=== PATIENT | male | born 1970 | race Caucasian/White ===

== ENCOUNTER 2018-05-03 00:59 | Emergency (ER) | payer BC ==
[2018-05-03 01:09] VITALS: BP 149/80; PULSE 69; RESP 16; TEMP 98.2
[2018-05-03] MEDS ORDERED: DIAZEPAM 5 MG/ML 2 ML INJ IVP STA (01:55)
[2018-05-03] MEDS ORDERED: SODIUM CHLORIDE 0.9% 1,000 ML IV ONE (01:55)
--- NOTE | 2018-05-03 02:27 | ED ---
Lower Extremity Injury HPI - General Chief Complaint: Extremity Injury, Lower Stated Complaint: leg injury Time Seen by Provider: 05/03/18 01:24 Source: patient Mode of arrival: ambulatory Limitations: no limitations - History of Present Illness Initial Comments: Marcia is a previously healthy 47-year-old gentleman with a history of Crohn's disease who presents the emergency department today for evaluation of right lower extremity pain. Patient reports he was in his usual state of health throughout the day today. He spent most of the day working on his snowmobile in his garage. He denies being in a kneeling her awkward position for any extended period of time. Patient reports that this evening he was getting out of his vehicle when else a pop in his right calf and immediate pain throughout the calf. He thought it was initially a muscle spasm but the pain persisted which prompted his significant other to bring him to the ER for evaluation. Patient denies any previous history to this extremity. He denies any history of DVT or PE. He denies any slips or falls or injuries. He did not twist the ankle or the knee. He reports the pain is in the mid calf. - Related Data Home Medications Medication Instructions Recorded Confirmed No Known Home Medications 09/06/13 09/06/13 Allergies Allergy/AdvReac Type Severity Reaction Status Date / Time No Known Allergies Allergy Verified 05/03/18 01:09 Review of Systems ROS Statement: Those systems with pertinent positive or pertinent negative responses have been documented in the HPI. ROS Other: All systems not noted in ROS Statement are negative. Past Medical History Additional Past Medical History / Comment(s): crohns dx History of Any Multi-Drug Resistant Organisms: None Reported Past Surgical History: Cholecystectomy Additional Past Surgical History / Comment(s): resection of colon x2 Past Anesthesia/Blood Transfusion Reactions: No Reported Reaction Past Psychological History: No Psychological Hx Reported Smoking Status: Current every day smoker General Exam - General Exam Comments Initial Comments: GENERAL: Patient is well-developed and well-nourished. Patient is nontoxic and well-hydrated and is in no distress. HENT: Normocephalic, Atraumatic. EYES: The sclera were anicteric and conjunctiva were pink and moist. Extraocular movements were intact and pupils were equal round and reactive to light. Eyelids were unremarkable. PULMONARY: Unlabored respirations. CARDIOVASCULAR: There is a regular rate and rhythm without any murmurs gallops or rubs. strong DP and PT pulses of the right lower extremity no lower extremity edema ABDOMEN: Soft and nontender with normal bowel sounds. SKIN: Skin is clear with no lesions or rashes and otherwise unremarkable. NEUROLOGIC: Patient is alert and oriented x3. MUSCULOSKELETAL: Normal extremities with adequate strength and full range of motion. No lower extremity swelling or edema. No calf tenderness. Negative Chaudhry's test Negative Homans sign LYMPHATICS: No significant lymphadenopathy is noted PSYCHIATRIC: Normal psychiatric evaluation. Limitations: no limitations Limitations: no limitations Course Vital Signs 05/03/18 01:06 Temperature 98.2 F Pulse Rate 69 Respiratory 16 Rate Blood Pressure 149/80 O2 Sat by Pulse 99 Oximetry Medical Decision Making - Medical Decision Making Patient was seen and evaluated history was obtained from the patient and significant other bedside Patient with atraumatic pain that began is a tightness in the right calf, patient believes he may have heard a popping sound when stepping out of his vehicle but is uncertain Patient noted previous injury to this extremity As ago exam is completely unremarkable patient has no swelling no bruising he is neurovascularly intact he has good strength negative Chaudhry test no sign of Achilles tendon injury, no signs of compartment syndrome Patient has tenderness in the belly of the muscles There is some fullness in the popliteal fossa, I do have some concern for possible Owens's cyst Bedside ultrasound reveals normal vasculature with no obvious DVT No obvious Owens's cyst Labs with anemia and high platelets this is consistent with patient's history of Crohn's CPK mildly elevated d-dimer not elevated she was reevaluated he sleeping comfortably. Results were discussed with the patient's significant other at bedside. At this time patient is comfortable with the plan for discharge home. Close return parameters were discussed.all questions pertaining to care were answered to the best my ability patient was discharged home in stable condition. - Lab Data Result diagrams: 05/03/18 02:30 05/03/18 02:30 Lab Results 05/03/18 05/03/18 05/03/18 Range/Units 02:30 02:30 02:30 WBC 7.5 (3.8-10.6) k/uL RBC 4.34 (4.30-5.90) m/uL Hgb 12.4 L (13.0-17.5) gm/dL Hct 38.1 L (39.0-53.0) % MCV 87.7 (80.0-100.0) fL MCH 28.7 (25.0-35.0) pg MCHC 32.7 (31.0-37.0) g/dL RDW 14.2 (11.5-15.5) % Plt Count 489 H (150-450) k/uL Neutrophils % 54 % Lymphocytes % 33 % Monocytes % 6 % Eosinophils % 5 % Basophils % 1 % Neutrophils # 4.0 (1.3-7.7) k/uL Lymphocytes # 2.4 (1.0-4.8) k/uL Monocytes # 0.4 (0-1.0) k/uL Eosinophils # 0.4 (0-0.7) k/uL Basophils # 0.0 (0-0.2) k/uL D-Dimer 0.41 (<0.60) mg/L FEU Sodium 139 (137-145) mmol/L Potassium 3.8 (3.5-5.1) mmol/L Chloride 106 (98-107) mmol/L Carbon Dioxide 26 (22-30) mmol/L Anion Gap 7 mmol/L BUN 18 (9-20) mg/dL Creatinine 0.95 (0.66-1.25) mg/dL Est GFR (CKD-EPI)AfAm >90 (>60 ml/min/1.73 sqM) Est GFR (CKD-EPI)NonAf >90 (>60 ml/min/1.73 sqM) Glucose 112 H (74-99) mg/dL Calcium 9.0 (8.4-10.2) mg/dL Magnesium 2.1 (1.6-2.3) mg/dL Creatine Kinase 465 H (55-170) U/L Disposition Clinical Impression: Muscle spasm of right calf Disposition: HOME SELF-CARE Instructions (If sedation given, give patient instructions): Bakers Cyst (ED), Muscle Spasm (ED) Is patient prescribed a controlled substance at d/c from ED?: No Referrals: Bereket Rothman MD [Primary Care Provider] - 1-2 days Pj Echeverria DO [Doctor of Osteopathic Medicine] - 1-2 days
[2018-05-03 02:48] LABS: Basophils % (A) 1 %; Eosinophils # (A) 0.4 k/uL (0-0.7); Eosinophils % (A) 5 %; HCT 38.1 % (39.0-53.0); HGB 12.4 gm/dL (13.0-17.5); Lymphocytes # (A) 2.4 k/uL (1.0-4.8); Lymphocytes % (A) 33 %; MCH 28.7 pg (25.0-35.0); MCHC 32.7 g/dL (31.0-37.0); MCV 87.7 fL (80.0-100.0); Mean Platelet Volume 5.5; Monocytes # (A) 0.4 k/uL (0-1.0); Monocytes % (A) 6 %; Neutrophils % (A) 54 %; Platelet Count 489 k/uL (150-450); RBC 4.34 m/uL (4.30-5.90); RDW 14.2 % (11.5-15.5); WBC 7.5 k/uL (3.8-10.6)
[2018-05-03 02:57] LABS: Anion Gap 7 mmol/L; Blood Urea Nitrogen 18 mg/dL (9-20); Carbon Dioxide 26 mmol/L (22-30); Chloride 106 mmol/L (98-107); Creatine Kinase 465 U/L (55-170); Glucose 112 mg/dL (74-99); Magnesium 2.1 mg/dL (1.6-2.3); Potassium 3.8 mmol/L (3.5-5.1); Sodium 139 mmol/L (137-145)
== END 2018-05-03 04:19 | disposition home or self-care (01) ==
LOC: EC 00:59
DX: M62.838 Other muscle spasm (principal); R93.89 Abnormal findings on diagnostic imaging of other specified body structures; R74.8 Abnormal levels of other serum enzymes; D64.9 Anemia, unspecified; D47.3 Essential (hemorrhagic) thrombocythemia; F17.200 Nicotine dependence, unspecified, uncomplicated; Z87.828 Personal history of other (healed) physical injury and trauma; X50.9XXA Other and unspecified overexertion or strenuous movements or postures, initial encounter; Y93.89 Activity, other specified
CPT/HCPCS: 36415; 85379; 80048; 82550; 83735; 85025; 99284; 96374; 96361 ×2; J3360

== ENCOUNTER → 2018-05-06 | Outpatient (CLI) | payer BC ==
--- NOTE | 2018-05-06 17:40 | US ---
EXAMINATION TYPE: US venous doppler duplex LE LT DATE OF EXAM: 05/06/2018 5:25 PM COMPARISON: NONE CLINICAL HISTORY: M79.605 Calf Pain. no known injury, calf pain for a few days, heard pop sound in ca lf, no h/o dvt SIDE PERFORMED: left TECHNIQUE: The lower extremity deep venous system is examined utilizing real time linear array sonog percy with graded compression, doppler sonography and color-flow sonography. VESSELS IMAGED: External Iliac Vein (EIV) Common Femoral Vein Deep Femoral Vein Greater Saphenous Vein * Femoral Vein Popliteal Vein Small Saphenous Vein * Proximal Calf Veins (* superficial vessels) Left Leg: Appears negative for DVT *spoke with office @ 5:25 IMPRESSION: No evidence of deep venous thrombosis in the left leg.
== END | disposition home or self-care (01) ==
LOC: RADUSWWP 16:57
PROVIDERS: ATTEND Physician Assistant
DX: M79.605 Pain in left leg (principal)

== ENCOUNTER 2018-09-20 19:37 | Inpatient (IN) | payer BC ==
[2018-09-20] MEDS ORDERED: SODIUM CHLORIDE 0.9% 1,000 ML IV STA (20:14)
[2018-09-20] MEDS ORDERED: ONDANSETRON 4 MG/2 ML VIAL IVP STA (20:14)
[2018-09-20] MEDS: HYDROmorphone 1 MG/ML 1 ML SYRINGE IVP STA ×2 (20:21→22:15)
[2018-09-20 20:41] LABS: ALT 19 U/L (21-72); AST 24 U/L (17-59); African American GFR (CKD) >90 (>60 ml/min/1.73 sqM); Albumin 4.7 g/dL (3.5-5.0); Alkaline Phosphatase 101 U/L (38-126); Amylase 49 U/L (30-110); Anion Gap 14 mmol/L; Blood Urea Nitrogen 20 mg/dL (9-20); Calcium 10.3 mg/dL (8.4-10.2); Carbon Dioxide 22 mmol/L (22-30); Chloride 105 mmol/L (98-107); Glucose 99 mg/dL (74-99); Lipase 41 U/L (23-300); Potassium 4.4 mmol/L (3.5-5.1); Sodium 141 mmol/L (137-145); Total Bilirubin 0.4 mg/dL (0.2-1.3)
[2018-09-20 21:06] LABS: Basophils # (A) 0.1 k/uL (0-0.2); Basophils % (A) 0 %; Eosinophils # (A) 0.2 k/uL (0-0.7); Eosinophils % (A) 1 %; HCT 46.1 % (39.0-53.0); HGB 15.2 gm/dL (13.0-17.5); Lymphocytes # (A) 1.7 k/uL (1.0-4.8); Lymphocytes % (A) 10 %; MCH 28.6 pg (25.0-35.0); MCV 86.8 fL (80.0-100.0); Mean Platelet Volume 7.3; Monocytes # (A) 0.9 k/uL (0-1.0); Monocytes % (A) 5 %; Neutrophils # (A) 14.9 k/uL (1.3-7.7); Neutrophils % (A) 83 %; Platelet Count 595 k/uL (150-450); RBC 5.31 m/uL (4.30-5.90); RDW 15.4 % (11.5-15.5); WBC 18.1 k/uL (3.8-10.6)
--- NOTE | 2018-09-20 21:15 | CT ---
EXAMINATION TYPE: CT abdomen pelvis w con DATE OF EXAM: 09/20/2018 COMPARISON: 02/16/2013 HISTORY: Abdominal pain and vomiting. Hx of Crohns diease CT DLP: 1130.2 mGycm Automated exposure control for dose reduction was used. TECHNIQUE: Helical acquisition of images was performed from the lung bases through the pelvis. CONTRAST: Performed without Oral Contrast and with IV Contrast, patient injected with 100 mL of Isovue 300. FINDINGS: There is some patchy interstitial infiltrate at the right lung base. There is no pleural effusion. Th ere is no pericardial effusion. Heart size is normal. Stomach is large and filled with fluid. Spleen appears normal. There are clips from cholecystectomy. Liver shows no focal defect. There is no evidence of pancreatic mass. There is no adrenal mass. Kidneys show satisfactory contrast opacification. There is no hydronephrosi s. Ureters are not dilated. There is no retroperitoneal adenopathy. Bladder distends smoothly. There are numerous dilated fluid-filled loops of small bowel throughout the abdomen. There is ileocol ic anastomosis in the right mid abdomen. There is mild wall thickening of the terminal ileum. There i s transition point at the terminal ileum. The large bowel is not dilated. There is no inguinal hernia. There is no ascites. There is no free air. Lumbar spine is intact. Bony pelvis is intact. IMPRESSION: MULTIPLE DILATED LOOPS OF FLUID-FILLED SMALL BOWEL DOWN TO THE TERMINAL ILEUM CONSISTENT WITH PARTIAL MECHANICAL SMALL BOWEL OBSTRUCTION THAT IS A CHANGE COMPARED TO OLD EXAM. PREVIOUS SURGERY AT THE DI STAL ILEUM WITH RESECTION OF THE TERMINAL ILEUM AND THE CECUM. THERE IS SOME WALL THICKENING OF THE T ERMINAL ILEUM WITH SUGGESTIVE OF INFLAMMATORY BOWEL DISEASE. INTERSTITIAL INFILTRATES AT THE RIGHT LUNG BASE UNCHANGED AND CONSISTENT WITH FIBROSIS.
--- NOTE | 2018-09-20 22:32 | ED ---
Abdominal Pain HPI - General Source: patient Mode of arrival: ambulatory Limitations: no limitations <Aissatou Canales - Last Filed: 09/20/18 22:32> <Bronwyn Marino - Last Filed: 09/21/18 05:39> - General Chief Complaint: Abdominal Pain Stated Complaint: Crohns Disease Time Seen by Provider: 09/20/18 20:03 - History of Present Illness Initial Comments: 48-year-old male patient presents to the emergency department today for evaluation of generalized abdominal pain and vomiting. Patient states that he has had some discomfort in the abdomen over the last few days but the pain worsened significantly today. Patient states that he started vomiting earlier today and hasn't been able to stop. He is unable to keep down any food or fluids. He denies any fever or chills. Patient does have a history of Crohn's colitis and feels like he may be having a flare. He reports then ribbonlike stools. He denies any hematuria, hematochezia, melena. Denies any difficulty with urination. Patient has had bowel resection in the past. Patient denies any recent rash, shortness breath, chest pain, back pain, numbness, tingling, dizziness, weakness, hematuria, dysuria, urinary urgency, urinary frequency, headache, visual changes, or any other complaints. (Aissatou Canales) - Related Data Home Medications Medication Instructions Recorded Confirmed Dextroamphetamine/Amphetamine 30 mg PO BID 09/20/18 09/20/18 [Adderall Xr] Allergies Allergy/AdvReac Type Severity Reaction Status Date / Time No Known Allergies Allergy Verified 09/20/18 22:46 Review of Systems ROS Other: All systems not noted in ROS Statement are negative. <Aissatou Canales - Last Filed: 09/20/18 22:32> ROS Other: All systems not noted in ROS Statement are negative. <Bronwyn Marino - Last Filed: 09/21/18 05:39> ROS Statement: Those systems with pertinent positive or pertinent negative responses have been documented in the HPI. Past Medical History Additional Past Medical History / Comment(s): crohns dx History of Any Multi-Drug Resistant Organisms: None Reported Past Surgical History: Cholecystectomy Additional Past Surgical History / Comment(s): resection of colon x2 Past Anesthesia/Blood Transfusion Reactions: No Reported Reaction Past Psychological History: No Psychological Hx Reported Smoking Status: Current every day smoker Past Alcohol Use History: None Reported Past Drug Use History: None Reported <AllyYangAissatou Edelmira - Last Filed: 09/20/18 22:32> General Exam Limitations: no limitations General appearance: alert, in distress (Due to pain), other (Physical well- developed, well-nourished adult male patient in no mild distress related to pain. Vital signs upon presentation are temperature 97.4F, pulse 88, respirations 18, blood pressure 121/81, pulse ox 99% on room air.) Eye exam: Present: normal appearance, PERRL, EOMI. Absent: scleral icterus, conjunctival injection, periorbital swelling ENT exam: Present: normal exam, normal oropharynx, mucous membranes moist Respiratory exam: Present: normal lung sounds bilaterally. Absent: respiratory distress, wheezes, rales, rhonchi, stridor Cardiovascular Exam: Present: regular rate, normal rhythm, normal heart sounds. Absent: systolic murmur, diastolic murmur, rubs, gallop, clicks GI/Abdominal exam: Present: soft, tenderness (Generalized), normal bowel sounds. Absent: distended, guarding, rebound, rigid Neurological exam: Present: alert, oriented X3, CN II-XII intact Psychiatric exam: Present: normal affect, normal mood Skin exam: Present: warm, dry, intact, normal color. Absent: rash <AllyAissatou Edelmira - Last Filed: 09/20/18 22:32> Course Vital Signs 09/20/18 09/20/18 09/21/18 19:47 22:35 00:00 Temperature 97.4 F L Pulse Rate 88 80 86 Respiratory 18 16 16 Rate Blood Pressure 121/81 113/74 111/74 O2 Sat by Pulse 99 93 L 94 L Oximetry 09/21/18 09/21/18 09/21/18 01:43 02:42 05:30 Temperature 98 F Pulse Rate 93 94 91 Respiratory 16 18 18 Rate Blood Pressure 114/75 107/76 117/78 O2 Sat by Pulse 93 L 94 L 93 L Oximetry Medical Decision Making - Lab Data Result diagrams: 09/20/18 19:55 09/20/18 19:55 - Radiology Data Radiology results: report reviewed, image reviewed <Aissatou Canales Edelmira - Last Filed: 09/20/18 22:32> - Lab Data Result diagrams: 09/20/18 19:55 09/20/18 19:55 <Bronwyn Marino - Last Filed: 09/21/18 05:39> - Medical Decision Making 48-year-old male patient presents to the emergency department today for evaluation of abdominal pain and vomiting. Physical examination did reveal generalized abdominal tenderness. Labs reviewed and did reveal white blood cell count of 18.1. CT abdomen and pelvis was obtained and showed evidence for partial small bowel obstruction. Did have a fluid distended stomach. We will insert NG tube. IV fluids and pain medication will be provided. He'll be admit priya to the hospital with GI and surgical consult. Patient family are updated regarding results and plan, they are agreeable. (Aissatou Canales) I personally saw and evaluated the patient. Patient with a small bowel, NG tube in place, presently 600 mL of output. Patient with persistent nausea, but feeling better with the NG tube in place. (Bronwyn Marino) - Lab Data Lab Results 09/20/18 09/20/18 09/20/18 Range/Units 19:55 19:55 19:55 WBC 18.1 H (3.8-10.6) k/uL RBC 5.31 (4.30-5.90) m/uL Hgb 15.2 (13.0-17.5) gm/dL Hct 46.1 (39.0-53.0) % MCV 86.8 (80.0-100.0) fL MCH 28.6 (25.0-35.0) pg MCHC 33.0 (31.0-37.0) g/dL RDW 15.4 (11.5-15.5) % Plt Count 595 H (150-450) k/uL Neutrophils % 83 % Lymphocytes % 10 % Monocytes % 5 % Eosinophils % 1 % Basophils % 0 % Neutrophils # 14.9 H (1.3-7.7) k/uL Lymphocytes # 1.7 (1.0-4.8) k/uL Monocytes # 0.9 (0-1.0) k/uL Eosinophils # 0.2 (0-0.7) k/uL Basophils # 0.1 (0-0.2) k/uL Sodium 141 (137-145) mmol/L Potassium 4.4 (3.5-5.1) mmol/L Chloride 105 (98-107) mmol/L Carbon Dioxide 22 (22-30) mmol/L Anion Gap 14 mmol/L BUN 20 (9-20) mg/dL Creatinine 0.90 (0.66-1.25) mg/dL Est GFR (CKD-EPI)AfAm >90 (>60 ml/min/1.73 sqM) Est GFR (CKD-EPI)NonAf >90 (>60 ml/min/1.73 sqM) Glucose 99 (74-99) mg/dL Plasma Lactic Acid Donnell 1.8 (0.7-2.0) mmol/L Calcium 10.3 H (8.4-10.2) mg/dL Total Bilirubin 0.4 (0.2-1.3) mg/dL AST 24 (17-59) U/L ALT 19 L (21-72) U/L Alkaline Phosphatase 101 (38-126) U/L Total Protein 8.0 (6.3-8.2) g/dL Albumin 4.7 (3.5-5.0) g/dL Amylase 49 (30-110) U/L Lipase 41 (23-300) U/L - Radiology Data CT abdomen and pelvis with contrast was obtained. Report was reviewed in its entirety. Impression by Dr. Carty shows multiple dilated loops of fluid- filled small bowel down to the terminal ileum consistent with partial mechanical small bowel obstruction that is a change compared to old exam. Previous surgery of the distal ileum with resection of the terminal ileum in the cecum. There is some wall thickening of the terminal ileum with suggestion of inflammatory bowel disease. Interstitial infiltrates at the right lung base unchanged are consistent with fibrosis. (Aissatou Canales) Disposition Decision to Admit Reason: Admit from EC Decision Date: 09/20/18 Decision Time: 22:37 <Aissatou Canales - Last Filed: 09/20/18 22:32> Is patient prescribed a controlled substance at d/c from ED?: No <Bronwyn Marino - Last Filed: 09/21/18 05:39> Clinical Impression: Partial small bowel obstruction, Abdominal pain Disposition: ADMITTED IP TO THIS HOSP Condition: Serious
[2018-09-20] MEDS ORDERED: NALOXONE 0.4 MG/ML 1 ML VIAL IV PRN (22:37)
[2018-09-20] MEDS: SODIUM CHLORIDE 0.9% 1,000 ML IV SCH (23:01)
[2018-09-21] MEDS: HYDROmorphone 1 MG/ML 1 ML SYRINGE IVP PRN ×6 (02:46→23:34)
[2018-09-21] MEDS: ONDANSETRON 4 MG/2 ML VIAL IVP PRN ×2 (02:56→12:28)
[2018-09-21] MEDS: PROMETHAZINE INJ 25 MG in SODIUM CHLORIDE 0.9% 50 ML IVPB PRN ×4 (08:33→16:21)
[2018-09-21 10:05] LABS: Appearance,Urine Clear (Clear); Bilirubin,Urine 1+ (Negative); Blood,Urine Negative (Negative); Color,Urine Yellow; Glucose,Urine (UA) Negative (Negative); Ketones,Urine Negative (Negative); Leukocyte Esterase,Urine Negative (Negative); Mucus,Urine Occasional /hpf; Nitrite,Urine Negative (Negative); PH, Urine 5.5 (5.0-8.0); Protein,Urine 1+ (Negative); RBC,Urine 8 /hpf (0-5); Urobilinogen,Urine <2.0 mg/dL (<2.0); WBC,Urine 1 /hpf (0-5)
[2018-09-21 10:11] LABS: Specific Gravity,Urine >1.050 (1.001-1.035)
[2018-09-21 10:18] LABS: ALT 22 U/L (21-72); AST 17 U/L (17-59); African American GFR (CKD) >90 (>60 ml/min/1.73 sqM); Albumin 3.3 g/dL (3.5-5.0); Alkaline Phosphatase 74 U/L (38-126); Anion Gap 9 mmol/L; Blood Urea Nitrogen 27 mg/dL (9-20); Calcium 8.3 mg/dL (8.4-10.2); Carbon Dioxide 25 mmol/L (22-30); Chloride 107 mmol/L (98-107); Glucose 98 mg/dL (74-99); Potassium 4.5 mmol/L (3.5-5.1); Sodium 141 mmol/L (137-145); Total Bilirubin 0.5 mg/dL (0.2-1.3); Total Protein 6.1 g/dL (6.3-8.2)
[2018-09-21 10:32] LABS: HCT 41.9 % (39.0-53.0); HGB 13.4 gm/dL (13.0-17.5); MCH 28.9 pg (25.0-35.0); MCV 90.2 fL (80.0-100.0); Mean Platelet Volume 6.2; Platelet Count 454 k/uL (150-450); RBC 4.65 m/uL (4.30-5.90); RDW 14.7 % (11.5-15.5); WBC 7.3 k/uL (3.8-10.6)
[2018-09-21 12:01] LABS: Band Neutrophils % 28 %; Eosinophils # (M) 0.15 k/uL (0-0.7); Metamyelocytes # (M) 0.07 k/uL (0); Metamyelocytes % 1 %; Neutrophils % (M) 48 %; Nucleated Red Blood Cells 0 /100 WBC (0-0); Total Cells Counted 200
[2018-09-21] MEDS: SODIUM CHLORIDE 0.9% 1,000 ML IV SCH (12:23)
[2018-09-21] MEDS: ENOXAPARIN 40 MG/0.4 ML SYRINGE SQ SCH (12:28)
--- NOTE | 2018-09-21 12:29 | P.CONS ---
History of Present Illness - Reason for Consult Consult date: 09/21/18 History of Crohn's small bowel obstruction Requesting physician: Benjamin Long - Chief Complaint Abdominal pain - History of Present Illness 48-year-old male with a history of cholecystectomy, Crohn's ileitis 1995 with previous bowel resection 2 last 04/05/2012 secondary to small bowel abscess admitted with acute abdominal pain nausea vomiting without fever chills or b leeding [address] reported multiple dilated loops of small bowel down to the terminal ileum consistent with partial mechanical small bowel obstruction. Passing ribbonlike bowel movements. NG tube inserted with bilious return. Patient has not required maintenance therapy for his Crohn's since 2012. 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 No recent Crohn's exacerbations. No recent prednisone therapy. Last colonoscopy to his memory was in 1995. White count 18.1. Hemoglobin 15.2. Platelets 595. Sodium 141. Potassium 4.4. BUN 20. Creatinine 0.9. Review of Systems Constitutional: Denies fever, chills, sweats, weight gain, or loss. HEENT: Negative for migraines, blurred vision or loss, earaches, drainage, tinnitus, oral mucosal lesions, dysphagia, or odynophagia. Cardiac: Negative for chest pain, arrhythmias, or palpitation. Respiratory: Negative for shortness of breath, hemoptysis, cough, or sputum production. Gastrointestinal: See HPI for pertinent findings. Genitourinary: Negative for hematuria, urgency, frequency, polyuria, dysuria, or penile discharge. Musculoskeletal: Negative for muscle aches, swelling, arthritis, and arthralgias. Neurologic: Negative for stroke or TIA. Endocrine: Negative for thyroid problems. Skin: Negative for rash or itching. Psychiatric: Negative history for depression and anxiety Past Medical History Additional Past Medical History / Comment(s): crohns dx History of Any Multi-Drug Resistant Organisms: None Reported Past Surgical History: Appendectomy, Cholecystectomy Additional Past Surgical History / Comment(s): resection of colon x2 Past Anesthesia/Blood Transfusion Reactions: No Reported Reaction Past Psychological History: No Psychological Hx Reported Smoking Status: Current every day smoker Past Alcohol Use History: None Reported Past Drug Use History: None Reported - Past Family History Mother Family Medical History: No Reported History Father Family Medical History: No Reported History Medications and Allergies Home Medications Medication Instructions Recorded Confirmed Type Dextroamphetamine/Amphetamine 30 mg PO BID 09/20/18 09/20/18 History [Adderall Xr] Allergies Allergy/AdvReac Type Severity Reaction Status Date / Time No Known Allergies Allergy Verified 09/20/18 22:46 Physical Exam Vitals: Vital Signs Temp Pulse Pulse Resp BP BP Pulse Ox 09/21/18 06:15 99 F 87 20 110/68 94 L 09/21/18 05:30 98 F 91 18 117/78 93 L 09/21/18 02:42 94 18 107/76 94 L 09/21/18 01:43 93 16 114/75 93 L 09/21/18 00:00 86 16 111/74 94 L 09/20/18 22:35 80 16 113/74 93 L 09/20/18 19:47 97.4 F L 88 18 121/81 99 Intake and Output 09/20/18 09/21/18 09/21/18 22:59 06:59 14:59 Output Total 1200 Balance -1200 Output: Gastric Drainage 1200 Other: Voiding Method Urinal # Voids 1 Weight 92.986 kg General appearance: The patient is alert, oriented, in no acute distress. HET: Head is normocephalic and atraumatic. Pupils are equal and reactive. Oropharynx is clear without lesions. NG tube with bilious return. Neck: Supple without lymphadenopathy. Trachea midline. Heart: S1 S2. Regular rate and rhythm. Lungs: No crackles or wheezes are heard. Abdomen: Soft, mild tenderness to the right lower quadrant, nondistended with hypoactive bowel sounds. No peritoneal signs. No palpable organomegaly or masses. Extremities: Normal skin color and turgor. No cyanosis, rash, ulceration, clubbing, or edema. Radial and pedal pulses are 2/4 bilaterally. Neurological: No focal deficits. Strength and sensation are grossly intact. Results CBC & Chem 7: 09/21/18 09:29 09/21/18 09:29 Labs: Abnormal Lab Results - Last 24 Hours (Table) 09/20/18 09/20/18 09/21/18 Range/Units 19:55 19:55 07:00 WBC 18.1 H (3.8-10.6) k/uL Plt Count 595 H (150-450) k/uL Neutrophils # 14.9 H (1.3-7.7) k/uL BUN (9-20) mg/dL Calcium 10.3 H (8.4-10.2) mg/dL ALT 19 L (21-72) U/L Total Protein (6.3-8.2) g/dL Albumin (3.5-5.0) g/dL Ur Specific [place] >1.050 H (1.001-1.035) Urine Protein 1+ H (Negative) Urine Bilirubin 1+ H (Negative) Urine RBC 8 H (0-5) /hpf Urine Mucus Occasional H (None) /hpf 09/21/18 Range/Units 09:29 WBC (3.8-10.6) k/uL Plt Count (150-450) k/uL Neutrophils # (1.3-7.7) k/uL BUN 27 H (9-20) mg/dL Calcium 8.3 L (8.4-10.2) mg/dL ALT (21-72) U/L Total Protein 6.1 L (6.3-8.2) g/dL Albumin 3.3 L (3.5-5.0) g/dL Ur Specific [place] (1.001-1.035) Urine Protein (Negative) Urine Bilirubin (Negative) Urine RBC (0-5) /hpf Urine Mucus (None) /hpf CT scan - abdomen: report reviewed (Dr. Jordan) Assessment and Plan (1) Abdominal pain Narrative/Plan: 48-year-old male with a history of Crohn's ileitis 1995 presently not on maintenance therapy with 2 previous bowel resections last one in 2012 secondary to small bowel abscess presents with acute abdominal pain nausea vomiting CT reported dilated small bowel loops with small bowel thickening consistent with partial mechanical small bowel obstruction underlying exacerbation of small bowel Crohn's disease is suspected. Current Visit: Yes Status: Acute Code(s): R10.9 - UNSPECIFIED ABDOMINAL PAIN SNOMED Code(s): 90910871 (2) Crohn's ileitis Current Visit: Yes Status: Acute Code(s): K50.00 - CROHN'S DISEASE OF SMALL INTESTINE WITHOUT COMPLICATIONS SNOMED Code(s): 13724446 (3) Partial small bowel obstruction Current Visit: Yes Status: Acute Code(s): K56.600 - PARTIAL INTESTINAL OBSTRUCTION, UNSPECIFIED TO CAUSE SNOMED Code(s): 741000235 Plan: 1. Nothing by mouth. IV abx; Zosyn 3.375 grams every 8 hours. IV steroids 20 mg every 8 hours. General surgical consult. NG tube decompression. 2. CRP ESR now and daily. Abdominal x-rays. Thank you for this kind referral and the opportunity to participate in the care of your patient. This consultation was discussed with Dr. Jordan. The impression and plan of care have been directed as dictated.
[2018-09-21] MEDS: LACTATED RINGERS 1,000 ML IV SCH ×2 (12:34→23:37)
[2018-09-21] MEDS: PANTOPRAZOLE 40 MG/10 ML VIAL IVP SCH (12:57)
--- NOTE | 2018-09-21 14:46 | XR ---
EXAMINATION TYPE: XR abdomen complete w decub DATE OF EXAM: 09/21/2018 COMPARISON: 02/15/2013 HISTORY: SBO TECHNIQUE: Supine, upright, and left side down lateral decubitus views of the abdomen are obtained. FINDINGS: Markedly dilated small bowel loops with numerous air-fluid levels in a pattern compatible w ith obstruction. Bowel dilation may be increased from the prior exam. Surgical clips in the abdomen. Hypertrophic and degenerative changes spine. Subsegmental consolidation involving both lung bases. Ar thropathy of the hips. IMPRESSION: Dilated small bowel loops with air-fluid levels in a pattern highly suggestive of obstruction. Degree of bowel dilation appears increased from the prior exam.
--- NOTE | 2018-09-21 15:14 | P.PN ---
Progress Note - Text Progress Note Date: 09/21/18 Received phone call from radiologist Dr. Temple regarding possible free air on abdominal xrays. Incidentally NGT fell out prior to xray. Orders for NGT reinsertion as well as noncontrast CT A/P given to XENA Maddox. YO Lee and Dr. Jordan updated with xray results.
--- NOTE | 2018-09-21 15:23 | P.GSCN ---
<Hayley Owens A - Last Filed: 09/21/18 15:20> History of Present Illness Consult date: 09/21/18 Reason for Consult: SBO Requesting physician: Aissatou Canales History of present illness: CHIEF COMPLAINT: abdominal pain HISTORY OF PRESENT ILLNESS: 48 year old male who presents to the hospital with a chief complaint of abdominal pain. Patient [place] and was eating and drinking of food that he usually doesn't. He began having abdominal pain yesterday that worsened in severity. He reports bowel movement yesterday. Reports nausea and vomiting. Denies fever or chills. Denies hematemesis, hematochezia, or melena. Patient reports history of bowel resection x 2 (1995 and 2012). Patient reports he also had abscess formation and drainage performed in 2012. Patient reports he used to see Dr. Song but has not followed up with GI specialist in a long time (greater than 1 year). PAST MEDICAL HISTORY: See list. PAST SURGICAL HISTORY: See list. MEDICATIONS: See list. ALLERGIES: See list. SOCIAL HISTORY: No illicit drug use. REVIEW OF SYSTEMS: CONSTITUTIONAL: Denies fever or chills. HEENT: Denies blurred vision, vision changes, or eye pain. Denies hemoptysis ENDOCRINE: Denies heat or cold intolerance. CARDIOVASCULAR: Denies chest pain or pressure. RESPIRATORY: No shortness of breath. GASTROINTESTINAL: See HPI for pertinent findings. NEURO: Denies history of seizures. PSYCH: No depression or suicidal ideation HEMATOLOGIC: Denies bleeding disorders. LYMPHATIC: The patient denies any lumps and bumps around the neck. GENITOURINARY: Denies any blood in urine or increased urinary frequency. MUSCULOSKELETAL: Denies myalgias. Denies joint swelling. Denies decreased range of motion beyond patients baseline. SKIN: Denies pruitis. Denies rash. PHYSICAL EXAM: VITAL SIGNS: Reviewed. GENERAL: Well-developed in no acute distress. HEENT: No sclera icterus. Extraocular movements grossly intact. Moist buccal mucosa. Head is atraumatic, normocephalic. Hears conversational speech. No nasal drainage. NECK: Supple without lymphadenopathy. CHEST: Non-labored respirations and equal bilateral excursions. CARDIOVASCULAR: Regular rate with regular rhythm. Palpable 2+ radial pulses. ABDOMEN: Soft. Nondistended. Tenderness to palpation of right lower quadrant and mid lower abdomen. Positive bowel sounds-hypoactive. MUSCULOSKELETAL: No clubbing, cyanosis or edema. NEUROLOGIC: No focal or lateralizing signs. Cranial nerves II through XII grossly intact. PSYCH: Appropriate affect. Alert and oriented to person, place and time. SKIN: Well perfused. Good skin turgor. LABORATORY DATA: laboratory data upon admission reveals white count 18.1. Hemoglobin 15.2. Neutrophils 14.9. sodium 141. Potassium 4.4. BUN 20. Creatinine 0.90. Lactic acid 1.8. Bilirubin 0.4. AST 24. ALT 19. Amylase 49. Lipase 41. IMAGING: CT abdomen and pelvis: multiple dilated loops of fluid-filled small bowel down to the terminal ileum consistent with partial mechanical small bowel traction. Previous surgery of distal ileum with resection of terminal ileum and cecum. There is some wall thickening of the terminal ileum with suggestive of inflammatory bowel disease. ASSESSMENT: 1. Abdominal pain, nausea, vomiting x 1 day 2. Acute exacerbation of Crohn's disease 3. Partial small bowel obstruction 4. History of bowel resection x 2 PLAN: 1. NPO 2. Continue NG tube 3. Continue IV antibiotics 4. GI on consult. Await evaluation 5. No surgical intervention recommended at this time. Further recommendations pending patient clinical course. Nurse practitioner note has been reviewed by physician. Signing provider agrees with the documented findings, assessment, and plan of care. Past Medical History Additional Past Medical History / Comment(s): crohns dx History of Any Multi-Drug Resistant Organisms: None Reported Past Surgical History: Appendectomy, Cholecystectomy Additional Past Surgical History / Comment(s): resection of colon x2 Past Anesthesia/Blood Transfusion Reactions: No Reported Reaction Past Psychological History: No Psychological Hx Reported Smoking Status: Current every day smoker Past Alcohol Use History: None Reported Past Drug Use History: None Reported - Past Family History Mother Family Medical History: No Reported History Father Family Medical History: No Reported History Medications and Allergies Home Medications Medication Instructions Recorded Confirmed Type Dextroamphetamine/Amphetamine 30 mg PO BID 09/20/18 09/20/18 History [Adderall Xr] Allergies Allergy/AdvReac Type Severity Reaction Status Date / Time No Known Allergies Allergy Verified 09/20/18 22:46 Surgical - Exam Vital Signs Temp Pulse Resp BP Pulse Ox 97.4 F L 88 18 121/81 99 09/20/18 19:47 09/20/18 19:47 09/20/18 19:47 09/20/18 19:47 09/20/18 19:47 Results - Labs 09/21/18 09:29 09/21/18 09:29 Abnormal Lab Results - Last 24 Hours (Table) 09/20/18 09/20/18 09/21/18 Range/Units 19:55 19:55 07:00 WBC 18.1 H (3.8-10.6) k/uL Plt Count 595 H (150-450) k/uL Neutrophils # 14.9 H (1.3-7.7) k/uL Lymphocytes # (Manual) (1.0-4.8) k/uL Metamyelocytes # (Man) (0) k/uL BUN (9-20) mg/dL Calcium 10.3 H (8.4-10.2) mg/dL ALT 19 L (21-72) U/L Total Protein (6.3-8.2) g/dL Albumin (3.5-5.0) g/dL Ur Specific [place] >1.050 H (1.001-1.035) Urine Protein 1+ H (Negative) Urine Bilirubin 1+ H (Negative) Urine RBC 8 H (0-5) /hpf Urine Mucus Occasional H (None) /hpf 09/21/18 09/21/18 Range/Units 09:29 09:29 WBC (3.8-10.6) k/uL Plt Count 454 H (150-450) k/uL Neutrophils # (1.3-7.7) k/uL Lymphocytes # (Manual) 0.80 L (1.0-4.8) k/uL Metamyelocytes # (Man) 0.07 H (0) k/uL BUN 27 H (9-20) mg/dL Calcium 8.3 L (8.4-10.2) mg/dL ALT (21-72) U/L Total Protein 6.1 L (6.3-8.2) g/dL Albumin 3.3 L (3.5-5.0) g/dL Ur Specific [place] (1.001-1.035) Urine Protein (Negative) Urine Bilirubin (Negative) Urine RBC (0-5) /hpf Urine Mucus (None) /hpf Diabetes panel 09/20/18 09/21/18 Range/Units 19:55 09:29 Sodium 141 141 (137-145) mmol/L Potassium 4.4 4.5 (3.5-5.1) mmol/L Chloride 105 107 (98-107) mmol/L Carbon Dioxide 22 25 (22-30) mmol/L BUN 20 27 H (9-20) mg/dL Creatinine 0.90 0.91 (0.66-1.25) mg/dL Glucose 99 98 (74-99) mg/dL Calcium 10.3 H 8.3 L (8.4-10.2) mg/dL AST 24 17 (17-59) U/L ALT 19 L 22 (21-72) U/L Alkaline Phosphatase 101 74 (38-126) U/L Total Protein 8.0 6.1 L (6.3-8.2) g/dL Albumin 4.7 3.3 L (3.5-5.0) g/dL Calcium panel 09/20/18 09/21/18 Range/Units 19:55 09:29 Calcium 10.3 H 8.3 L (8.4-10.2) mg/dL Albumin 4.7 3.3 L (3.5-5.0) g/dL Pituitary panel 09/20/18 09/21/18 Range/Units 19:55 09:29 Sodium 141 141 (137-145) mmol/L Potassium 4.4 4.5 (3.5-5.1) mmol/L Chloride 105 107 (98-107) mmol/L Carbon Dioxide 22 25 (22-30) mmol/L BUN 20 27 H (9-20) mg/dL Creatinine 0.90 0.91 (0.66-1.25) mg/dL Glucose 99 98 (74-99) mg/dL Calcium 10.3 H 8.3 L (8.4-10.2) mg/dL Adrenal panel 09/20/18 09/21/18 Range/Units 19:55 09:29 Sodium 141 141 (137-145) mmol/L Potassium 4.4 4.5 (3.5-5.1) mmol/L Chloride 105 107 (98-107) mmol/L Carbon Dioxide 22 25 (22-30) mmol/L BUN 20 27 H (9-20) mg/dL Creatinine 0.90 0.91 (0.66-1.25) mg/dL Glucose 99 98 (74-99) mg/dL Calcium 10.3 H 8.3 L (8.4-10.2) mg/dL Total Bilirubin 0.4 0.5 (0.2-1.3) mg/dL AST 24 17 (17-59) U/L ALT 19 L 22 (21-72) U/L Alkaline Phosphatase 101 74 (38-126) U/L Total Protein 8.0 6.1 L (6.3-8.2) g/dL Albumin 4.7 3.3 L (3.5-5.0) g/dL <Haylie Lee - Last Filed: 09/21/18 21:46> History of Present Illness History of present illness: CT scan personally reviewed with findings of distal small bowel obstruction without free air. He has history of Crohn's disease and recommend conservative management in the interim as he states "I do not want surgery!" Will follow Surgical - Exam Vital Signs Temp Pulse Resp BP Pulse Ox 97.4 F L 88 18 121/81 99 09/20/18 19:47 09/20/18 19:47 09/20/18 19:47 09/20/18 19:47 09/20/18 19:47 Results - Labs 09/21/18 09:29 09/21/18 09:29 Abnormal Lab Results - Last 24 Hours (Table) 09/21/18 09/21/18 09/21/18 Range/Units 07:00 09:29 09:29 Plt Count 454 H (150-450) k/uL Lymphocytes # (Manual) 0.80 L (1.0-4.8) k/uL Metamyelocytes # (Man) 0.07 H (0) k/uL BUN 27 H (9-20) mg/dL Calcium 8.3 L (8.4-10.2) mg/dL C-Reactive Protein (<10.0) mg/L Total Protein 6.1 L (6.3-8.2) g/dL Albumin 3.3 L (3.5-5.0) g/dL Ur Specific [place] >1.050 H (1.001-1.035) Urine Protein 1+ H (Negative) Urine Bilirubin 1+ H (Negative) Urine RBC 8 H (0-5) /hpf Urine Mucus Occasional H (None) /hpf 09/21/18 Range/Units 09:29 Plt Count (150-450) k/uL Lymphocytes # (Manual) (1.0-4.8) k/uL Metamyelocytes # (Man) (0) k/uL BUN (9-20) mg/dL Calcium (8.4-10.2) mg/dL C-Reactive Protein 141.2 H (<10.0) mg/L Total Protein (6.3-8.2) g/dL Albumin (3.5-5.0) g/dL Ur Specific [place] (1.001-1.035) Urine Protein (Negative) Urine Bilirubin (Negative) Urine RBC (0-5) /hpf Urine Mucus (None) /hpf Diabetes panel 09/21/18 Range/Units 09:29 Sodium 141 (137-145) mmol/L Potassium 4.5 (3.5-5.1) mmol/L Chloride 107 (98-107) mmol/L Carbon Dioxide 25 (22-30) mmol/L BUN 27 H (9-20) mg/dL Creatinine 0.91 (0.66-1.25) mg/dL Glucose 98 (74-99) mg/dL Calcium 8.3 L (8.4-10.2) mg/dL AST 17 (17-59) U/L ALT 22 (21-72) U/L Alkaline Phosphatase 74 (38-126) U/L Total Protein 6.1 L (6.3-8.2) g/dL Albumin 3.3 L (3.5-5.0) g/dL Calcium panel 09/21/18 Range/Units 09:29 Calcium 8.3 L (8.4-10.2) mg/dL Albumin 3.3 L (3.5-5.0) g/dL Pituitary panel 09/21/18 Range/Units 09:29 Sodium 141 (137-145) mmol/L Potassium 4.5 (3.5-5.1) mmol/L Chloride 107 (98-107) mmol/L Carbon Dioxide 25 (22-30) mmol/L BUN 27 H (9-20) mg/dL Creatinine 0.91 (0.66-1.25) mg/dL Glucose 98 (74-99) mg/dL Calcium 8.3 L (8.4-10.2) mg/dL Adrenal panel 09/21/18 Range/Units 09:29 Sodium 141 (137-145) mmol/L Potassium 4.5 (3.5-5.1) mmol/L Chloride 107 (98-107) mmol/L Carbon Dioxide 25 (22-30) mmol/L BUN 27 H (9-20) mg/dL Creatinine 0.91 (0.66-1.25) mg/dL Glucose 98 (74-99) mg/dL Calcium 8.3 L (8.4-10.2) mg/dL Total Bilirubin 0.5 (0.2-1.3) mg/dL AST 17 (17-59) U/L ALT 22 (21-72) U/L Alkaline Phosphatase 74 (38-126) U/L Total Protein 6.1 L (6.3-8.2) g/dL Albumin 3.3 L (3.5-5.0) g/dL
--- NOTE | 2018-09-21 16:16 | CT ---
EXAMINATION TYPE: CT abdomen pelvis wo con DATE OF EXAM: 09/21/2018 COMPARISON: 09/20/2018 INDICATION: r/o free air. Hx Crhons. DLP: 786.40 mGycm, Automated exposure control for dose reduction was used. CONTRAST: 0 mL of Isovue 300. Study performed without Oral Contrast TECHNIQUE: Axial images were obtained from above the diaphragm to the pubic rami in the axial plane a t 5 mm thick sections. Reconstructed images are reviewed on the computer in the coronal plane. FINDINGS: Limited CT sections are obtained the lung bases. Multiple linear opacities are in the posterior depe ndent lung bases, likely on the basis of streak atelectasis. No pneumothorax is evident. CT ABDOMEN: No free air is evident. Note is made of a tiny amount subcutaneous air within the anterio r left pelvic subcutaneous tissue. Nasogastric tube enters the stomach from the distal esophagus. Liver: Normal Spleen: Normal Pancreas: Normal Adrenal glands: The adrenal glands are normal. Gallbladder: Surgically absent Kidneys: No masses are evident. No hydronephrosis is present. No cysts are present. No renal stone s are evident. Aorta: Normal Inferior vena cava: Normal. Bowel: Multiple dilated small bowel loops are evident. There is an anastomosis in the right lower lynne drant. Obvious stenosis at this level is not evident. Air and fecal debris is within the distal desce nding colon into the sigmoid colon. Transverse colon contains scattered air-fluid levels. There appear to be some scattered enlarged lymph nodes within the mesentery in the right lower quadra nt. A zone of transition is not identified although the small bowel loop leading to the anastomosis s omewhat smaller in caliber than elsewhere. CT PELVIS: Appendix: Surgically absent Urinary bladder: Herniation into the right inguinal ring is evident within the urinary bladder. Genitourinary structures: Prostate is normal appearance Osseous structures: No suspicious lytic or sclerotic lesions. IMPRESSIONS: 1. Findings suggestive for partial small bowel obstruction. This transition is not identified. 2. No free air evident. 3. Right lower quadrant mesenteric lymphadenopathy. 4. Herniation of the urinary bladder into the right inguinal
[2018-09-21] MEDS: methylPREDNISolone SOD SUCCI 40 MG/ML 1 ML VIAL IV SCH ×2 (16:19→23:37)
[2018-09-21] MEDS: NICOTINE 21MG/24HR PATCH TRANSDERM SCH (16:35)
[2018-09-21] MEDS: PIPERACILLIN-TAZOBACTAM 3.375 GM in SODIUM CHLORIDE 0.9% 100 ML IVPB SCH ×2 (16:36→23:37)
--- NOTE | 2018-09-21 22:00 | HP ---
HISTORY AND PHYSICAL DATE OF ADMISSION: September 20, 2018. DATE OF SERVICE: September 21, 2018. PRESENTING COMPLAINT: Abdominal pain. HISTORY OF PRESENTING COMPLAINT: A very pleasant 48-year-old patient follows with Dr. Rothman. The patient's ornament setter, is Dr. Song from Gastroenterology. The patient has a longstanding history of Crohn disease diagnosed back in 1995. The patient has had 2 large abdominal surgeries and he says about 3-1/2 feet of large bowel was removed and possible terminal part of the small ileum was also removed. The patient has also had abdominal abscess with drainage in the past. The patient and his were returning from [facility] after vacationing and patient started off with having increasing abdominal pain progressively gotten worse, associated nausea, vomiting. No fever or chills. Belly became bloated. At baseline, patient normally has anywhere from 0-10 bowel movements in 24 hours. Last bowel movement was at 3:00 pm yesterday. The patient did have a CT scan that showed small bowel obstruction. Subsequently patient NG tube was placed to which patient is put out quite a bit, but feeling better. Has not had a bowel movement since then. General Surgery was consulted. The patient's at the bedside. REVIEW OF SYSTEMS: CONSTITUTIONAL: Tired. HEENT: NG tube in place. RESPIRATORY none. CARDIOVASCULAR none. GASTROINTESTINAL as above. GENITOURINARY none. MUSCULOSKELETAL none. DERMATOLOGIC, HEMATOLOGIC AND LYMPHATICS: None. PSYCHIATRY none. NEUROLOGICAL: None. PAST MEDICAL HISTORY: Crohn's disease. PAST SURGICAL HISTORY: Large bowel resection about three and one half feet, appendectomy, cholecystectomy. SOCIAL HISTORY: Smokes about a pack a day. Alcohol socially. . The patient is a beer intermodal truck driver. No use of recreational drugs. FAMILY HISTORY: Reviewed. Noncontributory to the presentation. HOME MEDICATIONS: Adderall XR 30 mg b.i.d. ALLERGIES: None. PHYSICAL EXAMINATION: Vital signs on presentation: Temperature 97.4, pulse 88, respiratory 18, blood pressure 121/81, pulse ox 99% on room air. GENERAL APPEARANCE: Average built, lying in bed, a bit tired-appearing. EYES: Pupils equal. Conjunctivae normal. HEENT: External appearance of nose and ears normal. Oral cavity dry. NG tube in place. NECK: JVD unable to assess. Mass not palpable. RESPIRATORY: Effort normal. LUNGS fair entry. CARDIOVASCULAR: First and second sounds normal. No edema. ABDOMEN: Minimal dilatation. Liver and spleen not palpable. Some lower abdominal tenderness. No guarding or rigidity. Bowel sounds are hyperactive. Abdominal scars are present. LYMPHATIC: No lymph nodes palpable in the neck and axilla. PSYCHIATRY: Alert and oriented x3. Mood and affect normal. NEUROLOGICAL: Pupils equal. Cranial nerves grossly intact. Power and sensation grossly intact. INVESTIGATIONS: Abdominal x-ray film personally reviewed by me shows air-fluid levels and dilated loops of bowel. CT scan of the abdomen shows evidence of partial small-bowel obstruction. White count 18.1, repeat 7.3, hemoglobin 15.2. Potassium 4.2. BUN and creatinine 20/0.90. ASSESSMENT: 1. Acute small-bowel obstruction in a patient with prior bowel surgeries. Currently, slow to respond. Has NG tube in place. 2. Chronic Crohn disease, history of prior partial colectomy. 3. Chronic nicotine dependence, patient is a cigarette smoker. 4. Hypoalbuminemia, currently 3.3 as an acute phase reactant. 5. Leukocytosis on admission, reactive, due to acute abdomen. No obvious evidence of infection. 6. Reactive thrombocytosis. Platelets 595 on presentation. PLAN: Patient's IV fluids will be increased. Empirically, patient is put on IV Zosyn. General Surgery and GI was consulted. Care was discussed with the patient and . Questions were answered. Copy to Dr. Rothman. MMSUZANNA / LILIAM: [id number] /
[2018-09-22] MEDS: LACTATED RINGERS 1,000 ML IV SCH ×3 (04:56→20:35)
[2018-09-22] MEDS: ENOXAPARIN 40 MG/0.4 ML SYRINGE SQ SCH (08:44)
[2018-09-22] MEDS: ONDANSETRON 4 MG/2 ML VIAL IVP PRN (08:44)
[2018-09-22] MEDS: PIPERACILLIN-TAZOBACTAM 3.375 GM in SODIUM CHLORIDE 0.9% 100 ML IVPB SCH ×2 (08:44→16:12)
[2018-09-22] MEDS: HYDROmorphone 1 MG/ML 1 ML SYRINGE IVP PRN ×3 (08:44→20:34)
[2018-09-22] MEDS: methylPREDNISolone SOD SUCCI 40 MG/ML 1 ML VIAL IV SCH ×2 (08:45→16:11)
[2018-09-22] MEDS: NICOTINE 21MG/24HR PATCH TRANSDERM SCH (08:45)
[2018-09-22] MEDS: PANTOPRAZOLE 40 MG/10 ML VIAL IVP SCH (08:45)
[2018-09-22 10:33] LABS: Basophils % (A) 0 %; Eosinophils % (A) 0 %; HCT 40.9 % (39.0-53.0); Lymphocytes % (A) 17 %; MCH 28.7 pg (25.0-35.0); MCHC 31.7 g/dL (31.0-37.0); MCV 90.4 fL (80.0-100.0); Mean Platelet Volume 6.1; Monocytes # (A) 0.5 k/uL (0-1.0); Monocytes % (A) 8 %; Neutrophils # (A) 4.3 k/uL (1.3-7.7); Neutrophils % (A) 73 %; Platelet Count 487 k/uL (150-450); RBC 4.52 m/uL (4.30-5.90); RDW 14.5 % (11.5-15.5); WBC 5.9 k/uL (3.8-10.6)
[2018-09-22 10:45] LABS: African American GFR (CKD) >90 (>60 ml/min/1.73 sqM); Anion Gap 7 mmol/L; Blood Urea Nitrogen 22 mg/dL (9-20); Calcium 8.9 mg/dL (8.4-10.2); Carbon Dioxide 30 mmol/L (22-30); Chloride 103 mmol/L (98-107); Glucose 110 mg/dL (74-99); Potassium 4.3 mmol/L (3.5-5.1); Sodium 140 mmol/L (137-145)
[2018-09-22 11:34] LABS: C Reactive Protein 186.6 mg/L (<10.0)
[2018-09-22 13:05] LABS: Erythrocyte Sedimentation Rate 40 mm/hr (0-15)
--- NOTE | 2018-09-22 13:31 | P.PN ---
<Hayley Owens A - Last Filed: 09/22/18 13:16> Subjective Progress Note Date: 09/22/18 CHIEF COMPLAINT: abdominal pain HISTORY OF PRESENT ILLNESS: Patient examined at the bedside. He reports abdominal pain has improved since yesterday but right lower quadrant remains tender. He is passing small amount of flatus. Denies BM. WBC 5.9. Hemoglobin 13.0. ESR 40. CRP increased to 186.[address] repeated yesterday. Negative for free air. Findings suggestive of partial small bowel obstruction. right lower quadrant mesenteric lymphadenopathy. Herniation of urinary bladder into right inguinal ring.Vital signs stable. Afebrile. PHYSICAL EXAM: VITAL SIGNS: Reviewed. GENERAL: Well-developed in no acute distress. HEENT: NG to LIS with dark bilious drainage. No sclera icterus. Extraocular movements grossly intact. Moist buccal mucosa. Head is atraumatic, normocephalic. Hears conversational speech. No nasal drainage. NECK: Supple without lymphadenopathy. CHEST: Non-labored respirations and equal bilateral excursions. CARDIOVASCULAR: Regular rate with regular rhythm. Palpable 2+ radial pulses. ABDOMEN: Soft. Nondistended. Tenderness to palpation of right lower quadrant and mid lower abdomen. Positive bowel sounds-hypoactive. MUSCULOSKELETAL: No clubbing, cyanosis or edema. NEUROLOGIC: No focal or lateralizing signs. Cranial nerves II through XII grossly intact. PSYCH: Appropriate affect. Alert and oriented to person, place and time. SKIN: Well perfused. Good skin turgor. ASSESSMENT: 1. Abdominal pain, nausea, vomiting x 1 day 2. Acute exacerbation of Crohn's disease 3. Partial small bowel obstruction 4. History of bowel resection x 2 PLAN: 1. NPO 2. Continue NG tube 3. Continue IV antibiotics 4. GI on consult. Continue IV steroids per GI. 5. Patient continues to state "I do not want surgery". Continue conservative management at this time. Nurse practitioner note has been reviewed by physician. Signing provider agrees with the documented findings, assessment, and plan of care. Objective - Vital Signs Vital signs: Vital Signs Temp 97.8 F 09/22/18 12:25 Pulse 66 09/22/18 12:25 Resp 20 09/22/18 12:25 BP 117/61 09/22/18 12:25 Pulse Ox 97 09/22/18 12:25 Intake & Output 09/21/18 09/22/18 09/22/18 18:59 06:59 18:59 Intake Total 0 Output Total 2500 1100 Balance -2500 -1100 Intake: Oral 0 Output: Gastric Drainage 2500 1100 Other: Voiding Method Urinal # Voids 1 1 2 - Labs CBC & Chem 7: 09/22/18 10:14 09/22/18 10:14 Labs: Abnormal Lab Results - Last 24 Hours (Table) 09/21/18 09/22/18 09/22/18 Range/Units 09:29 10:14 10:14 Plt Count 487 H (150-450) k/uL ESR 40 H (0-15) mm/hr BUN 22 H (9-20) mg/dL Glucose 110 H (74-99) mg/dL C-Reactive Protein 141.2 H 186.6 H (<10.0) mg/L Assessment and Plan (1) Crohns disease Current Visit: Yes Status: Acute Code(s): K50.90 - CROHN'S DISEASE, U NSPECIFIED, WITHOUT COMPLICATIONS SNOMED Code(s): 69774642 (2) Abdominal pain Current Visit: Yes Status: Acute Code(s): R10.9 - UNSPECIFIED ABDOMINAL PAIN SNOMED Code(s): 44742962 (3) Partial small bowel obstruction Current Visit: Yes Status: Acute Code(s): K56.600 - PARTIAL INTESTINAL OBSTRUCTION, UNSPECIFIED TO CAUSE SNOMED Code(s): 820232813 <Haylie Lee N - Last Filed: 09/22/18 22:12> Subjective Patient seen and evaluated. He reports feeling better and passing flatus. I personally reviewed his repeat CT scan without free air. Right groin hernia identified without strangulation or inflammatory changes. Currently, patient feels better and does not want surgery. Continue with conservative management. WBC improved. GI management of active Crohn's flare up Objective - Vital Signs Vital signs: Vital Signs Temp 97.8 F 09/22/18 12:25 Pulse 66 09/22/18 12:25 Resp 20 09/22/18 12:25 BP 117/61 09/22/18 12:25 Pulse Ox 97 09/22/18 12:25 Intake & Output 09/22/18 09/22/18 09/23/18 06:59 18:59 06:59 Intake Total 0 Output Total 1100 800 Balance -1100 -800 Intake: Oral 0 Output: Gastric Drainage 1100 800 Other: Voiding Method Urinal Urinal # Voids 1 1 - Labs CBC & Chem 7: 09/22/18 10:14 09/22/18 10:14 Labs: Abnormal Lab Results - Last 24 Hours (Table) 09/22/18 09/22/18 Range/Units 10:14 10:14 Plt Count 487 H (150-450) k/uL ESR 40 H (0-15) mm/hr BUN 22 H (9-20) mg/dL Glucose 110 H (74-99) mg/dL C-Reactive Protein 186.6 H (<10.0) mg/L
--- NOTE | 2018-09-22 14:16 | P.PN ---
Subjective Progress Note Date: 09/22/18 Principal diagnosis: Small bowel obstruction Crohn's exacerbation Abdominal pain improved. Afebrile. Reports sore throat from NG tube. Passing small amounts of flatus. No BMs. CT abdomen and pelvis reported no evidence of free air. White count 5.9. Hemoglobin 13. CRP 186. Receiving IV steroids and antibiotics. 13. ESR 40. Objective - Vital Signs Vital signs: Vital Signs Temp 97.8 F 09/22/18 12:25 Pulse 66 09/22/18 12:25 Resp 20 09/22/18 12:25 BP 117/61 09/22/18 12:25 Pulse Ox 97 09/22/18 12:25 Intake & Output 09/21/18 09/22/18 09/22/18 18:59 06:59 18:59 Intake Total 0 Output Total 2500 1100 Balance -2500 -1100 Intake: Oral 0 Output: Gastric Drainage 2500 1100 Other: Voiding Method Urinal # Voids 1 1 2 - Exam General appearance: The patient is alert, oriented, in no acute distress. HET: Head is normocephalic and atraumatic. Pupils are equal and reactive. Oropharynx is clear without lesions. NG tube with green bilious fluid. Neck: Supple without lymphadenopathy. Trachea midline. Heart: S1 S2. Regular rate and rhythm. Lungs: No crackles or wheezes are heard. Abdomen: Soft, tender right lower quadrant mildly bloated hypoactive bowel sounds mild rebound and guarding. No palpable organomegaly or masses. Extremities: Normal skin color and turgor. No cyanosis, rash, ulceration, clubbing, or edema. Radial and pedal pulses are 2/4 bilaterally. Neurological: No focal deficits. Strength and sensation are grossly intact. - Labs CBC & Chem 7: 09/22/18 10:14 09/22/18 10:14 Labs: Abnormal Lab Results - Last 24 Hours (Table) 09/21/18 09/22/18 09/22/18 Range/Units 09:29 10:14 10:14 Plt Count 487 H (150-450) k/uL ESR 40 H (0-15) mm/hr BUN 22 H (9-20) mg/dL Glucose 110 H (74-99) mg/dL C-Reactive Protein 141.2 H 186.6 H (<10.0) mg/L Assessment and Plan (1) Abdominal pain Narrative/Plan: 48-year-old male with a history of Crohn's ileitis 1995 presently not on maintenance therapy with 2 previous bowel resections last one in 2012 secondary to small bowel abscess presents with acute abdominal pain nausea vomiting CT reported dilated small bowel loops with small bowel thickening consistent with partial mechanical small bowel obstruction underlying peritonitis and exacerbation of small bowel Crohn's disease is suspected. Current Visit: Yes Status: Acute Code(s): R10.9 - UNSPECIFIED ABDOMINAL PAIN SNOMED Code(s): 95221536 (2) Crohn's ileitis Current Visit: Yes Status: Acute Code(s): K50.00 - CROHN'S DISEASE OF SMALL INTESTINE WITHOUT COMPLICATIONS SNOMED Code(s): 83046518 (3) Partial small bowel obstruction Current Visit: Yes Status: Acute Code(s): K56.600 - PARTIAL INTESTINAL OBSTRUCTION, UNSPECIFIED TO CAUSE SNOMED Code(s): 652044163 Plan: 1. Nothing by mouth. IV abx; Zosyn 3.375 grams every 8 hours. IV steroids 20 mg every 8 hours. General surgical consult appreciated. NG tube decompression. 2. Repeat CRP ESR 48 hours. Cepacol lozenges for sore throat. We'll continue to follow. GI prophylaxis. Assessment and plan a care discussed with Dr. Jordan
[2018-09-22] MEDS: PROMETHAZINE INJ 25 MG in SODIUM CHLORIDE 0.9% 50 ML IVPB PRN (14:42)
[2018-09-22] MEDS: BENZOCAINE/MENTHOL LOZENG 1 EACH LOZENGE MUCOUS MEM PRN ×2 (14:43→20:38)
--- NOTE | 2018-09-22 22:13 | P.PN ---
Progress Note - Text Progress Note Date: 09/22/18 Patient seen and evaluated. He reports feeling better and passing flatus. I personally reviewed his repeat CT scan without free air. Right groin hernia identified without strangulation or inflammatory changes. Currently, patient feels better and does not want surgery. Continue with conservative management. WBC improved. GI management of active Crohn's flare up
[2018-09-23] MEDS: PIPERACILLIN-TAZOBACTAM 3.375 GM in SODIUM CHLORIDE 0.9% 100 ML IVPB SCH ×4 (00:01→23:11)
--- NOTE | 2018-09-23 01:14 | P.PN ---
Progress Note - Text Progress Note Date: 09/22/18 Presenting complaint: Abdominal pain Interval history: Patient known history of Crohn's disease admitted with acute bowel obstruction. Today-NG tube remains in place. Dark-colored aspirate present. Has positive flatus. No bowel movement. No nausea vomiting. Has been out of bed. Some decrease in abdominal distention. Her nausea vomiting. Review of systems: Was done for constitutional, cardiovascular, GI, pulmonary. relevant finding as above Current medications are reviewed that include: Lactated Ringer's 1 25 mL an hour, IV Zosyn On examination: VITAL SIGNS: 97.8, 66, 20, 117/61, 97% room air GENERAL APPEARANCE: Laying in bed, slightly anxious appearing HEENT: Normal external appearance of nose and ear. Oral cavity dry, with NG tube in place EYES: Pupils equal. Conjunctiva normal. NECK: JVD not raised. Mass not palpable. RESPIRATORY: Respiratory effort normal. Lungs clear to auscultation. CARDIOVASCULAR: First and second sounds normal. No edema. ABDOMEN: Soft. Some distention, hyperactive bowel sounds Liver and spleen not palpable. Mild diffuse tenderness. No mass palpable. PSYCHIATRY: Alert and oriented x3. Mood and affect normal. Investigations: White count 5.9, potassium 4.3, creatinine 0.80 Assessment: -Acute small bowel obstruction in a patient with prior bowel surgeries, slow to respond -Chronic Crohn's disease with history of prior partial colectomy -Chronic nicotine dependence patient cigarette smoker -Hypoalbuminemia has an acute phase reactant -Reactive thrombocytosis Plan: Continue the IV fluids. Continued with NG tube. Did discuss with the patient at the bedside. Patient is slowly responding. No indication for any urgent surgery currently. Follow lites closely. Being followed by GI and surgery.
[2018-09-23] MEDS: BENZOCAINE/MENTHOL LOZENG 1 EACH LOZENGE MUCOUS MEM PRN ×3 (03:18→21:32)
[2018-09-23] MEDS: HYDROmorphone 1 MG/ML 1 ML SYRINGE IVP PRN ×4 (03:18→21:08)
[2018-09-23] MEDS: LACTATED RINGERS 1,000 ML IV SCH ×3 (04:24→20:34)
[2018-09-23] MEDS: NICOTINE 21MG/24HR PATCH TRANSDERM SCH (09:41)
[2018-09-23] MEDS: PANTOPRAZOLE 40 MG/10 ML VIAL IVP SCH (09:50)
[2018-09-23] MEDS: methylPREDNISolone SOD SUCCI 40 MG/ML 1 ML VIAL IV SCH ×4 (09:50→23:11)
[2018-09-23] MEDS: ENOXAPARIN 40 MG/0.4 ML SYRINGE SQ SCH (09:51)
[2018-09-23 10:20] LABS: African American GFR (CKD) >90 (>60 ml/min/1.73 sqM); Anion Gap 6 mmol/L; Blood Urea Nitrogen 20 mg/dL (9-20); Calcium 9.2 mg/dL (8.4-10.2); Carbon Dioxide 30 mmol/L (22-30); Chloride 103 mmol/L (98-107); Glucose 96 mg/dL (74-99); Potassium 4.2 mmol/L (3.5-5.1); Sodium 139 mmol/L (137-145)
[2018-09-23 10:26] LABS: Basophils % (A) 0 %; Eosinophils % (A) 0 %; HCT 39.6 % (39.0-53.0); HGB 12.6 gm/dL (13.0-17.5); Lymphocytes # (A) 1.5 k/uL (1.0-4.8); Lymphocytes % (A) 21 %; MCH 28.5 pg (25.0-35.0); MCHC 31.7 g/dL (31.0-37.0); MCV 89.9 fL (80.0-100.0); Mean Platelet Volume 6.8; Monocytes # (A) 0.6 k/uL (0-1.0); Monocytes % (A) 8 %; Neutrophils # (A) 4.9 k/uL (1.3-7.7); Neutrophils % (A) 69 %; Platelet Count 450 k/uL (150-450); RBC 4.41 m/uL (4.30-5.90); RDW 15.2 % (11.5-15.5); WBC 7.1 k/uL (3.8-10.6)
--- NOTE | 2018-09-23 11:11 | P.PN ---
Subjective Progress Note Date: 09/23/18 Principal diagnosis: Small bowel obstruction Crohn's exacerbation Abdominal pain same as yesterday not worsening but still present. Afebrile. Passing small amounts of flatus. No BMs. White count 7.1. Receiving IV steroids and antibiotics. NG tube output 500 mL 12 hours. Objective - Vital Signs Vital signs: Vital Signs Temp 97.6 F 09/23/18 05:27 Pulse 57 L 09/23/18 05:27 Resp 16 09/23/18 05:27 BP 126/62 09/23/18 05:27 Pulse Ox 94 L 09/23/18 05:27 Intake & Output 09/22/18 09/23/18 09/23/18 18:59 06:59 18:59 Intake Total 0 Output Total 800 1300 Balance -800 -1300 Intake: Oral 0 Output: Gastric Drainage 800 500 Urine 800 Other: Voiding Method Urinal Toilet # Voids 1 0 - Exam General appearance: The patient is alert, oriented, in no acute distress. HET: Head is normocephalic and atraumatic. Pupils are equal and reactive. Oropharynx is clear without lesions. NG tube with green bilious fluid. Neck: Supple without lymphadenopathy. Trachea midline. Heart: S1 S2. Regular rate and rhythm. Lungs: No crackles or wheezes are heard. Abdomen: Soft, tender right lower quadrant mildly bloated hypoactive bowel sounds mild rebound and guarding. No palpable organomegaly or masses. Extremities: Normal skin color and turgor. No cyanosis, rash, ulceration, clubbing, or edema. Radial and pedal pulses are 2/4 bilaterally. Neurological: No focal deficits. Strength and sensation are grossly intact. - Labs CBC & Chem 7: 09/23/18 09:34 09/23/18 09:34 Labs: Abnormal Lab Results - Last 24 Hours (Table) 09/22/18 09/22/18 09/23/18 Range/Units 10:14 10:14 09:34 Hgb 12.6 L (13.0-17.5) gm/dL ESR 40 H (0-15) mm/hr C-Reactive Protein 186.6 H (<10.0) mg/L Assessment and Plan (1) Abdominal pain Narrative/Plan: 48-year-old male with a history of Crohn's ileitis 1995 presently not on maintenance therapy with 2 previous bowel resections last one in 2013 secondary to small bowel abscess presents with acute abdominal pain nausea vomiting CT reported dilated small bowel loops with small bowel thickening consistent with partial mechanical small bowel obstruction underlying peritonitis and exacerbation of small bowel Crohn's disease is suspected. Current Visit: Yes Status: Acute Code(s): R10.9 - UNSPECIFIED ABDOMINAL PAIN SNOMED Code(s): 64830706 (2) Crohn's ileitis Current Visit: Yes Status: Acute Code(s): K50.00 - CROHN'S DISEASE OF SMALL INTESTINE WITHOUT COMPLICATIONS SNOMED Code(s): 13469784 (3) Partial small bowel obstruction Current Visit: Yes Status: Acute Code(s): K56.600 - PARTIAL INTESTINAL OBSTRUCTION, UNSPECIFIED TO CAUSE SNOMED Code(s): 577368926 Plan: 1. Nothing by mouth. IV abx; Zosyn 3.375 grams every 8 hours. IV steroids 20 mg every 8 hours. NG tube decompression. Surgery following. 2. CRP CBC BMP in a.m. Cepacol lozenges for sore throat. We'll continue to follow. GI prophylaxis. Assessment and plan a care discussed with Dr. Jordan
--- NOTE | 2018-09-23 11:21 | P.PN ---
Subjective Progress Note Date: 09/23/18 CHIEF COMPLAINT: abdominal pain HISTORY OF PRESENT ILLNESS: Patient examined at the bedside. Patient reports continued pain to right lower quadrant but states it is significantly improved and currently rating a 3/10. He continues to pass flatus. Denies BM NG to LIS. WBC 7.1. Hemoglobin 12.6. PHYSICAL EXAM: VITAL SIGNS: Reviewed. GENERAL: Well-developed in no acute distress. HEENT: NG to LIS with bilious drainage. No sclera icterus. Extraocular movements grossly intact. Moist buccal mucosa. Head is atraumatic, normocephalic. Hears conversational speech. No nasal drainage. NECK: Supple without lymphadenopathy. CHEST: Non-labored respirations and equal bilateral excursions. CARDIOVASCULAR: Regular rate with regular rhythm. Palpable 2+ radial pulses. ABDOMEN: Soft. Nondistended. Positive bowel sounds. minimal tenderness with palpation to right lower quadrant. MUSCULOSKELETAL: No clubbing, cyanosis or edema. NEUROLOGIC: No focal or lateralizing signs. Cranial nerves II through XII grossly intact. PSYCH: Appropriate affect. Alert and oriented to person, place and time. SKIN: Well perfused. Good skin turgor. ASSESSMENT: 1. Abdominal pain, nausea, vomiting x 1 day 2. Acute exacerbation of Crohn's disease 3. Partial small bowel obstruction 4. History of bowel resection x 2 PLAN: 1. NPO 2. Continue NG tube 3. Continue IV antibiotics 4. GI on consult. Continue IV steroids per GI. 5. Patient clinically improving and continues to state "I do not want surgery". Continue conservative management at this time. Nurse practitioner note has been reviewed by physician. Signing provider agrees with the documented findings, assessment, and plan of care. Objective - Vital Signs Vital signs: Vital Signs Temp 97.6 F 09/23/18 05:27 Pulse 57 L 09/23/18 05:27 Resp 16 09/23/18 05:27 BP 126/62 09/23/18 05:27 Pulse Ox 94 L 09/23/18 05:27 Intake & Output 09/22/18 09/23/18 09/23/18 18:59 06:59 18:59 Intake Total 0 Output Total 800 1300 Balance -800 -1300 Intake: Oral 0 Output: Gastric Drainage 800 500 Urine 800 Other: Voiding Method Urinal Toilet # Voids 1 0 - Labs CBC & Chem 7: 09/23/18 09:34 09/23/18 09:34 Labs: Abnormal Lab Results - Last 24 Hours (Table) 09/22/18 09/22/18 09/23/18 Range/Units 10:14 10:14 09:34 Hgb 12.6 L (13.0-17.5) gm/dL ESR 40 H (0-15) mm/hr C-Reactive Protein 186.6 H (<10.0) mg/L Assessment and Plan (1) Crohns disease Current Visit: Yes Status: Acute Code(s): K50.90 - CROHN'S DISEASE, UNSPECIFIED, WITHOUT COMPLICATIONS SNOMED Code(s): 21595041 (2) Abdominal pain Current Visit: Yes Status: Acute Code(s): R10.9 - UNSPECIFIED ABDOMINAL PAIN SNOMED Code(s): 02397087 (3) Partial small bowel obstruction Current Visit: Yes Status: Acute Code(s): K56.600 - PARTIAL INTESTINAL OBSTRUCTION, UNSPECIFIED TO CAUSE SNOMED Code(s): 992480494
[2018-09-23] MEDS: ONDANSETRON 4 MG/2 ML VIAL IVP PRN (16:25)
--- NOTE | 2018-09-23 19:10 | P.PN ---
Progress Note - Text Progress Note Date: 09/23/18 Patient is ambulating in the hallways with family. He reports passing of flatus for last 2 days. Overall feels much better. Recommend start a clear liquid diet. Alternatively, continue NG tube once tolerating diet and discontinue NG tube tomorrow. Overall clinical course improving.
--- NOTE | 2018-09-23 23:08 | P.PN ---
Progress Note - Text Progress Note Date: 09/23/18 Presenting complaint: Abdominal pain Interval history: Patient known history of Crohn's disease admitted with acute bowel obstruction. Today-NG tube remains in place. Did positive flatus. No bowel movement. Her nausea vomiting. Abdominal pain still present but better. Review of systems: Was done for constitutional, cardiovascular, GI, pulmonary. relevant finding as above Current medications are reviewed that include: Lactated Ringer's 1 25 mL an hour, IV Zosyn On examination: VITAL SIGNS: 97.8, 56, 16, 136/76, 94% room air GENERAL APPEARANCE: Laying in bed, slightly anxious appearing HEENT: Normal external appearance of nose and ear. Oral cavity dry, with NG tube in place EYES: Pupils equal. Conjunctiva normal. NECK: JVD not raised. Mass not palpable. RESPIRATORY: Respiratory effort normal. Lungs clear to auscultation. CARDIOVASCULAR: First and second sounds normal. No edema. ABDOMEN: Soft. Some distention, hyperactive bowel sounds Liver and spleen not palpable. Mild diffuse tenderness. No mass palpable. PSYCHIATRY: Alert and oriented x3. Mood and affect normal. Investigations: White count 7.1 hemoglobin 12.6 potassium 4.2 BUN 20 creatinine 0.86 Assessment: -Acute small bowel obstruction in a patient with prior bowel surgeries, slow to respond -Chronic Crohn's disease with history of prior partial colectomy -Chronic nicotine dependence patient cigarette smoker -Hypoalbuminemia has an acute phase reactant -Reactive thrombocytosis Plan: Continue with NG tube. Continue with IV fluids. Care was discussed with the patient. Repeat abdominal x-ray in the morning.
[2018-09-24] MEDS: LACTATED RINGERS 1,000 ML IV SCH ×3 (05:51→19:49)
--- NOTE | 2018-09-24 07:23 | P.PN ---
Subjective Progress Note Date: 09/24/18 Principal diagnosis: Small bowel obstruction Crohn's exacerbation Reports improvement in abdominal pain. Passing flatus and no stool. Morning x- rays completed results pending. Afebrile. Morning labs pending. Receiving IV steroids and antibiotics. Tolerating clears. Objective - Vital Signs Vital signs: Vital Signs Temp 98.4 F 09/23/18 23:35 Pulse 63 09/23/18 23:35 Resp 18 09/23/18 23:35 BP 102/58 09/23/18 23:35 Pulse Ox 94 L 09/23/18 23:35 Intake & Output 09/23/18 09/24/18 09/24/18 18:59 06:59 18:59 Output Total 300 0 Balance -300 0 Output: Gastric Drainage 300 0 Other: Voiding Method Toilet # Voids 1 2 - Exam General appearance: The patient is alert, oriented, in no acute distress. HET: Head is normocephalic and atraumatic. Pupils are equal and reactive. Oropharynx is clear without lesions. NG tube clamped. Neck: Supple without lymphadenopathy. Trachea midline. Heart: S1 S2. Regular rate and rhythm. Lungs: No crackles or wheezes are heard. Abdomen: Soft, mild tender right lower quadrant mildly bloated bowel sounds present. No palpable organomegaly or masses. Extremities: Normal skin color and turgor. No cyanosis, rash, ulceration, clubbing, or edema. Radial and pedal pulses are 2/4 bilaterally. Neurological: No focal deficits. Strength and sensation are grossly intact. - Labs CBC & Chem 7: 09/23/18 09:34 09/23/18 09:34 Labs: Abnormal Lab Results - Last 24 Hours (Table) 09/23/18 Range/Units 09:34 Hgb 12.6 L (13.0-17.5) gm/dL Assessment and Plan (1) Abdominal pain Narrative/Plan: 48-year-old male with a history of Crohn's ileitis 1996 presently not on maintenance therapy with 2 previous bowel resections last one in 2012 secondary to small bowel abscess presents with acute abdominal pain nausea vomiting CT reported dilated small bowel loops with small bowel thickening consistent with partial mechanical small bowel obstruction underlying peritonitis and exacerbation of small bowel Crohn's disease is suspected. Current Visit: Yes Status: Acute Code(s): R10.9 - UNSPECIFIED ABDOMINAL PAIN SNOMED Code(s): 50370491 (2) Crohn's ileitis Current Visit: Yes Status: Acute Code(s): K50.00 - CROHN'S DISEASE OF SMALL INTESTINE WITHOUT COMPLICATIONS SNOMED Code(s): 52477395 (3) Partial small bowel obstruction Current Visit: Yes Status: Acute Code(s): K56.600 - PARTIAL INTESTINAL OBSTRUCTION, UNSPECIFIED TO CAUSE SNOMED Code(s): 300706494 Plan: 1. Diet per surgery. Overall he is feeling better still passing flatus and BMs. Continue IV abx; Zosyn 3.375 grams every 8 hours. IV steroids 20 mg every 8 hours. NG tube decompression per surgery. Surgery following. 2. CRP CBC BMP pending. We'll continue to follow. GI prophylaxis. Assessment and plan a care discussed with Dr. Jordan
[2018-09-24] MEDS: PANTOPRAZOLE 40 MG/10 ML VIAL IVP SCH (07:46)
[2018-09-24] MEDS: methylPREDNISolone SOD SUCCI 40 MG/ML 1 ML VIAL IV SCH ×2 (07:46→16:35)
[2018-09-24] MEDS: ENOXAPARIN 40 MG/0.4 ML SYRINGE SQ SCH (07:46)
[2018-09-24] MEDS: NICOTINE 21MG/24HR PATCH TRANSDERM SCH (07:46)
[2018-09-24] MEDS: PIPERACILLIN-TAZOBACTAM 3.375 GM in SODIUM CHLORIDE 0.9% 100 ML IVPB SCH ×2 (07:47→16:34)
[2018-09-24 08:33] LABS: Basophils % (A) 0 %; Eosinophils # (A) 0.1 k/uL (0-0.7); Eosinophils % (A) 1 %; HCT 38.1 % (39.0-53.0); HGB 12.2 gm/dL (13.0-17.5); Lymphocytes # (A) 1.3 k/uL (1.0-4.8); Lymphocytes % (A) 15 %; MCV 90.7 fL (80.0-100.0); Mean Platelet Volume 6.2; Monocytes # (A) 0.4 k/uL (0-1.0); Monocytes % (A) 4 %; Neutrophils # (A) 7.3 k/uL (1.3-7.7); Neutrophils % (A) 79 %; Platelet Count 481 k/uL (150-450); RDW 14.4 % (11.5-15.5); WBC 9.2 k/uL (3.8-10.6)
[2018-09-24 08:42] LABS: African American GFR (CKD) >90 (>60 ml/min/1.73 sqM); Anion Gap 6 mmol/L; Blood Urea Nitrogen 22 mg/dL (9-20); Carbon Dioxide 31 mmol/L (22-30); Chloride 102 mmol/L (98-107); Glucose 137 mg/dL (74-99); Potassium 4.3 mmol/L (3.5-5.1); Sodium 139 mmol/L (137-145)
[2018-09-24 09:31] LABS: C Reactive Protein 25.5 mg/L (<10.0)
--- NOTE | 2018-09-24 09:52 | XR ---
EXAMINATION TYPE: XR abdomen 2V DATE OF EXAM: 09/24/2018 COMPARISON: 09/21/2018 HISTORY: SBO TECHNIQUE: One view abdominal series FINDINGS: The osseous structures are intact. The bowel gas pattern is nonspecific. Persistent dilated small lyric wel loops are seen. There is air within the colon. Surgical clips in the right upper quadrant. Hypert rophic and degenerative changes spine. Arthropathy of the left SI joint. Bilateral hip arthropathy co rrelate for femoral acetabular impingement. Subsegmental changes at both lung bases most compatible a telectasis. IMPRESSION: 1. Persistent dilated small bowel loops in a pattern suggestive of partial obstruction.
--- NOTE | 2018-09-24 11:50 | P.PN ---
<Hayley Owens A - Last Filed: 09/24/18 11:43> Subjective Progress Note Date: 09/24/18 CHIEF COMPLAINT: abdominal pain HISTORY OF PRESENT ILLNESS: Patient examined at the bedside. Patient discontinued NG tube this morning because "it was getting caught on everything". He reports passing flatus. No bowel movement. Reports minimal tenderness to right lower quadrant. Currently rating pain 2 out of 10. Tolerating clear liquid diet. Abdominal x-ray this morning reveals persistent dilated small bowel loops.CRP 25.5, down from 186.6. PHYSICAL EXAM: VITAL SIGNS: Reviewed. GENERAL: Well-developed in no acute distress. HEENT: No sclera icterus. Extraocular movements grossly intact. Moist buccal mucosa. Head is atraumatic, normocephalic. Hears conversational speech. No nasal drainage. NECK: Supple without lymphadenopathy. CHEST: Non-labored respirations and equal bilateral excursions. CARDIOVASCULAR: Regular rate with regular rhythm. Palpable 2+ radial pulses. ABDOMEN: Soft. Nondistended. Positive bowel sounds. minimal tenderness with palpation to right lower quadrant. MUSCULOSKELETAL: No clubbing, cyanosis or edema. NEUROLOGIC: No focal or lateralizing signs. Cranial nerves II through XII grossly intact. PSYCH: Appropriate affect. Alert and oriented to person, place and time. SKIN: Well perfused. Good skin turgor. ASSESSMENT: 1. Abdominal pain, nausea, vomiting x 1 day 2. Acute exacerbation of Crohn's disease 3. Partial small bowel obstruction 4. History of bowel resection x 2 PLAN: Advance diet to full liquid. Continue IV antibiotics and steroids per GI service. No surgical intervention recommended at this time. Nurse practitioner note has been reviewed by physician. Signing provider agrees with the documented findings, assessment, and plan of care. Objective - Vital Signs Vital signs: Vital Signs Temp 97.7 F 09/24/18 07:00 Pulse 51 L 09/24/18 07:00 Resp 18 09/24/18 07:00 BP 120/76 09/24/18 07:00 Pulse Ox 98 09/24/18 07:00 Intake & Output 09/23/18 09/24/18 09/24/18 18:59 06:59 18:59 Output Total 300 0 Balance -300 0 Output: Gastric Drainage 300 0 Other: Voiding Method Toilet # Voids 1 2 - Labs CBC & Chem 7: 09/24/18 07:54 09/24/18 07:54 Labs: Abnormal Lab Results - Last 24 Hours (Table) 09/24/18 09/24/18 Range/Units 07:54 07:54 RBC 4.20 L (4.30-5.90) m/uL Hgb 12.2 L (13.0-17.5) gm/dL Hct 38.1 L (39.0-53.0) % Plt Count 481 H (150-450) k/uL Carbon Dioxide 31 H (22-30) mmol/L BUN 22 H (9-20) mg/dL Glucose 137 H (74-99) mg/dL C-Reactive Protein 25.5 H (<10.0) mg/L Assessment and Plan (1) Crohns disease Current Visit: Yes Status: Acute Code(s): K50.90 - CROHN'S DISEASE, UN SPECIFIED, WITHOUT COMPLICATIONS SNOMED Code(s): 34433033 (2) Abdominal pain Current Visit: Yes Status: Acute Code(s): R10.9 - UNSPECIFIED ABDOMINAL PAIN SNOMED Code(s): 85068836 (3) Partial small bowel obstruction Current Visit: Yes Status: Acute Code(s): K56.600 - PARTIAL INTESTINAL OBSTRUCTION, UNSPECIFIED TO CAUSE SNOMED Code(s): 605625610 <Haylie Lee - Last Filed: 09/24/18 15:34> Subjective Patient seen and evaluated this afternoon as well. He has only mild abdominal pain after full liquid diet. He is still passing flatus. "I want to get out of here." Will do trial of regular diet as clinically he is improving. Objective - Vital Signs Vital signs: Vital Signs Temp 97.3 F L 09/24/18 13:52 Pulse 63 09/24/18 13:52 Resp 16 09/24/18 13:52 BP 142/79 09/24/18 13:52 Pulse Ox 95 09/24/18 13:52 Intake & Output 09/23/18 09/24/18 09/24/18 18:59 06:59 18:59 Intake Total 900 Output Total 300 0 Balance -300 0 900 Intake: Intake, IV Titration 900 Amount Lactated Ringers 1,000 ml 800 @ 125 mls/hr IV .Q8H [facility] Rx#:[id number] Piperacillin-Tazobactam 3 100 .375 gm In Sodium Chloride 0.9% 100 ml @ 25 mls/hr IVPB Q8HR [facility] Rx# :[id number] Output: Gastric Drainage 300 0 Other: Voiding Method Toilet # Voids 1 2 - Labs CBC & Chem 7: 09/24/18 07:54 09/24/18 07:54 Labs: Abnormal Lab Results - Last 24 Hours (Table) 09/24/18 09/24/18 Range/Units 07:54 07:54 RBC 4.20 L (4.30-5.90) m/uL Hgb 12.2 L (13.0-17.5) gm/dL Hct 38.1 L (39.0-53.0) % Plt Count 481 H (150-450) k/uL Carbon Dioxide 31 H (22-30) mmol/L BUN 22 H (9-20) mg/dL Glucose 137 H (74-99) mg/dL C-Reactive Protein 25.5 H (<10.0) mg/L
[2018-09-24] MEDS: HYDROmorphone 1 MG/ML 1 ML SYRINGE IVP PRN ×2 (13:17→19:44)
--- NOTE | 2018-09-24 20:38 | P.PN ---
Progress Note - Text Progress Note Date: 09/24/18 Presenting complaint: Abdominal pain Interval history: Patient known history of Crohn's disease admitted with acute bowel obstruction. Today-patient to call his NG tube this morning. Has positive flatus. No bowel movement. Abdominal pain better but present. No nausea no vomiting. Started o n clear liquids by surgery. Has been out of bed. Review of systems: Was done for constitutional, cardiovascular, GI, pulmonary. relevant finding as above Current medications are reviewed that include: Lactated Ringer's 1 25 mL an hour, IV Zosyn On examination: VITAL SIGNS: 97.7, 51, 18, 120/76, 98% GENERAL APPEARANCE: Laying in bed, he is comfortable HEENT: Normal external appearance of nose and ear. Oral cavity dry, no NG tube EYES: Pupils equal. Conjunctiva normal. NECK: JVD not raised. Mass not palpable. RESPIRATORY: Respiratory effort normal. Lungs clear to auscultation. CARDIOVASCULAR: First and second sounds normal. No edema. ABDOMEN: Soft. Some distention, hyperactive bowel sounds Liver and spleen not palpable. Minimal diffuse tenderness. No mass palpable. PSYCHIATRY: Alert and oriented x3. Mood and affect normal. Investigations: White count 9.2 hemoglobin 12.2 potassium 4.3 Abdominal x-ray film personally reviewed by me shows dilated loops of bowel with some air-fluid level Assessment: -Acute small bowel obstruction in a patient with prior bowel surgeries, with the radiological is still persistent bowel obstruction pattern -Chronic Crohn's disease with history of prior partial colectomy -Chronic nicotine dependence patient cigarette smoker -Hypoalbuminemia has an acute phase reactant -Reactive thrombocytosis Plan: Patient diet was advanced per surgery. Patient has not had any bowel movement. Encouraged to be out of bed. See how he fares. Follow with surgery. And GI. Switch to oral prednisone
[2018-09-24] MEDS: predniSONE 20 MG TAB PO SCH (21:12)
[2018-09-25] MEDS: PIPERACILLIN-TAZOBACTAM 3.375 GM in SODIUM CHLORIDE 0.9% 100 ML IVPB SCH (00:25)
[2018-09-25] MEDS: LACTATED RINGERS 1,000 ML IV SCH (05:01)
[2018-09-25 05:56] VITALS: BP 119/70; PULSE 78; RESP 18; TEMP 97.9
[2018-09-25] MEDS: predniSONE 20 MG TAB PO SCH (07:57)
[2018-09-25] MEDS: PANTOPRAZOLE 40 MG/10 ML VIAL IVP SCH (07:57)
[2018-09-25] MEDS: ENOXAPARIN 40 MG/0.4 ML SYRINGE SQ SCH (07:57)
[2018-09-25] MEDS: NICOTINE 21MG/24HR PATCH TRANSDERM SCH (07:58)
[2018-09-25 09:15] VITALS: BMI 27.8
[2018-09-25 10:16] LABS: African American GFR (CKD) >90 (>60 ml/min/1.73 sqM); Anion Gap 9 mmol/L; Blood Urea Nitrogen 20 mg/dL (9-20); Carbon Dioxide 28 mmol/L (22-30); Chloride 102 mmol/L (98-107); Glucose 121 mg/dL (74-99); Potassium 4.2 mmol/L (3.5-5.1); Sodium 139 mmol/L (137-145)
--- NOTE | 2018-09-25 13:31 | P.PN ---
Subjective Progress Note Date: 09/25/18 CHIEF COMPLAINT: abdominal pain HISTORY OF PRESENT ILLNESS: Patient examined at the bedside. patient is tolerating regular diet. passing flatus. Denies abdominal pain. Patient is anxious to be discharged home today. PHYSICAL EXAM: VITAL SIGNS: Reviewed. GENERAL: Well-developed in no acute distress. HEENT: No sclera icterus. Extraocular movements grossly intact. Moist buccal mucosa. Head is atraumatic, normocephalic. Hears conversational speech. No nasal drainage. NECK: Supple without lymphadenopathy. CHEST: Non-labored respirations and equal bilateral excursions. CARDIOVASCULAR: Regular rate with regular rhythm. Palpable 2+ radial pulses. ABDOMEN: Soft. Nondistended. Positive bowel sounds. nontender. MUSCULOSKELETAL: No clubbing, cyanosis or edema. NEUROLOGIC: No focal or lateralizing signs. Cranial nerves II through XII grossly intact. PSYCH: Appropriate affect. Alert and oriented to person, place and time. SKIN: Well perfused. Good skin turgor. ASSESSMENT: 1. Abdominal pain, nausea, vomiting x 1 day 2. Acute exacerbation of Crohn's disease 3. Partial small bowel obstruction 4. History of bowel resection x 2 PLAN: Continue regular diet. Continue IV antibiotic and steroids per GI service. No surgical intervention recommended Patient stable for discharge home today. He may follow up with Dr. Lee as needed Nurse practitioner note has been reviewed by physician. Signing provider agrees with the documented findings, assessment, and plan of care. Objective - Vital Signs Vital signs: Vital Signs Temp 97.9 F 09/25/18 05:55 Pulse 78 09/25/18 05:55 Resp 18 09/25/18 05:55 BP 119/70 09/25/18 05:55 Pulse Ox 96 09/25/18 05:55 Intake & Output 09/24/18 09/25/18 09/25/18 18:59 06:59 18:59 Intake Total 900 240 Balance 900 240 Weight 92.986 kg Intake: Intake, IV Titration 900 Amount Lactated Ringers 1,000 ml 800 @ 125 mls/hr IV .Q8H [facility] Rx#:[id number] Piperacillin-Tazobactam 3 100 .375 gm In Sodium Chloride 0.9% 100 ml @ 25 mls/hr IVPB Q8HR [facility] Rx# :[id number] Oral 240 Other: # Voids 3 1 - Labs CBC & Chem 7: 09/24/18 07:54 09/25/18 09:12 Labs: Abnormal Lab Results - Last 24 Hours (Table) 09/25/18 Range/Units 09:12 Glucose 121 H (74-99) mg/dL Assessment and Plan (1) Crohns disease Status: Acute Code(s): K50.90 - CROHN'S DISEASE, UNSPECIFIED, WITHOUT COMPLICATIONS SNOMED Code(s): 41366643 (2) Abdominal pain Status: Acute Code(s): R10.9 - UNSPECIFIED ABDOMINAL PAIN SNOMED Code(s): 91346697 (3) Partial small bowel obstruction Status: Acute Code(s): K56.600 - PARTIAL INTESTINAL OBSTRUCTION, UNSPECIFIED TO CAUSE SNOMED Code(s): 598327188
--- NOTE | 2018-09-25 15:21 | PN ---
PROGRESS NOTE DATE OF DICTATION: 09/25/2018 The patient is a 48-year-old pleasant white male who was admitted to the hospital with exacerbation of Crohn's disease/small-bowel obstruction. He has been in the hospital for 5 days on IV steroids. NG tube was in place which was removed yesterday morning. He was started on a clear liquid diet yesterday, tolerating well, and this morning on a soft diet, tolerating well. He complains of mild right lower quadrant abdominal pain, but overall he is feeling much better. He had one bowel movement last night. No fever, chills or night sweats. PHYSICAL EXAMINATION: He appears comfortable. No apparent distress. VITAL SIGNS: Stable. Blood pressure is 132/79, pulse rate 63, temperature 97.3. HEENT EXAMINATION: Unremarkable. Conjunctivae pink. Sclerae anicteric. Oral cavity no lesions. NECK: No JVD or lymph node enlargement. CHEST: Clear to auscultation. HEART: Regular rate and rhythm. ABDOMEN: Soft. There was mild tenderness in the right lower quadrant area. Bowel sounds are positive. No organomegaly. EXTREMITIES: No pedal edema. SKIN: No rashes. NEUROLOGIC: Alert and oriented x3. No focal deficits. LABS: Labs from yesterday: WBC 9.2, hemoglobin 12.2, platelets normal, and CRP is down to 25. IMPRESSION: Exacerbation of Crohn's disease with partial small-bowel obstruction which appears to be gradually resolving on IV steroids for 4 days which were changed to oral prednisone 40 mg daily this morning, tolerating diet well. RECOMMENDATIONS: 1. Discharge home today. 2. Continue prednisone 40 mg daily for 2 weeks and after that taper it by 5 mg every week. He will be seen in the office in 2-3 weeks. Thank you for this consultation. MMODL / IJN: [id number] /
--- NOTE | 2018-09-27 00:12 | P.DS ---
Providers Date of admission: 09/20/18 22:50 Expected date of discharge: 09/25/18 Attending physician: Benjamin Long Consults: 09/20/18 22:38 Consult Physician Routine Consulting Provider: Giorgi Song Consult Reason/Comments: Possible Crohn's Flare Do you want consulting provider notified?: Yes 09/20/18 22:39 Consult Physician Routine Consulting Provider: Haylie Lee Consult Reason/Comments: Partial Small Bowel Obstruction Do you want consulting provider notified?: Yes Primary care physician: [facility] Course: Presenting complaint: Abdominal pain Hospital course: Patient known history of Crohn's disease admitted with acute bowel obstruction. Also felt to have an element of Crohn's disease exacerbation. Patient was treated with NG tube. Given IV steroids. Eventually he was doing much better. Had a bowel movement. Starting a diet. Day of discharge up and about Consultations: Dr. Poole from general surgery Dr. Shira Jordan from GI On examination: VITAL SIGNS: 97.9, 78, 18, 1196 and 70, 96% room air GENERAL APPEARANCE: Comfortabl RESPIRATORY: Respiratory effort normal. Lungs clear to auscultation. CARDIOVASCULAR: First and second sounds normal. No edema. ABDOMEN: Soft, nontender, bowel sounds present. PSYCHIATRY: Alert and oriented x3. Mood and affect normal. Investigations: Hemoglobin 12.2 potassium 4.2 creatinine 0.82 Abdominal x-ray film personally reviewed by me shows dilated loops of bowel with some air-fluid level Assessment: -Acute small bowel obstruction in a patient with prior bowel surgeries, -Chronic Crohn's disease with acute exacerbation, with history of prior partial colectomy -Chronic nicotine dependence patient cigarette smoker -Hypoalbuminemia has an acute phase reactant -Reactive thrombocytosis Disposition: Home Patient Condition at Discharge: Stable Plan - Discharge Summary Discharge Rx Participant: No New Discharge Prescriptions: New Nicotine 21Mg/24Hr Patch [Habitrol] 1 patch TRANSDERM DAILY #14 patch predniSONE 20 mg PO DIRECTED #9 tab Continue Dextroamphetamine/Amphetamine [Adderall Xr] 30 mg PO BID Discharge Medication List Dextroamphetamine/Amphetamine [Adderall Xr] 30 mg PO BID 09/20/18 [History] Nicotine 21Mg/24Hr Patch [Habitrol] 1 patch TRANSDERM DAILY #14 patch 09/25/18 [Rx] predniSONE 20 mg PO DIRECTED #9 tab 09/25/18 [Rx] Follow up Appointment(s)/Referral(s): Bereket Rothman MD [Primary Care Provider] - 1-2 days Haylie Lee MD [STAFF PHYSICIAN] - As Needed Yumi Jordan MD [STAFF PHYSICIAN] - 1 Week Discharge/Stand Alone Forms: Work/School Release / Restrict Discharge Disposition: HOME SELF-CARE
== END 2018-09-25 12:53 | disposition home or self-care (01) | DRG 386 ==
LOC: EC 19:37 → 3NMEDONC 22:50 → 4SSUR 09-21 05:14 → 4MS4W 09-21 14:52
PROVIDERS: ADMIT Hospitalist; ATTEND Hospitalist
PROC: 0D9670Z Drainage of Stomach with Drainage Device, Via Natural or Artificial Opening (ICD-10-PCS; principal; 2018-09-20)
DX: K50.012 Crohn's disease of small intestine with intestinal obstruction (principal); K56.690 Other partial intestinal obstruction; E88.09 Other disorders of plasma-protein metabolism, not elsewhere classified; R79.89 Other specified abnormal findings of blood chemistry; F17.210 Nicotine dependence, cigarettes, uncomplicated; Z71.6 Tobacco abuse counseling; Z79.899 Other long term (current) drug therapy; Z90.49 Acquired absence of other specified parts of digestive tract
CPT/HCPCS: 36415; 74019; 74021; 74176; 74177; 80048; 80053; 81001; 82150; 83605; 83690; 85025; 85652; 86140; 96361; 96365; 96375; 96376; 99285

== ENCOUNTER 2019-08-21 11:41 | Inpatient (IN) | payer BC ==
[2019-08-21] MEDS ORDERED: SODIUM CHLORIDE 0.9% 1,000 ML IV STA (11:58)
[2019-08-21] MEDS ORDERED: ONDANSETRON 4 MG/2 ML VIAL IVP STA (11:58)
[2019-08-21] MEDS ORDERED: HYDROmorphone 0.5 MG/0.5 ML SYRINGE IVP STA (11:58)
--- NOTE | 2019-08-21 12:01 | ED ---
General Adult HPI - General Chief complaint: Abdominal Pain Stated complaint: Crohns Flare Up Time Seen by Provider: 08/21/19 11:49 Source: patient, RN notes reviewed Mode of arrival: ambulatory Limitations: no limitations - History of Present Illness Initial comments: 48-year-old male with a past medical history of Crohn's disease, mechanical obstruction presents to the emergency department for a chief complaint of abdominal pain. Patient has had abdominal pain since yesterday. It is getting significantly worse. Patient states that he is nauseous but is not vomiting. He is not passing gas. He feels that this pain is similar to last year when he had a bowel obstruction.Patient has no other complaints at this time including shortness of breath, chest pain,, nausea, headache, or visual changes. - Related Data Home Medications Medication Instructions Recorded Confirmed Dextroamphetamine/Amphetamine 30 mg PO BID 09/20/18 08/21/19 [Adderall Xr] Allergies Allergy/AdvReac Type Severity Reaction Status Date / Time No Known Allergies Allergy Verified 08/21/19 13:14 Review of Systems ROS Statement: Those systems with pertinent positive or pertinent negative responses have been documented in the HPI. ROS Other: All systems not noted in ROS Statement are negative. Past Medical History Additional Past Medical History / Comment(s): crohns dx History of Any Multi-Drug Resistant Organisms: None Reported Past Surgical History: Appendectomy, Bowel Resection, Cholecystectomy Additional Past Surgical History / Comment(s): resection of colon x2 Past Anesthesia/Blood Transfusion Reactions: No Reported Reaction Past Psychological History: No Psychological Hx Reported Smoking Status: Current every day smoker Past Alcohol Use History: None Reported Past Drug Use History: None Reported - Past Family History Mother Family Medical History: No Reported History Father Family Medical History: No Reported History General Exam Limitations: no limitations General appearance: alert, in no apparent distress Head exam: Present: atraumatic, normocephalic, normal inspection Eye exam: Present: normal appearance, PERRL, EOMI. Absent: scleral icterus, conjunctival injection, periorbital swelling ENT exam: Present: normal exam, mucous membranes moist Neck exam: Present: normal inspection, full ROM. Absent: tenderness, meningismus, lymphadenopathy Respiratory exam: Present: normal lung sounds bilaterally. Absent: respiratory distress, wheezes, rales, rhonchi, stridor Cardiovascular Exam: Present: regular rate, normal rhythm, normal heart sounds. Absent: systolic murmur, diastolic murmur, rubs, gallop, clicks GI/Abdominal exam: Present: soft, distended, tenderness (Generalized tenderness of the abdomen), normal bowel sounds. Absent: guarding, rebound, rigid Course Vital Signs 08/21/19 08/21/19 08/21/19 11:43 11:47 12:47 Temperature 97.5 F L Pulse Rate 69 72 Respiratory 18 20 20 Rate Blood Pressure 109/71 105/69 O2 Sat by Pulse 100 96 Oximetry 08/21/19 08/21/19 13:00 14:00 Temperature Pulse Rate 72 71 Respiratory 20 20 Rate Blood Pressure 105/69 114/74 O2 Sat by Pulse 96 96 Oximetry Medical Decision Making - Medical Decision Making Laboratory evaluation does reveal evidence of dehydration with hemoconcentration as well as azotemia. Patient was given fluids. Leukocytosis likely reactive. Urinalysis is unremarkable. A KUB showed a generalized ileus without evidence of obstruction.CT of the abdomen and pelvis shows dilated small bowel consistent with chronic distal mechanical small bowel obstruction at surgical site. Dilation not significant me different than old computed tomography scan. However patient has been asymptomatic since a year ago when he last had obstruction. I feel this is likely a reoccuring obstruction. CT also shows distal ileum wall thickening consistent with Crohn's disease without evidence of a fistula. At this time patient will be admitted for surgical Evaluation. He has not vomiting. He will be given pain medication. Patient kept nothing by mouth. - Lab Data Result diagrams: 08/21/19 11:55 08/21/19 11:55 Lab Results 08/21/19 08/21/19 08/21/19 Range/Units 11:55 11:55 13:07 WBC 14.6 H (3.8-10.6) k/uL RBC 5.89 (4.30-5.90) m/uL Hgb 16.3 (13.0-17.5) gm/dL Hct 51.9 (39.0-53.0) % MCV 88.0 (80.0-100.0) fL MCH 27.6 (25.0-35.0) pg MCHC 31.4 (31.0-37.0) g/dL RDW 14.4 (11.5-15.5) % Plt Count 631 H (150-450) k/uL Neutrophils % 82 % Lymphocytes % 9 % Monocytes % 6 % Eosinophils % 3 % Basophils % 0 % Neutrophils # 11.9 H (1.3-7.7) k/uL Lymphocytes # 1.3 (1.0-4.8) k/uL Monocytes # 0.8 (0-1.0) k/uL Eosinophils # 0.4 (0-0.7) k/uL Basophils # 0.1 (0-0.2) k/uL Sodium 135 L (137-145) mmol/L Potassium 4.5 (3.5-5.1) mmol/L Chloride 98 (98-107) mmol/L Carbon Dioxide 23 (22-30) mmol/L Anion Gap 14 mmol/L BUN 27 H (9-20) mg/dL Creatinine 1.02 (0.66-1.25) mg/dL Est GFR (CKD-EPI)AfAm >90 (>60 ml/min/1.73 sqM) Est GFR (CKD-EPI)NonAf 87 (>60 ml/min/1.73 sqM) Glucose 134 H (74-99) mg/dL Calcium 10.3 H (8.4-10.2) mg/dL Total Bilirubin 1.1 (0.2-1.3) mg/dL AST 35 (17-59) U/L ALT 27 (4-49) U/L Alkaline Phosphatase 128 H (38-126) U/L Total Protein 8.8 H (6.3-8.2) g/dL Albumin 4.9 (3.5-5.0) g/dL Amylase 43 (30-110) U/L Lipase 38 (23-300) U/L Urine Color Yellow Urine Appearance Cloudy (Clear) Urine pH 5.5 (5.0-8.0) Ur Specific [place] 1.042 H (1.001-1.035) Urine Protein 1+ H (Negative) Urine Glucose (UA) Negative (Negative) Urine Ketones Negative (Negative) Urine Blood Negative (Negative) Urine Nitrite Negative (Negative) Urine Bilirubin Negative (Negative) Urine Urobilinogen 2.0 (<2.0) mg/dL Ur Leukocyte Esterase Negative (Negative) Urine WBC 2 (0-5) /hpf Ur Squamous Epith Cells <1 (0-4) /hpf Amorphous Sediment Occasional H (None) /hpf Hyaline Casts 17 H (0-2) /lpf Urine Mucus Many H (None) /hpf Disposition Clinical Impression: Small bowel obstruction, Dehydration Disposition: ADMITTED IP TO THIS HOSP Is patient prescribed a controlled substance at d/c from ED?: No Referrals: Bereket Rothman MD [Primary Care Provider] - 1-2 days Time of Disposition: 14:47
[2019-08-21 12:24] LABS: Basophils # (A) 0.1 k/uL (0-0.2); Basophils % (A) 0 %; Eosinophils # (A) 0.4 k/uL (0-0.7); Eosinophils % (A) 3 %; HCT 51.9 % (39.0-53.0); HGB 16.3 gm/dL (13.0-17.5); Lymphocytes # (A) 1.3 k/uL (1.0-4.8); Lymphocytes % (A) 9 %; MCH 27.6 pg (25.0-35.0); MCHC 31.4 g/dL (31.0-37.0); Mean Platelet Volume 6.7; Monocytes # (A) 0.8 k/uL (0-1.0); Monocytes % (A) 6 %; Neutrophils # (A) 11.9 k/uL (1.3-7.7); Neutrophils % (A) 82 %; Platelet Count 631 k/uL (150-450); RBC 5.89 m/uL (4.30-5.90); RDW 14.4 % (11.5-15.5); WBC 14.6 k/uL (3.8-10.6)
[2019-08-21 12:32] LABS: ALT 27 U/L (4-49); AST 35 U/L (17-59); African American GFR (CKD) >90 (>60 ml/min/1.73 sqM); Albumin 4.9 g/dL (3.5-5.0); Alkaline Phosphatase 128 U/L (38-126); Amylase 43 U/L (30-110); Anion Gap 14 mmol/L; Blood Urea Nitrogen 27 mg/dL (9-20); Calcium 10.3 mg/dL (8.4-10.2); Carbon Dioxide 23 mmol/L (22-30); Chloride 98 mmol/L (98-107); Glucose 134 mg/dL (74-99); Non-African American GFR(CKD) 87 (>60 ml/min/1.73 sqM); Potassium 4.5 mmol/L (3.5-5.1); Sodium 135 mmol/L (137-145); Total Bilirubin 1.1 mg/dL (0.2-1.3); Total Protein 8.8 g/dL (6.3-8.2)
--- NOTE | 2019-08-21 12:51 | XR ---
EXAMINATION TYPE: XR KUB , 2 VIEWS DATE OF EXAM ORDERED: 08/21/2019 HISTORY: abdominal pain. COMPARISON: Previous study dated 02-26. FINDINGS: The lung bases are clear. Within the abdomen, the gallbladder is been removed. There are scattered air-fluid levels throughout the abdomen. There is no evidence of obstruction or free air. No unusual calcifications are seen. The re are degenerative changes within the hips. IMPRESSION: FINDINGS MOST CONSISTENT WITH GENERALIZED ILEUS.
[2019-08-21] MEDS ORDERED: KETOROLAC 30 MG/ML 1 ML VIAL IVP STA (13:35)
[2019-08-21] MEDS ORDERED: SODIUM CHLORIDE 0.9% 500 ML 500 ML IV STA (13:35)
[2019-08-21 13:55] LABS: Amorphous Sediment,Urine Occasional /hpf; Appearance,Urine Cloudy (Clear); Bilirubin,Urine Negative (Negative); Blood,Urine Negative (Negative); Color,Urine Yellow; Glucose,Urine (UA) Negative (Negative); Hyaline Casts,Urine 17 /lpf (0-2); Ketones,Urine Negative (Negative); Leukocyte Esterase,Urine Negative (Negative); Mucus,Urine Many /hpf; Nitrite,Urine Negative (Negative); PH, Urine 5.5 (5.0-8.0); Protein,Urine 1+ (Negative); Specific Gravity,Urine 1.042 (1.001-1.035); Squamous Epithelial Cell,Urine <1 /hpf (0-4); WBC,Urine 2 /hpf (0-5)
--- NOTE | 2019-08-21 14:21 | CT ---
EXAMINATION TYPE: CT abdomen pelvis w con DATE OF EXAM: 08/21/2019 COMPARISON: 09/21/2018 HISTORY: Abdominal pain CT DLP: 1281 mGycm Automated exposure control for dose reduction was used. CONTRAST: Performed with IV Contrast, patient injected with 100 mL of Isovue 300. There is mild subsegmental atelectasis at the lung bases. There is no pleural effusion. Heart size is normal. There is no pericardial effusion. Liver shows no focal defect. There are clips from cholecys tectomy. Spleen appears normal. Stomach is large and mostly filled with fluid. There is no evidence o f pancreatic mass. The bile ducts are not dilated. There is no adrenal mass. Kidneys show satisfactory contrast opacification. There is no hydronephrosi s. The ureters are not dilated. Delayed images appear to show normal renal excretion. The bladder dis tends smoothly. There is no inguinal hernia. There is no free fluid in the pelvis. There are multiple dilated loops of small bowel throughout the abdomen. Small bowel measures up to 4. 4 cm. There are surgical clips at the distal ileum. This appears to be the transition point. There ap pears to be resection of the right hemicolon. There is mild wall thickening of the distal ileum. There is no ascites. There is no free air. There is no mesenteric edema. Lumbar vertebra have normal alignment. Disc spaces are fairly normal. There is no compression fractur e. There is mild spurring of the endplates. Bony pelvis is intact. IMPRESSION: Dilated small bowel consistent with chronic distal mechanical small bowel obstruction at the surgery site. Dilation not significantly different than old CT scan. There is improvement in the atelectasis at the lung bases compared to old exam. Distal ileum wall thickening consistent with Crohn's disease . No evidence of a fistula.
[2019-08-21] MEDS ORDERED: NALOXONE 0.4 MG/ML 1 ML VIAL IV PRN (14:39)
[2019-08-21] MEDS: SODIUM CHLORIDE 0.9% 1,000 ML IV SCH (16:34)
[2019-08-21] MEDS: HYDROmorphone 0.5 MG/0.5 ML SYRINGE IVP PRN ×3 (16:34→21:56)
[2019-08-21] MEDS: ONDANSETRON 4 MG/2 ML VIAL IVP PRN (16:35)
[2019-08-22] MEDS: HYDROmorphone 0.5 MG/0.5 ML SYRINGE IVP PRN ×6 (01:42→22:43)
[2019-08-22] MEDS: ONDANSETRON 4 MG/2 ML VIAL IVP PRN (01:43)
[2019-08-22] MEDS: SODIUM CHLORIDE 0.9% 1,000 ML IV SCH ×4 (01:43→22:43)
--- NOTE | 2019-08-22 11:42 | P.GSHP ---
History of Present Illness H&P Date: 08/22/19 Chief Complaint: Small bowel obstruction 48-year-old female presents to the hospital complaining of abdominal cramps and pain. Pain is mostly right lower quadrant. Patient has had 2 separate bowel resections. First one was by Dr. Kidd back in 1995 at the time of his initial diagnosis of Crohn's disease. Last bowel resection [address] Elliot Jaquez or Dr. Poole. Patient normally having 6-10 Caldwell's per day. No maintenance medications for his Crohn's. Used to see Dr. Hernandez but has not followed up with GI in many years. First admission for his Crohn's in a while. He did have 3 bowel movements since yesterday. Pain is improved. Bloating is less. CAT scan showed evidence of partial small bowel obstruction. He was nauseated but no vomiting. White blood cell count 14.6. - Review of Systems Comment: The patient denies any acute changes in vision or hearing, no dysphagia or odynophagia, no chest pain or shortness of breath, no dysuria or hematuria, no headache, no runny nose, no rectal bleeding or melena, no unexplained weight loss Past Medical History Additional Past Medical History / Comment(s): crohns dx History of Any Multi-Drug Resistant Organisms: None Reported Past Surgical History: Appendectomy, Bowel Resection, Cholecystectomy Additional Past Surgical History / Comment(s): resection of colon x2 Past Anesthesia/Blood Transfusion Reactions: No Reported Reaction Past Psychological History: No Psychological Hx Reported Smoking Status: Current every day smoker Past Alcohol Use History: None Reported Past Drug Use History: None Reported - Past Family History Mother Family Medical History: No Reported History Father Family Medical History: No Reported History Medications and Allergies Home Medications Medication Instructions Recorded Confirmed Type Dextroamphetamine/Amphetamine 30 mg PO BID 09/20/18 08/21/19 History [Adderall Xr] Allergies Allergy/AdvReac Type Severity Reaction Status Date / Time No Known Allergies Allergy Verified 08/21/19 13:14 Surgical - Exam Vital Signs Temp Pulse Resp BP Pulse Ox 97.5 F L 69 18 109/71 100 08/21/19 11:43 08/21/19 11:43 08/21/19 11:43 08/21/19 11:43 08/21/19 11:43 Physical exam: General: Well-developed, well-nourished HEENT: Normocephalic, sclerae nonicteric Abdomen: Mildly distended, diffuse tenderness increased right lower quadrant Extremities: No edema Neuro: Alert and oriented Results - Labs 08/21/19 11:55 08/21/19 11:55 Abnormal Lab Results - Last 24 Hours (Table) 08/21/19 08/21/19 08/21/19 Range/Units 11:55 11:55 13:07 WBC 14.6 H (3.8-10.6) k/uL Plt Count 631 H (150-450) k/uL Neutrophils # 11.9 H (1.3-7.7) k/uL Sodium 135 L (137-145) mmol/L BUN 27 H (9-20) mg/dL Glucose 134 H (74-99) mg/dL Calcium 10.3 H (8.4-10.2) mg/dL Alkaline Phosphatase 128 H (38-126) U/L Total Protein 8.8 H (6.3-8.2) g/dL Ur Specific [place] 1.042 H (1.001-1.035) Urine Protein 1+ H (Negative) Amorphous Sediment Occasional H (None) /hpf Hyaline Casts 17 H (0-2) /lpf Urine Mucus Many H (None) /hpf Diabetes panel 08/21/19 Range/Units 11:55 Sodium 135 L (137-145) mmol/L Potassium 4.5 (3.5-5.1) mmol/L Chloride 98 (98-107) mmol/L Carbon Dioxide 23 (22-30) mmol/L BUN 27 H (9-20) mg/dL Creatinine 1.02 (0.66-1.25) mg/dL Glucose 134 H (74-99) mg/dL Calcium 10.3 H (8.4-10.2) mg/dL AST 35 (17-59) U/L ALT 27 (4-49) U/L Alkaline Phosphatase 128 H (38-126) U/L Total Protein 8.8 H (6.3-8.2) g/dL Albumin 4.9 (3.5-5.0) g/dL Calcium panel 08/21/19 Range/Units 11:55 Calcium 10.3 H (8.4-10.2) mg/dL Albumin 4.9 (3.5-5.0) g/dL Pituitary panel 08/21/19 Range/Units 11:55 Sodium 135 L (137-145) mmol/L Potassium 4.5 (3.5-5.1) mmol/L Chloride 98 (98-107) mmol/L Carbon Dioxide 23 (22-30) mmol/L BUN 27 H (9-20) mg/dL Creatinine 1.02 (0.66-1.25) mg/dL Glucose 134 H (74-99) mg/dL Calcium 10.3 H (8.4-10.2) mg/dL Adrenal panel 08/21/19 Range/Units 11:55 Sodium 135 L (137-145) mmol/L Potassium 4.5 (3.5-5.1) mmol/L Chloride 98 (98-107) mmol/L Carbon Dioxide 23 (22-30) mmol/L BUN 27 H (9-20) mg/dL Creatinine 1.02 (0.66-1.25) mg/dL Glucose 134 H (74-99) mg/dL Calcium 10.3 H (8.4-10.2) mg/dL Total Bilirubin 1.1 (0.2-1.3) mg/dL AST 35 (17-59) U/L ALT 27 (4-49) U/L Alkaline Phosphatase 128 H (38-126) U/L Total Protein 8.8 H (6.3-8.2) g/dL Albumin 4.9 (3.5-5.0) g/dL Assessment and Plan (1) Small bowel obstruction Narrative/Plan: 48-year-old male with Crohn's disease and for small bowel obstruction. Keep nothing by mouth. Repeat x-rays tomorrow. Consult GI for history of Crohn's. Current Visit: Yes Status: Acute Code(s): K56.609 - UNSP INTESTNL OBST, UNSP TO PARTIAL VERSUS COMPLETE OBST SNOMED Code(s): 689993442
[2019-08-22] MEDS: HEPARIN SODIUM,PORCINE 5,000 UNIT/ML 1 ML VIAL SQ SCH ×2 (16:28→23:53)
[2019-08-22] MEDS: FAMOTIDINE 20 MG/2 ML VIAL IV SCH (19:51)
[2019-08-23] MEDS: HYDROmorphone 0.5 MG/0.5 ML SYRINGE IVP PRN ×5 (04:07→19:59)
[2019-08-23 06:38] LABS: Basophils % (A) 1 %; Eosinophils # (A) 0.3 k/uL (0-0.7); Eosinophils % (A) 7 %; HCT 37.3 % (39.0-53.0); Hypochromasia Slight; Lymphocytes # (A) 1.2 k/uL (1.0-4.8); Lymphocytes % (A) 29 %; MCH 29.4 pg (25.0-35.0); MCHC 32.3 g/dL (31.0-37.0); MCV 91.2 fL (80.0-100.0); Mean Platelet Volume 6.6; Monocytes # (A) 0.5 k/uL (0-1.0); Monocytes % (A) 11 %; Neutrophils # (A) 2.1 k/uL (1.3-7.7); Neutrophils % (A) 50 %; Platelet Count 387 k/uL (150-450); RBC 4.09 m/uL (4.30-5.90); RDW 14.2 % (11.5-15.5); WBC 4.3 k/uL (3.8-10.6)
[2019-08-23 06:49] LABS: ALT 82 U/L (4-49); AST 55 U/L (17-59); African American GFR (CKD) >90 (>60 ml/min/1.73 sqM); Albumin 2.7 g/dL (3.5-5.0); Alkaline Phosphatase 119 U/L (38-126); Anion Gap 8 mmol/L; Blood Urea Nitrogen 15 mg/dL (9-20); Calcium 8.1 mg/dL (8.4-10.2); Carbon Dioxide 20 mmol/L (22-30); Chloride 108 mmol/L (98-107); Glucose 53 mg/dL (74-99); Non-African American GFR(CKD) >90 (>60 ml/min/1.73 sqM); Sodium 136 mmol/L (137-145); Total Bilirubin 0.5 mg/dL (0.2-1.3); Total Protein 5.5 g/dL (6.3-8.2)
[2019-08-23 06:55] LABS: HGB 12.1 gm/dL (13.0-17.5)
[2019-08-23] MEDS: FAMOTIDINE 20 MG/2 ML VIAL IV SCH ×2 (08:16→19:59)
[2019-08-23] MEDS: HEPARIN SODIUM,PORCINE 5,000 UNIT/ML 1 ML VIAL SQ SCH ×3 (08:17→23:57)
--- NOTE | 2019-08-23 09:01 | XR ---
EXAMINATION TYPE: XR abdomen 2V DATE OF EXAM: 08/23/2019 COMPARISON: 08/21/2019 HISTORY: Pain TECHNIQUE: One view abdominal series FINDINGS: The osseous structures are intact. The bowel gas pattern is nonspecific. Numerous dilated small zack l loops with air-fluid levels are seen and there is a trickle clips and postsurgical changes noted. H ypertrophic and degenerative change of the spine. Arthropathy of the hips. IMPRESSION: 1. Nonspecific abdomen correlate for bowel obstruction versus severe ileus. Findings are stable from prior exam.
--- NOTE | 2019-08-23 10:07 | P.PN ---
Subjective Progress Note Date: 08/23/19 CHIEF COMPLAINT: Crohn's exacerbation HISTORY OF PRESENT ILLNESS: The patient is a 48 year old male who comes more than 2-3 day history of crampy abdominal pain with presentation of small bowel obstruction. Patient reports long-standing history of Crohn's disease for which she is noncompliant with care. Last hospitalization was September 2018 for small bowel obstruction demonstrated conservative measures. He has had 2 operations by 2 surgeons. Patient does report having exploratory laparotomy with small bowel resection by Dr. Saldana in 1995 followed by laparotomy in [address] Elliot Ford for his Crohn's disease. He has been lost to follow-up with his roof tiler for over 2 years. He was admitted for small bowel obstruction. This morning, he is had at least 3 loose bowel movements with some passage of flatus. Abdominal pain has improved. He is awaiting to see roof tiler for his Crohn's disease. PAST MEDICAL HISTORY: See list. PAST SURGICAL HISTORY: See list. MEDICATIONS: See list. ALLERGIES: See list. Home Medications Medication Instructions Recorded Confirmed Dextroamphetamine/Amphetamine 30 mg PO BID 09/20/18 08/21/19 [Adderall Xr] Allergies Allergy/AdvReac Type Severity Reaction Status Date / Time No Known Allergies Allergy Verified 08/21/19 13:14 SOCIAL HISTORY: See list. FAMILY HISTORY: See list. Past Medical History Additional Past Medical History / Comment(s): crohns dx History of Any Multi-Drug Resistant Organisms: None Reported Past Surgical History: Appendectomy, Bowel Resection, Cholecystectomy Additional Past Surgical History / Comment(s): resection of colon x2 Past Anesthesia/Blood Transfusion Reactions: No Reported Reaction Past Psychological History: No Psychological Hx Reported Smoking Status: Current every day smoker Past Alcohol Use History: None Reported Past Drug Use History: None Reported - Past Family History Mother Family Medical History: No Reported History Father Family Medical History: No Reported History REVIEW OF ORGAN SYSTEMS: CONSTITUTIONAL: No fevers or chills. EYES: Denies any trouble with vision. No glasses. HEENT: No difficulties with hearing. No nosebleeds. No difficulty swallowing. RESPIRATORY: Denies pneumonia. Denies any troubles with breathing or dyspnea on exertion. CARDIOVASCULAR: Denies any chest pain, palpitations, or recent heart attacks. GASTROINTESTINAL: As above. History of small bowel obstruction treated conservatively one year ago September 2018. Patient noncompliant with Crohn's disease care. Also has history of bowel resections. GENITOURINARY: Denies any blood in urine or increased urinary frequency. NEUROLOGICAL: Denies any numbness or tingling along the distal extremities. No seizure disorders or headaches. MUSCULOSKELETAL: Denies any back pain, stiffness or joint arthritis. SKIN: No current skin cancer. No rash. PSYCHIATRIC: Denies current depression or suicidal thoughts. Has ADHD. ENDOCRINE: Denies current thyroid disorders. Denies any blood sugar glucose intolerance. HEME/LYMPHATIC: Denies any lumps and bumps around the neck. No recent deep venous thrombosis. ALLERGY/IMMUNOLOGY: No immunoglobulin therapy. No immune deficiencies. BREAST: Denies current breast lumps, pain or nipple discharge. PHYSICAL EXAM: VITALS: Reviewed CONSTITUTIONAL: Well developed and in no acute distress. EYES: Conjuctivae without sclera icterus. Pupils are equally round and reactive to light. Extraocular movements grossly intact. HEAD, EARS, NOSE, THROAT: Moist buccal mucosa. Head is atraumatic, normocephalic. Hears conversational speech. No nasal drainage. NECK: Supple. No JV distention. No thyroidomegaly. RESPIRATORY: Non-labored respirations and equal bilateral excursions. No gross wheezes. CARDIOVASCULAR: Regular rate and rhythm. Extremities without moderate edema. Palpable 2+ radial pulses. ABDOMEN: Soft. No peritonitis. LYMPH: No neck lymphadenopathy. MUSCULOSKELETAL: Nail and fingers with good capillary refill. SKIN: Warm and well perfused with good skin turgor. NEUROLOGIC: Cranial nerves II through XII grossly intact. No focal or lateraliz ing signs. PSYCH: Appropriate affect. Alert and oriented to person, place and time. Displays appropriate insight. CLINCAL LABS: Reviewed. On admission WBC 14,600 down normal 4300. Hemoglobin down 16.3-12.1. Platelet count improved from 631-387. Creatinine down from 1.07-0.69. AST ALT with mild elevation in 24 hours, 55 and 82, respectively. C-reactive protein elevated at 134. Coronavirus negative IMAGING: Independently reviewed CT of the abdomen and pelvis demonstrating small bowel dilation over 3 cm with edema along the ileum near the anastomosis. Colon is decompressed. This is my personal interpretation. RADIOLOGY: Report reviewed of the CT and abdomen and pelvis demonstrating small bowel dilated 4.4 cm. Question with transition point at surgical site in the anastomosis at ileum. No evidence of small bowel fistula RECORDS: previous old records reviewed with hospitalization 1 year ago with conservative management for bowel obstruction ASSESSMENT: 1. Crohn's disease with small bowel obstruction 2. Noncompliance to medical care for Crohn's disease 3. Tobacco abuse disorder 4. Dehydration, acute PLAN: 1. Recommend GI consultation for management of Crohn's disease. 2. He is improving with conservative management 3. May start clear liquid diet. 4. Continue IV fluid hydration. 5. May benefit from small bowel follow-through for evaluation of chronic small bowel obstruction 6. Start IV steroids defered to gastroenterology team 7. Tobacco abuse education Objective - Vital Signs Vital signs: Vital Signs Temp 98.1 F 08/23/19 05:23 Pulse 71 08/23/19 05:23 Resp 18 08/23/19 05:23 BP 130/56 08/23/19 05:23 Pulse Ox 92 L 08/23/19 05:23 Intake & Output 08/22/19 08/23/19 08/23/19 18:59 06:59 18:59 Intake Total 687 1500 Balance 687 1500 Intake: Intake, IV Titration 687 1500 Amount Sodium Chloride 0.9% 1, 687 1500 000 ml @ 125 mls/hr IV . Q8H [facility] Rx#:[id number] Other: Voiding Method Toilet Toilet # Voids 2 # Bowel Movements 1 1 - Labs CBC & Chem 7: 08/23/19 05:34 08/23/19 05:34 Labs: Abnormal Lab Results - Last 24 Hours (Table) 08/23/19 08/23/19 Range/Units 05:34 05:34 RBC 4.09 L (4.30-5.90) m/uL Hgb 12.1 L D (13.0-17.5) gm/dL Hct 37.3 L (39.0-53.0) % Sodium 136 L (137-145) mmol/L Chloride 108 H (98-107) mmol/L Carbon Dioxide 20 L (22-30) mmol/L Glucose 53 L (74-99) mg/dL Calcium 8.1 L (8.4-10.2) mg/dL ALT 82 H (4-49) U/L Total Protein 5.5 L (6.3-8.2) g/dL Albumin 2.7 L (3.5-5.0) g/dL Assessment and Plan (1) Noncompliance with medication regimen Current Visit: Yes Status: Acute Code(s): Z91.14 - PATIENT'S OTHER NONCOMPLIANCE WITH MEDICATION REGIMEN SNOMED Code(s): 794926838 (2) Dehydration Current Visit: Yes Status: Acute Code(s): E86.0 - DEHYDRATION SNOMED Code(s): 37522061 (3) Small bowel obstruction Current Visit: Yes Status: Acute Code(s): K56.609 - UNSP INTESTNL OBST, UNSP TO PARTIAL VERSUS COMPLETE OBST SNOMED Code(s): 606521170 (4) Abdominal pain Current Visit: No Status: Acute Code(s): R10.9 - UNSPECIFIED ABDOMINAL PAIN SNOMED Code(s): 39690665 (5) Crohns disease Current Visit: No Status: Acute Code(s): K50.90 - CROHN'S DISEASE, UNSPECIFIED, WITHOUT COMPLICATIONS SNOMED Code(s): 45152268 (6) Smoker Current Visit: No Status: Acute Code(s): F17.200 - NICOTINE DEPENDENCE, UNSPECIFIED, UNCOMPLICATED SNOMED Code(s): 99419686
[2019-08-23] MEDS: methylPREDNISolone SOD SUCCI 40 MG/ML 1 ML VIAL IV SCH ×3 (13:22→23:57)
[2019-08-23] MEDS: SODIUM CHLORIDE 0.9% 1,000 ML IV SCH ×3 (13:24→21:17)
--- NOTE | 2019-08-24 01:25 | CONS ---
CONSULTATION DATE OF INDICATION: 08/23/2019. REASON FOR CONSULTATION: Crohn disease, small-bowel obstruction. HISTORY OF PRESENT ILLNESS: The patient is a 48-year-old pleasant white male who was diagnosed with Crohn's ileitis back in 1995 and initially had surgery at the time of diagnosis. Subsequently he had another bowel resection for anastomotic stricture [place] [address] Kim. He was being followed by Dr. Song and according to him he was treated with Remicade infusions for 2 years, but about 3 years ago he stopped taking the medication and has never followed in the office. He has been doing well. He started having abdominal pain that started about 4 days ago. The pain became extremely intense, associated with nausea, but no emesis. Had some abdominal distention. He came to the emergency room, had a CT scan of the abdomen that showed evidence of dilated small bowel loops suggestive of partial small-bowel obstruction. He had 1 or 2 bowel movements every day. Today, he is feeling better. He still has cramping lower abdominal pain. On a clear liquid diet, tolerating well. He was started on IV steroids with Solu-Medrol 20 mg q.8 hours. He reports no fever, chills, night sweats. PAST MEDICAL HISTORY: Significant for Crohn's disease diagnosed in 1995, status post terminal ileal resection in 1995 and second surgery in 2012 for stricturing Crohn disease, maintained on Remicade infusions in the past, but has been on no medications for 3 years. PAST SURGICAL HISTORY: Cholecystectomy and bowel resection. MEDICATIONS AT HOME: Adderall. ALLERGIES: No known drug allergies. SOCIAL HISTORY: Chronic smoker. No alcohol use. FAMILY HISTORY: Unremarkable. REVIEW OF SYSTEMS: CARDIOPULMONARY: No chest pain or shortness of breath. GENITOURINARY: No dysuria or hematuria. MUSCULOSKELETAL: Unremarkable. SKIN: Unremarkable ENDOCRINE: Unremarkable. PSYCHIATRIC: Unremarkable. NEUROLOGY: Unremarkable. ENT/VISION: Unremarkable. CONSTITUTIONAL: No recent weight loss. No fever, chills, night sweats. PHYSICAL EXAMINATION: Blood pressure is 141/73, pulse 57, temperature 98.1. HEENT EXAMINATION: Unremarkable. Conjunctivae pink. Sclerae anicteric. Oral cavity no lesions. NECK: No JVD or lymph node enlargement. CHEST: Clear to auscultation. HEART: Regular rate and rhythm. ABDOMEN: Soft. There was mild tenderness in the left lower quadrant area, right lower quadrant area. No rebound or rigidity. EXTREMITIES: No pedal edema. SKIN: No rashes. NEUROLOGIC: Alert and oriented x3. No focal deficits. LABS: Labs done at the time of admission to the hospital: WBC 14.8, hemoglobin 16.3, platelets are 631. Basic metabolic panel is all within normal limits. BUN was 21, creatinine 1.02. AST and ALT are normal. Alkaline phosphatase in slightly elevated at 128. CRP was 134. IMPRESSION: This is a patient with longstanding history of Crohn's ileitis, status post 2 surgeries in the past, presents to the hospital with acute onset of lower abdominal pain for the last [address] findings of dilated small bowel loop consistent with partial small-bowel obstruction, most likely secondary to exacerbation of Crohn's disease. Clinically, he is doing better. On clear liquids, tolerating well. Noted to have elevated CRP. RECOMMENDATIONS: 1. Start on IV Solu-Medrol 20 mg q.8 hours. 2. Continue with a clear liquid diet. 3. I had an extensive discussion with the patient regarding the need for biologic therapy in the near future, which can be discussed on an outpatient basis. 4. Repeat abdominal x-rays tomorrow. 5. We will follow with you closely. Thank you for this consultation. MMODL / IJN: [id number] /
[2019-08-24 06:42] LABS: Basophils % (A) 0 %; Eosinophils % (A) 0 %; HCT 37.7 % (39.0-53.0); HGB 12.2 gm/dL (13.0-17.5); Lymphocytes # (A) 0.5 k/uL (1.0-4.8); Lymphocytes % (A) 9 %; MCH 28.8 pg (25.0-35.0); MCHC 32.3 g/dL (31.0-37.0); MCV 89.2 fL (80.0-100.0); Mean Platelet Volume 6.4; Monocytes # (A) 0.4 k/uL (0-1.0); Monocytes % (A) 7 %; Neutrophils # (A) 4.8 k/uL (1.3-7.7); Neutrophils % (A) 83 %; Platelet Count 417 k/uL (150-450); RBC 4.22 m/uL (4.30-5.90); RDW 14.1 % (11.5-15.5); WBC 5.8 k/uL (3.8-10.6)
[2019-08-24] MEDS: HEPARIN SODIUM,PORCINE 5,000 UNIT/ML 1 ML VIAL SQ SCH ×2 (07:58→16:57)
[2019-08-24] MEDS: FAMOTIDINE 20 MG/2 ML VIAL IV SCH ×2 (07:59→20:40)
[2019-08-24] MEDS: methylPREDNISolone SOD SUCCI 40 MG/ML 1 ML VIAL IV SCH ×2 (07:59→16:57)
[2019-08-24] MEDS: HYDROmorphone 0.5 MG/0.5 ML SYRINGE IVP PRN ×2 (08:00→20:40)
[2019-08-24 09:24] LABS: Erythrocyte Sedimentation Rate 31 mm/hr (0-15)
--- NOTE | 2019-08-24 11:09 | P.PN ---
<Hayley Owens - Last Filed: 08/24/19 11:02> Subjective Progress Note Date: 08/24/19 CHIEF COMPLAINT: Crohn's exacerbation HISTORY OF PRESENT ILLNESS: Patient examined this morning at the bedside with Dr. Lee. Patient denies abdominal pain. He reports passing flatus and having bowel movements yesterday. Patient is hoping to be discharged home today. PHYSICAL EXAM: VITAL SIGNS: Reviewed GENERAL: Well-developed in no acute distress. HEENT: No sclera icterus. Extraocular movements grossly intact. Moist buccal mucosa. Head is atraumatic, normocephalic. Hears conversational speech. No nasal drainage. NECK: Supple without lymphadenopathy. CHEST: Non-labored respirations and equal bilateral excursions. CARDIOVASCULAR: Regular rate with regular rhythm. Palpable 2+ radial pulses. ABDOMEN: Soft. Nondistended. Nontender. MUSCULOSKELETAL: No clubbing or cyanosis. NEUROLOGIC: No focal or lateralizing signs. Cranial nerves II through XII grossly intact. PSYCH: Appropriate affect. Alert and oriented to person, place and time. SKIN: Well perfused. Good skin turgor. ASSESSMENT: 1. Crohn's disease with small bowel obstruction 2. Noncompliance to medical care for Crohn's disease 3. Tobacco abuse disorder 4. Dehydration, acute PLAN: -Advance diet as tolerated -Steroids per GI service -Possible discharge home this afternoon if cleared by GI service Nurse practitioner note has been reviewed by physician. Signing provider agrees with the documented findings, assessment, and plan of care. Objective - Vital Signs Vital signs: Vital Signs Temp 97.7 F 08/24/19 05:32 Pulse 67 08/24/19 05:32 Resp 18 08/24/19 05:32 BP 122/65 08/24/19 05:32 Pulse Ox 94 L 08/24/19 05:32 Intake & Output 08/23/19 08/24/19 08/24/19 18:59 06:59 18:59 Intake Total 1600 1500 Balance 1600 1500 Intake: Intake, IV Titration 1000 1500 Amount Sodium Chloride 0.9% 1, 1000 1500 000 ml @ 125 mls/hr IV . Q8H [facility] Rx#:[id number] Oral 600 Other: Voiding Method Toilet Toilet Toilet # Voids 2 1 - Labs CBC & Chem 7: 08/24/19 06:11 08/23/19 05:34 Labs: Abnormal Lab Results - Last 24 Hours (Table) 08/23/19 08/24/19 08/24/19 Range/Units 06:45 06:11 06:11 RBC 4.22 L (4.30-5.90) m/uL Hgb 12.2 L (13.0-17.5) gm/dL Hct 37.7 L (39.0-53.0) % Lymphocytes # 0.5 L (1.0-4.8) k/uL ESR 26 H 31 H (0-15) mm/hr C-Reactive Protein 52.4 H (<10.0) mg/L <JesusHaylie N - Last Filed: 08/25/19 20:34> Subjective Patient seen and evaluated with nurse practitioner. Please see additional recommendations below. HISTORY OF PRESENT ILLNESS: The patient is a 48 year old male admitted secondary to exacerbation of Crohn's disease. Reports passing flatus. He also reports improvement of his symptoms. He was seen by GI. He is improving on antibiot ics. No blood in stools. REVIEW OF ORGAN SYSTEMS: No fevers or chills. No chest pain. No productive sputum PHYSICAL EXAM: VITALS: Reviewed CONSTITUTIONAL: Well developed and in no acute distress. EYES: Conjuctivae without sclera icterus. Extraocular movements grossly intact. HEAD, EARS, NOSE, THROAT: Moist buccal mucosa. Head is atraumatic, normocephalic. Hears conversational speech. No nasal drainage. NECK: No JV distention. No thyroidomegaly. RESPIRATORY: Non-labored respirations and equal bilateral excursions. CARDIOVASCULAR: Regular rate and rhythm. ABDOMEN: Soft. No peritonitis. MUSCULOSKELETAL: No clubbing cyanosis or edema. SKIN: Warm and well perfused with good skin turgor. NEUROLOGIC: Cranial nerves II through XII grossly intact. No focal or lateralizing signs. PSYCH: Appropriate affect. Alert and oriented to person, place and time. Displays appropriate insight. CLINCAL LABS: Reviewed. On admission WBC 14,600 down normal 4300. Hemoglobin down 16.3-12.1, now 12.2. Platelet count improved from 631-387, now 417. C- reactive protein elevated at 134, now 52.4 ASSESSMENT: 1. Crohn's disease with small bowel obstruction 2. Noncompliance to medical care for Crohn's disease 3. Tobacco abuse disorder 4. Dehydration, acute PLAN: 1. Agree with discharge once medically stable from a gastroenterology standpoint. 2. May advance diet. 3. Continue steroids for Crohn's exacerbation 4. Overall, patient agrees with nonsurgical management at this time Objective - Vital Signs Vital signs: Vital Signs Temp 97.8 F 08/25/19 05:15 Pulse 55 L 08/25/19 05:15 Resp 12 08/25/19 05:15 BP 128/55 08/25/19 05:15 Pulse Ox 96 08/25/19 05:15 Intake & Output 08/25/19 08/25/19 08/26/19 06:59 18:59 06:59 Intake Total 500 Balance 500 Intake: Intake, IV Titration 500 Amount Sodium Chloride 0.9% 1, 500 000 ml @ 125 mls/hr IV . [facility] Rx#:[id number] Other: Voiding Method Toilet # Voids 3 - Labs CBC & Chem 7: 08/24/19 06:11 08/23/19 05:34 Labs: Abnormal Lab Results - Last 24 Hours (Table) 08/25/19 08/25/19 Range/Units 06:07 06:07 ESR 21 H (0-15) mm/hr C-Reactive Protein 25.6 H (<10.0) mg/L Assessment and Plan (1) Noncompliance with medication regimen Status: Acute Code(s): Z91.14 - PATIENT'S OTHER NONCOMPLIANCE WITH MEDICATION REGIMEN SNOMED Code(s): 551455856 (2) Dehydration Status: Acute Code(s): E86.0 - DEHYDRATION SNOMED Code(s): 77091308 (3) Small bowel obstruction Status: Acute Code(s): K56.609 - UNSP INTESTNL OBST, UNSP TO PARTIAL VERSUS COMPLETE OBST SNOMED Code(s): 159838425 (4) Abdominal pain Status: Acute Code(s): R10.9 - UNSPECIFIED ABDOMINAL PAIN SNOMED Code(s): 03121262 (5) Crohns disease Status: Acute Code(s): K50.90 - CROHN'S DISEASE, UNSPECIFIED, WITHOUT COMPLICATIONS SNOMED Code(s): 39891584 (6) Smoker Status: Acute Code(s): F17.200 - NICOTINE DEPENDENCE, UNSPECIFIED, UNCOMPLICATED SNOMED Code(s): 87946709
[2019-08-24] MEDS: SODIUM CHLORIDE 0.9% 1,000 ML IV SCH ×3 (12:43→20:41)
--- NOTE | 2019-08-24 18:32 | PN ---
PROGRESS NOTE DATE OF DICTATION: 08/24/2019 This patient is a 48-year-old white male with history of Crohn's disease diagnosed in 1995, status post 2 surgeries in the past, admitted to the hospital with severe abdominal pain, nausea, vomiting, and partial small-bowel obstruction. He is doing much better today. Remains on IV steroids Solu-Medrol 20 q.8 hours. Nausea and vomiting resolved. Abdominal pain has completely resolved. He had 2 bowel movements today. Tolerating soft diet well. PHYSICAL EXAMINATION: Appears comfortable. No apparent distress. Vital signs are stable. Blood pressure is 138/82, pulse rate 66 and afebrile. HEENT examination unremarkable. Conjunctivae pink. Sclerae anicteric. Oral cavity no lesions. NECK: No JVD or lymph node enlargement. CHEST: Clear to auscultation. HEART: Regular rate and rhythm. ABDOMEN: Soft. Bowel sounds are positive. No organomegaly. EXTREMITIES: No pedal edema. SKIN: No rashes. NEUROLOGIC: Alert and oriented x3. No focal deficits. LABS: Labs from today show WBC 5.8, hemoglobin 12.2. Platelets are normal. Sedimentation rate is 31. CRP is down from 134 to 52. IMPRESSION: Exacerbation of Crohn's ileitis with partial small bowel obstruction which is gradually improving. Nausea, vomiting and abdominal pain have resolved. Having bowel movements today. Remains on Solu-Medrol 20 mg q.8 hours. RECOMMENDATIONS: 1. Continue IV steroids today. 2. If he remains stable, will change to oral prednisone 40 mg daily and taper it by 5 mg every week. 3. Advance to a low-fiber soft diet. 4. If the patient is doing well tomorrow, he can be discharged home with outpatient followup in 2 weeks for consideration of biologic therapy on an outpatient basis. The plan was discussed with the patient. He is agreeable to it. Thank you for this consultation. MMODL / IJN: [id number] /
[2019-08-24 21:16] VITALS: RESP 12
[2019-08-25] MEDS: methylPREDNISolone SOD SUCCI 40 MG/ML 1 ML VIAL IV SCH (00:11)
[2019-08-25] MEDS: HEPARIN SODIUM,PORCINE 5,000 UNIT/ML 1 ML VIAL SQ SCH ×2 (00:11→08:10)
[2019-08-25] MEDS: SODIUM CHLORIDE 0.9% 1,000 ML IV SCH (04:30)
[2019-08-25 05:29] VITALS: BP 128/55; PULSE 55; TEMP 97.8
[2019-08-25] MEDS: FAMOTIDINE 20 MG/2 ML VIAL IV SCH (08:10)
[2019-08-25] MEDS ORDERED: predniSONE 20 MG TAB PO SCH ×2 (09:00)
--- NOTE | 2019-08-25 10:47 | P.DS ---
<RomanHayley Stephon - Last Filed: 08/25/19 10:37> Providers Expected date of discharge: 08/25/19 Hospital Course: 48-year-old male with history of Crohn's disease who presented to the hospital with a chief complaint of abdominal pain. Patient has a history of 2 bowel resections in the past. CT scan showed evidence of partial small bowel obstruction. Patient was placed on bowel rest. He was also evaluated by GI service. He was placed on IV steroids. Pain has resolved. He is tolerating diet without nausea or vomiting. Passing flatus and having bowel movements. He was deemed stable for discharge home today on oral steroids. He is to follow up outpatient. Please see EMR for further hospital course details. Discharge Diagnosis: 1. Crohn's disease with small bowel obstruction 2. Noncompliance to medical care for Crohn's disease 3. Tobacco abuse disorder 4. Dehydration, acute Nurse practitioner note has been reviewed by physician. Signing provider agrees with the documented findings, assessment, and plan of care. Patient Condition at Discharge: Stable Plan - Discharge Summary New Discharge Prescriptions: New predniSONE 40 mg PO DAILY #126 tab No Action Dextroamphetamine/Amphetamine [Adderall Xr] 30 mg PO BID Discharge Medication List Dextroamphetamine/Amphetamine [Adderall Xr] 30 mg PO BID 09/20/18 [History] predniSONE 40 mg PO DAILY #126 tab 08/25/19 [Rx] Follow up Appointment(s)/Referral(s): Ness Augustine PAC [REFERRING] - 09/08/19 8:45 am Bereket Rothman MD [Primary Care Provider] - 1-2 days (please call office to set up appt. time and date.) Haylie Lee MD [STAFF PHYSICIAN] - 09/14/19 3:40 pm Patient Instructions/Handouts: Bowel Obstruction (DC) Discharge Disposition: HOME SELF-CARE <Haylie Lee - Last Filed: 08/25/19 20:36> Providers Date of admission: 08/21/19 14:51 Attending physician: Haylie Lee Consults: 08/22/19 11:42 Consult Physician Routine Consulting Provider: Yumi Jordan Consult Reason/Comments: Crohn's disease Do you want consulting provider notified?: Yes, Notify in am Primary care physician: Camacho Rothman - Discharge Diagnosis(es) (1) Noncompliance with medication regimen Status: Acute (2) Dehydration Status: Acute (3) Small bowel obstruction Status: Acute (4) Abdominal pain Status: Acute (5) Crohns disease Status: Acute (6) Smoker Status: Acute Hospital Course: As above. Recommendations per GI includes steroid taper over several weeks. Patient to follow-up with GI service as outpatient. No surgical intervention needed. Agreeable for discharge.
== END 2019-08-25 09:17 | disposition home or self-care (01) | DRG 387 ==
LOC: EC 11:41 → 5NMEDONC 14:51
PROVIDERS: ADMIT Surgery Plastic and Reconstructive Surgery; ATTEND Surgery Plastic and Reconstructive Surgery
DX: K50.012 Crohn's disease of small intestine with intestinal obstruction (principal); D72.829 Elevated white blood cell count, unspecified; E86.0 Dehydration; F17.210 Nicotine dependence, cigarettes, uncomplicated; Z90.49 Acquired absence of other specified parts of digestive tract; Z91.14 Patient's other noncompliance with medication regimen; Z91.19 Patient's noncompliance with other medical treatment and regimen; Z11.59 Encounter for screening for other viral diseases
CPT/HCPCS: 36415; 74018; 74019; 74177; 80053; 81001; 82150; 83690; 85025; 85652; 86140; 96361; 96374; 96375; 99285

== ENCOUNTER 2020-11-11 14:03 | Inpatient (IN) | payer BC ==
[2020-11-11] MEDS ORDERED: PANTOPRAZOLE 40 MG/10 ML VIAL IVP STA (14:22)
[2020-11-11] MEDS ORDERED: HYDROmorphone 1 MG/ML 1 ML SYRINGE IVP STA (14:22)
[2020-11-11] MEDS ORDERED: ONDANSETRON 4 MG/2 ML VIAL IVP STA (14:25)
[2020-11-11] MEDS ORDERED: SODIUM CHLORIDE 0.9% 1,000 ML IV STA (14:26)
--- NOTE | 2020-11-11 14:28 | ED ---
General Adult HPI - General Chief complaint: Abdominal Pain Stated complaint: Abd pain, crohns flare up Time Seen by Provider: 11/11/20 14:21 Source: patient, family, RN notes reviewed Mode of arrival: wheelchair Limitations: no limitations - History of Present Illness Initial comments: Patient is a 50-year-old male presenting to the emergency department complaining of abdominal discomfort. Patient does have history of Crohn's and previous bowel obstruction 3-4 times with similar symptoms. Patient did vomit once prior to arrival. Discomfort is severe at this time, more so in the lower abdomen. No significant constipation or diarrhea. No other episodes of vomiting. No fevers. Onset of symptoms was yesterday and has progressed since that time. - Related Data Home Medications Medication Instructions Recorded Confirmed Dextroamphetamine/Amphetamine 30 mg PO BID 09/20/18 08/21/19 [Adderall Xr] Previous Rx's Medication Instructions Recorded predniSONE 40 mg PO DAILY #126 tab 08/25/19 Allergies Allergy/AdvReac Type Severity Reaction Status Date / Time No Known Allergies Allergy Verified 11/11/20 14:17 Review of Systems ROS Statement: Those systems with pertinent positive or pertinent negative responses have been documented in the HPI. ROS Other: All systems not noted in ROS Statement are negative. Constitutional: Denies: fever Eyes: Denies: eye pain ENT: Denies: ear pain Respiratory: Denies: cough Cardiovascular: Denies: chest pain Endocrine: Denies: fatigue Gastrointestinal: Reports: abdominal pain, nausea, vomiting. Denies: diarrhea, constipation Genitourinary: Denies: dysuria Musculoskeletal: Denies: back pain Skin: Denies: rash Neurological: Denies: weakness Past Medical History Additional Past Medical History / Comment(s): crohns dx History of Any Multi-Drug Resistant Organisms: None Reported Past Surgical History: Appendectomy, Bowel Resection, Cholecystectomy Additional Past Surgical History / Comment(s): resection of colon x2 Past Anesthesia/Blood Transfusion Reactions: No Reported Reaction Past Psychological History: No Psychological Hx Reported Smoking Status: Current every day smoker Past Alcohol Use History: None Reported Past Drug Use History: None Reported - Past Family History Mother Family Medical History: No Reported History Father Family Medical History: No Reported History General Exam Limitations: no limitations General appearance: alert, other (Patient appears uncomfortable) Head exam: Present: normocephalic Eye exam: Present: normal appearance Neck exam: Present: normal inspection Respiratory exam: Present: normal lung sounds bilaterally Cardiovascular Exam: Present: regular rate, normal rhythm Expanded Peripheral pulses: 2+: Dorsalis Pedis (R), Dorsalis Pedis (L) GI/Abdominal exam: Present: soft, tenderness (Moderate to severe tenderness of the lower abdomen.). Absent: distended, rebound, rigid Extremities exam: Present: normal inspection. Absent: pedal edema, calf tenderness Neurological exam: Present: alert Psychiatric exam: Present: normal affect, normal mood Skin exam: Present: normal color Course Vital Signs 11/11/20 14:17 Temperature 97.8 F Pulse Rate 88 Respiratory 24 Rate Blood Pressure 89/60 O2 Sat by Pulse 98 Oximetry EKG Findings - EKG Comments: EKG Findings:: Sinus rhythm with a rate of 64. SD 146. QRS 114. QT 424. QTC 437. Incomplete right bundle-branch block. No acute ST change. Medical Decision Making - Medical Decision Making Case was discussed with Dr. Carolina Stanford, covering Dr. Rothman, who will admit. He would like to discuss case with Dr. Cardona. Dr. Carodna was counseled did and agreeable and comfortable with admission. She does recommend steroids and surgical consult. - Lab Data Result diagrams: 11/11/20 14:36 11/11/20 14:36 Lab Results 11/11/20 11/11/20 11/11/20 Range/Units 14:36 14:36 14:36 WBC 17.2 H (3.8-10.6) k/uL RBC 5.39 (4.30-5.90) m/uL Hgb 16.2 (13.0-17.5) gm/dL Hct 49.8 (39.0-53.0) % MCV 92.4 (80.0-100.0) fL MCH 30.0 (25.0-35.0) pg MCHC 32.5 (31.0-37.0) g/dL RDW 15.0 (11.5-15.5) % Plt Count 631 H (150-450) k/uL MPV 7.0 Neutrophils % 80 % Lymphocytes % 13 % Monocytes % 4 % Eosinophils % 2 % Basophils % 0 % Neutrophils # 13.7 H (1.3-7.7) k/uL Lymphocytes # 2.2 (1.0-4.8) k/uL Monocytes # 0.8 (0-1.0) k/uL Eosinophils # 0.3 (0-0.7) k/uL Basophils # 0.1 (0-0.2) k/uL Hypochromasia Slight PT 9.7 (9.0-12.0) sec INR 0.9 (<1.2) APTT 24.0 (22.0-30.0) sec Sodium 137 (137-145) mmol/L Potassium 4.4 (3.5-5.1) mmol/L Chloride 100 (98-107) mmol/L Carbon Dioxide 26 (22-30) mmol/L Anion Gap 11 mmol/L BUN 18 (9-20) mg/dL Creatinine 0.99 (0.66-1.25) mg/dL Est GFR (CKD-EPI)AfAm >90 (>60 ml/min/1.73 sqM) Est GFR (CKD-EPI)NonAf 88 (>60 ml/min/1.73 sqM) Glucose 121 H (74-99) mg/dL Calcium 10.6 H (8.4-10.2) mg/dL Total Bilirubin 0.6 (0.2-1.3) mg/dL AST 46 (17-59) U/L ALT 21 (4-49) U/L Alkaline Phosphatase 117 (38-126) U/L Total Protein 7.6 (6.3-8.2) g/dL Albumin 4.3 (3.5-5.0) g/dL Amylase 43 (30-110) U/L Lipase 47 (23-300) U/L - Radiology Data Radiology results: report reviewed (Evidence of mechanical small bowel obstruction. Long segment of stricture distal ileum with wall thickening consi stent with inflammatory disease.) Disposition Clinical Impression: Small bowel obstruction Disposition: ADMITTED IP TO THIS HOSP Is patient prescribed a controlled substance at d/c from ED?: No Referrals: Bereket Rothman MD [Primary Care Provider] - 1-2 days Decision Time: 16:40
[2020-11-11 14:49] LABS: Basophils # (A) 0.1 k/uL (0-0.2); Basophils % (A) 0 %; Eosinophils # (A) 0.3 k/uL (0-0.7); Eosinophils % (A) 2 %; HCT 49.8 % (39.0-53.0); HGB 16.2 gm/dL (13.0-17.5); Hypochromasia Slight; Lymphocytes # (A) 2.2 k/uL (1.0-4.8); Lymphocytes % (A) 13 %; MCHC 32.5 g/dL (31.0-37.0); MCV 92.4 fL (80.0-100.0); Monocytes # (A) 0.8 k/uL (0-1.0); Monocytes % (A) 4 %; Neutrophils # (A) 13.7 k/uL (1.3-7.7); Neutrophils % (A) 80 %; Platelet Count 631 k/uL (150-450); RBC 5.39 m/uL (4.30-5.90); WBC 17.2 k/uL (3.8-10.6)
[2020-11-11 14:57] LABS: INR 0.9 (<1.2); Prothrombin Time 9.7 sec (9.0-12.0)
[2020-11-11 15:03] LABS: ALT 21 U/L (4-49); AST 46 U/L (17-59); African American GFR (CKD) >90 (>60 ml/min/1.73 sqM); Albumin 4.3 g/dL (3.5-5.0); Alkaline Phosphatase 117 U/L (38-126); Amylase 43 U/L (30-110); Anion Gap 11 mmol/L; Blood Urea Nitrogen 18 mg/dL (9-20); Calcium 10.6 mg/dL (8.4-10.2); Carbon Dioxide 26 mmol/L (22-30); Chloride 100 mmol/L (98-107); Glucose 121 mg/dL (74-99); Lipase 47 U/L (23-300); Non-African American GFR(CKD) 88 (>60 ml/min/1.73 sqM); Potassium 4.4 mmol/L (3.5-5.1); Sodium 137 mmol/L (137-145); Total Bilirubin 0.6 mg/dL (0.2-1.3); Total Protein 7.6 g/dL (6.3-8.2)
--- NOTE | 2020-11-11 15:12 | CT ---
EXAMINATION TYPE: CT abdomen pelvis w con DATE OF EXAM: 11/11/2020 COMPARISON: 08/21/2019 HISTORY: Right lower quadrant pain. History of Crohns. CT DLP: 1415.1 mGycm Automated exposure control for dose reduction was used. CONTRAST: Performed with IV Contrast, patient injected with 100 mL of Isovue 300. Lung bases are clear of consolidation. There is no pleural effusion. Heart size is normal. There is m inimal interstitial density at the lung bases. There is no pericardial effusion. There are clips from cholecystectomy. Liver and spleen are intact. There is no pancreatic mass. Stomach is distended with fluid. There is no adrenal mass. Kidneys show satisfactory contrast opacification. There is no hydronephrosi s. There is no retroperitoneal adenopathy. Delayed images show little renal excretion into the collec ting systems. There is urinary bladder almost empty. There is no inguinal hernia. There is no free fl uid in the pelvis. There are multiple dilated fluid-filled small bowel loops throughout the abdomen. Small bowel dilated up to 4.3 cm. Transition point is the terminal ileum. There is wall thickening of the distal ileum m easuring 6 cm in length. There is narrowing of the lumen. There are surgical clips at the distal ileu m at the anastomosis. There is apparent resection of the cecum. There is no ascites. There is no free air. There is no mesenteric edema. Lumbar vertebra have normal alignment. There is no compression fracture. Bony pelvis is intact. Hip joints are intact. IMPRESSION: There is evidence of mechanical small bowel obstruction. There is long segment of stricture of the di stal ileum with wall thickening and consistent with inflammatory bowel disease. Luminal narrowing jonas ears increased compared to old exam. Small bowel dilation is slightly worse than old exam. Decreased renal excretion on the delayed images could relate to some degree of renal failure. This ap pears new compared to old exam.
[2020-11-11] MEDS ORDERED: methylPREDNISolone SOD SUCCI 125 MG/2 ML VIAL IV STA (16:41)
[2020-11-11] MEDS ORDERED: NALOXONE 0.4 MG/ML 1 ML VIAL IV PRN (16:47)
[2020-11-11] MEDS: SODIUM CHLORIDE 0.9% 1,000 ML IV SCH (16:59)
[2020-11-11] MEDS: ONDANSETRON 4 MG/2 ML VIAL IVP PRN (17:01)
[2020-11-11] MEDS: HYDROmorphone 1 MG/ML 1 ML SYRINGE IVP PRN ×3 (17:03→21:37)
--- NOTE | 2020-11-11 17:55 | P.HPIM ---
History of Present Illness H&P Date: 11/11/20 Chief Complaint: Abdominal pain 50-year-old man with medical history of Crohn's disease, ADD presented with abdominal pain. Patient says his pain started yesterday in the afternoon. Since that time he had increasing amounts of pain in the right lower quadrant, sharp in nature. He has been passing gas and this morning he had a bowel movement. He is also developed some nausea and vomiting. Given the severity of his pain, patient presented to the emergency room for further evaluation. Patient denies fevers, chills, chest pain, palpitations, syncope, presyncope, cough, dyspnea, dysuria, dyschezia, numbness/weakness of extremities. In the emergency room he is afebrile, hemodynamically stable. When blood cell count was elevated at 17.4. Computed tomography scan was noted to have terminal ileitis with evidence of mechanical small bowel traction concerning for s tricture from inflammatory bowel disease. GI was consulted in the ER and this case was discussed with them, they advised admission with IV steroids and that they would see the patient in consultation. Review of Systems All Systems reviewed and pertinent positives and negatives noted in HPI, all other symptoms are negative Past Medical History Additional Past Medical History / Comment(s): crohns dx History of Any Multi-Drug Resistant Organisms: None Reported Past Surgical History: Appendectomy, Bowel Resection, Cholecystectomy Additional Past Surgical History / Comment(s): resection of colon x2 Past Anesthesia/Blood Transfusion Reactions: No Reported Reaction Past Psychological History: No Psychological Hx Reported Smoking Status: Current every day smoker Past Alcohol Use History: None Reported Past Drug Use History: None Reported - Past Family History Mother Family Medical History: No Reported History Father Family Medical History: No Reported History Medications and Allergies Home Medications Medication Instructions Recorded Confirmed Type Dextroamphetamine/Amphetamine 30 mg PO BID 09/20/18 11/11/20 History [Adderall Xr] Allergies Allergy/AdvReac Type Severity Reaction Status Date / Time No Known Allergies Allergy Verified 11/11/20 16:52 Physical Exam Osteopathic Statement: *. No significant issues noted on an osteopathic structural exam other than those noted in the History and Physical/Consult. Vitals: Vital Signs Temp Pulse Pulse Resp BP BP Pulse Ox 11/11/20 17:43 98.7 F 80 14 105/68 99 11/11/20 17:18 68 18 103/65 95 08/28/21 14:17 97.8 F 88 24 89/60 98 Intake and Output 11/11/20 11/11/20 11/11/20 06:59 14:59 22:59 Other: Weight 88.451 kg Gen: awake, alert HEENT: normocephalic, atraumatic, good hearing acuity, moist mucous membranes Resp: good air exchange, breathing comfortably with no accessory muscle use, clear to auscultation bilaterally CVS: good distal perfusion x 4, regular rate and rhythm GI: Exquisite tenderness to palpation of the right lower quadrant with no rebound : no SPT, no CVAT, mccarthy catheter not present MSK: no pitting edema, no clubbing Neuro: non-focal, moving all extremities Psych: cooperative, euthymic mood Results CBC & Chem 7: 11/11/20 14:36 11/11/20 14:36 Labs: Abnormal Lab Results - Last 24 Hours (Table) 11/11/20 11/11/20 Range/Units 14:36 14:36 WBC 17.2 H (3.8-10.6) k/uL Plt Count 631 H (150-450) k/uL Neutrophils # 13.7 H (1.3-7.7) k/uL Glucose 121 H (74-99) mg/dL Calcium 10.6 H (8.4-10.2) mg/dL Assessment and Plan Assessment: Partial small bowel obstruction Crohn's disease flare -Admit to inpatient, telemetry -Steroids -Pain control, nausea control -If no improvement within 24 hours or rapidly worsening clinical symptoms, will place NG tube -GI consult -NPO, IV fluids ADD -Hold home Adderall Patient is full code DVT prophylaxis with heparin 3 times a day
--- NOTE | 2020-11-11 19:12 | P.GSCN ---
History of Present Illness Consult date: 11/11/20 Reason for Consult: Crohns, SBO History of present illness: The patient's a 50-year-old man presented with abdominal pain that started yesterday. He has a history of Crohn's disease and has had several admissions for bowel obstructions that have responded to medical therapy. He was in his usual state of health and on vacation last week. He a different than normally and that he ate some steak. He had some vomiting 1 today. The pain is improved with IV pain medication. He's had some diarrhea which is not different than normal typically he will go 2-3 times a day. He has not followed up with gastroenterology recently. Review of Systems All systems: negative Past Medical History Additional Past Medical History / Comment(s): crohns dx History of Any Multi-Drug Resistant Organisms: None Reported Past Surgical History: Appendectomy, Bowel Resection, Cholecystectomy Additional Past Surgical History / Comment(s): resection of colon x2 Past Anesthesia/Blood Transfusion Reactions: No Reported Reaction Past Psychological History: No Psychological Hx Reported Smoking Status: Current every day smoker Past Alcohol Use History: None Reported Past Drug Use History: None Reported - Past Family History Mother Family Medical History: No Reported History Father Family Medical History: No Reported History Medications and Allergies Home Medications Medication Instructions Recorded Confirmed Type Dextroamphetamine/Amphetamine 30 mg PO BID 09/20/18 11/11/20 History [Adderall Xr] Allergies Allergy/AdvReac Type Severity Reaction Status Date / Time No Known Allergies Allergy Verified 11/11/20 16:52 Surgical - Exam Osteopathic Statement: *. No significant issues noted on an osteopathic structural exam other than those noted in the History and Physical/Consult. Vital Signs Temp Pulse Resp BP Pulse Ox 97.8 F 88 24 89/60 98 11/11/20 14:17 11/11/20 14:17 11/11/20 14:17 11/11/20 14:17 11/11/20 14:17 - General No distress but appears uncomfortable well developed, well nourished - Eyes normal ocular movement - Neck trachea midline - Respiratory normal respiratory effort, clear to auscultation - Cardiovascular Rhythm: regular - Abdomen Abdomen: soft, tender (Right lower quadrant with mild guarding), bowel sounds Results - Labs 11/11/20 14:36 11/11/20 14:36 Abnormal Lab Results - Last 24 Hours (Table) 11/11/20 11/11/20 Range/Units 14:36 14:36 WBC 17.2 H (3.8-10.6) k/uL Plt Count 631 H (150-450) k/uL Neutrophils # 13.7 H (1.3-7.7) k/uL Glucose 121 H (74-99) mg/dL Calcium 10.6 H (8.4-10.2) mg/dL Diabetes panel 11/11/20 Range/Units 14:36 Sodium 137 (137-145) mmol/L Potassium 4.4 (3.5-5.1) mmol/L Chloride 100 (98-107) mmol/L Carbon Dioxide 26 (22-30) mmol/L BUN 18 (9-20) mg/dL Creatinine 0.99 (0.66-1.25) mg/dL Glucose 121 H (74-99) mg/dL Calcium 10.6 H (8.4-10.2) mg/dL AST 46 (17-59) U/L ALT 21 (4-49) U/L Alkaline Phosphatase 117 (38-126) U/L Total Protein 7.6 (6.3-8.2) g/dL Albumin 4.3 (3.5-5.0) g/dL Calcium panel 11/11/20 Range/Units 14:36 Calcium 10.6 H (8.4-10.2) mg/dL Albumin 4.3 (3.5-5.0) g/dL Pituitary panel 11/11/20 Range/Units 14:36 Sodium 137 (137-145) mmol/L Potassium 4.4 (3.5-5.1) mmol/L Chloride 100 (98-107) mmol/L Carbon Dioxide 26 (22-30) mmol/L BUN 18 (9-20) mg/dL Creatinine 0.99 (0.66-1.25) mg/dL Glucose 121 H (74-99) mg/dL Calcium 10.6 H (8.4-10.2) mg/dL Adrenal panel 11/11/20 Range/Units 14:36 Sodium 137 (137-145) mmol/L Potassium 4.4 (3.5-5.1) mmol/L Chloride 100 (98-107) mmol/L Carbon Dioxide 26 (22-30) mmol/L BUN 18 (9-20) mg/dL Creatinine 0.99 (0.66-1.25) mg/dL Glucose 121 H (74-99) mg/dL Calcium 10.6 H (8.4-10.2) mg/dL Total Bilirubin 0.6 (0.2-1.3) mg/dL AST 46 (17-59) U/L ALT 21 (4-49) U/L Alkaline Phosphatase 117 (38-126) U/L Total Protein 7.6 (6.3-8.2) g/dL Albumin 4.3 (3.5-5.0) g/dL - Imaging CT scan - abdomen: report reviewed (Right inguinal hernia is seen on computed tomography scan) Assessment and Plan (1) Small bowel obstruction Current Visit: Yes Status: Acute Code(s): K56.609 - UNSP INTESTNL OBST, UNSP TO PARTIAL VERSUS COMPLETE OBST SNOMED Code(s): 087858595 (2) Abdominal pain Current Visit: No Status: Acute Code(s): R10.9 - UNSPECIFIED ABDOMINAL PAIN SNOMED Code(s): 20321506 (3) Crohns disease Current Visit: No Status: Acute Code(s): K50.90 - CROHN'S DISEASE, UNSPECIFIED, WITHOUT COMPLICATIONS SNOMED Code(s): 87542493 Plan: Patient is currently nonsurgical. He's been started on appropriate medical treatment including IV steroids. Recommend GI consult. Serial exams. Control pain. Hydrate. I'll follow with you
[2020-11-12] MEDS: HYDROmorphone 1 MG/ML 1 ML SYRINGE IVP PRN ×6 (01:00→20:51)
[2020-11-12] MEDS: methylPREDNISolone SOD SUCCI 125 MG/2 ML VIAL IV SCH ×2 (01:01→05:49)
[2020-11-12] MEDS: HEPARIN SODIUM,PORCINE/PF 5,000 UNIT/0.5 ML SYRINGE SQ SCH ×4 (01:01→23:30)
[2020-11-12] MEDS: SODIUM CHLORIDE 0.9% 1,000 ML IV SCH ×4 (01:02→23:30)
[2020-11-12 01:38] LABS: Amorphous Sediment,Urine Rare /hpf; Appearance,Urine Clear (Clear); Bilirubin,Urine 1+ (Negative); Blood,Urine Negative (Negative); Color,Urine Yellow; Glucose,Urine (UA) Negative (Negative); Hyaline Casts,Urine 1 /lpf (0-2); Ketones,Urine Trace (Negative); Leukocyte Esterase,Urine Negative (Negative); Mucus,Urine Few /hpf; Nitrite,Urine Negative (Negative); PH, Urine 5.5 (5.0-8.0); Protein,Urine 1+ (Negative); RBC,Urine 3 /hpf (0-5); Squamous Epithelial Cell,Urine <1 /hpf (0-4); Urobilinogen,Urine <2.0 mg/dL (<2.0); WBC,Urine 6 /hpf (0-5)
[2020-11-12 01:47] LABS: Specific Gravity,Urine >1.050 (1.001-1.035)
[2020-11-12 06:51] LABS: Basophils % (A) 0 %; Eosinophils % (A) 0 %; HCT 40.3 % (39.0-53.0); Hypochromasia Slight; Lymphocytes # (A) 0.7 k/uL (1.0-4.8); Lymphocytes % (A) 4 %; MCH 30.4 pg (25.0-35.0); MCHC 32.4 g/dL (31.0-37.0); Monocytes # (A) 0.2 k/uL (0-1.0); Monocytes % (A) 1 %; Neutrophils # (A) 14.4 k/uL (1.3-7.7); Neutrophils % (A) 94 %; Platelet Count 488 k/uL (150-450); RBC 4.29 m/uL (4.30-5.90); WBC 15.4 k/uL (3.8-10.6)
[2020-11-12 06:59] LABS: HGB 13.1 gm/dL (13.0-17.5)
[2020-11-12] MEDS: PANTOPRAZOLE 40 MG/10 ML VIAL IV SCH (08:51)
[2020-11-12] MEDS: ONDANSETRON 4 MG/2 ML VIAL IVP PRN (08:58)
[2020-11-12 09:34] LABS: African American GFR (CKD) 127.5 (60.0-200.0); Albumin 3.5 g/dL (3.80-4.90); Albumin/Globulin Ratio 1.52 (1.60-3.17); BUN/Creat Ratio 34.29 Ratio (12.00-20.00); Globulin 2.3 g/dL (1.6-3.3); Potassium 4.5 mmol/L (3.5-5.5); Total Bilirubin 0.4 mg/dL (0.2-1.2); Total Protein 5.8 g/dL (6.2-8.2)
[2020-11-12] MEDS: methylPREDNISolone SOD SUCCI 40 MG/ML 1 ML VIAL IV SCH ×3 (12:12→23:30)
--- NOTE | 2020-11-12 12:25 | P.PN ---
Subjective Progress Note Date: 11/12/20 The patient is seen on rounds. Pain is much improved. Denies nausea or vomiting. Objective - Vital Signs Vital signs: Vital Signs Temp 98.1 F 11/12/20 04:27 Pulse 91 11/12/20 04:27 Resp 18 11/12/20 04:27 BP 125/70 11/12/20 04:27 Pulse Ox 90 L 11/12/20 04:27 Intake & Output 11/11/20 11/12/20 11/12/20 18:59 06:59 18:59 Intake Total 130 1560 Balance 130 1560 Weight 88.451 kg Intake: Intake, IV Titration 130 1560 Amount Sodium Chloride 0.9% 1, 130 1560 000 ml @ 130 mls/hr IV . Q7H42M [facility] Rx#:[id number] Other: Voiding Method Toilet Urinal - Constitutional General appearance: Present: cooperative, no acute distress - Gastrointestinal General gastrointestinal: Present: normal bowel sounds, soft, tenderness (Minimal right lower quadrant tenderness without guarding or rebound) - Labs CBC & Chem 7: 11/12/20 06:22 11/12/20 06:22 Labs: Abnormal Lab Results - Last 24 Hours (Table) 11/11/20 11/11/20 11/12/20 Range/Units 14:36 14:36 01:00 WBC 17.2 H (3.8-10.6) k/uL RBC (4.30-5.90) m/uL Plt Count 631 H (150-450) k/uL Neutrophils # 13.7 H (1.3-7.7) k/uL Lymphocytes # (1.0-4.8) k/uL BUN/Creatinine Ratio (12.00-20.00) Ratio Glucose 121 H (74-99) mg/dL Calcium 10.6 H (8.4-10.2) mg/dL Total Protein (6.2-8.2) g/dL Albumin (3.80-4.90) g/dL Albumin/Globulin Ratio (1.60-3.17) g/dL Ur Specific [place] >1.050 H (1.001-1.035) Urine Protein 1+ H (Negative) Urine Ketones Trace H (Negative) Urine Bilirubin 1+ H (Negative) Urine WBC 6 H (0-5) /hpf Amorphous Sediment Rare H (None) /hpf Urine Mucus Few H (None) /hpf 11/12/20 11/12/20 Range/Units 06:22 06:22 WBC 15.4 H (3.8-10.6) k/uL RBC 4.29 L (4.30-5.90) m/uL Plt Count 488 H (150-450) k/uL Neutrophils # 14.4 H (1.3-7.7) k/uL Lymphocytes # 0.7 L (1.0-4.8) k/uL BUN/Creatinine Ratio 34.29 H (12.00-20.00) Ratio Glucose 134 H (74-99) mg/dL Calcium 8.0 L (8.4-10.2) mg/dL Total Protein 5.8 L (6.2-8.2) g/dL Albumin 3.50 L (3.80-4.90) g/dL Albumin/Globulin Ratio 1.52 L (1.60-3.17) g/dL Ur Specific [place] (1.001-1.035) Urine Protein (Negative) Urine Ketones (Negative) Urine Bilirubin (Negative) Urine WBC (0-5) /hpf Amorphous Sediment (None) /hpf Urine Mucus (None) /hpf Assessment and Plan (1) Small bowel obstruction Current Visit: Yes Status: Acute Code(s): K56.609 - UNSP INTESTNL OBST, UNSP TO PARTIAL VERSUS COMPLETE OBST SNOMED Code(s): 350398910 (2) Abdominal pain Current Visit: No Status: Acute Code(s): R10.9 - UNSPECIFIED ABDOMINAL PAIN SNOMED Code(s): 96485355 (3) Crohns disease Current Visit: No Status: Acute Code(s): K50.90 - CROHN'S DISEASE, UNSPECIFIED, WITHOUT COMPLICATIONS SNOMED Code(s): 80311214 Plan: Clinically the patient is improved today. He was started on some clear liquids. Continue steroids. GI consultation. Currently nonsurgical.
--- NOTE | 2020-11-12 12:56 | CONS ---
CONSULTATION DATE OF DICTATION: 11/12/2020 REASON FOR CONSULTATION: Exacerbation of Crohn's disease/small bowel obstruction. HISTORY OF PRESENT ILLNESS: The patient is a 50-year-old pleasant white male who was admitted to the hospital when he presented with severe right lower quadrant abdominal pain associated with nausea and vomiting that started on Friday night. The symptoms continued to progressively get worse. He came to the emergency room yesterday, had a CT of the abdomen and pelvis done that showed small bowel obstruction with thickening of the terminal ileum consistent with Crohn's exacerbation. He was started on IV Solu-Medrol 60 mg q.6 hours in the ER yesterday. He is feeling somewhat better this morning. He still did not have any bowel movements for the last 24 hours. Nausea and vomiting have resolved. The abdominal pain is improving. The patient was diagnosed with Crohn's disease in 1995. He is status post bowel resection x2. He developed recurrent Crohn's disease in 2012 was maintained on Remicade infusions for 2 years. However, since 2014 he has not been on any medications. He has been having intermittent bowel small-bowel obstruction requiring hospitalization. The last one was in [place], [place] in May of this year, and according to the patient he was treated with steroids and was discharged home. His last hospitalization here was in 2018. His last colonoscopy was more than 20 years ago. PAST MEDICAL HISTORY: Significant for Crohn's disease with recurrent small-bowel obstruction. MEDICATIONS: Medication at home: Adderall. ALLERGIES: NONE. SOCIAL HISTORY: Chronic smoker. No alcohol use. PAST SURGICAL HISTORY: Bowel resection, cholecystectomy, appendectomy. FAMILY HISTORY: Mother unremarkable. Father unremarkable. REVIEW OF SYSTEMS: CARDIOPULMONARY: No chest pain or shortness of breath. GENITOURINARY: No dysuria or hematuria. MUSCULOSKELETAL: Unremarkable. SKIN: Unremarkable. ENDOCRINE: Unremarkable. PSYCHIATRY: Unremarkable. NEUROLOGY: Unremarkable. ENT/VISION: Unremarkable. CONSTITUTIONAL: No recent weight loss. No fever, chills, night sweats. PHYSICAL EXAMINATION: He appears comfortable. No apparent distress. VITAL SIGNS: Vital signs are stable. Blood pressure is 112/86, pulse rate 91, temperature 98.1. HEENT EXAMINATION: Unremarkable. Conjunctivae pink. Sclerae anicteric. Oral cavity no lesions. NECK: No JVD. No lymph node enlargement. CHEST: Clear to auscultation. HEART: Regular rate and rhythm. ABDOMEN: Soft. There was tenderness in the right lower quadrant area. It was slightly distended, but bowel sounds were positive. EXTREMITIES: No pedal edema. SKIN: No rashes. NEURO: Alert and oriented x3. No focal deficits. LABS: Labs from yesterday: WBC 17.2, hemoglobin 16, platelets normal. Basic metabolic panel was within normal limits. AST, ALT, T-bilirubin and alkaline phosphatase were normal. Today WBC is 15.4, hemoglobin 13.1. Platelets are 488. IMPRESSION: 1. CT of the abdomen showed acute small-bowel obstruction. There was a long segment of stricture of the distal ileum with wall thickening consistent with Crohn's disease. Surgery has been consulted. The patient was already evaluated by Dr. Callaway. He is currently on Solu-Medrol 60 mg q.6 hours. 2. History of Crohn's disease diagnosed in 1995; was on Remicade infusions from 2012 to 2014 and since then has not been on any maintenance medications. Lately has been having intermittent bouts of small-bowel obstruction requiring hospitalization. The last one was in [place], [place] in May of this year. Last colonoscopy was several years ago. RECOMMENDATIONS: 1. Decrease the Solu-Medrol to 20 mg q.8 hours. 2. Obtain CRP and sedimentation rate. 3. Maintain him on n.p.o. and diet as per surgical team. 4. Repeat abdominal x-rays tomorrow. 5. Once the small-bowel obstruction resolves, the IV steroids can be changed to oral prednisone 40 mg daily and he was advised to taper it by 5 mg every week on an outpatient basis. 6. He was advised to follow up in the office following discharge from the hospital so that we can start him on some maintenance biologic therapy to prevent recurrent small-bowel obstruction. Thank you for this consultation. We will sign off at this time. No GI service available from tomorrow. MMODL / IJN: [id number] /
--- NOTE | 2020-11-12 13:12 | P.PN ---
Subjective Progress Note Date: 11/12/20 Pt reports improvement in pain today. Has no more N/V, has appetite, would like to try food. Objective - Vital Signs Vital signs: Vital Signs Temp 98.5 F 11/12/20 12:26 Pulse 94 11/12/20 12:26 Resp 16 11/12/20 12:26 BP 121/69 11/12/20 12:26 Pulse Ox 93 L 11/12/20 12:26 Intake & Output 11/11/20 11/12/20 11/12/20 18:59 06:59 18:59 Intake Total 130 1560 Balance 130 1560 Weight 88.451 kg Intake: Intake, IV Titration 130 1560 Amount Sodium Chloride 0.9% 1, 130 1560 000 ml @ 130 mls/hr IV . Q7H42M [facility] Rx#:[id number] Other: Voiding Method Toilet Urinal - Exam Gen: awake, alert HEENT: normocephalic, atraumatic, good hearing acuity, moist mucous membranes Resp: good air exchange, breathing comfortably with no accessory muscle use, clear to auscultation bilaterally CVS: good distal perfusion x 4, regular rate and rhythm GI: Exquisite tenderness to palpation of the right lower quadrant with no rebound : no SPT, no CVAT, mccarthy catheter not present MSK: no pitting edema, no clubbing Neuro: non-focal, moving all extremities Psych: cooperative, euthymic mood - Labs CBC & Chem 7: 11/12/20 06:22 11/12/20 06:22 Labs: Abnormal Lab Results - Last 24 Hours (Table) 11/11/20 11/11/20 11/12/20 Range/Units 14:36 14:36 01:00 WBC 17.2 H (3.8-10.6) k/uL RBC (4.30-5.90) m/uL Plt Count 631 H (150-450) k/uL Neutrophils # 13.7 H (1.3-7.7) k/uL Lymphocytes # (1.0-4.8) k/uL BUN/Creatinine Ratio (12.00-20.00) Ratio Glucose 121 H (74-99) mg/dL Calcium 10.6 H (8.4-10.2) mg/dL Total Protein (6.2-8.2) g/dL Albumin (3.80-4.90) g/dL Albumin/Globulin Ratio (1.60-3.17) g/dL Ur Specific [place] >1.050 H (1.001-1.035) Urine Protein 1+ H (Negative) Urine Ketones Trace H (Negative) Urine Bilirubin 1+ H (Negative) Urine WBC 6 H (0-5) /hpf Amorphous Sediment Rare H (None) /hpf Urine Mucus Few H (None) /hpf 11/12/20 11/12/20 Range/Units 06:22 06:22 WBC 15.4 H (3.8-10.6) k/uL RBC 4.29 L (4.30-5.90) m/uL Plt Count 488 H (150-450) k/uL Neutrophils # 14.4 H (1.3-7.7) k/uL Lymphocytes # 0.7 L (1.0-4.8) k/uL BUN/Creatinine Ratio 34.29 H (12.00-20.00) Ratio Glucose 134 H (74-99) mg/dL Calcium 8.0 L (8.4-10.2) mg/dL Total Protein 5.8 L (6.2-8.2) g/dL Albumin 3.50 L (3.80-4.90) g/dL Albumin/Globulin Ratio 1.52 L (1.60-3.17) g/dL Ur Specific [place] (1.001-1.035) Urine Protein (Negative) Urine Ketones (Negative) Urine Bilirubin (Negative) Urine WBC (0-5) /hpf Amorphous Sediment (None) /hpf Urine Mucus (None) /hpf Assessment and Plan Assessment: Partial small bowel obstruction Crohn's disease flare -Admit to inpatient, telemetry -Steroids -Pain control, nausea control -If no improvement within 24 hours or rapidly worsening clinical symptoms, will place NG tube -GI consult -CLD, IV fluids ADD -Hold home Adderall Patient is full code DVT prophylaxis with heparin 3 times a day
[2020-11-13] MEDS: HYDROmorphone 1 MG/ML 1 ML SYRINGE IVP PRN ×2 (00:01→08:10)
[2020-11-13 05:08] VITALS: BP 120/72; PULSE 62; RESP 18; TEMP 97.9
[2020-11-13 05:33] LABS: Basophils % (A) 0 %; Eosinophils % (A) 0 %; HCT 34.6 % (39.0-53.0); HGB 11.1 gm/dL (13.0-17.5); Lymphocytes # (A) 0.7 k/uL (1.0-4.8); Lymphocytes % (A) 7 %; MCH 30.4 pg (25.0-35.0); MCHC 32.2 g/dL (31.0-37.0); MCV 94.3 fL (80.0-100.0); Monocytes # (A) 0.6 k/uL (0-1.0); Monocytes % (A) 6 %; Neutrophils % (A) 85 %; Platelet Count 426 k/uL (150-450); RBC 3.67 m/uL (4.30-5.90); RDW 14.6 % (11.5-15.5); WBC 10.5 k/uL (3.8-10.6)
[2020-11-13] MEDS: HEPARIN SODIUM,PORCINE/PF 5,000 UNIT/0.5 ML SYRINGE SQ SCH (08:08)
[2020-11-13] MEDS: PANTOPRAZOLE 40 MG/10 ML VIAL IV SCH (08:08)
[2020-11-13] MEDS: methylPREDNISolone SOD SUCCI 40 MG/ML 1 ML VIAL IV SCH (08:09)
[2020-11-13] MEDS: SODIUM CHLORIDE 0.9% 1,000 ML IV SCH (08:14)
[2020-11-13 09:37] LABS: Erythrocyte Sedimentation Rate 20 mm/hr (0-15)
--- NOTE | 2020-11-13 12:56 | P.DS ---
Providers Date of admission: 11/11/20 16:47 Expected date of discharge: 11/13/20 Attending physician: Og Rodriguez MD Consults: 11/11/20 16:48 Consult Physician Urgent Consulting Provider: Lucinda Callaway Consult Reason/Comments: sbo Do you want consulting provider notified?: Yes Consult Physician Urgent Consulting Provider: Yumi Jordan Consult Reason/Comments: sbo, chrons Do you want consulting provider notified?: Already Contacted Primary care physician: Camacho Rothman [facility] Course: Partial small bowel obstruction Crohn's disease flare -Admitted to inpatient, telemetry. Started on steroids, pain, nausea control. GI consulted and recommended treating with IV steroids until SBO resolved. Pt passed gas by following day of admission, and tolerated CLD. By day of d/c, patient was passing gas, had good appetite, and had small BMs as well. He was discharged home on prednisone taper, with instructions to f/u with GI for Crohn' s maintenance therapy. ADD -Continued home Adderall Assessment: Gen: awake, alert HEENT: normocephalic, atraumatic, good hearing acuity, moist mucous membranes Resp: good air exchange, breathing comfortably with no accessory muscle use, clear to auscultation bilaterally CVS: good distal perfusion x 4, regular rate and rhythm GI: Exquisite tenderness to palpation of the right lower quadrant with no rebound : no SPT, no CVAT, mccarthy catheter not present MSK: no pitting edema, no clubbing Neuro: non-focal, moving all extremities Psych: cooperative, euthymic mood Patient Condition at Discharge: Good Plan - Discharge Summary Discharge Rx Participant: No New Discharge Prescriptions: New predniSONE See Taper PO DIRECTED #126 tab Continue Dextroamphetamine/Amphetamine [Adderall Xr] 30 mg PO BID Discharge Medication List Dextroamphetamine/Amphetamine [Adderall Xr] 30 mg PO BID 09/20/18 [History] predniSONE See Taper PO DIRECTED #126 tab 11/13/20 [Rx] Follow up Appointment(s)/Referral(s): Bereket Rothman MD [Primary Care Provider] - 1-2 days (Please call for an appointment.) Patient Instructions/Handouts: Bowel Obstruction (ED) Discharge Disposition: HOME SELF-CARE
== END 2020-11-13 13:07 | disposition home or self-care (01) | DRG 387 ==
LOC: EC 14:03 → 5NMEDONC 16:47
PROVIDERS: ADMIT Internal Medicine; ATTEND Internal Medicine
DX: K50.012 Crohn's disease of small intestine with intestinal obstruction (principal); F17.200 Nicotine dependence, unspecified, uncomplicated; Z90.49 Acquired absence of other specified parts of digestive tract
CPT/HCPCS: 36415; 74177; 80053; 81001; 82150; 83690; 85025; 85610; 85652; 85730; 86140; 93005

== ENCOUNTER 2021-08-24 12:09 | Emergency (ER) | payer BC ==
[2021-08-24 12:53] VITALS: RESP 18
[2021-08-24 12:59] LABS: Basophils # (A) 0.1 k/uL (0-0.2); Basophils % (A) 1 %; Eosinophils # (A) 0.3 k/uL (0-0.7); Eosinophils % (A) 2 %; HCT 44.3 % (39.0-53.0); HGB 13.8 gm/dL (13.0-17.5); Lymphocytes # (A) 1.3 k/uL (1.0-4.8); Lymphocytes % (A) 9 %; MCHC 31.3 g/dL (31.0-37.0); MCV 92.9 fL (80.0-100.0); Mean Platelet Volume 6.8; Monocytes # (A) 0.7 k/uL (0-1.0); Monocytes % (A) 5 %; Neutrophils % (A) 83 %; Platelet Count 532 k/uL (150-450); RBC 4.77 m/uL (4.30-5.90); RDW 13.4 % (11.5-15.5); WBC 14.4 k/uL (3.8-10.6)
[2021-08-24] MEDS ORDERED: ONDANSETRON 4 MG/2 ML VIAL IVP STA (13:12)
[2021-08-24] MEDS ORDERED: HYDROmorphone 1 MG/ML 1 ML SYRINGE IVP STA (13:12)
--- NOTE | 2021-08-24 13:13 | ED ---
General Adult HPI - General Chief complaint: Abdominal Pain Stated complaint: Abd.Pain Time Seen by Provider: 08/24/21 12:28 Source: patient Mode of arrival: wheelchair Limitations: no limitations - History of Present Illness Initial comments: Dictation was produced using [employer] dictation software. please excuse any grammatical, word or spelling errors. Chief Complaint: 50-year-old male with extensive history of Crohn's disease pres ents to the emergency department for chief complaint of Crohn's pain History of Present Illness: 50-year-old male who has past medical history of Crohn's disease. He has had bowel resections from competitions of Crohn's. This morning he started having severe crampy suprapubic abdominal pain. He also has had some bouts of nonbilious nonbloody diarrhea. Complains of nausea. States the pain is severe. He does report that he's had more severe pain in the past which is lead to bowel resections. Patient states that his Crohn's has been mostly pretty well controlled. He was last in the hospital late last year for similar issue. Denies any fever. The ROS documented in this emergency department record has been reviewed and confirmed by me. Those systems with pertinent positive or negative responses have been documented in the HPI. All other systems are other negative and/or noncontributory. PHYSICAL EXAM: General Impression: Alert and oriented x3, acute distress secondary to pain. HEENT: Normocephalic atraumatic, extra-ocular movements intact, pupils equal and reactive to light bilaterally, mucous membranes moist. Cardiovascular: Heart regular rate and rhythm Chest: Able to complete full sentences, no retractions, no tachypnea Abdomen: abdomen soft, tenderness with palpation to the suprapubic area, non- distended, no organomegaly Musculoskeletal: Pulses present and equal in all extremities, no peripheral edema Motor: no focal deficits noted Neurological: CN II-XII grossly intact, no focal motor or sensory deficits noted Skin: Intact with no visualized rashes Psych: Normal affect and mood ED course: 50-year-old male with extensive history of Crohn's disease and sec ondary consultations presents to the emergency department for severe suprapubic abdominal pain. Patient's acute distress at the bedside. vital signs upon arrival are within acceptable limits. Laboratory evaluation obtained. Mild leukocytosis of 14.4. Slightly secondary to stress. Coag panel is negative. Metabolic panel is within acceptable limits. Computed tomography scan shows no evidence of obstruction there is evidence of adynamic ileus. Patient given IV analgesics observed in emergency department for approximately 2 hours and 30 minutes. Patient reevaluated at bedside at 2:45 PM. States that he significantly improved. As recommended the patient to be admitted for ileus he refuses and would prefer to be discharged and return to the emergency department if if his symptoms got worse. Patient states that he is familiar with this process and his symptoms feel significantly better and not as severe as some of his previous episodes. Patient given a dose of steroids. He is discharged with strict return precautions. Patient given prescription for by mouth analgesics and by mouth steroids. Advised follow-up with auto damage adjuster. Laboratory evaluation obtained mild leukocytosis of 14.4. Coag panel is negative. Metabolic panel is within acceptable limits. CT abdomen and pelvis shows no evidence of small bowel instruction. There is diffusely dilated air- filled colon consistent with ileus. - Related Data Home Medications Medication Instructions Recorded Confirmed Dextroamphetamine/Amphetamine 30 mg PO AC-BID 09/20/18 08/24/21 [Adderall Xr] Previous Rx's Medication Instructions Recorded HYDROcodone/APAP 5-325MG [[place] 1 tab PO Q6HR PRN 3 Days #12 tab 08/24/21 5-325] predniSONE [Deltasone] 40 mg PO BID 4 Days #16 tab 08/24/21 Allergies Allergy/AdvReac Type Severity Reaction Status Date / Time No Known Allergies Allergy Verified 08/24/21 13:39 Review of Systems ROS Statement: Those systems with pertinent positive or pertinent negative responses have been documented in the HPI. ROS Other: All systems not noted in ROS Statement are negative. Past Medical History Additional Past Medical History / Comment(s): crohns dx History of Any Multi-Drug Resistant Organisms: None Reported Past Surgical History: Appendectomy, Bowel Resection, Cholecystectomy Additional Past Surgical History / Comment(s): resection of colon x2 Past Anesthesia/Blood Transfusion Reactions: No Reported Reaction Past Psychological History: No Psychological Hx Reported Smoking Status: Current every day smoker Past Alcohol Use History: None Reported Past Drug Use History: None Reported - Past Family History Mother Family Medical History: No Reported History Father Family Medical History: No Reported History General Exam Limitations: no limitations Course Vital Signs 06/10/22 06/10/22 12:17 12:44 Temperature 97.4 F L Pulse Rate 77 70 Respiratory 16 18 Rate Blood Pressure 130/80 131/86 O2 Sat by Pulse 98 99 Oximetry Medical Decision Making - Lab Data Result diagrams: 08/24/21 12:42 08/24/21 12:42 Lab Results 08/24/21 08/24/21 08/24/21 Range/Units 12:42 12:42 12:42 WBC 14.4 H (3.8-10.6) k/uL RBC 4.77 (4.30-5.90) m/uL Hgb 13.8 (13.0-17.5) gm/dL Hct 44.3 (39.0-53.0) % MCV 92.9 (80.0-100.0) fL MCH 29.0 (25.0-35.0) pg MCHC 31.3 (31.0-37.0) g/dL RDW 13.4 (11.5-15.5) % Plt Count 532 H (150-450) k/uL MPV 6.8 Neutrophils % 83 % Lymphocytes % 9 % Monocytes % 5 % Eosinophils % 2 % Basophils % 1 % Neutrophils # 12.0 H (1.3-7.7) k/uL Lymphocytes # 1.3 (1.0-4.8) k/uL Monocytes # 0.7 (0-1.0) k/uL Eosinophils # 0.3 (0-0.7) k/uL Basophils # 0.1 (0-0.2) k/uL PT 10.0 (9.0-12.0) sec INR 0.9 (<1.2) APTT 28.3 (22.0-30.0) sec Sodium 136 L (137-145) mmol/L Potassium 3.9 (3.5-5.1) mmol/L Chloride 107 (98-107) mmol/L Carbon Dioxide 21 L (22-30) mmol/L Anion Gap 8 mmol/L BUN 21 H (9-20) mg/dL Creatinine 0.96 (0.66-1.25) mg/dL Est GFR (CKD-EPI)AfAm >90 (>60 ml/min/1.73 sqM) Est GFR (CKD-EPI)NonAf >90 (>60 ml/min/1.73 sqM) Glucose 111 H (74-99) mg/dL Plasma Lactic Acid Donnell (0.7-2.0) mmol/L Calcium 9.2 (8.4-10.2) mg/dL Total Bilirubin 0.4 (0.2-1.3) mg/dL AST 29 (17-59) U/L ALT 21 (4-49) U/L Alkaline Phosphatase 94 (38-126) U/L Total Protein 7.5 (6.3-8.2) g/dL Albumin 4.2 (3.5-5.0) g/dL Lipase 49 (23-300) U/L 08/24/21 Range/Units 12:42 WBC (3.8-10.6) k/uL RBC (4.30-5.90) m/uL Hgb (13.0-17.5) gm/dL Hct (39.0-53.0) % MCV (80.0-100.0) fL MCH (25.0-35.0) pg MCHC (31.0-37.0) g/dL RDW (11.5-15.5) % Plt Count (150-450) k/uL MPV Neutrophils % % Lymphocytes % % Monocytes % % Eosinophils % % Basophils % % Neutrophils # (1.3-7.7) k/uL Lymphocytes # (1.0-4.8) k/uL Monocytes # (0-1.0) k/uL Eosinophils # (0-0.7) k/uL Basophils # (0-0.2) k/uL PT (9.0-12.0) sec INR (<1.2) APTT (22.0-30.0) sec Sodium (137-145) mmol/L Potassium (3.5-5.1) mmol/L Chloride (98-107) mmol/L Carbon Dioxide (22-30) mmol/L Anion Gap mmol/L BUN (9-20) mg/dL Creatinine (0.66-1.25) mg/dL Est GFR (CKD-EPI)AfAm (>60 ml/min/1.73 sqM) Est GFR (CKD-EPI)NonAf (>60 ml/min/1.73 sqM) Glucose (74-99) mg/dL Plasma Lactic Acid Donnell 1.4 (0.7-2.0) mmol/L Calcium (8.4-10.2) mg/dL Total Bilirubin (0.2-1.3) mg/dL AST (17-59) U/L ALT (4-49) U/L Alkaline Phosphatase (38-126) U/L Total Protein (6.3-8.2) g/dL Albumin (3.5-5.0) g/dL Lipase (23-300) U/L Disposition Clinical Impression: Ileus, Crohn's colitis Disposition: HOME SELF-CARE Condition: Fair Instructions (If sedation given, give patient instructions): Ileus (ED) Prescriptions: predniSONE [Deltasone] 40 mg PO BID 4 Days #16 tab HYDROcodone/APAP 5-325MG [[place] 5-325] 1 tab PO Q6HR PRN 3 Days #12 tab PRN Reason: Severe Pain Is patient prescribed a controlled substance at d/c from ED?: Yes If prescribed controlled substance>3 days was MAPS reviewed?: Prescribed <3 Days Referrals: Bereket Rothman MD [Primary Care Provider] - 1-2 days Time of Disposition: 14:47
[2021-08-24 13:27] LABS: ALT 21 U/L (4-49); AST 29 U/L (17-59); African American GFR (CKD) >90 (>60 ml/min/1.73 sqM); Albumin 4.2 g/dL (3.5-5.0); Alkaline Phosphatase 94 U/L (38-126); Anion Gap 8 mmol/L; Blood Urea Nitrogen 21 mg/dL (9-20); Calcium 9.2 mg/dL (8.4-10.2); Carbon Dioxide 21 mmol/L (22-30); Chloride 107 mmol/L (98-107); Glucose 111 mg/dL (74-99); Lipase 49 U/L (23-300); Non-African American GFR(CKD) >90 (>60 ml/min/1.73 sqM); Potassium 3.9 mmol/L (3.5-5.1); Sodium 136 mmol/L (137-145); Total Bilirubin 0.4 mg/dL (0.2-1.3); Total Protein 7.5 g/dL (6.3-8.2)
[2021-08-24 14:07] LABS: INR 0.9 (<1.2)
[2021-08-24 14:08] LABS: Partial Thromboplastin Time 28.3 sec (22.0-30.0)
--- NOTE | 2021-08-24 14:28 | CT ---
EXAMINATION TYPE: CT abdomen pelvis w con DATE OF EXAM: 08/24/2021 COMPARISON: 11/03/2020 HISTORY: Severe crohns pain CT DLP: 1356.8 mGycm Automated exposure control for dose reduction was used. TECHNIQUE: Helical acquisition of images was performed from the lung bases through the pelvis. CONTRAST: Performed without Oral Contrast and with IV Contrast, patient injected with 100 mL of Isovue 300. FINDINGS: The lung bases are clear. There are postsurgical changes involving the distal ileum and proximal large bowel. There is a segmen t of distal ileum with a markedly thickened wall and a narrowed but patent lumen. The small bowel pro ximal is not dilated as was seen on the prior study from 11/03/2020. The colon is moderately to markedly distended with air consistent with a adynamic ileus. There is no free intraperitoneal air or fluid. There is no intra-abdominal abscess. There are surgical absence of the gallbladder. There is no focal mass involving the liver, pancreas, spleen or adrenal glands. The kidneys excrete contrast promptly and symmetrically is no solid renal mass or hydronephrosis. The caliber of the abdominal aorta is normal and there is no retroperitoneal adenopathy or hemorrhage. There is no pelvic mass, abscess or adenopathy. The osseous structures are intact. IMPRESSION: 1. Postsurgical changes involving the terminal ileum and proximal large bowel. 2. Distal segment of the ileum just proximal to large bowel demonstrates a thickened wall but a paten t narrowed lumen and no inflammation in the surrounding fat. No small bowel obstruction. 3. Diffusely dilated air-filled colon consistent with an adynamic ileus. 4. No free intraperitoneal air or fluid and no intra-abdominal abscess.
[2021-08-24] MEDS ORDERED: DEXAMETHASONE SOD PHOSPHATE 10 MG/ML 1 ML VIAL IV STA (14:44)
[2021-08-24 15:01] VITALS: BP 153/97; PULSE 79; TEMP 97.8
== END 2021-08-24 15:01 | disposition home or self-care (01) ==
LOC: EC 12:09
DX: K50.10 Crohn's disease of large intestine without complications (principal); K56.7 Ileus, unspecified; F17.200 Nicotine dependence, unspecified, uncomplicated
CPT/HCPCS: 99284; 96374; 96375 ×2; 36415; 80053; 83605; 83690; 85025; 85610; 85730; 74177; J1100; J2405; J1170; Q9967

== ENCOUNTER 2021-09-18 10:05 | Inpatient (IN) | payer BC ==
--- NOTE | 2021-09-18 10:17 | ED ---
Abdominal Pain HPI - General Chief Complaint: Abdominal Pain Stated Complaint: Abd pain Source: patient, RN notes reviewed Mode of arrival: EMS Limitations: no limitations - History of Present Illness Initial Comments: Patient is a 51-year-old male presents the emergency room with complaints of severe right lower quadrant abdominal pain with nausea and vomiting. He has a past medical history significant for Crohn's disease. He follows with Dr. Jordan outpatient. He has previously had a bowel obstruction requiring surgical intervention; he has also had a cholecystectomy and appendectomy previously. He reports having a bowel movement 2 days ago without any blood or mucus in his stool. He denies any fevers or chills. He was given pain medication along with Zofran by EMS with some improvement in his symptoms. He has not had any episodes since coming into the emergency room. He is not on any medications on a regular basis outpatient for his Crohn's disease. His is at the bedside. He and his deny any other complaints or concerns. - Related Data Home Medications Medication Instructions Recorded Confirmed Dextroamphetamine/Amphetamine 30 mg PO AC-BID 09/20/18 08/24/21 [Adderall Xr] Previous Rx's Medication Instructions Recorded HYDROcodone/APAP 5-325MG [[place] 1 tab PO Q6HR PRN 3 Days #12 tab 08/24/21 5-325] predniSONE [Deltasone] 40 mg PO BID 4 Days #16 tab 08/24/21 Allergies Allergy/AdvReac Type Severity Reaction Status Date / Time No Known Allergies Allergy Verified 08/24/21 13:39 Review of Systems ROS Statement: Those systems with pertinent positive or pertinent negative responses have been documented in the HPI. ROS Other: All systems not noted in ROS Statement are negative. Past Medical History Additional Past Medical History / Comment(s): crohns dx, bowel obstruction History of Any Multi-Drug Resistant Organisms: None Reported Past Surgical History: Appendectomy, Bowel Resection, Cholecystectomy Additional Past Surgical History / Comment(s): resection of colon x2 Past Anesthesia/Blood Transfusion Reactions: No Reported Reaction Past Psychological History: No Psychological Hx Reported Smoking Status: Current every day smoker Past Alcohol Use History: None Reported Past Drug Use History: None Reported - Past Family History Mother Family Medical History: No Reported History Father Family Medical History: No Reported History General Exam Limitations: no limitations General appearance: alert, in no apparent distress Head exam: Present: atraumatic, normocephalic, normal inspection Eye exam: Present: normal appearance, PERRL, EOMI. Absent: scleral icterus, conjunctival injection, periorbital swelling ENT exam: Present: normal exam, mucous membranes moist Respiratory exam: Present: normal lung sounds bilaterally. Absent: respiratory distress, wheezes, rales, rhonchi, stridor Cardiovascular Exam: Present: regular rate, normal rhythm, normal heart sounds. Absent: systolic murmur, diastolic murmur, rubs, gallop, clicks GI/Abdominal exam: Present: soft, distended (Mildly RLQ), tenderness (RLQ) Rectal exam: Present: deferred Extremities exam: Absent: pedal edema, joint swelling Neurological exam: Present: alert, oriented X3, CN II-XII intact Psychiatric exam: Present: normal affect, normal mood Skin exam: Present: warm, dry, intact, normal color. Absent: rash Course Vital Signs 09/18/21 10:07 Temperature 97.6 F Pulse Rate 64 Respiratory 18 Rate Blood Pressure 132/81 O2 Sat by Pulse 95 Oximetry Medical Decision Making - Medical Decision Making In setting of Crohn's disease history will check CT of the abdomen to rule out obstruction. Will check CBC, CMP amylase lipase and lactic acid. Discussed with patient and spouse no GI availability consequently if admission is needed for obstruction or further GI intervention he will need to be transferred to another facility. Pain and nausea currently stable from medications given by EMS. Will monitor for further medication intervention needs. Nausea with vomiting and pain uncontrolled with morphine. Will give Dilaudid and Zofran. CT of the abdomen shows probable small bowel obstruction. Will have NG tube inserted; leukocytosis noted will start on Zosyn after blood cultures are drawn. Treatment options discussed with patient in the setting of no GI availability here at the facility. Case discussed with Dr. Ramírez; Dr. Ramírez accepting surgeon; to follow patient here with medicine admission. Dr. Noriega notified regarding medical admission with general surgery consult. Case discussed with Dr. Mendez - Lab Data Result diagrams: 09/18/21 10:28 09/18/21 10:28 Lab Results 09/18/21 09/18/21 09/18/21 Range/Units 10:28 10:28 10:45 WBC 17.8 H (3.8-10.6) k/uL RBC 5.00 (4.30-5.90) m/uL Hgb 15.0 (13.0-17.5) gm/dL Hct 46.2 (39.0-53.0) % MCV 92.5 (80.0-100.0) fL MCH 30.0 (25.0-35.0) pg MCHC 32.4 (31.0-37.0) g/dL RDW 14.1 (11.5-15.5) % Plt Count 476 H (150-450) k/uL MPV 7.6 Neutrophils % 87 % Lymphocytes % 6 % Monocytes % 5 % Eosinophils % 2 % Basophils % 0 % Neutrophils # 15.4 H (1.3-7.7) k/uL Lymphocytes # 1.1 (1.0-4.8) k/uL Monocytes # 0.9 (0-1.0) k/uL Eosinophils # 0.3 (0-0.7) k/uL Basophils # 0.1 (0-0.2) k/uL Sodium 140 (137-145) mmol/L Potassium 3.9 (3.5-5.1) mmol/L Chloride 105 (98-107) mmol/L Carbon Dioxide 25 (22-30) mmol/L Anion Gap 10 mmol/L BUN 16 (9-20) mg/dL Creatinine 0.89 (0.66-1.25) mg/dL Est GFR (CKD-EPI)AfAm >90 (>60 ml/min/1.73 sqM) Est GFR (CKD-EPI)NonAf >90 (>60 ml/min/1.73 sqM) Glucose 114 H (74-99) mg/dL Plasma Lactic Acid Donnell 2.0 (0.7-2.0) mmol/L Calcium 9.5 (8.4-10.2) mg/dL Total Bilirubin 0.4 (0.2-1.3) mg/dL AST 24 (17-59) U/L ALT 20 (4-49) U/L Alkaline Phosphatase 98 (38-126) U/L Total Protein 7.6 (6.3-8.2) g/dL Albumin 4.2 (3.5-5.0) g/dL Amylase 39 (30-110) U/L Lipase 54 (23-300) U/L - Radiology Data Radiology results: report reviewed, image reviewed CT abdomen and pelvis shows suspected distal small bowel obstruction as there is dilated small bowel thickening of the distal small bowel is noted large bowel is normal caliber. Disposition Clinical Impression: Small bowel obstruction Disposition: ADMITTED IP TO THIS HOSP Condition: Stable Is patient prescribed a controlled substance at d/c from ED?: No Referrals: Bereket Rothman MD [Primary Care Provider] - 1-2 days Time of Disposition: 12:51
[2021-09-18 10:47] LABS: ALT 20 U/L (4-49); AST 24 U/L (17-59); African American GFR (CKD) >90 (>60 ml/min/1.73 sqM); Albumin 4.2 g/dL (3.5-5.0); Alkaline Phosphatase 98 U/L (38-126); Amylase 39 U/L (30-110); Anion Gap 10 mmol/L; Blood Urea Nitrogen 16 mg/dL (9-20); Calcium 9.5 mg/dL (8.4-10.2); Carbon Dioxide 25 mmol/L (22-30); Chloride 105 mmol/L (98-107); Glucose 114 mg/dL (74-99); Lipase 54 U/L (23-300); Non-African American GFR(CKD) >90 (>60 ml/min/1.73 sqM); Potassium 3.9 mmol/L (3.5-5.1); Sodium 140 mmol/L (137-145); Total Bilirubin 0.4 mg/dL (0.2-1.3); Total Protein 7.6 g/dL (6.3-8.2)
[2021-09-18] MEDS ORDERED: MORPHINE SULFATE 4 MG/ML SYRINGE IVP PRN (11:00)
[2021-09-18 11:09] LABS: Basophils # (A) 0.1 k/uL (0-0.2); Basophils % (A) 0 %; Eosinophils # (A) 0.3 k/uL (0-0.7); Eosinophils % (A) 2 %; HCT 46.2 % (39.0-53.0); Lymphocytes # (A) 1.1 k/uL (1.0-4.8); Lymphocytes % (A) 6 %; MCHC 32.4 g/dL (31.0-37.0); MCV 92.5 fL (80.0-100.0); Mean Platelet Volume 7.6; Monocytes # (A) 0.9 k/uL (0-1.0); Monocytes % (A) 5 %; Neutrophils # (A) 15.4 k/uL (1.3-7.7); Neutrophils % (A) 87 %; Platelet Count 476 k/uL (150-450); RDW 14.1 % (11.5-15.5); WBC 17.8 k/uL (3.8-10.6)
[2021-09-18] MEDS ORDERED: ONDANSETRON 4 MG/2 ML VIAL IVP STA (11:43)
[2021-09-18] MEDS: HYDROmorphone 1 MG/ML 1 ML SYRINGE IVP PRN ×4 (12:00→22:17)
--- NOTE | 2021-09-18 12:00 | CT ---
EXAMINATION TYPE: CT abdomen pelvis wo con DATE OF EXAM: 09/18/2021 COMPARISON: 08/24/2021 HISTORY: h/o chrons disease CT DLP: 899.4 mGycm Examination of the solid and hollow viscera is limited given the lack of contrast. FINDINGS: LUNG BASES: No evidence for nodule. No evidence for infiltrate. LIVER/GB: The gallbladder is surgically absent. No space-occupying hepatic lesion. PANCREAS: No pancreatic mass identified. No inflammatory process seen. SPLEEN: No evidence for splenomegaly. No intrasplenic lesions seen. ADRENALS: No adrenal nodules identified. No evidence for thickening. KIDNEYS: No evidence for renal mass. No nephrolithiasis. No hydronephrosis. BOWEL: Dilated small bowel measuring up to 5 cm in greatest dimension. No definite transition zone. P ostoperative changes proximal large bowel. Dilatation extends to the anastomosis. There is thickening of the distal small bowel. No evidence for perforation or abscess. Lymph nodes: No evidence for adenopathy greater than 1 cm. Abdominal aorta: Atheromatous changes seen. No evidence for aneurysm. Genital organs: No significant abnormality. Other: No significant abnormality. IMPRESSION: 1. Suspect distal small bowel obstruction as there is dilated small bowel. Thickening of the distal s mall bowel noted. Large bowel is of normal caliber.
[2021-09-18] MEDS ORDERED: PIPERACILLIN-TAZOBACTAM 3.375 GM in SODIUM CHLORIDE 0.9% 100 ML IVPB STA (12:19)
[2021-09-18] MEDS ORDERED: DEXTROSE 5%-0.45% NACL 1,000 ML IV ONE (12:22)
[2021-09-18] MEDS ORDERED: ONDANSETRON 4 MG/2 ML VIAL IVP PRN ×2 (12:55→13:46)
[2021-09-18] MEDS ORDERED: NALOXONE 0.4 MG/ML 1 ML VIAL IV PRN (12:55)
--- NOTE | 2021-09-18 13:32 | XR ---
KUB HISTORY: NG tube placement Frontal KUB and 2 images correlated prior KUB 08/21/2019 This been interval placement of an NG tube, side-port of the NG tube is proximal to the level of the gastroesophageal junction, distal tip of the tube is within the stomach. Surgical clips are present r ight upper quadrant. Lung bases show some minimal atelectatic change, there is spinal spondylosis. Pr ominent loops of small bowel are again seen, postop changes again noted. Overlying artifacts suspecte d the pelvis. IMPRESSION: NG tube as described.
--- NOTE | 2021-09-18 13:47 | P.HPIM ---
History of Present Illness H&P Date: 09/18/21 Chief Complaint: Abdominal pain, nausea, vomiting 51-year-old man with medical history of Crohn's disease, recurrent small bowel obstruction presented for abdominal pain, nausea, vomiting. Patient says that for the last 2-3 days she's had recurrent watery diarrhea which has been up to 3+ times a day. This morning, he noted that he had a severe bout of sharp abdominal pain in his right lower quadrant followed by nausea, vomiting. He has not passed any gas or stool since that time. He's had episodes of this nature before and has always been treated with prednisone or Solu-Medrol, last episode was one and a half months ago. He is not presently on maintenance therapy for Crohn's disease due to being in between Remicade versus stelara. When patient was admitted in October 2020 for the same issue, he had one day of IV steroids which subsequently resolved his partial small bowel obstruction and was discharged home with GI follow-up. Today, he denies fevers, chills, chest pain, palpitations, syncope, present B, cough, dyspnea, numbness/weakness of extremities. He also denies having eaten any undercooked meat or new cuisines. Denies recent travel. In the emergency room, patient is afebrile, 100/52, heart rate 76, 96% on room air. CBC shows a white blood cell count 17.8, platelet count of 476, neutrophil elevation to 15.4. Chemistries are unremarkable. Liver function tests are unremarkable. CRP is elevated at 2.4. Lactose was 2.0. Amylase/lipase are 39/54. Covid was negative. CT of the abdomen/pelvis demonstrates a distal small bowel obstruction as well as thickening of the distal small bowel. KUB x- ray demonstrates an NG tube in good position after was placed by emergency room provider. Patient also received Dilaudid for pain control, and was started on Zosyn, IV fluids. All Systems reviewed and pertinent positives and negatives noted in HPI, all other symptoms are negative Gen: in no apparent distress, resting comfortably in bed Eyes: PERRL, no scleral injection or icterus HENT: normocephalic, atraumatic, good hearing acuity, moist mucous membranes Neck: no tracheal deviation, full range of motion Resp: good air exchange, breathing comfortably with no accessory muscle use, no tactile fremitus, clear to auscultation bilaterally CVS: good distal perfusion x 4, no pitting edema, regular rate and rhythm GI: soft, exquisite tenderness to palpation in the right lower quadrant, ND, no hepatosplenomegaly : no suprapubic tenderness, no CVAT, mccarthy catheter not present MSK: no clubbing, no cyanosis, no noted contractures of extremities Skin: no noted rashes, petechiae; temperature of skin is appropriate Neuro: moving all extremities without signs of weakness, CN II-XII intact Psych: cooperative, euthymic mood, insight and judgment intact Labs and imaging as above Assessment/plan: Small bowel obstruction Crohn's disease flare -Admit to inpatient, telemetry -Gen. surgery consult -Solu-Medrol 60 mg IV every 6 hours -Follow up stool culture, blood culture, ESR -Hold off on further antibiotics at this time -IV fluids -Nausea control, pain control Patient is full code DVT prophylaxis with heparin 3 times a day is the next of kin Past Medical History Additional Past Medical History / Comment(s): crohns dx, bowel obstruction History of Any Multi-Drug Resistant Organisms: None Reported Past Surgical History: Appendectomy, Bowel Resection, Cholecystectomy Additional Past Surgical History / Comment(s): resection of colon x2 Past Anesthesia/Blood Transfusion Reactions: No Reported Reaction Past Psychological History: No Psychological Hx Reported Smoking Status: Current every day smoker Past Alcohol Use History: None Reported Past Drug Use History: None Reported - Past Family History Mother Family Medical History: No Reported History Father Family Medical History: No Reported History Medications and Allergies Home Medications Medication Instructions Recorded Confirmed Type Dextroamphetamine/Amphetamine 30 mg PO AC-BID 09/20/18 08/24/21 History [Adderall Xr] HYDROcodone/APAP 5-325MG [[place] 1 tab PO Q6HR PRN 3 Days #12 tab 08/24/21 Rx 5-325] predniSONE [Deltasone] 40 mg PO BID 4 Days #16 tab 08/24/21 Rx Allergies Allergy/AdvReac Type Severity Reaction Status Date / Time No Known Allergies Allergy Verified 09/18/21 13:37 Physical Exam Osteopathic Statement: *. No significant issues noted on an osteopathic structural exam other than those noted in the History and Physical/Consult. Vitals: Vital Signs Temp Pulse Resp BP Pulse Ox 09/18/21 13:00 76 16 100/62 96 09/18/21 12:30 72 16 100/58 98 09/18/21 11:30 85 20 115/88 92 L 09/18/21 10:07 97.6 F 64 18 132/81 95 Intake and Output 09/17/21 09/18/21 09/18/21 22:59 06:59 14:59 Other: Voiding Method Toilet Weight 88.451 kg Results CBC & Chem 7: 09/18/21 10:28 09/18/21 10:28 Labs: Abnormal Lab Results - Last 24 Hours (Table) 09/18/21 09/18/21 09/18/21 Range/Units 10:28 10:28 10:28 WBC 17.8 H (3.8-10.6) k/uL Plt Count 476 H (150-450) k/uL Neutrophils # 15.4 H (1.3-7.7) k/uL Glucose 114 H (74-99) mg/dL C-Reactive Protein 2.4 H (<1.0) mg/dL
[2021-09-18] MEDS: HEPARIN SODIUM,PORCINE/PF 5,000 UNIT/0.5 ML SYRINGE SQ SCH ×2 (17:01→23:57)
[2021-09-18] MEDS: methylPREDNISolone SOD SUCCI 125 MG/2 ML VIAL IV SCH ×2 (17:35→23:56)
[2021-09-18 21:01] LABS: Appearance,Urine Cloudy (Clear); Bacteria,Urine Occasional /hpf; Bilirubin,Urine 1+ (Negative); Blood,Urine Negative (Negative); Calcium Oxalate Crystals,Urine Few /hpf; Cellular Casts,Urine 1 /lpf (0); Color,Urine Yellow; Glucose,Urine (UA) Negative (Negative); Granular Casts,Urine 3 /lpf (0); Hyaline Casts,Urine 26 /lpf (0-2); Ketones,Urine Trace (Negative); Leukocyte Esterase,Urine Negative (Negative); Mucus,Urine Rare /hpf; Nitrite,Urine Negative (Negative); PH, Urine 5.5 (5.0-8.0); Protein,Urine 1+ (Negative); RBC,Urine 58 /hpf (0-5); Specific Gravity,Urine 1.039 (1.001-1.035); Squamous Epithelial Cell,Urine <1 /hpf (0-4); WBC,Urine 10 /hpf (0-5)
[2021-09-19] MEDS: DEXTROSE 5%-0.45% NACL 1,000 ML IV SCH ×3 (02:57→23:44)
[2021-09-19] MEDS: HYDROmorphone 1 MG/ML 1 ML SYRINGE IVP PRN ×6 (02:58→23:43)
[2021-09-19] MEDS: methylPREDNISolone SOD SUCCI 125 MG/2 ML VIAL IV SCH ×4 (05:35→23:42)
[2021-09-19] MEDS: HEPARIN SODIUM,PORCINE/PF 5,000 UNIT/0.5 ML SYRINGE SQ SCH ×3 (07:23→23:46)
[2021-09-19 10:28] LABS: Basophils # (A) 0.01 X 10*3/uL (0.00-0.10); Basophils % (A) 0.1 %; Eosinophils # (A) 0 X 10*3/uL (0.04-0.35); Eosinophils % (A) 0 %; HCT 41.3 % (39.6-50.0); HGB 12.6 g/dL (13.0-17.0); Immature Grans, Automated 0.2 %; Lymphocytes # (A) 0.65 X 10*3/uL (0.90-5.00); Lymphocytes % (A) 6.4 %; MCH 28.3 pg (27.0-32.0); MCHC 30.5 g/dL (32.0-37.0); MCV 92.8 fL (80.0-97.0); Mean Platelet Volume 9.4 fL (9.5-12.2); Monocytes # (A) 0.14 X 10*3/uL (0.20-1.00); Monocytes % (A) 1.4 %; NRBC Per 100 WBC 0 /100 WBCS (0.0-0.0); Neutrophils # (A) 9.28 X 10*3/uL (1.80-7.70); Neutrophils % (A) 91.9 %; Platelet Count 483 X 10*3/uL (140-440); RBC 4.45 X 10*6/uL (4.40-5.60); RDW 14.3 % (11.5-14.5)
[2021-09-19 10:50] LABS: African American GFR (CKD) 113.3 (60.0-200.0); Anion Gap 10.5 mmol/L (10.00-18.00); BUN/Creat Ratio 18.98 Ratio (12.00-20.00); Blood Urea Nitrogen 17.2 mg/dL (9.0-27.0); Calcium 8.4 mg/dL (8.7-10.3); Carbon Dioxide 24.5 mmol/L (20.0-27.5); Non-African American GFR(CKD) 97.8 (60.0-200.0); Potassium 4.5 mmol/L (3.5-5.5)
[2021-09-19 10:51] LABS: Magnesium 1.9 mg/dL (1.5-2.4)
--- NOTE | 2021-09-19 13:14 | P.PN ---
Subjective Progress Note Date: 09/19/21 Principal diagnosis: abdominal pain He continues to have RLQ pain at this time. Not passing gas, did not have any bowel movement. Still with NG. Objective - Vital Signs Vital signs: Vital Signs Temp 98.7 F 09/19/21 11:24 Pulse 94 09/19/21 11:24 Resp 16 09/19/21 11:24 BP 139/80 09/19/21 11:24 Pulse Ox 92 L 09/19/21 11:24 FiO2 Intake & Output 09/18/21 09/19/21 09/19/21 18:59 06:59 18:59 Intake Total 1200 Output Total 500 Balance 700 Weight 88.451 kg Intake: Intake, IV Titration 1200 Amount Dextrose 5%-0.45% NaCl 1, 1200 000 ml @ 100 mls/hr IV . Q10H DEISY Rx#:[id number] Output: Gastric Drainage 500 Other: Voiding Method Toilet Toilet Toilet # Voids 0 0 - Exam Constitutional: No acute distress, conversant, pleasant Eyes:Anicteric sclerae, moist conjunctiva, no lid-lag, PERRLA, ENMT: Oropharynx clear, no erythema, exudates Neck: Supple, FROM, no masses, or JVD, No carotid bruits, No thyromegaly Lungs: Clear to auscultation, Clear to percussion, Normal respiratory effort, no accessory muscle use Cardiovascular: Heart regular in rate and rhythm, No murmurs, gallops, or rubs, No peripheral edema Abdominal: Soft, right lower quadrant tender, no guarding, rebound or rigidity, Normoactive bowel sounds, No hepatomegaly, No splenomegaly, No palpable mass Skin: Normal temperature, tone, texture, turgor, no induration, No subcutaneous nodules, No rash, lesions, No ulcers Extremities: No digital cyanosis, No clubbing, Pedal pulses intact and symme trical, Radial pulses intact and symmetrical, No calf tenderness Psychiatric: Alert and oriented to person, place and time, appropriate affect, intact judgement Neuro: Muscles Strength 5/5 in all 4 extremities, Sensation to light touch grossly present throughout, Cranial nerves II-XII grossly intact, no focal sensory deficits - Labs CBC & Chem 7: 09/19/21 04:49 09/19/21 04:49 Labs: Abnormal Lab Results - Last 24 Hours (Table) 09/18/21 09/18/21 09/18/21 Range/Units 10:22 10:28 14:17 WBC (4.50-10.00) X 10*3/uL Hgb (13.0-17.0) g/dL MCHC (32.0-37.0) g/dL Plt Count (140-440) X 10*3/uL MPV (9.5-12.2) fL Neutrophils # (1.80-7.70) X 10*3/uL Lymphocytes # (0.90-5.00) X 10*3/uL Monocytes # (0.20-1.00) X 10*3/uL Eosinophils # (0.04-0.35) X 10*3/uL ESR 21 H (0-15) mm/hr Glucose (70-110) mg/dL Calcium (8.7-10.3) mg/dL C-Reactive Protein 2.4 H (<1.0) mg/dL Ur Specific [place] 1.039 H (1.001-1.035) Urine Protein 1+ H (Negative) Urine Ketones Trace H (Negative) Urine Bilirubin 1+ H (Negative) Urine RBC 58 H (0-5) /hpf Urine WBC 10 H (0-5) /hpf Calcium Oxalate Crystal Few H (None) /hpf Urine Bacteria Occasional H (None) /hpf Hyaline Casts 26 H (0-2) /lpf Urine Mucus Rare H (None) /hpf 09/19/21 09/19/21 Range/Units 04:49 04:49 WBC 10.10 H (4.50-10.00) X 10*3/uL Hgb 12.6 L (13.0-17.0) g/dL MCHC 30.5 L (32.0-37.0) g/dL Plt Count 483 H (140-440) X 10*3/uL MPV 9.4 L (9.5-12.2) fL Neutrophils # 9.28 H (1.80-7.70) X 10*3/uL Lymphocytes # 0.65 L (0.90-5.00) X 10*3/uL Monocytes # 0.14 L (0.20-1.00) X 10*3/uL Eosinophils # 0 L (0.04-0.35) X 10*3/uL ESR (0-15) mm/hr Glucose 147 H (70-110) mg/dL Calcium 8.4 L (8.7-10.3) mg/dL C-Reactive Protein (<1.0) mg/dL Ur Specific [place] (1.001-1.035) Urine Protein (Negative) Urine Ketones (Negative) Urine Bilirubin (Negative) Urine RBC (0-5) /hpf Urine WBC (0-5) /hpf Calcium Oxalate Crystal (None) /hpf Urine Bacteria (None) /hpf Hyaline Casts (0-2) /lpf Urine Mucus (None) /hpf Assessment and Plan Plan: Small bowel obstruction Crohn's disease flare -Gen. surgery consult -Solu-Medrol 60 mg IV every 6 hours -Follow up stool culture, blood culture, ESR -Hold off on further antibiotics at this time -IV fluids -Nausea control, pain control Patient is full code DVT prophylaxis with heparin 3 times a day is the next of kin
--- NOTE | 2021-09-19 13:26 | P.GSCN ---
History of Present Illness Consult date: 09/19/21 History of present illness: CHIEF COMPLAINT: Abdominal pain HISTORY OF PRESENT ILLNESS: This is a 51-year-old male who presents to hospital with complaints of abdominal pain that started yesterday morning. He was having nausea and vomiting. He reports that his last bowel movement was 3 days ago. He is no longer having any flatus. Patient does have a prior history of Crohn's disease causing bowel obstruction. He is required to bowel resections in the past. His last bowel resection was in 2012. Other surgical history includes cholecystectomy and appendectomy. Patient reports that he has been off of Crohn's medications for about 2 years. And over the last year he has noted Crohn's flareups. Computed tomography scan abdomen and pelvis report suspected distal small bowel obstruction as there is dilated small bowel that extends to the anastomosis.. Thickening of the distal small bowel noted. Large bowel is of normal caliber. Patient denies any fever chills or sweats. Medicine service has started patient on IV steroids for Crohn's exacerbation. Patient has NG tube in place with the 300 mL output this morning. Patient reports improvement abdominal pain since the placement of the NG tube. Patient seen and examined with Dr. hansen PAST MEDICAL HISTORY: See list. PAST SURGICAL HISTORY: See list. MEDICATIONS: See list. ALLERGIES: See list. SOCIAL HISTORY: No illicit drug use. REVIEW OF SYSTEMS: CONSTITUTIONAL: Denies fever or chills. HEENT: Denies blurred vision, vision changes, or eye pain. Denies hemoptysis CARDIOVASCULAR: Denies chest pain or pressure. RESPIRATORY: No shortness of breath. GASTROINTESTINAL: See HPI for pertinent findings HEMATOLOGIC: Denies bleeding disorders. GENITOURINARY: Denies any blood in urine or increased urinary frequency. SKIN: Denies pruitis. Denies rash. PHYSICAL EXAM: VITAL SIGNS: Reviewed GENERAL: Well-developed in no acute distress. HEENT: No sclera icterus. Extraocular movements grossly intact. Moist buccal mucosa. Head is atraumatic, normocephalic. No nasal drainage. ABDOMEN: Soft. Nondistended. Tenderness with palpation of the right lower abdomen. Old midline scar and scar from open cholecystectomy in the right upper quadrant NEUROLOGIC: Alert and oriented. Cranial nerves II through XII grossly intact. LABORATORY DATA: WBC is 17.8 down to 10.10 Hgb 12.6 platelets 483 Sodium 138 potassium 4.5 creatinine 0.9 magnesium 1.9 lactate 2.0 COVID-19 not detected IMAGING: Computed tomography scan as stated above ASSESSMENT: 1. Small bowel obstruction possibly mechanical and at the anastomosis site versus due to Crohn's exacerbation 2. Prior history of small bowel obstruction requiring bowel resection 2 3. History of Crohn's PLAN: -Continue NG tube for decompression -Keep patient nothing by mouth -Continue IV fluids -Continue antiemetics -Continue pain medication as needed Thank you for this consultation Physician [employer] Specialist note has been reviewed by physician. Signing provider agrees with the documented findings, assessment, and plan of care. Past Medical History Additional Past Medical History / Comment(s): crohns dx with bowel obstructions History of Any Multi-Drug Resistant Organisms: None Reported Past Surgical History: Appendectomy, Bowel Resection, Cholecystectomy Additional Past Surgical History / Comment(s): resection of colon x2, colonoscopy Past Anesthesia/Blood Transfusion Reactions: No Reported Reaction Smoking Status: Current every day smoker - Past Family History Mother Family Medical History: No Reported History Father Family Medical History: No Reported History Medications and Allergies Home Medications Medication Instructions Recorded Confirmed Type Dextroamphetamine/Amphetamine 30 mg PO BID@0900,1400 09/20/18 09/18/21 History [Adderall Xr] Allergies Allergy/AdvReac Type Severity Reaction Status Date / Time No Known Allergies Allergy Verified 09/18/21 13:37 Surgical - Exam Vital Signs Temp Pulse Resp BP Pulse Ox 97.6 F 64 18 132/81 95 09/18/21 10:07 09/18/21 10:07 09/18/21 10:07 09/18/21 10:07 09/18/21 10:07 Results - Labs 09/19/21 04:49 09/19/21 04:49 Abnormal Lab Results - Last 24 Hours (Table) 09/18/21 09/18/21 09/18/21 Range/Units 10:22 10:28 10:28 WBC 17.8 H (3.8-10.6) k/uL Hgb (13.0-17.0) g/dL MCHC (32.0-37.0) g/dL Plt Count 476 H (150-450) k/uL MPV (9.5-12.2) fL Neutrophils # 15.4 H (1.3-7.7) k/uL Lymphocytes # (0.90-5.00) X 10*3/uL Monocytes # (0.20-1.00) X 10*3/uL Eosinophils # (0.04-0.35) X 10*3/uL ESR (0-15) mm/hr Glucose (70-110) mg/dL Calcium (8.7-10.3) mg/dL C-Reactive Protein 2.4 H (<1.0) mg/dL Ur Specific [place] 1.039 H (1.001-1.035) Urine Protein 1+ H (Negative) Urine Ketones Trace H (Negative) Urine Bilirubin 1+ H (Negative) Urine RBC 58 H (0-5) /hpf Urine WBC 10 H (0-5) /hpf Calcium Oxalate Crystal Few H (None) /hpf Urine Bacteria Occasional H (None) /hpf Hyaline Casts 26 H (0-2) /lpf Urine Mucus Rare H (None) /hpf 09/18/21 09/19/21 09/19/21 Range/Units 14:17 04:49 04:49 WBC 10.10 H (3.8-10.6) k/uL Hgb 12.6 L (13.0-17.0) g/dL MCHC 30.5 L (32.0-37.0) g/dL Plt Count 483 H (150-450) k/uL MPV 9.4 L (9.5-12.2) fL Neutrophils # 9.28 H (1.3-7.7) k/uL Lymphocytes # 0.65 L (0.90-5.00) X 10*3/uL Monocytes # 0.14 L (0.20-1.00) X 10*3/uL Eosinophils # 0 L (0.04-0.35) X 10*3/uL ESR 21 H (0-15) mm/hr Glucose 147 H (70-110) mg/dL Calcium 8.4 L (8.7-10.3) mg/dL C-Reactive Protein (<1.0) mg/dL Ur Specific [place] (1.001-1.035) Urine Protein (Negative) Urine Ketones (Negative) Urine Bilirubin (Negative) Urine RBC (0-5) /hpf Urine WBC (0-5) /hpf Calcium Oxalate Crystal (None) /hpf Urine Bacteria (None) /hpf Hyaline Casts (0-2) /lpf Urine Mucus (None) /hpf Diabetes panel 09/19/21 Range/Units 04:49 Sodium 138 (135-145) mmol/L Potassium 4.5 (3.5-5.5) mmol/L Chloride 103 (96-109) mmol/L Carbon Dioxide 24.5 (20.0-27.5) mmol/L BUN 17.2 (9.0-27.0) mg/dL Creatinine 0.9 (0.6-1.5) mg/dL Glucose 147 H (70-110) mg/dL Calcium 8.4 L (8.7-10.3) mg/dL Calcium panel 09/19/21 Range/Units 04:49 Calcium 8.4 L (8.7-10.3) mg/dL Pituitary panel 09/19/21 Range/Units 04:49 Sodium 138 (135-145) mmol/L Potassium 4.5 (3.5-5.5) mmol/L Chloride 103 (96-109) mmol/L Carbon Dioxide 24.5 (20.0-27.5) mmol/L BUN 17.2 (9.0-27.0) mg/dL Creatinine 0.9 (0.6-1.5) mg/dL Glucose 147 H (70-110) mg/dL Calcium 8.4 L (8.7-10.3) mg/dL Adrenal panel 09/19/21 Range/Units 04:49 Sodium 138 (135-145) mmol/L Potassium 4.5 (3.5-5.5) mmol/L Chloride 103 (96-109) mmol/L Carbon Dioxide 24.5 (20.0-27.5) mmol/L BUN 17.2 (9.0-27.0) mg/dL Creatinine 0.9 (0.6-1.5) mg/dL Glucose 147 H (70-110) mg/dL Calcium 8.4 L (8.7-10.3) mg/dL
[2021-09-20] MEDS: methylPREDNISolone SOD SUCCI 125 MG/2 ML VIAL IV SCH ×2 (05:02→12:00)
[2021-09-20] MEDS: HYDROmorphone 1 MG/ML 1 ML SYRINGE IVP PRN ×2 (05:03→09:20)
[2021-09-20] MEDS: DEXTROSE 5%-0.45% NACL 1,000 ML IV SCH (08:15)
[2021-09-20] MEDS: HEPARIN SODIUM,PORCINE/PF 5,000 UNIT/0.5 ML SYRINGE SQ SCH (08:26)
[2021-09-20 09:47] LABS: Basophils % (A) 0 %; Eosinophils % (A) 0 %; HCT 38.1 % (39.0-53.0); HGB 12.4 gm/dL (13.0-17.5); Lymphocytes # (A) 0.7 k/uL (1.0-4.8); Lymphocytes % (A) 6 %; MCH 30.2 pg (25.0-35.0); MCHC 32.5 g/dL (31.0-37.0); MCV 92.8 fL (80.0-100.0); Mean Platelet Volume 6.8; Monocytes # (A) 0.2 k/uL (0-1.0); Monocytes % (A) 2 %; Neutrophils # (A) 10.1 k/uL (1.3-7.7); Neutrophils % (A) 92 %; Platelet Count 468 k/uL (150-450); RBC 4.11 m/uL (4.30-5.90); RDW 13.8 % (11.5-15.5); WBC 11.1 k/uL (3.8-10.6)
--- NOTE | 2021-09-20 13:26 | P.PN ---
Subjective Progress Note Date: 09/20/21 CHIEF COMPLAINT: Small bowel structure HISTORY OF PRESENT ILLNESS: Patient reports improvement in abdominal pain. He is having flatus. Denies any nausea. No output through NG tube through the night. NG tube was discontinued this morning. Patient was started on full liquids. He tolerated full liquids. Afebrile. WBC is 11.1 Hgb 12.4 platelets 468. Patient is on IV steroids for his Crohn's exacerbation. IV steroids may be contributing to patient's elevated white count. Patient seen and examined with Dr. hansen PHYSICAL EXAM: VITAL SIGNS: Reviewed. GENERAL: Well-developed in no acute distress. HEENT: No sclera icterus. Extraocular movements grossly intact. Moist buccal mucosa. Head is atraumatic, normocephalic. ABDOMEN: Soft. Nondistended. Mild tenderness right lower quadrant but decreased from yesterday NEUROLOGIC: Alert and oriented. Cranial nerves II through XII grossly intact. ASSESSMENT: 1. Small bowel obstruction possibly mechanical and at the anastomosis site jen tracey due to Crohn's exacerbation. Improved with conservative management PLAN: -Patient can be discharged from surgical standpoint when medically cleared -Recommend that patient states on full liquid diet after discharge for a few more days and then advance as tolerated Physician Butter Wrapper note has been reviewed by physician. Signing provider agrees with the documented findings, assessment, and plan of care. Objective - Vital Signs Vital signs: Vital Signs Temp 97.9 F 09/20/21 06:57 Pulse 62 09/20/21 06:57 Resp 18 09/20/21 06:57 BP 126/78 09/20/21 06:57 Pulse Ox 95 09/20/21 05:00 FiO2 Intake & Output 09/19/21 09/20/21 09/20/21 18:59 06:59 18:59 Intake Total 1200 0 Output Total 900 500 Balance 300 -500 Intake: Intake, IV Titration 1200 Amount Dextrose 5%-0.45% NaCl 1, 1200 000 ml @ 100 mls/hr IV . Q10H DEISY Rx#:[id number] Oral 0 Output: Gastric Drainage 900 500 Other: Voiding Method Toilet Toilet # Voids 3 2 - Labs CBC & Chem 7: 09/20/21 09:02 09/19/21 04:49 Labs: Abnormal Lab Results - Last 24 Hours (Table) 09/20/21 Range/Units 09:02 WBC 11.1 H (3.8-10.6) k/uL RBC 4.11 L (4.30-5.90) m/uL Hgb 12.4 L (13.0-17.5) gm/dL Hct 38.1 L (39.0-53.0) % Plt Count 468 H (150-450) k/uL Neutrophils # 10.1 H (1.3-7.7) k/uL Lymphocytes # 0.7 L (1.0-4.8) k/uL Microbiology - Last 24 Hours (Table) 09/18/21 13:00 Blood Culture - Preliminary Blood No Growth after 24 hours 09/18/21 13:15 Blood Culture - Preliminary Blood No Growth after 24 hours
[2021-09-20 13:54] VITALS: BP 155/70; PULSE 82; RESP 17; TEMP 98.2
--- NOTE | 2021-09-20 14:51 | P.DS ---
Providers Date of admission: 09/18/21 13:20 Expected date of discharge: 09/20/21 Attending physician: Lois Lockwood DO Consults: 09/19/21 04:56 Consult Physician Urgent Consulting Provider: Bebo Ramírez Consult Reason/Comments: SBO Do you want consulting provider notified?: Yes Primary care physician: [facility] Course: 51-year-old man with medical history of Crohn's disease, recurrent small bowel obstruction presented for abdominal pain, nausea, vomiting. Patient says that for the last 2-3 days had recurrent watery diarrhea as well as abdominal pain in his right lower quadrant followed by nausea, vomiting. He has not passed any gas or stool since that time. He's had episodes of this nature before and has always been treated with prednisone or Solu-Medrol, last episode was one and a half months ago. He is not presently on maintenance therapy for Crohn's disease. When patient was admitted in October 2020 for the same issue, he had one day of IV steroids which subsequently resolved his partial small bowel obstruction and was discharged home with GI follow-up. No fevers, chills, chest pain, palpitations, syncope, cough, dyspnea, numbness/weakness of extremities. He also denies having eaten any undercooked meat or new cuisines. Denies recent travel. In the emergency room, patient is afebrile, 100/52, heart rate 76, 96% on room air. CBC shows a white blood cell count 17.8, platelet count of 476, neutrophil elevation to 15.4. Chemistries are unremarkable. Liver function tests are unremarkable. CRP is elevated at 2.4. Lactose was 2.0. Amylase/lipase are 39/54. Covid was negative. CT of the abdomen/pelvis showed a distal small bowel obstruction as well as thickening of the distal small bowel. KUB x-ray demonstrates an NG tube in good position after was placed by emergency room provider. Patient also received Dilaudid for pain control, and was started on Zosyn, IV fluids. He was admitted, was seen by general surgery. He was kept on IV fluids and IV steroids. He improved clinically with less abdominal pain. Today NG was pulled out, has been passing gas. He was started on full liquids by surgery, tolerated that well. He was cleared by surgery for discharge today, will be sent home in a stable condition. Time for discharge 36 min Patient Condition at Discharge: Stable Plan - Discharge Summary Discharge Rx Participant: No New Discharge Prescriptions: New methylPREDNISolone Dose Pack [Medrol Dose Pack] 4 mg PO DIRECTED #1 packet Continue Dextroamphetamine/Amphetamine [Adderall Xr] 30 mg PO BID@0900,1400 Discharge Medication List Dextroamphetamine/Amphetamine [Adderall Xr] 30 mg PO BID@0900,1400 09/20/18 [History] methylPREDNISolone Dose Pack [Medrol Dose Pack] 4 mg PO DIRECTED #1 packet 09/20/21 [Rx] Follow up Appointment(s)/Referral(s): Bereket Rothman MD [Primary Care Provider] - 1-2 days
== END 2021-09-20 16:17 | disposition home or self-care (01) | DRG 387 ==
LOC: EC 10:05 → 5NMEDONC 13:20
PROVIDERS: ADMIT Internal Medicine; ATTEND Internal Medicine
PROC: 0D9670Z Drainage of Stomach with Drainage Device, Via Natural or Artificial Opening (ICD-10-PCS; principal; 2021-09-18)
DX: K50.012 Crohn's disease of small intestine with intestinal obstruction (principal); D72.829 Elevated white blood cell count, unspecified; F17.210 Nicotine dependence, cigarettes, uncomplicated; Z20.822 Contact with and (suspected) exposure to COVID-19; R79.82 Elevated C-reactive protein (CRP); K63.89 Other specified diseases of intestine; Z28.310 Unvaccinated for COVID-19; Z90.49 Acquired absence of other specified parts of digestive tract; Z79.891 Long term (current) use of opiate analgesic; Z79.52 Long term (current) use of systemic steroids
CPT/HCPCS: 36415; 74018; 74176; 80048; 80053; 81001; 82150; 83605; 83690; 83735; 85025; 85652; 86140; 87040; 87635; 96361; 96365; 96374; 96375; 99285

== ENCOUNTER 2022-10-25 23:49 | Emergency (ER) | payer BC ==
--- NOTE | 2022-10-26 01:07 | ED ---
Dizziness HPI - General Chief Complaint: Dizziness Stated Complaint: Vomitting Time Seen by Provider: 10/26/22 00:48 Source: patient Mode of arrival: ambulatory Limitations: no limitations - History of Present Illness Initial Comments: This patient is a 52-year-old man who presents to have evaluation for what he is describing as dizziness associated with nausea and vomiting. The patient states this has been coming in episodes going back for a number of weeks. The patient relates that it has been more noticeable since he had surgery for his left ro tator cuff month ago. Patient states that he had fallen out of the back of a truck landing on his shoulder and may also have hit his head. At that time there was no loss of consciousness. His rotator cuff was injured and he had surgery. Since that time he has had episodes of severe vertigo. He notes that today he had bent over to pick something up and then when he straightened up he was feeling awful. There was severe "dizziness" or vertigo as well as nausea. Patient notes that when these episodes come on he has had his blood pressure checked and it is very high. Patient has not noted relieving factors but states that sometimes moving rapidly will bring the symptoms on. MD Complaint: dizziness -: days(s) Timing: sudden onset, intermittent Description: difficulty walking, nausea History of Same: No History of Trauma: Yes Improves With: remaining still Worsens With: movement - Related Data Home Medications Medication Instructions Recorded Confirmed Dextroamphetamine/Amphetamine 30 mg PO BID@0900,1400 09/20/18 09/18/21 [Adderall Xr] Previous Rx's Medication Instructions Recorded methylPREDNISolone Dose Pack 4 mg PO DIRECTED #1 packet 09/20/21 [Medrol Dose Pack] Allergies Allergy/AdvReac Type Severity Reaction Status Date / Time No Known Allergies Allergy Verified 10/26/22 00:01 Review of Systems ROS Statement: Those systems with pertinent positive or pertinent negative responses have been documented in the HPI. ROS Other: All systems not noted in ROS Statement are negative. Constitutional: Denies: fever, chills, weakness Eyes: Denies: vision change Respiratory: Denies: cough, dyspnea Cardiovascular: Denies: chest pain, palpitations, syncope Gastrointestinal: Reports: as per HPI, nausea, vomiting. Denies: abdominal pain, hematemesis, melena, hematochezia Genitourinary: Denies: dysuria, hematuria Musculoskeletal: Denies: back pain Skin: Denies: rash Neurological: Denies: headache, weakness, numbness Past Medical History Additional Past Medical History / Comment(s): crohns dx with bowel obstructions History of Any Multi-Drug Resistant Organisms: None Reported Past Surgical History: Appendectomy, Bowel Resection, Cholecystectomy Additional Past Surgical History / Comment(s): resection of colon x2, colonoscopy Past Anesthesia/Blood Transfusion Reactions: No Reported Reaction Past Psychological History: ADD/ADHD Smoking Status: Current every day smoker Past Alcohol Use History: None Reported Past Drug Use History: None Reported - Past Family History Mother Family Medical History: No Reported History Father Family Medical History: No Reported History General Exam Limitations: no limitations General appearance: alert, in no apparent distress Head exam: Present: atraumatic, normocephalic Eye exam: Present: normal appearance, PERRL, EOMI. Absent: scleral icterus, conjunctival injection, nystagmus ENT exam: Present: normal oropharynx Neck exam: Present: normal inspection, full ROM Respiratory exam: Present: normal lung sounds bilaterally. Absent: respiratory distress, wheezes, rales, rhonchi, stridor Cardiovascular Exam: Present: regular rate, normal rhythm, normal heart sounds. Absent: systolic murmur, diastolic murmur, rubs, gallop GI/Abdominal exam: Present: soft. Absent: distended, tenderness, guarding, rebound, rigid, mass Extremities exam: Present: normal inspection, normal capillary refill. Absent: pedal edema, calf tenderness Back exam: Present: normal inspection. Absent: CVA tenderness (R), CVA te nderness (L) Neurological exam: Present: alert, oriented X3, CN II-XII intact. Absent: motor sensory deficit Skin exam: Present: warm, dry, intact, normal color. Absent: rash Course Vital Signs 10/25/22 10/26/22 10/26/22 23:55 00:54 01:49 Temperature 98.0 F 97.8 F Pulse Rate 85 82 90 Respiratory 20 18 20 Rate Blood Pressure 126/93 136/91 196/119 O2 Sat by Pulse 100 93 L 99 Oximetry 10/26/22 10/26/22 10/26/22 02:05 02:20 02:35 Temperature 97.6 F 97.8 F 97.8 F Pulse Rate 51 L 73 82 Respiratory 20 18 18 Rate Blood Pressure 191/103 164/90 163/99 O2 Sat by Pulse 94 L 96 97 Oximetry 10/26/22 10/26/22 10/26/22 02:50 03:05 03:20 Temperature 97.8 F 97.8 F 97.8 F Pulse Rate 67 68 68 Respiratory 18 20 18 Rate Blood Pressure 157/96 142/89 153/91 O2 Sat by Pulse 98 95 96 Oximetry 10/26/22 10/26/22 10/26/22 03:35 03:46 03:52 Temperature 97.8 F 97.6 F 97.8 F Pulse Rate 70 75 72 Respiratory 18 18 20 Rate Blood Pressure 172/104 168/99 168/99 O2 Sat by Pulse 96 94 L 95 Oximetry - Reevaluation(s) Reevaluation #1: 10/26/22 01:59 I was called to the bedside as the patient had acute change in status. The patient complains of occipital headache. On the reevaluation, he is diaphoretic and does have some right leg weakness. Additional orders entered EKG Findings - EKG Results: EKG: interpreted by ERMD, sinus rhythm (With PACs, rate 80 bpm), normal QRS, normal ST/T - Blocks, [place], Hypertrophy, ST Abn: QRS axis and voltage: left axis deviation (-30 to -90) Medical Decision Making - Medical Decision Making Patient is 52-year-old man presenting with intermittent episodes of severe vertigo going back a number weeks. As noted in the course, I was called to the bedside as the patient had another of the episodes come on. When I examined him he is diaphoretic and he is having difficulty with raising his right leg. Also mild difficulty with speech. Given the acute change, code alteplase activated. There were discussions with the patient and family and after slightly prolonged discussion in which another family member was consulted about which facility to use, patient does agree to go to [facility] for further neurological care. Note that it was felt that the lesion is too small for clot retrieval and therefore TPA administered. The patient had chest x-ray which I interpreted as negative for acute infiltrate, pneumothorax, congestive heart failure The patient had CT of the brain which I interpreted as negative for acute bony injury or intracranial hemorrhage. CT angiogram of the neck and brain interpreted by radiology Was pt. sent in by a medical professional or institution (LEONEL Yuen, [employer], urgent care, hospital, or long term...) When possible be specific @ -[No] Did you speak to anyone other than the patient for history (EMS, parent, family, police, friend...)? What history was obtained from this source @ -[Patient's did contribute history Did you review nursing and triage notes (agree or disagree)? Why? @ -[I reviewed and agree with nursing and triage notes] Were old charts reviewed (outside hosp., previous admission, EMS record, old EKG, old radiological studies, urgent care reports/EKG's, long term records)? Report findings @ -[No old charts were reviewed] Differential Diagnosis (chest pain, altered mental status, abdominal pain women, abdominal pain men, vaginal bleeding, weakness, fever, dyspnea, syncope, headache, dizziness, GI bleed, back pain, seizure, CVA, palpatations, mental health, musculoskeletal)? @ -[Differential CVA Ischemic stroke, hemorrhagic stroke, brain tumor, atypical migraine, Wernicke's encephalopathy, seizure, multiple sclerosis, meningitis, encephalitis, hypoglycemia, Guillain-Granado, electrolytes disturbance, myasthenia gravis.... This is not meant to be an all-inclusive list EKG interpreted by me (3pts min.). @ -[As above] X-rays interpreted by me (1pt min.). @ -[As above CT interpreted by me (1pt min.). @ -[As above U/S interpreted by me (1pt. min.). @ -[None done] What testing was considered but not performed or refused? (CT, X-rays, U/S, labs)? Why? @ -[None] What meds were considered but not given or refused? Why? @ -[None] Did you discuss the management of the patient with other professionals (professionals i.e. LEONEL Yuen, [employer], lab, RT, psych nurse, mental health social worker, consultant internship, teacher, customer service security officer, nurse outreach case manager)? Give summary @ -[I did discuss the case with the radiologist who interpreted the CT angiogram, as well as with the interventional stroke team Was smoking cessation discussed for >3mins.? @ -[No] Was critical care preformed (if so, how long)? @ -[Yes 40 minutes Were there social determinants of health that impacted care today? How? (Homelessness, low income, unemployed, alcoholism, drug addiction, transportation, low edu. Level, literacy, decrease access to med. care, residential, rehab)? @ -[No] Was there de-escalation of care discussed even if they declined (Discuss DNR or withdrawal of care, Hospice)? DNR status @ -[No] What co-morbidities impacted this encounter? (DM, HTN, Smoking, COPD, CAD, Cancer, CVA, ARF, Chemo, Hep., AIDS, mental health diagnosis, sleep apnea, morbid obesity)? @ -[None] Was patient admitted / discharged? Hospital course, mention meds given and route, prescriptions, significant lab abnormalities, going to OR and other pertinent info. @ -[The patient will be transferred to have further care by the interventional stroke team, see above Undiagnosed new problem with uncertain prognosis? @ -[No] Drug Therapy requiring intensive monitoring for toxicity (Heparin, Nitro, Insulin, Cardizem)? @ -[No] Were any procedures done? @ -[No] Diagnosis/symptom? @ -[Acute ischemic stroke Acute, or Chronic, or Acute on Chronic? @ -[default] Uncomplicated (without systemic symptoms) or Complicated (systemic symptoms)? @ -[Uncomplicated Side effects of treatment? @ -[No] Exacerbation, Progression, or Severe Exacerbation? @ -[No] Poses a threat to life or bodily function? How? (Chest pain, [place], [place], pneumonia, PE, COPD, DKA, ARF, appy, cholecystitis, CVA, Diverticulitis, Homicidal, Suicidal, threat to staff... and all critical care pts) @ -[Yes untreated stroke may lead to worsening morbidity and mortality - Lab Data Result diagrams: 10/26/22 01:11 10/26/22 01:11 Lab Results 10/26/22 10/26/22 10/26/22 Range/Units 01:11 01:11 01:11 WBC 15.0 H (3.8-10.6) k/uL RBC 5.11 (4.30-5.90) m/uL Hgb 16.1 (13.0-17.5) gm/dL Hct 48.0 (39.0-53.0) % MCV 93.9 (80.0-100.0) fL MCH 31.4 (25.0-35.0) pg MCHC 33.5 (31.0-37.0) g/dL RDW 14.0 (11.5-15.5) % Plt Count 515 H (150-450) k/uL MPV 7.0 Neutrophils % 79 % Lymphocytes % 13 % Monocytes % 5 % Eosinophils % 2 % Basophils % 0 % Neutrophils # 11.8 H (1.3-7.7) k/uL Lymphocytes # 2.0 (1.0-4.8) k/uL Monocytes # 0.7 (0-1.0) k/uL Eosinophils # 0.2 (0-0.7) k/uL Basophils # 0.1 (0-0.2) k/uL Sodium 139 (137-145) mmol/L Potassium 5.4 H (3.5-5.1) mmol/L Chloride 103 (98-107) mmol/L Carbon Dioxide 23 (22-30) mmol/L Anion Gap 13 mmol/L BUN 26 H (9-20) mg/dL Creatinine 1.24 (0.66-1.25) mg/dL Est GFR (CKD-EPI)AfAm 77 (>60 ml/min/1.73 sqM) Est GFR (CKD-EPI)NonAf 67 (>60 ml/min/1.73 sqM) Glucose 94 (74-99) mg/dL POC Glucose (mg/dL) (70-110) mg/dL POC Glu Metal [employer] Ere[employer] ID Lactic Ac Sepsis Rflx Plasma Lactic Acid Donnell 2.2 H* (0.7-2.0) mmol/L Calcium 9.7 (8.4-10.2) mg/dL Total Bilirubin 0.8 (0.2-1.3) mg/dL AST 29 (17-59) U/L ALT 18 (4-49) U/L Alkaline Phosphatase 78 (38-126) U/L Troponin I (0.000-0.034) ng/mL Total Protein 8.7 H (6.3-8.2) g/dL Albumin 4.8 (3.5-5.0) g/dL 10/26/22 10/26/22 10/26/22 Range/Units 01:11 02:01 03:32 WBC (3.8-10.6) k/uL RBC (4.30-5.90) m/uL Hgb (13.0-17.5) gm/dL Hct (39.0-53.0) % MCV (80.0-100.0) fL MCH (25.0-35.0) pg MCHC (31.0-37.0) g/dL RDW (11.5-15.5) % Plt Count (150-450) k/uL MPV Neutrophils % % Lymphocytes % % Monocytes % % Eosinophils % % Basophils % % Neutrophils # (1.3-7.7) k/uL Lymphocytes # (1.0-4.8) k/uL Monocytes # (0-1.0) k/uL Eosinophils # (0-0.7) k/uL Basophils # (0-0.2) k/uL Sodium (137-145) mmol/L Potassium (3.5-5.1) mmol/L Chloride (98-107) mmol/L Carbon Dioxide (22-30) mmol/L Anion Gap mmol/L BUN (9-20) mg/dL Creatinine (0.66-1.25) mg/dL Est GFR (CKD-EPI)AfAm (>60 ml/min/1.73 sqM) Est GFR (CKD-EPI)NonAf (>60 ml/min/1.73 sqM) Glucose (74-99) mg/dL POC Glucose (mg/dL) 116 H (70-110) mg/dL POC Glu Metal Tank Erector ID Angel Luis Mcdonough Lactic Ac Sepsis Rflx Y Plasma Lactic Acid Donnell (0.7-2.0) mmol/L Calcium (8.4-10.2) mg/dL Total Bilirubin (0.2-1.3) mg/dL AST (17-59) U/L ALT (4-49) U/L Alkaline Phosphatase (38-126) U/L Troponin I <0.012 (0.000-0.034) ng/mL Total Protein (6.3-8.2) g/dL Albumin (3.5-5.0) g/dL Critical Care Time Critical Care Time: Yes (40 minutes) Disposition Clinical Impression: Acute ischemic stroke, 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 Specs Out of Hospital Transfer - Requested Specifics: Other Emergency Center
[2022-10-26 01:38] LABS: Basophils # (A) 0.1 k/uL (0-0.2); Basophils % (A) 0 %; Eosinophils # (A) 0.2 k/uL (0-0.7); Eosinophils % (A) 2 %; HGB 16.1 gm/dL (13.0-17.5); Lymphocytes % (A) 13 %; MCH 31.4 pg (25.0-35.0); MCHC 33.5 g/dL (31.0-37.0); MCV 93.9 fL (80.0-100.0); Monocytes # (A) 0.7 k/uL (0-1.0); Monocytes % (A) 5 %; Neutrophils # (A) 11.8 k/uL (1.3-7.7); Neutrophils % (A) 79 %; Platelet Count 515 k/uL (150-450); RBC 5.11 m/uL (4.30-5.90)
--- NOTE | 2022-10-26 02:05 | ED ---
Medical Decision Making - Lab Data Result diagrams: 10/26/22 01:11 10/26/22 01:11 Lab Results 10/26/22 Range/Units 01:11 WBC 15.0 H (3.8-10.6) k/uL RBC 5.11 (4.30-5.90) m/uL Hgb 16.1 (13.0-17.5) gm/dL Hct 48.0 (39.0-53.0) % MCV 93.9 (80.0-100.0) fL MCH 31.4 (25.0-35.0) pg MCHC 33.5 (31.0-37.0) g/dL RDW 14.0 (11.5-15.5) % Plt Count 515 H (150-450) k/uL MPV 7.0 Neutrophils % 79 % Lymphocytes % 13 % Monocytes % 5 % Eosinophils % 2 % Basophils % 0 % Neutrophils # 11.8 H (1.3-7.7) k/uL Lymphocytes # 2.0 (1.0-4.8) k/uL Monocytes # 0.7 (0-1.0) k/uL Eosinophils # 0.2 (0-0.7) k/uL Basophils # 0.1 (0-0.2) k/uL Disposition Clinical Impression: Acute ischemic stroke, 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 Specs Out of Hospital Transfer - Requested Specifics: Other Emergency Center
[2022-10-26 02:06] LABS: Glucose,Whole Blood 116 mg/dL (70-110)
[2022-10-26] MEDS ORDERED: ONDANSETRON 4 MG/2 ML VIAL IVP STA ×2 (02:37→03:57)
[2022-10-26] MEDS ORDERED: SODIUM CHLORIDE 0.9% 1,000 ML IV ONE (02:37)
--- NOTE | 2022-10-26 02:37 | CT ---
EXAM: CT Angiography Head With Intravenous Contrast CLINICAL HISTORY: ITS.REASON CT Reason: Neuro deficit, acute, stroke suspected TECHNIQUE: Axial computed tomographic angiography images of the head with intravenous contrast. CTDI is 25 mGy and DLP is 636 mGy-cm. This CT exam was performed using one or more of the following dose reduction techniques: automated exposure control, adjustment of the mA and/or kV according to patient size, and/or use of iterative reconstruction technique. MIP reconstructed images were created and reviewed. 65 ML Isovue given. COMPARISON: None. FINDINGS: Right internal carotid artery: Patent. Right anterior cerebral artery: Patent. Right middle cerebral artery: Patent. Right posterior cerebral artery: Patent. Right vertebral artery: Patent. Left internal carotid artery: Patent. Left anterior cerebral artery: Patent. Left middle cerebral artery: Patent. Left posterior cerebral artery: Patent. Left vertebral artery: Occluded, appears acute, with long segment clot in the V4 segment. Basilar artery: Patent. Other: IMPRESSION: 1. Occluded left vertebral artery intracranially. No aneurysm or other large vessel occlusion. EXAM: CT Angiography Neck With Intravenous Contrast CLINICAL HISTORY: ITS.REASON CT Reason: Neuro deficit, acute, stroke suspected TECHNIQUE: Routine carotid CT angiography protocol was performed with intravenous contrast. NASCET criteria using the distal ICAs for comparison were used for evaluation of stenoses. CTDI is 25 mGy and DLP is 636 mGy-cm. This CT exam was performed using one or more of the following dose reduction techniques: automated exposure control, adjustment of the mA and/or kV according to patient size, and/or use of iterative reconstruction technique. MIP reconstructed images were created and reviewed. COMPARISON: None. FINDINGS: Right common carotid artery: Patent. Right internal carotid artery: Patent. Right vertebral artery: Patent. Left common carotid artery: Patent. Left internal carotid artery: Patent. Left vertebral artery: Patent. Other: IMPRESSION: 1. No dissection, occlusion, or significant stenosis. CAROTID STENOSIS REFERENCE USING NASCET CRITERIA: % ICA stenosis = (1 - narrowest ICA diameter/diameter of distal cervical ICA) x 100. Mild - <50% stenosis. Moderate - 50-69% stenosis. Severe - 70-94% stenosis. Near occlusion - 95-99% stenosis. Occluded - 100% stenosis.
--- NOTE | 2022-10-26 02:38 | CT ---
ADDENDUM - Added by Triny Qiu M.D. on 10/26/2022 2:42 AM (-07:00) d/w : severe vertigo episodes, acute occipital headache, rt leg weakness. EXAM: CT Head Without Intravenous Contrast CLINICAL HISTORY: ITS. REASON CT Reason: Neuro deficit, acute, stroke suspected TECHNIQUE: Axial computed tomography images of the head/brain without intravenous contrast. CTDI is 25 mGy and DLP is 636.4 mGy-cm. This CT exam was performed using one or more of the following dose reduction techniques: automated exposure control, adjustment of the mA and/or kV according to patient size, and/or use of iterative reconstruction technique. COMPARISON: None. FINDINGS: Brain: No mass effect or acute infarct. No acute hemorrhage. No abnormal density in the brain parenchyma. Hyperdense left vertebral artery. Ventricles: No hydrocephalus or midline shift. Bones/joints: No skull fracture. Soft tissues: No scalp hematoma. Sinuses: Clear. Mastoid air cells: No mastoid effusion. IMPRESSION: 1. Hyperdense left V4 vertebral artery. 2. No acute infarct, bleed, or other acute finding. <MYCVCSECTION> Communications: 10/26/22 02:40 Call Doctor Regarding Above results, called Dr. Orellana on 10/26 02:40 (-04:00)
[2022-10-26 02:43] LABS: ALT 18 U/L (4-49); AST 29 U/L (17-59); African American GFR (CKD) 77 (>60 ml/min/1.73 sqM); Albumin 4.8 g/dL (3.5-5.0); Alkaline Phosphatase 78 U/L (38-126); Anion Gap 13 mmol/L; Blood Urea Nitrogen 26 mg/dL (9-20); Calcium 9.7 mg/dL (8.4-10.2); Carbon Dioxide 23 mmol/L (22-30); Chloride 103 mmol/L (98-107); Glucose 94 mg/dL (74-99); Non-African American GFR(CKD) 67 (>60 ml/min/1.73 sqM); Sodium 139 mmol/L (137-145); Total Bilirubin 0.8 mg/dL (0.2-1.3); Total Protein 8.7 g/dL (6.3-8.2)
[2022-10-26] MEDS ORDERED: ALTEPLASE BOLUS FOR STROKE 9 MG in EMPTY SYRINGE 1 SYR IV STA (02:57)
[2022-10-26] MEDS ORDERED: ALTEPLASE 77 MG in EMPTY BAG 1 BAG IV STA (02:57)
[2022-10-26] MEDS ORDERED: Alteplase PER PHARMACY Stroke 1 EACH MISC MISCELLANE PRN (02:59)
[2022-10-26 03:09] LABS: Potassium 5.4 mmol/L (3.5-5.1)
[2022-10-26] MEDS ORDERED: SODIUM CHLORIDE 0.9% 50 ML MINI-BAG IV ONE (03:57)
--- NOTE | 2022-10-26 04:42 | XR ---
EXAM: XR Chest, 1 View CLINICAL HISTORY: ITS.REASON XR Reason: vertigo TECHNIQUE: Frontal view of the chest. COMPARISON: None. FINDINGS: Lungs: Clear. No consolidation. Pleural space: No pneumothorax. Heart: No cardiomegaly. Mediastinum: Unremarkable. Bones/Soft Tissues: No acute abnormality. IMPRESSION: 1. No acute process in the chest. Lungs are clear.
[2022-10-26 04:46] VITALS: BP 168/99
[2022-10-26 04:49] VITALS: PULSE 72; RESP 20; TEMP 97.8
== END 2022-10-26 03:55 | disposition other institution (70) ==
LOC: EC 23:49
DX: I63.019 Cerebral infarction due to thrombosis of unspecified vertebral artery (principal); F17.200 Nicotine dependence, unspecified, uncomplicated; F90.9 Attention-deficit hyperactivity disorder, unspecified type; Z79.899 Other long term (current) drug therapy; Z90.49 Acquired absence of other specified parts of digestive tract
CPT/HCPCS: 99291; 37195; 96374; 96376; 96361; 36415; 93005; 80053; 83605; 84484; 85025; 71045; 70496; 70450; 70498; J2997; J2405; Q9967

== ENCOUNTER → 2022-12-20 | Day surgery (SDC) | payer BC ==
[2022-12-17 08:40] VITALS: BMI 31.1
[~2022-12-20] MED LIST: BENZOCAINE SPRAY 1 CAN TOPICAL ONE; MIDAZOLAM 2 MG/2 ML VIAL IVP ONE; SODIUM CHLORIDE 0.9% 1,000 ML IV ONE; fentaNYL (PF) 50 MCG/1 ML VIAL IVP ONE; fentaNYL (PF) 50 MCG/ML 2 ML AMP ONE
[2022-12-20 11:11] VITALS: RESP 18; TEMP 97.6
[2022-12-20 14:06] VITALS: BP 129/72; PULSE 72
--- NOTE | 2022-12-20 22:25 | P.TEE ---
Description of Procedure(s): Procedure performed: Transesophageal Echocardiogram with color flow doppler, pulsed wave doppler and continuous wave doppler, moderate conscious sedation Moderate conscious sedation: Moderate conscious sedation was supplied with direct supervision of myself using Versed and Fentanyl. Complications: none Indications: Cryptogenic stroke PROCEDURE: After the risks, benefits and alternatives of the above mentioned procedure was explained in detail with the patient, informed consent was obtained. Patient was brought to the lab in a fasting state. Patient was given IV Versed and Fentanyl for sedation. The throat was sprayed with Hurricane to anesthetize the throat. A lubricated Omni probe was then introduced into the es ophagus and stomach and multiple views were obtained. 2D echo with color flow doppler, pulsed wave doppler and continuous wave doppler was utilized. Agitated saline bubbles were injected to assess for any intra-atrial shunt. The probe was then removed. Patient tolerated the procedure well. Patient was transferred to the post procedure area in stable and satisfactory condition. FINDINGS: 1. The aortic valve is tricuspid with normal function with trace aortic insufficiency. 2. The mitral valve is normal with trace mitral regurgitation 3. Tricuspid valve appears to be normal with no tricuspid regurgitation 4. There is a PFO with + bubble crossing 5. Left atrial appendage is free of clot. 6. Left ventricular ejection fraction 60% without wall motion abnormalities
== END ==
LOC: CATHCVL 10:38
PROVIDERS: ATTEND Internal Medicine
DX: I34.0 Nonrheumatic mitral (valve) insufficiency (principal); Q21.12 Patent foramen ovale; I10 Essential (primary) hypertension; F90.9 Attention-deficit hyperactivity disorder, unspecified type; K50.90 Crohn's disease, unspecified, without complications; E78.5 Hyperlipidemia, unspecified; Z86.73 Personal history of transient ischemic attack (TIA), and cerebral infarction without residual deficits; Z87.891 Personal history of nicotine dependence; Z88.5 Allergy status to narcotic agent; Z79.82 Long term (current) use of aspirin; Z79.899 Other long term (current) drug therapy
CPT/HCPCS: 93312; 93320; 93325; J2250; J3010

== ENCOUNTER 2022-12-24 22:02 | Observation (INO) | payer BC ==
[2022-12-24 22:26] LABS: Glucose,Whole Blood 108 mg/dL (70-110)
[2022-12-24] MEDS ORDERED: SODIUM CHLORIDE 0.9% 1,000 ML IV STA (22:36)
--- NOTE | 2022-12-24 22:36 | ED ---
Neuro HPI - General Chief Complaint: Neuro Symptoms/Deficit Stated Complaint: Right sided heaviness Time Seen by Provider: 12/24/22 22:35 Source: patient, family, RN notes reviewed, old records reviewed Mode of arrival: ambulatory Limitations: no limitations - History of Present Illness Is the patient presenting with stroke symptoms?: Yes Last Known Well Date: 12/24/22 Last Known Well Time: 20:00 -: hour(s) (2) Initial Comments: This is a 60-year-old male DF for evaluation. Patient hasn't long history of outstanding: Disease coming in with recent neurological issues. Patient does have recent diagnosis of CVA with significant arterial cerebral blockage given TPA as well as embolectomy. At the time patient symptoms are mainly dizziness. Patient today does have right upper extremity heaviness and concern for recurrent CVA. Patient also found of a pad in for mental male which he does have upcoming surgery for, not currently on blood thinners Location: right arm History of same: No Place: home Severity: mild, moderate Quality: weak, numb, tingling Improves With: none Worsens With: none Context: gradual onset Associated Symptoms: denies other symptoms Treatments Prior to Arrival: none - Related Data Home Medications: Home Medications Medication Instructions Recorded Confirmed ALPRAZolam [Xanax] 0.25 mg PO HS 12/17/22 12/24/22 Cyanocobalamin [Vitamin B-12 1,000 mcg SQ SA 12/17/22 12/24/22 Injection] Folic Acid 1 mg PO DAILY 12/17/22 12/24/22 Nf-Healthy Colon 1 tab PO DAILY 12/17/22 12/24/22 Tamsulosin [Flomax] 0.4 mg PO DAILY 12/17/22 12/24/22 Temazepam 7.5 mg PO HS 12/17/22 12/24/22 Turmeric Root Extract [Turmeric] 500 mg PO DAILY 12/17/22 12/24/22 hydrOXYzine HCL 25 mg PO HS 12/17/22 12/24/22 Aspirin 81 mg PO DAILY 12/24/22 12/24/22 Healthy Colon(Unknown) 1 cap PO DAILY 12/24/22 12/24/22 Ustekinumab [Stelara] 90 mg SQ Q56D 12/25/22 12/25/22 Previous Rx's Medication Instructions Recorded Atorvastatin [Lipitor] 40 mg PO DAILY #0 12/27/22 Clopidogrel [Plavix] 75 mg PO DAILY 30 Days #30 tab 12/27/22 Gabapentin [Neurontin] 100 mg PO TID 30 Days #90 cap 12/27/22 Allergies/Adverse Reactions: Allergies Allergy/AdvReac Type Severity Reaction Status Date / Time morphine AdvReac Nausea & Verified 12/24/22 23:07 Vomiting Review of Systems ROS Statement: Those systems with pertinent positive or pertinent negative responses have been documented in the HPI. ROS Other: All systems not noted in ROS Statement are negative. General Exam - General Exam Comments Initial Comments: NIH of 1, right upper extremity heaviness Limitations: no limitations General appearance: alert, in no apparent distress Head exam: Present: atraumatic, normocephalic, normal inspection Eye exam: Present: normal appearance, PERRL, EOMI. Absent: scleral icterus, conjunctival injection, periorbital swelling ENT exam: Present: normal exam, mucous membranes moist Neck exam: Present: normal inspection. Absent: tenderness, meningismus, lymphadenopathy Respiratory exam: Present: normal lung sounds bilaterally. Absent: respiratory distress, wheezes, rales, rhonchi, stridor Cardiovascular Exam: Present: regular rate, normal rhythm, normal heart sounds. Absent: systolic murmur, diastolic murmur, rubs, gallop, clicks GI/Abdominal exam: Present: soft, normal bowel sounds. Absent: distended, tenderness, guarding, rebound, rigid Extremities exam: Present: normal inspection, full ROM, normal capillary refill. Absent: tenderness, pedal edema, joint swelling, calf tenderness Back exam: Present: normal inspection Neurological exam: Present: alert, oriented X3, CN II-XII intact Psychiatric exam: Present: normal affect, normal mood Skin exam: Present: warm, dry, intact, normal color. Absent: rash Stroke MDM - Lab Data Result diagrams: 12/26/22 08:17 12/26/22 08:17 Lab Results 12/24/22 12/24/22 12/24/22 Range/Units 22:24 22:36 22:36 WBC 7.9 (3.8-10.6) k/uL RBC 4.13 L (4.30-5.90) m/uL Hgb 13.2 (13.0-17.5) gm/dL Hct 38.7 L (39.0-53.0) % MCV 93.8 (80.0-100.0) fL MCH 31.9 (25.0-35.0) pg MCHC 34.1 (31.0-37.0) g/dL RDW 13.7 (11.5-15.5) % Plt Count 426 (150-450) k/uL MPV 7.6 Neutrophils % 49 % Lymphocytes % 35 % Monocytes % 8 % Eosinophils % 6 % Basophils % 1 % Neutrophils # 3.9 (1.3-7.7) k/uL Lymphocytes # 2.7 (1.0-4.8) k/uL Monocytes # 0.6 (0-1.0) k/uL Eosinophils # 0.5 (0-0.7) k/uL Basophils # 0.0 (0-0.2) k/uL PT 9.8 (9.0-12.0) sec INR 0.9 (<1.2) APTT 25.4 (22.0-30.0) sec Sodium (137-145) mmol/L Potassium (3.5-5.1) mmol/L Chloride (98-107) mmol/L Carbon Dioxide (22-30) mmol/L Anion Gap mmol/L BUN (9-20) mg/dL Creatinine (0.66-1.25) mg/dL Est GFR (CKD-EPI)AfAm (>60 ml/min/1.73 sqM) Est GFR (CKD-EPI)NonAf (>60 ml/min/1.73 sqM) Glucose (74-99) mg/dL POC Glucose (mg/dL) 108 (70-110) mg/dL POC Glu Erp Specialist ID Edward Chaudhry Calcium (8.4-10.2) mg/dL Total Bilirubin (0.2-1.3) mg/dL AST (17-59) U/L ALT (4-49) U/L Alkaline Phosphatase (38-126) U/L Creatine Kinase (55-170) U/L Troponin I (0.000-0.034) ng/mL Total Protein (6.3-8.2) g/dL Albumin (3.5-5.0) g/dL 12/24/22 12/24/22 Range/Units 22:36 22:36 WBC (3.8-10.6) k/uL RBC (4.30-5.90) m/uL Hgb (13.0-17.5) gm/dL Hct (39.0-53.0) % MCV (80.0-100.0) fL MCH (25.0-35.0) pg MCHC (31.0-37.0) g/dL RDW (11.5-15.5) % Plt Count (150-450) k/uL MPV Neutrophils % % Lymphocytes % % Monocytes % % Eosinophils % % Basophils % % Neutrophils # (1.3-7.7) k/uL Lymphocytes # (1.0-4.8) k/uL Monocytes # (0-1.0) k/uL Eosinophils # (0-0.7) k/uL Basophils # (0-0.2) k/uL PT (9.0-12.0) sec INR (<1.2) APTT (22.0-30.0) sec Sodium 140 (137-145) mmol/L Potassium 4.1 (3.5-5.1) mmol/L Chloride 109 H (98-107) mmol/L Carbon Dioxide 22 (22-30) mmol/L Anion Gap 9 mmol/L BUN 20 (9-20) mg/dL Creatinine 0.93 (0.66-1.25) mg/dL Est GFR (CKD-EPI)AfAm >90 (>60 ml/min/1.73 sqM) Est GFR (CKD-EPI)NonAf >90 (>60 ml/min/1.73 sqM) Glucose 105 H (74-99) mg/dL POC Glucose (mg/dL) (70-110) mg/dL POC Glu Erp Specialist ID Calcium 9.5 (8.4-10.2) mg/dL Total Bilirubin 0.4 (0.2-1.3) mg/dL AST 20 (17-59) U/L ALT 23 (4-49) U/L Alkaline Phosphatase 67 (38-126) U/L Creatine Kinase 118 (55-170) U/L Troponin I <0.012 (0.000-0.034) ng/mL Total Protein 6.9 (6.3-8.2) g/dL Albumin 4.0 (3.5-5.0) g/dL - NIH Stroke Scale 1a. Level of Consciousness: (0) alert 1b. LOC Questions: (0) answers correctly 1c. LOC Commands: (0) performs tasks correctly 2. Best Gaze: (0) normal 3. Visual: (0) no visual loss 4. Facial Palsy: (0) normal symmetrical movement 5a. Motor Arm Left: (0) no drift 5b. Motor Arm Right: (1) drift 6a. Motor Leg Left: (0) no drift 6b. Motor Leg Right: (0) no drift 7. Limb Ataxia: (0) absent 8. Sensory: (0) normal 9. Best Language: (0) no aphasia 10. Dysarthria: (0) normal 11. Extinction/Inattention: (0) no abnormality - Thrombolytic Inclusion/Exclusion Thrombolytic Inclusion Criteria: Symptom Onset < 4.5 h - Core Measures Measure Exclusions: contraindicated (Low NIH scale and improving symptoms no TPA) - Medical Decision Making 52 male to the emergency department today with history of recent CVA and embolectomy coming in for evaluation of right upper extremity heaviness and numbness, weakness. Patient symptoms are persistent here in the emergency department a presents today for evaluation. Patient has no real change in symptoms here in the ER [place] for neuro monitoring, can serve patient does need to be on some sort of blood thinners he does have a PFO which cardiology is aware of - EKG Data -: EKG Interpreted by Me (EKG is sinus 70 MA 170 QRS 158 QTc 460) Past Medical History Past Medical History: CVA/TIA, Hyperlipidemia Additional Past Medical History / Comment(s): Crohns disease with bowel obstructions. stroke with right sided weakness History of Any Multi-Drug Resistant Organisms: None Reported Past Surgical History: Appendectomy, Bowel Resection, Cholecystectomy Additional Past Surgical History / Comment(s): resection of colon x2, c olonoscopy, shoulder surgery, thrombectomy/TPA Past Anesthesia/Blood Transfusion Reactions: No Reported Reaction Past Psychological History: ADD/ADHD Smoking Status: Former smoker Past Alcohol Use History: None Reported Past Drug Use History: None Reported - Past Family History Mother Family Medical History: No Reported History Father Family Medical History: No Reported History Course Vital Signs 12/24/22 12/24/22 12/24/22 22:06 22:15 22:36 Temperature 97.6 F 98.9 F 98.3 F Pulse Rate 76 76 67 Respiratory 20 18 18 Rate Blood Pressure 143/79 151/90 147/85 O2 Sat by Pulse 96 98 95 Oximetry 12/24/22 12/24/22 12/24/22 22:51 23:06 23:21 Temperature 98.4 F 98.2 F 98.4 F Pulse Rate 71 75 71 Respiratory 20 18 16 Rate Blood Pressure 125/83 132/84 123/84 O2 Sat by Pulse 96 96 95 Oximetry 12/24/22 12/24/22 12/25/22 23:36 23:51 00:06 Temperature 98.2 F 98.4 F 98.6 F Pulse Rate 75 70 71 Respiratory 16 16 16 Rate Blood Pressure 130/79 122/74 130/78 O2 Sat by Pulse 96 97 96 Oximetry 12/25/22 12/25/22 12/25/22 00:21 01:21 04:00 Temperature 98.1 F 98.1 F Pulse Rate 70 72 64 Respiratory 16 16 16 Rate Blood Pressure 121/77 107/77 119/76 O2 Sat by Pulse 96 97 97 Oximetry 12/25/22 12/25/22 12/25/22 04:30 07:00 08:15 Temperature 98.3 F Pulse Rate 60 78 Respiratory 16 16 Rate Blood Pressure 115/69 118/85 O2 Sat by Pulse 93 L 96 96 Oximetry 12/25/22 12/25/22 12/25/22 11:35 13:02 14:33 Temperature 97.9 F 98.1 F 97.9 F Pulse Rate 66 84 76 Respiratory 16 18 17 Rate Blood Pressure 117/71 121/70 125/75 O2 Sat by Pulse 96 95 97 Oximetry 12/25/22 12/25/22 12/25/22 15:55 18:14 19:21 Temperature 97.8 F Pulse Rate 84 85 80 Respiratory 19 17 18 Rate Blood Pressure 130/79 124/75 130/75 O2 Sat by Pulse 97 97 97 Oximetry - Reevaluation(s) Reevaluation #1: 12/25/22 01:24 Record is reviewed Code stroke is paged on patient arrival Reevaluation #2: 12/25/22 01:25 Patient has no real significant change in symptoms Reevaluation #3: 12/25/22 01:25 Patient informed results and questions are answered Reevaluation #4: 12/25/22 01:25 Was pt. sent in by a medical professional or institution ([facility], [facility], urgent care, hospital, or alf...) When possible be specific @ -no Did you speak to anyone other than the patient for history (EMS, parent, family, police, friend...)? What history was obtained from this source @ -no Did you review nursing and triage notes (agree or disagree)? Why? @ -agree Are old charts reviewed (outside hosp., previous admission, EMS record, old EKG, old radiological studies, urgent care reports/EKG's, alf records)? Report findings @ -yes Differential Diagnosis (chest pain, altered mental status, abdominal pain women, abdominal pain men, vaginal bleeding, weakness, fever, dyspnea, syncope, headache, dizziness, GI bleed, back pain, seizure, CVA, palpatations, mental health, musculoskeletal)? @ -prior EKG interpreted by me (3pts min.). @ -yes X-rays interpreted by me (1pt min.). @ -no CT interpreted by me (1pt min.). @ -yes U/S interpreted by me (1pt. min.). @ -no What testing was considered but not performed or refused? (CT, X-rays, U/S, labs)? Why? @ -none What meds were considered but not given or refused? Why? @ -none Did you discuss the management of the patient with other professionals (professionals i.e. [facility], [facility], lab, RT, psych nurse, elementary school social worker, wheat inspector, teacher, navigation officer, residential case manager)? Give summary @ -no Was smoking cessation discussed for >3mins.? @ -no Was critical care preformed (if so, how long)? @ -yes31 Were there social determinants of health that impacted care today? How? (Homelessness, low income, unemployed, alcoholism, drug addiction, transportation, low edu. Level, literacy, decrease access to med. care, long-term, rehab)? @ -none Was there de-escalation of care discussed even if they declined (Discuss DNR or withdrawal of care, Hospice)? DNR status @ -no What co-morbidities impacted this encounter? (DM, HTN, Smoking, COPD, CAD, Cancer, CVA, ARF, Chemo, Hep., AIDS, mental health diagnosis, sleep apnea, morbid obesity)? @ -none Was patient admitted / discharged? Hospital course, mention meds given and route, prescriptions, significant lab abnormalities, going to OR and other pertinent info. @ - 52 male to the emergency department today with history of recent CVA and embolectomy coming in for evaluation of right upper extremity heaviness and numbness, weakness. Patient symptoms are persistent here in the emergency department a presents today for evaluation. Patient has no real change in symptoms here in the ER [place] for neuro monitoring, can serve patient does need to be on some sort of blood thinners he does have a PFO which cardiology is aware of Admitted Undiagnosed new problem with uncertain prognosis? @ -no Drug Therapy requiring intensive monitoring for toxicity (Heparin, Nitro, Insulin, Cardizem)? @ -no Were any procedures done? @ -no Diagnosis/symptom? @ -CVA history of PFO Acute, or Chronic, or Acute on Chronic? @ -Acute Uncomplicated (without systemic symptoms) or Complicated (systemic symptoms)? @ -Complicated Side effects of treatment? @ -no Exacerbation, Progression, or Severe Exacerbation? @ -exacerbation Poses a threat to life or bodily function? How? (Chest pain, USA, ME, pneumonia, PE, COPD, DKA, ARF, appy, cholecystitis, CVA, Diverticulitis, Homicidal, Suicidal, threat to staff... and all critical care pts) @ -yes significant CVA Reevaluation #5: 12/25/22 01:25 Differential CVA Ischemic stroke, hemorrhagic stroke, brain tumor, atypical migraine, Wernicke's encephalopathy, seizure, multiple sclerosis, meningitis, encephalitis, hypoglycemia, Guillain-Granado, electrolytes disturbance, myasthenia gravis.... This is not meant to be an all-inclusive list - Consultations Consultation #1: Spoke with sound who agrees to admit this patient Critical Care Time Critical Care Time: Yes Total Critical Care Time: 31 Disposition Clinical Impression: Cerebrovascular accident (CVA), Transient cerebral ischemia, PFO (patent foramen ovale) Disposition: ADMITTED IP TO THIS HOSP Condition: Stable Is patient prescribed a controlled substance at d/c from ED?: No
[2022-12-24 22:52] LABS: Basophils % (A) 1 %; Eosinophils # (A) 0.5 k/uL (0-0.7); Eosinophils % (A) 6 %; HCT 38.7 % (39.0-53.0); HGB 13.2 gm/dL (13.0-17.5); Lymphocytes # (A) 2.7 k/uL (1.0-4.8); Lymphocytes % (A) 35 %; MCH 31.9 pg (25.0-35.0); MCHC 34.1 g/dL (31.0-37.0); MCV 93.8 fL (80.0-100.0); Mean Platelet Volume 7.6; Monocytes # (A) 0.6 k/uL (0-1.0); Monocytes % (A) 8 %; Neutrophils # (A) 3.9 k/uL (1.3-7.7); Neutrophils % (A) 49 %; Platelet Count 426 k/uL (150-450); RBC 4.13 m/uL (4.30-5.90); RDW 13.7 % (11.5-15.5); WBC 7.9 k/uL (3.8-10.6)
[2022-12-24 23:02] LABS: ALT 23 U/L (4-49); AST 20 U/L (17-59); African American GFR (CKD) >90 (>60 ml/min/1.73 sqM); Alkaline Phosphatase 67 U/L (38-126); Anion Gap 9 mmol/L; Blood Urea Nitrogen 20 mg/dL (9-20); Calcium 9.5 mg/dL (8.4-10.2); Carbon Dioxide 22 mmol/L (22-30); Chloride 109 mmol/L (98-107); Creatine Kinase 118 U/L (55-170); Glucose 105 mg/dL (74-99); Non-African American GFR(CKD) >90 (>60 ml/min/1.73 sqM); Potassium 4.1 mmol/L (3.5-5.1); Sodium 140 mmol/L (137-145); Total Bilirubin 0.4 mg/dL (0.2-1.3); Total Protein 6.9 g/dL (6.3-8.2)
--- NOTE | 2022-12-24 23:05 | CT ---
EXAMINATION TYPE: CT brain wo con for TPA DATE OF EXAM: 12/24/2022 HISTORY: SLURRED SPEECH, RT SIDE FACIAL DROOP, LAST KNOWN WELL 1999. H/O 2 PREVIOUS STROKES. Acute on set neuro deficit CT DLP: 1279 mGycm. Automated Exposure Control for Dose Reduction was Utilized. TECHNIQUE: CT scan of the head is performed without contrast. COMPARISON: Prior CT October 26, 2022. FINDINGS: There is no acute intracranial hemorrhage or midline shift identified. Ventricles and sul ci within normal limits in size for patient's age. Asymmetry to the ventricles redemonstrated. Mcdonald-w lisa matter differentiation fairly well-maintained for patient's age. The calvarium is intact. The g lobes are intact and the visualized sinuses are clear. Nasal septum remains deviated to right of mi dline. IMPRESSION: No acute intracranial hemorrhage or midline shift. No significant change from prior CT.
[2022-12-24 23:06] LABS: INR 0.9 (<1.2); Partial Thromboplastin Time 25.4 sec (22.0-30.0); Prothrombin Time 9.8 sec (9.0-12.0)
--- NOTE | 2022-12-24 23:35 | CT ---
EXAMINATION TYPE: CT angio head neck DATE OF EXAM: 12/24/2022 HISTORY: SLURRED SPEECH, RT SIDE FACIAL DROOP, LAST KNOWN WELL 1999. H/O 2 PREVIOUS STROKES COMPARISON: Prior CTA Head Neck October 26, 2022 CT DLP: 476.2 mGycm. Automated Exposure Control for Dose Reduction was Utilized. TECHNIQUE: CTA scan of the head and neck is performed with IV Contrast, patient injected with 65 mL of Isovue 370, axial images are obtained, coronal and sagittal reformatted images are reviewed. 3D re constructed images are created on an independent workstation and reviewed. FINDINGS: Carotid/Vascular Structures: Aortic arch and origin of the great vessels not included on current stud y. Normal origin right common carotid artery from the right brachiocephalic artery is noted. No signi ficant plaque or stenosis in the common or internal carotid arteries focusing on level of the carotid bulbs bilaterally. Patent external carotid arteries bilaterally without significant stenosis. Mild c alcified plaque of the distal internal carotid arteries is incidentally noted. Patent anterior commun icating artery is seen. No large vessel occlusion or aneurysm in the anterior circulation. Vertebral arteries are patent to the basilar junction with slightly larger caliber dominant distal left vertebr al artery. There are hypoplastic bilateral posterior making arteries. There is no large vessel occlus ion or aneurysm in the posterior circulation. Other: Mild emphysematous change and visualized upper lungs. Mild spurring and disc space narrowing i n the lower cervical spine. IMPRESSION: Suboptimal study. 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 No new signific ant focal stenosis in the common or internal carotid arteries bilaterally. No large vessel occlusion or aneurysm at the level of gray[place] of [place]. NASCET criteria was used in interpretation of this exam?
[2022-12-25] MEDS ORDERED: ONDANSETRON 4 MG/2 ML VIAL IVP PRN (01:22)
[2022-12-25] MEDS ORDERED: NALOXONE 0.4 MG/ML 1 ML VIAL IV PRN (01:22)
[2022-12-25] MEDS: SODIUM CHLORIDE 0.9% 1,000 ML IV SCH ×2 (01:25→14:31)
--- NOTE | 2022-12-25 08:23 | P.HPIM ---
History of Present Illness H&P Date: 12/25/22 History of Presenting Illness: Patient is a very pleasant 52-year-old male with a past medical history of previous CVA with right-sided deficits. Patient reports recent CVA on 10/26/22 in which she was found to have a totally occluded left cerebral artery and received TPA and later transferred to [facility] and underwent an embolectomy. Patient states since this event he has had persistent numbness and tingling to the right side of his face, right upper extremity, and right lower extremity. Patient denies having any weakness or decreased range of motion from this event. Patient states he remains on a daily aspirin and atorvastatin for treatment and recently underwent a CORTNEY on 12/20/22 in which he was diagnosed with a PFO and currently scheduled to undergo PFO repair an outpatient basis. Patient reports he discussed with his conceptor in detail and at that time they decided against anticoagulants as patient needs to remain free from anticoagulants for 12 weeks for testing of lupus. Patient reports up until yesterday evening feeling baseline normal with no other complaints. He reports he has been working with physical therapy and has even been improving and also able to push his lawnmower and cut his own grass. Patient states yesterday evening while sitting on the couch he suddenly felt a new onset heaviness go down his entire right side. Patient reports the right side of his face, right upper extremity, and right leg simply just feel extremely heavy and weighed down (he states he did have some numbness and tingling previously but never a he aviness or weakness). Patient reports in addition to this, the right side of his face also feels more numb than his normal. He denies having any other deficits including changes in or difficulties with his speech, changes in balance, dizziness/lightheadedness, headache, changes in vision or hearing, dysphagia, chest pain, palpitations, shortness of breath, nausea, or vomiting. Patient reports he immediately notified his that something was wrong and was brought straight to the hospital. Upon arrival to the hospital patient underwent full evaluation. Vital signs completed showing blood pressure 143/79, heart rate 76, respiratory rate 20, temp 97.6 Fahrenheit, SpO2 96% on room air. CT head completed negative for acute intercranial process with reports of no significant changes from prior CT completed 10/26/22. CTA head then completed reporting prior occluded left vertebral artery now shows patency with no new significant focal stenosis in the common or internal carotid arteries, no large vessel occlusion, or aneurysm at the level of [place]. Labs were completed and reviewed. CBC, coags, and CMP were unremarkable. Troponin negative at less than 0.012. Patient was admitted under our services with consultation to neurology. Review of systems: Pertinent positives and negatives as discussed in HPI, a complete review of systems was performed and all other systems are negative. Physical exam: Vital signs reviewed and stable. General: Nontoxic, no distress and appears stated age. Derm: Skin warm and dry, normal coloration for ethnicity. Head: Atraumatic, normocephalic and symmetric. Eyes: EOMs intact, no lid lag, and anicteric sclera Mouth: no lip lesions, mucus membranes moist Cardiovascular: regular rate and rhythm with normal S1S2, no murmur, positive posterior tibial pulses bilaterally, and cap refill < 2 seconds. Lungs: Respirations even, regular, and unlabored on room air. Lungs CTA bilaterally, no rhonchi, no rales, no wheezing, and no accessory muscle usage. Abdominal: soft, nontender to palpation, no guarding, no appreciable organ omegaly Ext No gross muscle atrophy, no edema, no contractures. Movement and sensation intact. Patient does have decreased sensation in right upper and lower extremities as well as right side of face. Patient with moderate right upper extremity and right lower extremity weakness upon comparison. Neuro: Speech clear, face symmetrical and CN II-XII Psych: Alert and oriented to person, place, time, and situation. Appropriate and pleasant affect. Assessment and Plan of Care: Right sided neural deficits, possibly from evolving symptoms from recent stroke versus new stroke History of recent CVA with administration of TPA followed by embolectomy -Reviewed CT and CTA. Reviewed previous CORTNEY completed 12/20/22 showing patient with a PFO. -Discussed case in detail with conceptor and neurologist. -Order placed for urgent MRI brain without contrast. -Based upon MRI findings is findings indicate another acute stroke patient will need to be started on anticoagulation once cleared by neurology. -Continue neuro checks with NIH stroke scale -Telemetry monitoring -Patient to continue with aspirin 81 mg daily and atorvastatin 80 mg daily, if MRI is indicated of new CVA, patient will require anticoagulation. -Consult to PT/[facility] physicians were not notified of patient's admission until 8 AM. Patient then immediately evaluated. Called and spoke with patient's conceptor, Dr. Wolfe and discussed recent diagnosis of PFO with previous stroke and new presenting symptoms. Patient would like to remain off of anticoagulants however with new reported symptoms it was discussed with Dr. Wolfe if patient symptoms are indeed determined to be another cerebrovascular attack, patient will need to be started on anticoagulants at that time in addition to daily aspirin. Called and discussed this as well with neurologist, Dr. Tovar and he recommended obtaining an urgent MRI brain without contrast. Orders placed for MRI at this time. Data and imaging reviewed: -Vital signs completed showing blood pressure 143/79, heart rate 76, respiratory rate 20, temp 97.6 Fahrenheit, SpO2 96% on room air. -CT head completed negative for acute intercranial process with reports of no significant changes from prior CT completed 10/26/22. -CTA head then completed reporting prior occluded left vertebral artery now shows patency with no new significant focal stenosis in the common or internal carotid arteries, no large vessel occlusion, or aneurysm at the level of [place]. -Labs were completed and reviewed. CBC, coags, and CMP were unremarkable. Troponin trended all negative at less than 0.0123 draws. Lipid profile unremarkable. The patient is admitted with an anticipated greater than 2 midnight stay for evaluation of worsening right sided neuro deficits CODE STATUS: Full code Discussed with: Patient, RN, neurologist, and conceptor Anticipated discharge date: Clinical course to determine Anticipated discharge place: Home Patient was seen independently by Nurse Practitioner. This document was prepared using [employer] dictation software. Please allow for errors in animation director while rare they do occur. Alex Alves NP rendered care for this patient independently, reviewed the findings and plan as documented in the note above. I did not physically speak with or examine the patient on this date. Past Medical History Past Medical History: CVA/TIA, Hyperlipidemia Additional Past Medical History / Comment(s): Crohns disease with bowel obstructions. stroke with right sided weakness History of Any Multi-Drug Resistant Organisms: None Reported Past Surgical History: Appendectomy, Bowel Resection, Cholecystectomy Additional Past Surgical History / Comment(s): resection of colon x2, colonoscopy, shoulder surgery, thrombectomy/TPA Past Anesthesia/Blood Transfusion Reactions: No Reported Reaction Past Psychological History: ADD/ADHD Smoking Status: Former smoker Past Alcohol Use History: None Reported Past Drug Use History: None Reported - Past Family History Mother Family Medical History: No Reported History Father Family Medical History: No Reported History Medications and Allergies Home Medications Medication Instructions Recorded Confirmed Type ALPRAZolam [Xanax] 0.25 mg PO HS 12/17/22 12/24/22 History Atorvastatin [Lipitor] 80 mg PO DAILY 12/17/22 12/24/22 History Cyanocobalamin [Vitamin B-12 1,000 mcg SQ SA 12/17/22 12/24/22 History Injection] Folic Acid 1 mg PO DAILY 12/17/22 12/24/22 History Nf-Healthy Colon 1 tab PO DAILY 12/17/22 12/24/22 History Tamsulosin [Flomax] 0.4 mg PO DAILY 12/17/22 12/24/22 History Temazepam 7.5 mg PO HS 12/17/22 12/24/22 History Turmeric Root Extract [Turmeric] 500 mg PO DAILY 12/17/22 12/24/22 History hydrOXYzine HCL [Hydroxyzine HCl] 25 mg PO HS 12/17/22 12/24/22 History Aspirin 81 mg PO DAILY 12/24/22 12/24/22 History Healthy Colon(Unknown) 1 cap PO DAILY 12/24/22 12/24/22 History Ustekinumab [Stelara] 90 mg SQ Q56D 12/25/22 12/25/22 History Allergies Allergy/AdvReac Type Severity Reaction Status Date / Time morphine AdvReac Nausea & Verified 12/24/22 23:07 Vomiting Physical Exam Vitals: Vital Signs Temp Pulse Resp BP Pulse Ox 12/25/22 07:00 97.8 F 75 16 118/85 12/25/22 04:30 60 16 115/69 93 L 12/25/22 04:00 64 16 119/76 97 12/25/22 01:21 98.1 F 72 16 107/77 97 12/25/22 00:21 98.1 F 70 16 121/77 96 12/25/22 00:06 98.6 F 71 16 130/78 96 12/24/22 23:51 98.4 F 70 16 122/74 97 12/24/22 23:36 98.2 F 75 16 130/79 96 12/24/22 23:21 98.4 F 71 16 123/84 95 12/24/22 23:06 98.2 F 75 18 132/84 96 12/24/22 22:51 98.4 F 71 20 125/83 96 12/24/22 22:36 98.3 F 67 18 147/85 95 12/24/22 22:15 98.9 F 76 18 151/90 98 12/24/22 22:06 97.6 F 76 20 143/79 96 Intake and Output 12/24/22 12/25/22 12/25/22 22:59 06:59 14:59 Other: Weight 104.326 kg Results CBC & Chem 7: 12/24/22 22:36 12/24/22 22:36 Labs: Abnormal Lab Results - Last 24 Hours (Table) 12/24/22 12/24/22 Range/Units 22:36 22:36 RBC 4.13 L (4.30-5.90) m/uL Hct 38.7 L (39.0-53.0) % Chloride 109 H (98-107) mmol/L Glucose 105 H (74-99) mg/dL
[2022-12-25] MEDS: TAMSULOSIN 0.4 MG CAP.ER.24H PO SCH (08:29)
[2022-12-25] MEDS: FOLIC ACID 1 MG TAB PO SCH (08:29)
[2022-12-25] MEDS: ASPIRIN 81 MG PO SCH (08:29)
[2022-12-25] MEDS: ATORVASTATIN 80 MG TAB PO SCH (08:29)
[2022-12-25] MEDS ORDERED: NON FORMULARY DRUG (Turmeric Root Extract [Turmeric] 500 MG Tablet) PO SCH (09:00)
[2022-12-25] MEDS: APIXABAN 5 MG TAB PO SCH ×2 (10:02→12:58)
[2022-12-25 11:20] LABS: Chol/HDL Ratio 2.25 Ratio; LDL Cholesterol,Calculated 39.2 mg/dL (0.0-131.0)
[2022-12-25] MEDS ORDERED: LORazepam 2 MG/ML INJ IV STA (12:41)
--- NOTE | 2022-12-25 15:09 | P.CRDCN ---
History of Present Illness Consult date: 12/25/22 Reason for Consult (text): TIA/CVA History of present illness: History of present illness: This is a 52 year old male patient of Dr. Wolfe with past medical history of hypertension, tobacco use, Crohn's disease, ADHD, recent stroke. Patient initially presented to [facility] was given TPA and transferred to [facility]. During his transfer symptoms worsened and he had a complete right-sided hemiparesis and eventually underwent thrombectomy at [facility]. CT and MRI showed multifocal areas throughout the left cerebellum as well as right cerebellum and acute/subacute infarcts as well as area of right parietal r egion likely acute subacute lacunar infarct. He had some residual weakness. He is stop smoking. He was then discharged back to [facility] for inpatient rehab and subsequently discharged home. He presented yesterday with concern for heaviness and the right extremities. Since a stroke he has had some right-sided numbness but last night about 8 PM it became very heavy feeling symp toms were worsening. He also states he has some anxiety. Patient was evaluated in the emergency center. Patient is seen today in the emergency center. When asked to evaluate for TIA/CVA. Patient has been on aspirin and atorvastatin. He has had outpatient CORTNEY results below which found a PFO. Patient also states he is followed with a vp production [facility] in [place] was told that his blood is more sticky. Patient denies any alcohol use, no marijuana use, no coffee or caffeine intake. EKG sinus rhythm CTA head and neck. Suboptimal study. 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 No new significant focal stenosis in the common or internal carotid arteries bilaterally. No large vessel occlusion or aneurysm at the level [place]. CT of the brain no acute intracranial hemorrhage Triglycerides 98, cholesterol 106, LDL 39, HDL 47. Liver function tests are normal. Home cardiac medications: Aspirin 81 mg daily, atorvastatin 80 mg daily CORTNEY on 12/20 revealed tricuspid aortic valve normal function with trace aortic insufficiency. Mitral valve normal with trace mitral regurgitation. Tricuspid valve appears normal with no regurgitation. PFO with positive bubble Crossing. Left atrial appendage is free of clot. Left ventricular EF 60%. Review Of Systems: At the time of my evaluation: Constitutional: No fever, no chills. No weakness, fatigue or lethargy. EENT: No headache. No dizziness. Lungs: No shortness of breath, cough, no sputum production. No wheezing. Cardiovascular: No chest pain, no lower extremity edema. No palpitations. No paroxysmal nocturnal dyspnea. No orthopnea. No lightheadedness or dizziness. No syncopal episodes. Abdominal: No abdominal pain. No nausea, vomiting. No diarrhea. No constipation. No bloody or tarry stools. Musculoskeletal: No myalgias. No muscle weakness, no frequent falls. Reports heaviness of the right extremities. Integumentary: No wounds. No rash. No unusual bruising. Neurologic: No aphasia. No facial droop. No change in mentation. Physical examination: Gen: This is a 52-year-old male resting on ER stretcher. He appears thin no acute distress positive anxiety. VS: reviewed HEENT: Head is atraumatic, normocephalic. Pupils equal, round. Sclerae is anicteric. NECK: Supple. No JVD. . LUNGS: Clear to auscultation. No wheezes or rhonchi. No intercostal retra ctions. HEART: Regular rate and rhythm. No murmur. ABDOMEN: Soft No tenderness. EXTREMITIES: No pedal edema. No calf tenderness. NEUROLOGICAL: Patient is awake, alert and oriented x3. Assessment: Possible recurrent stroke, neuro workup in process Recent stroke concerning for possible thromboembolic etiology with bilateral cerebellar infarcts as well as older infarct PFO Lupus anticoagulant positivity Hypertension Hyperlipidemia Crohn's disease ADHD Tobacco use and dependence, recently quit Plan: We'll hold on eliquis until MRI of the brain is completed Obtained records from hematology, Dr. Shaw, lupus anticoagulant positivity. Patient is waiting for repeat lupus anticoagulant testing while off antiplatelet/O before meals. Obtain 2-D echocardiogram and Doppler study to assess cardiac structure and function Further recommendations to follow based upon clinical course Thank you kindly for this consultation. Nurse practitioner note has been reviewed, I agree with documented findings and plan of care. Patient was seen and examined. Past Medical History Past Medical History: CVA/TIA, Hyperlipidemia Additional Past Medical History / Comment(s): Crohns disease with bowel obstructions. stroke with right sided weakness History of Any Multi-Drug Resistant Organisms: None Reported Past Surgical History: Appendectomy, Bowel Resection, Cholecystectomy Additional Past Surgical History / Comment(s): resection of colon x2, colonoscopy, shoulder surgery, thrombectomy/TPA Past Anesthesia/Blood Transfusion Reactions: No Reported Reaction Past Psychological History: ADD/ADHD Smoking Status: Former smoker Past Alcohol Use History: None Reported Past Drug Use History: None Reported - Past Family History Mother Family Medical History: No Reported History Father Family Medical History: No Reported History Medications and Allergies Home Medications Medication Instructions Recorded Confirmed Type ALPRAZolam [Xanax] 0.25 mg PO HS 12/17/22 12/24/22 History Atorvastatin [Lipitor] 80 mg PO DAILY 12/17/22 12/24/22 History Cyanocobalamin [Vitamin B-12 1,000 mcg SQ SA 12/17/22 12/24/22 History Injection] Folic Acid 1 mg PO DAILY 12/17/22 12/24/22 History Nf-Healthy Colon 1 tab PO DAILY 12/17/22 12/24/22 History Tamsulosin [Flomax] 0.4 mg PO DAILY 12/17/22 12/24/22 History Temazepam 7.5 mg PO HS 12/17/22 12/24/22 History Turmeric Root Extract [Turmeric] 500 mg PO DAILY 12/17/22 12/24/22 History hydrOXYzine HCL [Hydroxyzine HCl] 25 mg PO HS 12/17/22 12/24/22 History Aspirin 81 mg PO DAILY 12/24/22 12/24/22 History Healthy Colon(Unknown) 1 cap PO DAILY 12/24/22 12/24/22 History Ustekinumab [Stelara] 90 mg SQ Q56D 12/25/22 12/25/22 History Allergies Allergy/AdvReac Type Severity Reaction Status Date / Time morphine AdvReac Nausea & Verified 12/24/22 23:07 Vomiting Physical Exam Vitals: Vital Signs Temp Pulse Resp BP Pulse Ox 12/25/22 08:15 96 12/25/22 07:00 98.3 F 78 16 118/85 96 12/25/22 04:30 60 16 115/69 93 L 12/25/22 04:00 64 16 119/76 97 12/25/22 01:21 98.1 F 72 16 107/77 97 12/25/22 00:21 98.1 F 70 16 121/77 96 12/25/22 00:06 98.6 F 71 16 130/78 96 12/24/22 23:51 98.4 F 70 16 122/74 97 12/24/22 23:36 98.2 F 75 16 130/79 96 12/24/22 23:21 98.4 F 71 16 123/84 95 12/24/22 23:06 98.2 F 75 18 132/84 96 12/24/22 22:51 98.4 F 71 20 125/83 96 12/24/22 22:36 98.3 F 67 18 147/85 95 12/24/22 22:15 98.9 F 76 18 151/90 98 12/24/22 22:06 97.6 F 76 20 143/79 96 Intake and Output 12/24/22 12/25/22 12/25/22 22:59 06:59 14:59 Other: Weight 104.326 kg Results 12/24/22 22:36 12/24/22 22:36 Cardiac Enzymes 12/24/22 12/24/22 12/25/22 Range/Units 22:36 22:36 03:38 AST 20 (17-59) U/L Troponin I <0.012 <0.012 (0.000-0.034) ng/mL 12/25/22 Range/Units 06:20 AST (17-59) U/L Troponin I <0.012 (0.000-0.034) ng/mL Coagulation 12/24/22 Range/Units 22:36 PT 9.8 (9.0-12.0) sec APTT 25.4 (22.0-30.0) sec CBC 12/24/22 Range/Units 22:36 WBC 7.9 (3.8-10.6) k/uL RBC 4.13 L (4.30-5.90) m/uL Hgb 13.2 (13.0-17.5) gm/dL Hct 38.7 L (39.0-53.0) % Plt Count 426 (150-450) k/uL Comprehensive Metabolic Panel 12/24/22 Range/Units 22:36 Sodium 140 (137-145) mmol/L Potassium 4.1 (3.5-5.1) mmol/L Chloride 109 H (98-107) mmol/L Carbon Dioxide 22 (22-30) mmol/L BUN 20 (9-20) mg/dL Creatinine 0.93 (0.66-1.25) mg/dL Glucose 105 H (74-99) mg/dL Calcium 9.5 (8.4-10.2) mg/dL AST 20 (17-59) U/L ALT 23 (4-49) U/L Alkaline Phosphatase 67 (38-126) U/L Total Protein 6.9 (6.3-8.2) g/dL Albumin 4.0 (3.5-5.0) g/dL Current Medications Generic Name Dose Route Start Last Admin Trade Name Freq PRN Reason Stop Dose Admin Alprazolam 0.25 mg 12/25/22 21:00 Alprazolam 0.25 Mg Tab PO HS DEISY Aspirin 81 mg 12/25/22 09:00 12/25/22 08:29 Aspirin 81 Mg PO 81 mg DAILY DEISY Administration Atorvastatin Calcium 80 mg 12/25/22 09:00 12/25/22 08:29 Atorvastatin 80 Mg Tab PO 80 mg DAILY DEISY Administration Cyanocobalamin 1,000 mcg 12/28/22 09:00 Cyanocobalamin 1,000 Mcg/Ml 1 Ml Vial SQ SA DEISY Folic Acid 1 mg 12/25/22 09:00 12/25/22 08:29 Folic Acid 1 Mg Tab PO 1 mg DAILY DEISY Administration Hydroxyzine HCl 25 mg 12/25/22 21:00 Hydroxyzine Hcl 25 Mg Tab PO HS DEISY Sodium Chloride 1,000 mls @ 75 mls/hr 12/25/22 01:30 12/25/22 01:25 Saline 0.9% IV 75 mls/hr .[id number] DEISY Administration Naloxone HCl 0.2 mg 12/25/22 01:22 Naloxone 0.4 Mg/Ml 1 Ml Vial IV Q2M PRN Opioid Reversal Ondansetron HCl 4 mg 12/25/22 01:22 Ondansetron 4 Mg/2 Ml Vial IVP Q8HR PRN Nausea And Vomiting Tamsulosin HCl 0.4 mg 12/25/22 09:00 12/25/22 08:29 Tamsulosin 0.4 Mg Cap.Er.24h PO 0.4 mg DAILY DEISY Administration Temazepam 7.5 mg 12/25/22 21:00 Temazepam 7.5 Mg Cap PO HS DEISY Intake and Output 12/24/22 12/25/22 12/25/22 22:59 06:59 14:59 Other: Weight 104.326 kg 12/24/22 22:36 12/24/22 22:36
--- NOTE | 2022-12-25 16:21 | P.CNNES ---
History of Present Illness Consult date: 12/25/22 Requesting physician: Bereket Gallardo Reason for Consult: tia/cva History of Present Illness: This is a 52-year-old gentleman with history of stroke w/p thrombectomy in 10/2022 with residual right-sided weakness, numbness and dysarthria, PFO who presented to the emergency department because of worsening right-sided the weakness as well as numbness. Patient is accompanied with his mother was at bedside. According to the patient yesterday and 8 PM he noticed that his right entire side was weak and he feels its numb including the face. He states he is on aspirin 81 mg daily. He denies any visual disturbance, worsening of the speech, any swallowing difficulty. He stated and 10/26/2022 he presented to our facility with right-sided weakness, numbness, dysarthria and the was found to have a thrombus in which he was transferred to [facility] for thrombectomy which he did and felt there is improvement of dysarthria but continues to have the right-sided the hemiparesis with dysarthria and numbness since the stroke. He had extensive workup. He was discharged on aspirin 81 mg daily. He did he followed up with a neurologist over near [facility] as well as followed up with android ui developer. It seems that the android ui developer according to the patient wanted to do further blood workup and was notified to avoid any other antiplatelet except aspirin. Patient stated that he was discharged from [facility] with only aspirin and no other antiplatelet according to him. He recently had a transesophageal echocardiogram which showed a PFO. He follows up with a Dr. Wolfe over Cardiology team. He stated that he was supposed to have a come on about appointment this Friday with Dr. Hernandez is to perform the thrombectomy in October 2022. It seems that the patient had residual weakness over right upper extremity and numbness the patient stated the entire but per the mother he is walking without any assistance and not dragging his feet. No family history of young stroke. It seems that his grandparents had strokes in the their 7 years old. Patient denies any history of atrial fibrillation. Denies any diabetes. Denies tobacco use or illicit drug use. Per the ED team had NIH stroke scale was a 0. I assume no IV TPA since the patient NIH stroke scale was a 0. Some other workup during this hospital visit consisted of: Initial POC glucose is 108, the sodium, ACL 3, calcium level within normal limits Lipid panel is triglycerides 98, cholesterol is 106, LDL is 39 and HDL is 47. CT of the head is reported as no acute intracranial hemorrhage or midline shift. No significant change from prior CT. Per Asimner review the CT of the head and I agree there is no acute subacute ischemia. The patient has a lacunar stroke over the left thalamus and does not appear acute. It appears the patient has encephalomalacia over bilateral cerebellar. CT angiography of the head and neck was reported as suboptimal study. 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 No new significant focal stenosis in the common or internal carotid artery bilaterally. No large vessel occlusion or aneurysm at the level of the [place]. Review of Systems The positive and negative as per HPI. Past Medical History Past Medical History: CVA/TIA, Hyperlipidemia Additional Past Medical History / Comment(s): Crohns disease with bowel obstructions. stroke with right sided weakness History of Any Multi-Drug Resistant Organisms: None Reported Past Surgical History: Appendectomy, Bowel Resection, Cholecystectomy Additional Past Surgical History / Comment(s): resection of colon x2, colonoscopy, shoulder surgery, thrombectomy/TPA Past Anesthesia/Blood Transfusion Reactions: No Reported Reaction Past Psychological History: ADD/ADHD Smoking Status: Former smoker Past Alcohol Use History: None Reported Past Drug Use History: None Reported - Past Family History Mother Family Medical History: No Reported History Father Family Medical History: No Reported History Medications and Allergies Home Medications Medication Instructions Recorded Confirmed Type ALPRAZolam [Xanax] 0.25 mg PO HS 12/17/22 12/24/22 History Atorvastatin [Lipitor] 80 mg PO DAILY 12/17/22 12/24/22 History Cyanocobalamin [Vitamin B-12 1,000 mcg SQ SA 12/17/22 12/24/22 History Injection] Folic Acid 1 mg PO DAILY 12/17/22 12/24/22 History Nf-Healthy Colon 1 tab PO DAILY 12/17/22 12/24/22 History Tamsulosin [Flomax] 0.4 mg PO DAILY 12/17/22 12/24/22 History Temazepam 7.5 mg PO HS 12/17/22 12/24/22 History Turmeric Root Extract [Turmeric] 500 mg PO DAILY 12/17/22 12/24/22 History hydrOXYzine HCL [Hydroxyzine HCl] 25 mg PO HS 12/17/22 12/24/22 History Aspirin 81 mg PO DAILY 12/24/22 12/24/22 History Healthy Colon(Unknown) 1 cap PO DAILY 12/24/22 12/24/22 History Ustekinumab [Stelara] 90 mg SQ Q56D 12/25/22 12/25/22 History Allergies Allergy/AdvReac Type Severity Reaction Status Date / Time morphine AdvReac Nausea & Verified 12/24/22 23:07 Vomiting Physical Examination - Vital Signs Vital Signs: Vital Signs Temp Pulse Resp BP Pulse Ox 12/25/22 11:35 97.9 F 66 16 117/71 96 12/25/22 08:15 96 12/25/22 07:00 98.3 F 78 16 118/85 96 12/25/22 04:30 60 16 115/69 93 L 12/25/22 04:00 64 16 119/76 97 12/25/22 01:21 98.1 F 72 16 107/77 97 12/25/22 00:21 98.1 F 70 16 121/77 96 12/25/22 00:06 98.6 F 71 16 130/78 96 12/24/22 23:51 98.4 F 70 16 122/74 97 12/24/22 23:36 98.2 F 75 16 130/79 96 12/24/22 23:21 98.4 F 71 16 123/84 95 12/24/22 23:06 98.2 F 75 18 132/84 96 12/24/22 22:51 98.4 F 71 20 125/83 96 12/24/22 22:36 98.3 F 67 18 147/85 95 12/24/22 22:15 98.9 F 76 18 151/90 98 12/24/22 22:06 97.6 F 76 20 143/79 96 Intake and Output 12/24/22 12/25/22 12/25/22 22:59 06:59 14:59 Other: Weight 104.326 kg GENERAL: The patient is sitting in chair and is not in acute distress. NEUROLOGICAL: Higher mental function: The patient is awake, alert, oriented to self, place and time. Patient is following commands. No aphasia and no neglect. Cranial nerves: The pupils are round, equal and reactive to light and accommodation. Visual rosario are full to confrontation throughout. Extraocular movement is intact no nystagmus is noted. Decrease facial sensation to touch over the right face (stated worse this time compared to prior to his recent stroke). The facial strength is normal throughout. Hearing is normal bilaterally to hand rub. Tongue is midline and moved [id number] without any difficulty. No dysarthria is noted. Motor: The strength is right upper proximal extremity is 5 and foearm is 5- while hand is 4+ and has difficulty with dextrexity. Left upper extremity is 4- 4+. Right hip flexion is 4+ to 5-. Otherwise 5/5. 5 over 5 throughout. Normal tone and bulk. Cerebellum: Normal finger to nose bilaterally. Sensation: Sensation is normal to touch throughout. Reflexes (right/left): 2+ throughout Plantars are mute bilaterally. Results - Laboratory Findings CBC and BMP: 12/24/22 22:36 12/24/22 22:36 Abnormal Lab Findings: Abnormal Labs 12/24/22 12/24/22 22:36 22:36 RBC 4.13 L Hct 38.7 L Chloride 109 H Glucose 105 H Assessment and Plan Assessment: This is a 52-year-old gentleman with history of stroke in 10/2022 s/p thrombectomy and [facility] with residual right upper extremity weakness numbness including the face he has residual numbness as well as dysarthria recent PFO seen on CORTNEY who presented emergency department because of worsening weakness numbness on the right. His NIH stroke scale per the ED team was a 0. Acute right upper extremity weakness and numbness seems due to underlying stroke (on examination he felt he had worsening numbness and weakness compared to prior to presentation). History of stroke in 10/2022 s/p thrombectomy over at [facility] with residual dysarthria and right upper extremity weakness, numbness including face. Known history of PFO with bubble crossing seen on CORTNEY 12/20/22 History of Crohn disease Plan: MRI the brain is ordered is pending He had a transesophageal echocardiogram on 12/20/2022 and it's reported as normal. Patient has a PFO with bubble crossing. Left atrial appendage is free of clot. Ejection fraction of 60%. He is continued on his home dose of ASA 81mg daily. Cardiology team started the patient on Eliquis 5 mg twice a day but agree with primary of holding medication until we obtain MRI to assess size of stroke to avoid hemorrhagic conversion. He was started on Lipitor 80 mg daily by the primary team We'll try to obtain records from the [facility] of the workup he had. It seems that he was following up with a neurologist and the hematology as an outpatient and he was supposed to have further blood workup as an outpatient. Continue neuro checks Cardiac monitoring PT OT and HOG STOMACH PREPARER are consulted Cardiology team is on consulted. She was found to have a PFO he certainly on the CORTNEY. Recommend closing the PFO since the patient is having recurrent strokes. I ordered venous duplex of the upper and lower extremities. We'll defer the rest of medical management to primary team For DVT prophylaxis: I started him on subq heparin 5000U every 12 hours. The plan was discussed with the patient is mother was at bedside and primary team. Thank you for the consultation Time with Patient: Greater than 30
--- NOTE | 2022-12-25 16:35 | MR ---
EXAMINATION TYPE: MR brain wo con DATE OF EXAM: 12/25/2022 3:43 PM CLINICAL INDICATION:Male, 52 years old with history of CVA; COMPARISON: 12/24/2022. TECHNIQUE: Multi planar, multi sequence imaging was performed through the brain including: T1, T2, In version recovery, Diffusion weighted imaging, and gradient echo imaging. No gadolinium was given. FINDINGS: A T2/FLAIR signal seen within the bilateral cerebral hemispheres with T2 shine through on diffusion w eighted imaging. No restricted diffusion within the cerebellum. There is hemosiderin deposition demon strated by blooming artifact within the left cerebellar injury. Findings likely represent remote inju wilberto. Additionally there is high FLAIR signal and T2 center within the left thalamus. The jennings-white junctions, ventricular system, and cisterns appear unremarkable. Scattered foci of high T2 signal in tensity are seen within the periventricular white matter. Midline structures show no abnormality. Dif fusion-weighted imaging shows no evidence of restricted diffusion. The susceptibility weighted images demonstrate microhemorrhage within the cerebellum bilaterally and demonstrated by punctate foci of b looming artifact. The bone marrow signal is within normal limits. Paranasal sinuses and mastoid air cells: No significant paranasal sinus disease. Visualized orbits: Orbital contents are intact. IMPRESSION: 1. Left thalamus and bilateral cerebellar hemispheres. No evidence for acute/subacute CVA. 2. Nonspecific white matter changes, likely secondary to small vessel ischemic disease.
--- NOTE | 2022-12-25 17:09 | US ---
EXAMINATION TYPE: US venous doppler duplex LE DATE OF EXAM: 12/25/2022 4:50 PM COMPARISON: US 2018 CLINICAL INDICATION: Male, 52 years old with history of stroke with PFO; SIDE PERFORMED: Bilateral TECHNIQUE: The lower extremity deep venous system is examined utilizing real time linear array sonog percy with graded compression, doppler sonography and color-flow sonography. VESSELS IMAGED: Common Femoral Vein Deep Femoral Vein Greater Saphenous Vein * Femoral Vein Popliteal Vein Small Saphenous Vein * Proximal Calf Veins (* superficial vessels) Right Leg: Appears negative for DVT Left Leg: Appears negative for DVT IMPRESSION: Grayscale, color doppler, spectral doppler imaging performed of the deep veins of the lo wer extremities. There is normal flow, compressibility, vascular waveforms.
--- NOTE | 2022-12-25 19:13 | US ---
EXAMINATION TYPE: US venous doppler duplex UE DATE OF EXAM: 12/25/2022 COMPARISON: NONE CLINICAL INDICATION: Male, 52 years old with history of stroke with PFO; stroke. On aspirin SIDE PERFORMED: Bilateral Right Arm: No evidence for DVT in vessels seen. Cephalic not visualized Left Arm: No evidence for DVT in vessels seen. Subclavian limited due to heart monitor lead. IMPRESSION: Grayscale, color doppler, spectral doppler imaging performed of the deep veins of the upper extremiti es. There is normal flow, compressibility and vascular waveforms.
[2022-12-25 21:13] VITALS: RESP 16
[2022-12-25] MEDS: TEMAZEPAM 7.5 MG CAP PO SCH (21:16)
[2022-12-25] MEDS: HEPARIN SODIUM,PORCINE 5,000 UNIT/ML 1 ML VIAL SQ SCH (21:16)
[2022-12-25] MEDS: hydrOXYzine HCL 25 MG TAB PO SCH (21:16)
[2022-12-25] MEDS: ALPRAZolam 0.25 MG TAB PO SCH (21:16)
[2022-12-26] MEDS: SODIUM CHLORIDE 0.9% 1,000 ML IV SCH (06:35)
[2022-12-26] MEDS: ASPIRIN 81 MG PO SCH (07:59)
[2022-12-26] MEDS: TAMSULOSIN 0.4 MG CAP.ER.24H PO SCH (07:59)
[2022-12-26] MEDS: HEPARIN SODIUM,PORCINE 5,000 UNIT/ML 1 ML VIAL SQ SCH ×2 (07:59→21:12)
[2022-12-26] MEDS: ATORVASTATIN 80 MG TAB PO SCH (07:59)
[2022-12-26] MEDS: FOLIC ACID 1 MG TAB PO SCH (07:59)
[2022-12-26 08:39] LABS: Basophils % (A) 0 %; Eosinophils # (A) 0.3 k/uL (0-0.7); Eosinophils % (A) 5 %; HCT 37.8 % (39.0-53.0); HGB 12.4 gm/dL (13.0-17.5); Lymphocytes # (A) 1.4 k/uL (1.0-4.8); Lymphocytes % (A) 23 %; MCHC 32.9 g/dL (31.0-37.0); MCV 94.4 fL (80.0-100.0); Mean Platelet Volume 7.1; Monocytes # (A) 0.4 k/uL (0-1.0); Monocytes % (A) 6 %; Neutrophils # (A) 3.9 k/uL (1.3-7.7); Neutrophils % (A) 64 %; Platelet Count 379 k/uL (150-450); RBC 4.01 m/uL (4.30-5.90); RDW 14.1 % (11.5-15.5); WBC 6.2 k/uL (3.8-10.6)
[2022-12-26 09:06] LABS: ALT 22 U/L (4-49); AST 21 U/L (17-59); African American GFR (CKD) >90 (>60 ml/min/1.73 sqM); Albumin 3.4 g/dL (3.5-5.0); Alkaline Phosphatase 65 U/L (38-126); Anion Gap 9 mmol/L; Blood Urea Nitrogen 15 mg/dL (9-20); Calcium 9.2 mg/dL (8.4-10.2); Carbon Dioxide 24 mmol/L (22-30); Chloride 106 mmol/L (98-107); Glucose 130 mg/dL (74-99); Lipase 81 U/L (23-300); Magnesium 1.6 mg/dL (1.6-2.3); Non-African American GFR(CKD) >90 (>60 ml/min/1.73 sqM); Phosphorus 4.2 mg/dL (2.5-4.5); Potassium 3.8 mmol/L (3.5-5.1); Sodium 139 mmol/L (137-145); Total Bilirubin 0.5 mg/dL (0.2-1.3); Total Protein 6.1 g/dL (6.3-8.2)
[2022-12-26] MEDS: CLOPIDOGREL 75 MG TAB PO SCH (13:36)
--- NOTE | 2022-12-26 16:32 | P.PN ---
Subjective Progress Note Date: 12/26/22 I am following-up and he feels his symptoms has resolved. Denies of any new neurological issues. Objective - Vital Signs Vital signs: Vital Signs Temp 97.9 F 12/26/22 04:35 Pulse 73 12/26/22 11:59 Resp 16 12/26/22 11:59 BP 118/78 12/26/22 11:59 Pulse Ox 96 12/26/22 11:59 FiO2 Intake & Output 12/25/22 12/26/22 12/26/22 18:59 06:59 18:59 Intake Total 885 Balance 885 Weight 104.326 kg Intake: Intake, IV Titration 525 Amount Sodium Chloride 0.9% 1, 525 000 ml @ 75 mls/hr IV . [id number] Rx#:[id number] Oral 360 Other: Voiding Method Toilet # Voids 1 - Exam GENERAL: The patient is sitting in chair and is not in acute distress. NEUROLOGICAL: Higher mental function: The patient is awake, alert, oriented to self, place and time. Patient is following commands. No aphasia and no neglect. Cranial nerves: The pupils are round, equal and reactive to light and accommodation. Visual rosario are full to confrontation throughout. Extraocular movement is intact no nystagmus is noted. Decrease facial sensation to touch over the right face (stated worse this time compared to prior to his recent stroke). The facial strength is normal throughout. Hearing is normal bilaterally to hand rub. Tongue is midline and moved [id number] without any difficulty. No dysarthria is noted. Motor: The strength is right upper proximal extremity is 5 and foearm is 5- while hand is 4+ and has difficulty with dextrexity. Left upper extremity is 4- 4+. Right hip flexion is 4+ to 5-. Otherwise 5/5. 5 over 5 throughout. Normal tone and bulk. Cerebellum: Normal finger to nose bilaterally. Sensation: Sensation is normal to touch throughout. Reflexes (right/left): 2+ throughout Plantars are mute bilaterally. Some other workup during this hospital visit consisted of: Initial POC glucose is 108, the sodium, ACL 3, calcium level within normal limits Lipid panel is triglycerides 98, cholesterol is 106, LDL is 39 and HDL is 47. CT of the head is reported as no acute intracranial hemorrhage or midline shift. No significant change from prior CT. Per Cerner review the CT of the head and I agree there is no acute subacute ischemia. The patient has a lacunar stroke over the left thalamus and does not appear acute. It appears the patient has encephalomalacia over bilateral cerebellar. CT angiography of the head and neck was reported as suboptimal study. 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 No new significant focal stenosis in the common or internal carotid artery bilaterally. No large vessel occlusion or aneurysm at the level of the [place] of [place]. MRI Brain: Left thalamus and bilateral cerebellar hemisphere. No evidence for acute/subacute CVA. Nonspecific white matter changes, likely secondary to small vessel ischemic disease. I personally reviewed MRI and felt the left thalamus and bilateral cerebellar are T2 shine through and no evidence of acute or subacute ischemia. Venous duplex of uppers and lowers are negative. - Labs CBC & Chem 7: 12/26/22 08:17 12/26/22 08:17 Labs: Abnormal Lab Results - Last 24 Hours (Table) 12/26/22 12/26/22 Range/Units 08:17 08:17 RBC 4.01 L (4.30-5.90) m/uL Hgb 12.4 L (13.0-17.5) gm/dL Hct 37.8 L (39.0-53.0) % Glucose 130 H (74-99) mg/dL Total Protein 6.1 L (6.3-8.2) g/dL Albumin 3.4 L (3.5-5.0) g/dL Assessment and Plan Assessment: This is a 52-year-old gentleman with history of stroke in 10/2022 s/p thrombectomy and [facility] with residual right upper extremity weakness numbness including the face he has residual numbness as well as dysarthria recent PFO seen on CORTNEY who presented emergency department because of worsening weakness numbness on the right. His NIH stroke scale per the ED team was a 0. Acute transient worsening right upper extremity weakness and numbness: Likely TIA. MRI is negative for acute or subacute ischemic stroke. History of stroke in 10/26/2022 post IV tpa s/p thrombectomy over at [facility] with residual dysarthria and right upper extremity weakness, numbness including face. Per Dr. Valdez (Neuro-interventionalist) he had left LINING STAMPER thrombectomy PFO with bubble crossing seen on CORTNEY 12/20/22 History of Crohn disease Plan: MRI Brain: Left thalamus and bilateral cerebellar hemisphere. No evidence for acute/subacute CVA. Nonspecific white matter changes, likely secondary to small vessel ischemic disease. I personally reviewed MRI and felt the left thalamus and bilateral cerebellar are T2 shine through and no evidence of acute or subacute ischemia. He had a transesophageal echocardiogram on 12/20/2022 and it's reported as normal. Patient has a PFO with bubble crossing. Left atrial appendage is free of clot. Ejection fraction of 60%. I spoke with Dr. Wolfe (contract designer) who performed CORTNEY on 12/20/2022 and does not recall size of PFO but does not think it was large and does not feel there was aneurysmal seen on CORTNEY. He stated he is planning of closing PFO down the line. He is continued on his home dose of ASA 81mg daily and in addition started him on Plavix 75mg daily. No need for anticoagulation at this time and Dr. Valdez was in agreement. If patient does have a-fib/flutter or is positive for hypercoagulable then to proceed with anticoagulation. Went down on lipitor from 80 to 40mg qhs since LDL 39 and no significant stenosis or plaque. Per Dr. Valdez he had extensive young [id number] at [facility] and his l upus anticoagulant was low and needed to be repeated. Recommended lupus panel to be repeated. Continue neuro checks Cardiac monitoring PT OT and WOOD PILER are consulted I placed him on Gabapentin 100mg 1 tab tid because of his paresthesia on right and if continues to have symptoms go up to 300mg tid. Cardiology team is on board. Recommend an event monitor for 30 days and if negative consider loop recorder. Patient has an appointment with Dr. Valdez (Interventional Neurologist) tomorrow. Also following-up with neurologist as outpatient (around [place]) and following-up with [facility] as outpatient. We'll defer the rest of medical management to primary team For DVT prophylaxis: On subq heparin 5000U every 12 hours. The plan was discussed with the patient and his over the phone. There is no further neurological work-up. Time with Patient: Less than 30
[2022-12-26 16:46] LABS: C Reactive Protein 0.7 mg/dL (<1.0)
--- NOTE | 2022-12-26 17:03 | P.PN ---
Subjective Progress Note Date: 12/26/22 History of Presenting Illness: Patient is a very pleasant 52-year-old male with a past medical history of previous CVA with right-sided deficits. Patient reports recent CVA on 10/26/22 in which she was found to have a totally occluded left cerebral artery and received TPA and later transferred to [facility] and underwent an embolectomy. Patient states since this event he has had persistent numbness and tingling to the right side of his face, right upper extremity, and right lower extremity. Patient denies having any weakness or decreased range of motion from this event. Patient states he remains on a daily aspirin and atorvastatin for treatment and recently underwent a CORTNEY on 12/20/22 in which he was diagnosed with a PFO and currently scheduled to undergo PFO repair an outpatient basis. Patient reports he discussed with his straightening machine feeder in detail and at that time th marielos decided against anticoagulants as patient needs to remain free from anticoagulants for 12 weeks for testing of lupus. Patient reports up until yesterday evening feeling baseline normal with no other complaints. He reports he has been working with physical therapy and has even been improving and also able to push his lawnmower and cut his own grass. Patient states yesterday evening while sitting on the couch he suddenly felt a new onset heaviness go down his entire right side. Patient reports the right side of his face, right upper extremity, and right leg simply just feel extremely heavy and weighed down (he states he did have some numbness and tingling previously but never a heaviness or weakness). Patient reports in addition to this, the right side of his face also feels more numb than his normal. He denies having any other deficits including changes in or difficulties with his speech, changes in balance, dizziness/lightheadedness, headache, changes in vision or hearing, dys phagia, chest pain, palpitations, shortness of breath, nausea, or vomiting. Patient reports he immediately notified his that something was wrong and was brought straight to the hospital. Upon arrival to the hospital patient underwent full evaluation. Vital signs completed showing blood pressure 143/79, heart rate 76, respiratory rate 20, temp 97.6 Fahrenheit, SpO2 96% on room air. CT head completed negative for acute intercranial process with reports of no significant changes from prior CT completed 10/26/22. CTA head then completed reporting prior occluded left vertebral artery now shows patency with no new significant focal stenosis in the common or internal carotid arteries, no large vessel occlusion, or aneurysm at the level of [place]. Labs were completed and reviewed. CBC, coags, and CMP were unremarkable. Troponin negative at less than 0.012. Patient was admitted under our services with consultation to neurology and cardiology. MRI was completed and radiology report reviewed reporting the susceptibility weighted images demonstrate microhemorrhage within the cerebellum bilaterally and demonstrated by punctate foci of blooming artifact, left thalamus and bilateral cerebellar hemispheres, showing no evidence for acute/subacute CVA, and nonspecific white matter changes likely secondary to small vessel ischemic disease. Venous Dopplers completed of bilateral upper and lower extremities all negative for DVT. Review of systems: Pertinent positives and negatives as discussed in HPI, a complete review of systems was performed and all other systems are negative. Physical exam: Vital signs reviewed and stable. General: Nontoxic, no distress and appears stated age. Derm: Skin warm and dry, normal coloration for ethnicity. Head: Atraumatic, normocephalic and symmetric. Eyes: EOMs intact, no lid lag, and anicteric sclera Mouth: no lip lesions, mucus membranes moist Cardiovascular: regular rate and rhythm with normal S1S2, no murmur, positive posterior tibial pulses bilaterally, and cap refill < 2 seconds. Lungs: Respirations even, regular, and unlabored on room air. Lungs CTA bilaterally, no rhonchi, no rales, no wheezing, and no accessory muscle usage. Abdominal: soft, nontender to palpation, no guarding, no appreciable organomega ly Ext No gross muscle atrophy, no edema, no contractures. Movement and sensation intact. Patient does have decreased sensation in right upper and lower extremities as well as right side of face. Patient with moderate right upper extremity and right lower extremity weakness upon comparison. Neuro: Speech clear, face symmetrical and CN II-XII Psych: Alert and oriented to person, place, time, and situation. Appropriate and pleasant affect. Assessment and Plan of Care: Right sided neural deficits, possibly from evolving symptoms from recent stroke versus new stroke History of recent CVA with administration of TPA followed by embolectomy -Reviewed CT and CTA. Reviewed previous CORTNEY completed 12/20/22 showing patient with a PFO.. -MRI was completed and radiology report reviewed reporting the susceptibility weighted images demonstrate microhemorrhage within the cerebellum bilaterally and demonstrated by punctate foci of blooming artifact, left thalamus and bilateral cerebellar hemispheres, showing no evidence for acute/subacute CVA, and nonspecific white matter changes likely secondary to small vessel ischemic disease. -Venous Dopplers completed of bilateral upper and lower extremities all negative for DVT. -Discussed case in detail with neurologist, recommended starting patient on dual antiplatelet therapy with aspirin and Plavix and holding off on anticoagulation at this time as he is recommending closure of PFO.. -Continue neuro checks every 4 hours -Continue Telemetry monitoring -Patient to continue with aspirin 81 mg daily and atorvastatin 80 mg daily, and now being placed on Plavix 75 mg daily -PT/OT to evaluate and appreciate recommendations Data and imaging reviewed: -MRI was completed and radiology report reviewed reporting the susceptibility weighted images demonstrate microhemorrhage within the cerebellum bilaterally and demonstrated by punctate foci of blooming artifact, left thalamus and bilateral cerebellar hemispheres, showing no evidence for acute/subacute CVA, and nonspecific white matter changes likely secondary to small vessel ischemic disease. -Venous Dopplers completed of bilateral upper and lower extremities all negative for DVT. -Vital signs reviewed. Blood pressure 138/78, heart rate 87, respiratory rate 16, and SpO2 of 96% on room air. CODE STATUS: Full code Discussed with: Patient, RN, and neurologist Anticipated discharge date: Clinical course to determine Anticipated discharge place: Home Patient was seen independently by Nurse Practitioner. This document was prepared using Tru[employer] dictation software. Please allow for errors in children's librarian while rare they do occur. Objective - Vital Signs Vital signs: Vital Signs Temp 97.9 F 12/26/22 04:35 Pulse 87 12/26/22 07:54 Resp 16 12/26/22 07:54 BP 138/78 12/26/22 07:54 Pulse Ox 96 12/26/22 07:54 FiO2 Intake & Output 12/25/22 12/26/22 12/26/22 18:59 06:59 18:59 Weight 104.326 kg Other: Voiding Method Toilet # Voids 1 - Labs CBC & Chem 7: 12/26/22 08:17 12/26/22 08:17 Labs: Abnormal Lab Results - Last 24 Hours (Table) 12/26/22 12/26/22 Range/Units 08:17 08:17 RBC 4.01 L (4.30-5.90) m/uL Hgb 12.4 L (13.0-17.5) gm/dL Hct 37.8 L (39.0-53.0) % Glucose 130 H (74-99) mg/dL Total Protein 6.1 L (6.3-8.2) g/dL Albumin 3.4 L (3.5-5.0) g/dL
[2022-12-26] MEDS: GABAPENTIN 100 MG CAP PO SCH ×2 (17:43→21:14)
--- NOTE | 2022-12-26 18:02 | P.PN ---
Subjective Progress Note Date: 12/26/22 History of present illness: This is a 52 year old male patient of Dr. Wolfe with past medical history of hypertension, tobacco use, Crohn's disease, ADHD, recent stroke. Patient initially presented to [facility] was given TPA and transferred to [facility]. During his transfer symptoms worsened and he had a complete right-sided hemiparesis and eventually underwent thrombectomy at [facility]. CT and MRI showed multifocal areas throughout the left cerebellum as well as right cerebellum and acute/subacute infarcts as well as area of right parietal region likely acute subacute lacunar infarct. He had some residual weakness. He is stop smoking. He was then discharged back to [facility] for inpatient rehab and subsequently discharged home. He presented yesterday with concern for heaviness and the right extremities. Since a stroke he has had some right-sided numbness but last night about 8 PM it became very heavy feeling symptoms were worsening. He also states he has some anxiety. Patient was evaluated in the emergency center. Patient is seen today in the emergency center. When asked to evaluate for TIA/CVA. Patient has been on aspirin and a torvastatin. He has had outpatient CORTNEY results below which found a PFO. Patient also states he is followed with a retail selling floor leader [facility] in [place] was told that his blood is more sticky. Patient denies any alcohol use, no marijuana use, no coffee or caffeine intake. EKG sinus rhythm CTA head and neck. Suboptimal study. 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 No new significant focal stenosis in the common or internal carotid arteries bilaterally. No large vessel occlusion or aneurysm at the level [place]. CT of the brain no acute intracranial hemorrhage Triglycerides 98, cholesterol 106, LDL 39, HDL 47. Liver function tests are normal. Home cardiac medications: Aspirin 81 mg daily, atorvastatin 80 mg daily CORTNEY on 12/20 revealed tricuspid aortic valve normal function with trace aortic insufficiency. Mitral valve normal with trace mitral regurgitation. Tricuspid valve appears normal with no regurgitation. PFO with positive bubble Crossing. Left atrial appendage is free of clot. Left ventricular EF 60%. Review Of Systems: At the time of my evaluation: Constitutional: No fever, no chills. No weakness, fatigue or lethargy. EENT: No headache. No dizziness. Lungs: No shortness of breath, cough, no sputum production. No wheezing. Cardiovascular: No chest pain, no lower extremity edema. No palpitations. No paroxysmal nocturnal dyspnea. No orthopnea. No lightheadedness or dizziness. No syncopal episodes. Abdominal: No abdominal pain. No nausea, vomiting. No diarrhea. No constipation. No bloody or tarry stools. Musculoskeletal: No myalgias. No muscle weakness, no frequent falls. Reports heaviness of the right extremities. Integumentary: No wounds. No rash. No unusual bruising. Neurologic: No aphasia. No facial droop. No change in mentation. Physical examination: Gen: This is a 52-year-old male resting on ER stretcher. He appears thin no acute distress positive anxiety. VS: reviewed HEENT: Head is atraumatic, normocephalic. Pupils equal, round. Sclerae is anicteric. NECK: Supple. No JVD. . LUNGS: Clear to auscultation. No wheezes or rhonchi. No intercostal retractions. HEART: Regular rate and rhythm. No murmur. ABDOMEN: Soft No tenderness. EXTREMITIES: No pedal edema. No calf tenderness. NEUROLOGICAL: Patient is awake, alert and oriented x3. Assessment: Possible recurrent stroke, neuro workup in process Recent stroke concerning for possible thromboembolic etiology with bilateral cerebellar infarcts as well as older infarct PFO Lupus anticoagulant positivity Hypertension Hyperlipidemia Crohn's disease ADHD Tobacco use and dependence, recently quit Plan: MRI did not show any evidence of new strokes or new embolic phenomena. As per neurology, he's been started on aspirin and Plavix. No recommendations for systemic and correlation as per neurology. Patient is okay to be discharged from cardiac standpoint No evidence of atrial fibrillation telemetry monitoring Should follow-up with his retail selling floor leader and neurologist outpatient Objective - Vital Signs Vital signs: Vital Signs Temp 97.9 F 12/26/22 04:35 Pulse 69 12/26/22 16:20 Resp 16 12/26/22 16:20 BP 155/83 12/26/22 16:20 Pulse Ox 95 12/26/22 16:20 FiO2 Intake & Output 12/25/22 12/26/22 12/26/22 18:59 06:59 18:59 Intake Total 885 Balance 885 Weight 104.326 kg Intake: Intake, IV Titration 525 Amount Sodium Chloride 0.9% 1, 525 000 ml @ 75 mls/hr IV . [id number] [facility] Rx#:[id number] Oral 360 Other: Voiding Method Toilet # Voids 1 - Labs CBC & Chem 7: 12/26/22 08:17 12/26/22 08:17 Labs: Abnormal Lab Results - Last 24 Hours (Table) 12/26/22 12/26/22 Range/Units 08:17 08:17 RBC 4.01 L (4.30-5.90) m/uL Hgb 12.4 L (13.0-17.5) gm/dL Hct 37.8 L (39.0-53.0) % Glucose 130 H (74-99) mg/dL Total Protein 6.1 L (6.3-8.2) g/dL Albumin 3.4 L (3.5-5.0) g/dL
[2022-12-26 19:56] LABS: Anti-DNA, DS unit <1.0 IU/mL; DNA Double-Stranded Negative (Negative)
[2022-12-26] MEDS: hydrOXYzine HCL 25 MG TAB PO SCH (21:12)
[2022-12-26] MEDS: ALPRAZolam 0.25 MG TAB PO SCH (21:12)
[2022-12-26] MEDS: TEMAZEPAM 7.5 MG CAP PO SCH (21:12)
[2022-12-27 04:40] VITALS: BP 129/79; PULSE 66; TEMP 97.8
[2022-12-27 05:19] LABS: Cardiolipin Ab IgG Interp Negative (Negative); Cardiolipin Ab IgM Interp Negative (Negative); Cardiolipin IgM Antibody <1.5 U/mL
[2022-12-27] MEDS: CLOPIDOGREL 75 MG TAB PO SCH (08:19)
[2022-12-27] MEDS: GABAPENTIN 100 MG CAP PO SCH ×2 (08:19→09:02)
[2022-12-27] MEDS: FOLIC ACID 1 MG TAB PO SCH (08:19)
[2022-12-27] MEDS: ASPIRIN 81 MG PO SCH (08:19)
[2022-12-27] MEDS: TAMSULOSIN 0.4 MG CAP.ER.24H PO SCH (08:19)
[2022-12-27] MEDS: HEPARIN SODIUM,PORCINE 5,000 UNIT/ML 1 ML VIAL SQ SCH (08:20)
[2022-12-27] MEDS ORDERED: ATORVASTATIN 40 MG TAB PO SCH (09:00)
[2022-12-27 14:20] LABS: APTT 42 Sec(s) (<43); Dilute Russell Viper Venom 39 Sec(s) (<44)
--- NOTE | 2022-12-27 15:03 | P.DS ---
Providers Date of admission: 12/25/22 01:23 Expected date of discharge: 12/27/22 Attending physician: Tata Vallejo MD Consults: 12/25/22 01:22 Consult Physician Routine Consulting Provider: Manolo Tovar Consult Reason/Comments: tia,cva Do you want consulting provider notified?: Yes 12/25/22 06:25 Consult Physician Routine Consulting Provider: Antonio Wolfe Consult Reason/Comments: tia,cva Do you want consulting provider notified?: Yes Primary care physician: [facility] Course: Discharge Diagnosis: Right sided neuro deficits, believed to be results of evolving symptoms from recent stroke versus TIA, MRI ruled out new stroke. Patient was started on Plavix 75 mg daily and addition to daily aspirin 81 mg. Patient's neuro interventionalist was contacted by neurologist and patient to follow-up outpatient in his office later today. Patient had a 30 day event monitor placed prior to discharge, results to be sent to Dr. Wolfe for follow-up and management. History of recent CVA with administration of TPA followed by embolectomy Hospital Course: Patient is a very pleasant 52-year-old male with a past medical history of previous CVA with right-sided deficits. Patient reports recent CVA on 10/26/22 in which she was found to have a totally occluded left cerebral artery and received TPA and later transferred to [facility] and underwent an embolectomy. Patient states since this event he has had persistent numbness and tingling to the right side of his face, right upper extremity, and right lower extremity. Patient denies having any weakness or decreased range of motion from this event. Patient states he remains on a daily aspirin and atorvastatin for treatment and recently underwent a CORTNEY on 12/20/22 in which he was diagnosed with a PFO and currently scheduled to undergo PFO repair an outpatient basis. Patient reports he discussed with his diplomatic interpreter in detail and at that time they decided against anticoagulants as patient needs to remain free from anticoagulants for 12 weeks for testing of lupus. Patient reports up until ye ster evening feeling baseline normal with no other complaints. He reports he has been working with physical therapy and has even been improving and also able to push his lawnmower and cut his own grass. Patient states yesterday evening while sitting on the couch he suddenly felt a new onset heaviness go down his entire right side. Patient reports the right side of his face, right upper extremity, and right leg simply just feel extremely heavy and weighed down (he states he did have some numbness and tingling previously but never a heaviness or weakness). Patient reports in addition to this, the right side of his face also feels more numb than his normal. He denies having any other deficits including changes in or difficulties with his speech, changes in balance, dizziness/lightheadedness, headache, changes in vision or hearing, dysphagia, chest pain, palpitations, shortness of breath, nausea, or vomiting. Patient reports he immediately notified his that something was wrong and was brought straight to the hospital. Upon arrival to the hospital patient underwent full evaluation. Vital signs completed showing blood pressure 143/79, heart rate 76, respiratory rate 20, temp 97.6 Fahrenheit, SpO2 96% on room air. CT head completed negative for acute intercranial process with reports of no significant changes from prior CT completed 10/26/22. CTA head then completed r eporting prior occluded left vertebral artery now shows patency with no new significant focal stenosis in the common or internal carotid arteries, no large vessel occlusion, or aneurysm at the level of [place]. Labs were completed and reviewed. CBC, coags, and CMP were unremarkable. Troponin negative at less than 0.012. Patient was admitted under our services with consultation to neurology and cardiology. MRI was completed and radiology report reviewed reporting the susceptibility weighted images demonstrate microhemorrhage within the cerebellum bilaterally and demonstrated by punctate foci of blooming artifact, left thalamus and bilateral cerebellar hemispheres, showing no evidence for acute/subacute CVA, and nonspecific white matter changes likely secondary to small vessel ischemic disease. Venous Dopplers completed of bilateral upper and lower extremities all negative for DVT. Physical exam: Vital signs reviewed and stable. General: Nontoxic, no distress and appears stated age. Derm: Skin warm and dry, normal coloration for ethnicity. Head: Atraumatic, normocephalic and symmetric. Eyes: EOMs intact, no lid lag, and anicteric sclera Mouth: no lip lesions, mucus membranes moist Cardiovascular: regular rate and rhythm with normal S1S2, no murmur, positive posterior tibial pulses bilaterally, and cap refill < 2 seconds. Lungs: Respirations even, regular, and unlabored on room air. Lungs CTA bilaterally, no rhonchi, no rales, no wheezing, and no accessory muscle usage. Abdominal: soft, nontender to palpation, no guarding, no appreciable organomegaly Ext No gross muscle atrophy, no edema, no contractures. Movement and sensation intact. Patient does have decreased sensation in right upper and lower extremities as well as right side of face. Patient with moderate right upper extremity and right lower extremity weakness upon comparison. Neuro: Speech clear, face symmetrical and CN II-XII Psych: Alert and oriented to person, place, time, and situation. Appropriate and pleasant affect. A total of 33 minutes of time were spent preparing this complex discharge summary. Pt was discharged on 12/27/22 at 9:26 AM. Patient was seen independently by Nurse Practitioner. This document was prepared using [employer] dictation software. Please allow for errors in news copy editor while rare they do occur. Patient Condition at Discharge: Stable Plan - Discharge Summary Discharge Rx Participant: No New Discharge Prescriptions: New Gabapentin [Neurontin] 100 mg PO TID 30 Days #90 cap Clopidogrel [Plavix] 75 mg PO DAILY 30 Days #30 tab Continue Nf-Healthy Colon 1 tab PO DAILY Folic Acid 1 mg PO DAILY ALPRAZolam [Xanax] 0.25 mg PO HS Healthy Colon(Unknown) 1 cap PO DAILY Ustekinumab [Stelara] 90 mg SQ Q56D Cyanocobalamin [Vitamin B-12 Injection] 1,000 mcg SQ SA Turmeric Root Extract [Turmeric] 500 mg PO DAILY Tamsulosin [Flomax] 0.4 mg PO DAILY hydrOXYzine HCL 25 mg PO HS Temazepam 7.5 mg PO HS Aspirin 81 mg PO DAILY Changed Atorvastatin [Lipitor] 40 mg PO DAILY #0 Discharge Medication List ALPRAZolam [Xanax] 0.25 mg PO HS 12/17/22 [History] Cyanocobalamin [Vitamin B-12 Injection] 1,000 mcg SQ SA 12/17/22 [History] Folic Acid 1 mg PO DAILY 12/17/22 [History] Nf-Healthy Colon 1 tab PO DAILY 12/17/22 [History] Tamsulosin [Flomax] 0.4 mg PO DAILY 12/17/22 [History] Temazepam 7.5 mg PO HS 12/17/22 [History] Turmeric Root Extract [Turmeric] 500 mg PO DAILY 12/17/22 [History] hydrOXYzine HCL 25 mg PO HS 12/17/22 [History] Aspirin 81 mg PO DAILY 12/24/22 [History] Healthy Colon(Unknown) 1 cap PO DAILY 12/24/22 [History] Ustekinumab [Stelara] 90 mg SQ Q56D 12/25/22 [History] Atorvastatin [Lipitor] 40 mg PO DAILY #0 12/27/22 [Rx] Clopidogrel [Plavix] 75 mg PO DAILY 30 Days #30 tab 12/27/22 [Rx] Gabapentin [Neurontin] 100 mg PO TID 30 Days #90 cap 12/27/22 [Rx] Follow up Appointment(s)/Referral(s): Bereket Rothman MD [Primary Care Provider] - 1-2 days (Offices will call with an appointment date and time.) Antonio Wolfe DO [STAFF PHYSICIAN] - 01/01/23 (Please keep scheduled appointment) Patient Instructions/Handouts: Transient Ischemic Attack (DC), Paresthesia (GEN), Patent [place] (GEN) Activity/Diet/Wound Care/Special Instructions: Activity: As tolerated. Take breaks as needed. Continue working with your physical therapist for ongoing PT/OT. Diet: Heart healthy and carb consistent diet. Avoid salts, or foods with hidden salts such as canned or boxed foods and frozen dinners. Extra salt makes your heart work harder and traps the fluid in your body for longer. Special Instructions: Take all of your medications as directed and remember to keep all of your doctor's appointments and follow-up as needed. Upon discharge, he will need to go across the street to [facility] office. Dr. Wolfe has arranged for event monitor to be placed today prior to your appointment with your neurointerventionalist, Dr. Valdez. . Thank you for allowing us to participate in your care, it was truly a pleasure having you for our patient!!! Discharge Disposition: HOME SELF-CARE
[2022-12-28] MEDS ORDERED: CYANOCOBALAMIN 1,000 MCG/ML 1 ML VIAL SQ SCH (09:00)
== END 2022-12-27 09:56 | disposition home or self-care (01) ==
LOC: EC 22:02 → 3SCARD 12-25 01:23
PROVIDERS: ADMIT Internal Medicine; ATTEND Internal Medicine
DX: R42 Dizziness and giddiness (principal); R53.1 Weakness; R20.0 Anesthesia of skin; R20.2 Paresthesia of skin; Q21.12 Patent foramen ovale; K50.90 Crohn's disease, unspecified, without complications; E78.5 Hyperlipidemia, unspecified; I10 Essential (primary) hypertension; F90.9 Attention-deficit hyperactivity disorder, unspecified type; D68.62 Lupus anticoagulant syndrome; I69.351 Hemiplegia and hemiparesis following cerebral infarction affecting right dominant side; Z87.891 Personal history of nicotine dependence; Z79.899 Other long term (current) drug therapy; Z79.82 Long term (current) use of aspirin; Z79.02 Long term (current) use of antithrombotics/antiplatelets; Z88.5 Allergy status to narcotic agent
CPT/HCPCS: 96372 ×3; 96361 ×2; 96374; 99291; 36415; 94760; 93005; 93270; 97162; 92523; 86160 ×2; 86162; 80061; 80053 ×2; 85652; 82550; 83690; 83735; 84100; 84484 ×2; 85025 ×2; 85610; 85730 ×2; 86140; 85613; 82232; 86038; 86225; 86147; 93970 ×2; 70496; 70450; 70498; 70551; G0378 ×3; J2060; J1644 ×3; Q9967

== ENCOUNTER 2023-04-04 21:18 | Inpatient (IN) | payer BC ==
--- NOTE | 2023-04-04 21:49 | ED ---
Abdominal Pain HPI - General Chief Complaint: Abdominal Pain Stated Complaint: Abd pain Time Seen by Provider: 04/04/23 21:48 Source: patient Mode of arrival: ambulatory Limitations: no limitations - History of Present Illness Initial Comments: 52-year-old male with history of Crohn's disease presenting with chief complaint of abdominal pain. Patient states that the pain started around noon today and is a diffuse pain across the abdomen, but there is some concentration to the right side. He admits to nausea with no vomiting. Patient is having diarrhea but states that this does not seem to be increased from his regular bowel habits. He currently follows with Dr. Cardona and is on maintenance therapy of Stelara. No fever, chills, chest pain, difficulty breathing, urinary symptoms, hematochezia, melena. - Related Data Home Medications Medication Instructions Recorded Confirmed ALPRAZolam [Xanax] 0.25 mg PO HS 12/17/22 12/24/22 Cyanocobalamin [Vitamin B-12 1,000 mcg SQ SA 12/17/22 12/24/22 Injection] Folic Acid 1 mg PO DAILY 12/17/22 12/24/22 Nf-Healthy Colon 1 tab PO DAILY 12/17/22 12/24/22 Tamsulosin [Flomax] 0.4 mg PO DAILY 12/17/22 12/24/22 Temazepam 7.5 mg PO HS 12/17/22 12/24/22 Turmeric Root Extract [Turmeric] 500 mg PO DAILY 12/17/22 12/24/22 hydrOXYzine HCL 25 mg PO HS 12/17/22 12/24/22 Aspirin 81 mg PO DAILY 12/24/22 12/24/22 Healthy Colon(Unknown) 1 cap PO DAILY 12/24/22 12/24/22 Ustekinumab [Stelara] 90 mg SQ Q56D 12/25/22 12/25/22 Previous Rx's Medication Instructions Recorded Atorvastatin [Lipitor] 40 mg PO DAILY #0 12/27/22 Clopidogrel [Plavix] 75 mg PO DAILY 30 Days #30 tab 12/27/22 Gabapentin [Neurontin] 100 mg PO TID 30 Days #90 cap 12/27/22 Allergies Allergy/AdvReac Type Severity Reaction Status Date / Time morphine AdvReac Nausea & Verified 12/24/22 23:07 Vomiting Review of Systems ROS Statement: Those systems with pertinent positive or pertinent negative responses have been documented in the HPI. ROS Other: All systems not noted in ROS Statement are negative. Past Medical History Past Medical History: CVA/TIA, Hyperlipidemia Additional Past Medical History / Comment(s): Crohns disease with bowel obstruc tions. stroke with right sided weakness History of Any Multi-Drug Resistant Organisms: None Reported Past Surgical History: Appendectomy, Bowel Resection, Cholecystectomy Additional Past Surgical History / Comment(s): resection of colon x2, colonoscopy, shoulder surgery, thrombectomy/TPA Past Anesthesia/Blood Transfusion Reactions: No Reported Reaction Past Psychological History: ADD/ADHD Smoking Status: Former smoker Past Alcohol Use History: None Reported Past Drug Use History: None Reported - Past Family History Mother Family Medical History: No Reported History Father Family Medical History: No Reported History General Exam - General Exam Comments Initial Comments: Visual Physical Exam Vital signs reviewed General: Well-appearing, nontoxic, no acute distress. Head: Normocephalic, atraumatic Eyes: PERRLA, EOMI ENT: Airway patent Chest: Nonlabored breathing Skin: No visual rash, normal skin tone Neuro: Alert and oriented 3 Musculoskeletal: No gross abnormalities Limitations: no limitations General appearance: alert, in no apparent distress Head exam: Present: atraumatic, normocephalic Eye exam: Present: normal appearance, EOMI Neck exam: Present: normal inspection Respiratory exam: Present: normal lung sounds bilaterally. Absent: respiratory distress, wheezes, rales, rhonchi, stridor Cardiovascular Exam: Present: regular rate, normal rhythm, normal heart sounds. Absent: systolic murmur, diastolic murmur, rubs, gallop, clicks GI/Abdominal exam: Present: soft, tenderness. Absent: distended, guarding, rebound, rigid Neurological exam: Present: alert, oriented X3 Psychiatric exam: Present: normal affect, normal mood Skin exam: Present: warm, dry Course Vital Signs 04/04/23 04/04/23 04/04/23 21:46 23:08 23:54 Temperature 97.9 F 98.1 F Pulse Rate 89 94 85 Respiratory 18 20 16 Rate Blood Pressure 155/80 148/94 149/99 O2 Sat by Pulse 93 L 97 94 L Oximetry Medical Decision Making - Medical Decision Making Was pt. sent in by a medical professional or institution (, PA, KINDERGARTEN ASSISTANT, urgent care, hospital, or [facility]...) When possible be specific @ -No Did you speak to anyone other than the patient for history (EMS, parent, family, police, friend...)? What history was obtained from this source @ -No Did you review nursing and triage notes (agree or disagree)? Why? @ -I reviewed and agree with nursing and triage notes Were old charts reviewed (outside hosp., previous admission, EMS record, old EKG, old radiological studies, urgent care reports/EKG's, [facility] records)? Report findings @ -Reviewed previous admissions Differential Diagnosis (chest pain, altered mental status, abdominal pain women, abdominal pain men, vaginal bleeding, weakness, fever, dyspnea, syncope, headache, dizziness, GI bleed, back pain, seizure, CVA, palpatations, mental health, musculoskeletal)? @ -MDM Differential Abdominal Pain Men: Appendicitis, cholecystitis, diverticulosis, ischemic bowel, pancreatitis, hepatitis, UTI, gastroenteritis, AAA, incarcerated hernia, bowel obstruction, constipation, inflammatory bowel, hepatitis, peptic ulcer disease, splenic infarction, perforated viscus, testicular torsion... This is not meant to be an all-inclusive list EKG interpreted by me (3pts min.). @ -As above X-rays interpreted by me (1pt min.). @ -None done CT interpreted by me (1pt min.). @ -CT shows active inflammatory change at the gregg-terminal ileum causing an uncomplicated mild partial distal small bowel obstruction U/S interpreted by me (1pt. min.). @ -None done What testing was considered but not performed or refused? (CT, X-rays, U/S, la bs)? Why? @ -None What meds were considered but not given or refused? Why? @ -None Did you discuss the management of the patient with other professionals (professionals i.e. , LEONEL, KINDERGARTEN ASSISTANT, lab, RT, psych nurse, director social, fraud analyst, teacher, property officer, family caseworker)? Give summary @ -Spoke with Dr. Miller who accepted admission Was smoking cessation discussed for >3mins.? @ -No Was critical care preformed (if so, how long)? @ -No Were there social determinants of health that impacted care today? How? (Ho melessness, low income, unemployed, alcoholism, drug addiction, transportation, low edu. Level, literacy, decrease access to med. care, [facility], rehab)? @ -No Was there de-escalation of care discussed even if they declined (Discuss DNR or withdrawal of care, Hospice)? DNR status @ -No What co-morbidities impacted this encounter? (DM, HTN, Smoking, COPD, CAD, Cancer, CVA, ARF, Chemo, Hep., AIDS, mental health diagnosis, sleep apnea, morbid obesity)? @ -Crohn's disease Was patient admitted / discharged? Hospital course, mention meds given and route, prescriptions, significant lab abnormalities, going to OR and other pertinent info. @ -52-year-old male with history of Crohn's disease presenting with chief complaint of abdominal pain. Nausea with no vomiting. States that this feels like a Crohn's flareup and bowel obstruction which he has had in the past. Hi story physical examination are conducted. WBC 13.1. Lactic acid 2.3. CT shows inflammatory changes around the neoterminal ileum causing an uncomplicated mild partial distal small bowel obstruction. Patient is given Solu-Medrol 60 mg. He is placed nothing by mouth and provided with analgesia, antiemetics, and IV fluids. Patient is admitted, patient is agreeable with this plan. I discussed this case with my attending Dr. Nelson Undiagnosed new problem with uncertain prognosis? @ -No Drug Therapy requiring intensive monitoring for toxicity (Heparin, Nitro, Insulin, Cardizem)? @ -No Were any procedures done? @ -No Diagnosis/symptom? @ -Crohn's flare with partial small bowel obstruction Acute, or Chronic, or Acute on Chronic? @ -Acute Uncomplicated (without systemic symptoms) or Complicated (systemic symptoms)? @ -Complicated Side effects of treatment? @ -No Exacerbation, Progression, or Severe Exacerbation? @ -Exacerbation Poses a threat to life or bodily function? How? (Chest pain, [place], [place], pneumonia, PE, COPD, DKA, ARF, appy, cholecystitis, CVA, Diverticulitis, Homicidal, Suicidal, threat to staff... and all critical care pts) @ -yes - Lab Data Result diagrams: 04/04/23 21:49 04/04/23 21:49 Lab Results 04/04/23 04/04/23 04/04/23 Range/Units 21:49 21:49 21:49 WBC 13.1 H (3.8-10.6) k/uL RBC 5.27 (4.30-5.90) m/uL Hgb 15.7 (13.0-17.5) gm/dL Hct 47.3 (39.0-53.0) % MCV 89.7 (80.0-100.0) fL MCH 29.9 (25.0-35.0) pg MCHC 33.3 (31.0-37.0) g/dL RDW 12.9 (11.5-15.5) % Plt Count 452 H (150-450) k/uL MPV 6.5 Neutrophils % 76 % Lymphocytes % 14 % Monocytes % 6 % Eosinophils % 2 % Basophils % 0 % Neutrophils # 10.0 H (1.3-7.7) k/uL Lymphocytes # 1.9 (1.0-4.8) k/uL Monocytes # 0.8 (0-1.0) k/uL Eosinophils # 0.3 (0-0.7) k/uL Basophils # 0.1 (0-0.2) k/uL Sodium 141 (137-145) mmol/L Potassium 4.2 (3.5-5.1) mmol/L Chloride 104 (98-107) mmol/L Carbon Dioxide 27 (22-30) mmol/L Anion Gap 10 mmol/L BUN 20 (9-20) mg/dL Creatinine 0.95 (0.66-1.25) mg/dL Est GFR (CKD-EPI)AfAm >90 (>60 ml/min/1.73 sqM) Est GFR (CKD-EPI)NonAf >90 (>60 ml/min/1.73 sqM) Glucose 94 (74-99) mg/dL Lactic Ac Sepsis Rflx Plasma Lactic Acid Donnell 2.3 H* (0.7-2.0) mmol/L Calcium 9.6 (8.4-10.2) mg/dL Total Bilirubin 0.8 (0.2-1.3) mg/dL AST 39 (17-59) U/L ALT 51 H (4-49) U/L Alkaline Phosphatase 108 (38-126) U/L Total Protein 8.0 (6.3-8.2) g/dL Albumin 4.6 (3.5-5.0) g/dL Amylase 53 (30-110) U/L Lipase 50 (23-300) U/L 04/04/23 Range/Units 22:21 WBC (3.8-10.6) k/uL RBC (4.30-5.90) m/uL Hgb (13.0-17.5) gm/dL Hct (39.0-53.0) % MCV (80.0-100.0) fL MCH (25.0-35.0) pg MCHC (31.0-37.0) g/dL RDW (11.5-15.5) % Plt Count (150-450) k/uL MPV Neutrophils % % Lymphocytes % % Monocytes % % Eosinophils % % Basophils % % Neutrophils # (1.3-7.7) k/uL Lymphocytes # (1.0-4.8) k/uL Monocytes # (0-1.0) k/uL Eosinophils # (0-0.7) k/uL Basophils # (0-0.2) k/uL Sodium (137-145) mmol/L Potassium (3.5-5.1) mmol/L Chloride (98-107) mmol/L Carbon Dioxide (22-30) mmol/L Anion Gap mmol/L BUN (9-20) mg/dL Creatinine (0.66-1.25) mg/dL Est GFR (CKD-EPI)AfAm (>60 ml/min/1.73 sqM) Est GFR (CKD-EPI)NonAf (>60 ml/min/1.73 sqM) Glucose (74-99) mg/dL Lactic Ac Sepsis Rflx Y Plasma Lactic Acid Donnell (0.7-2.0) mmol/L Calcium (8.4-10.2) mg/dL Total Bilirubin (0.2-1.3) mg/dL AST (17-59) U/L ALT (4-49) U/L Alkaline Phosphatase (38-126) U/L Total Protein (6.3-8.2) g/dL Albumin (3.5-5.0) g/dL Amylase (30-110) U/L Lipase (23-300) U/L Disposition Clinical Impression: Crohns disease, Partial small bowel obstruction Disposition: ADMITTED IP TO THIS [facility] Condition: Stable Time of Disposition: 00:04
[2023-04-04 22:06] LABS: Basophils # (A) 0.1 k/uL (0-0.2); Basophils % (A) 0 %; Eosinophils # (A) 0.3 k/uL (0-0.7); Eosinophils % (A) 2 %; HCT 47.3 % (39.0-53.0); HGB 15.7 gm/dL (13.0-17.5); Lymphocytes # (A) 1.9 k/uL (1.0-4.8); Lymphocytes % (A) 14 %; MCH 29.9 pg (25.0-35.0); MCHC 33.3 g/dL (31.0-37.0); MCV 89.7 fL (80.0-100.0); Mean Platelet Volume 6.5; Monocytes # (A) 0.8 k/uL (0-1.0); Monocytes % (A) 6 %; Neutrophils % (A) 76 %; Platelet Count 452 k/uL (150-450); RBC 5.27 m/uL (4.30-5.90); RDW 12.9 % (11.5-15.5); WBC 13.1 k/uL (3.8-10.6)
[2023-04-04 22:17] LABS: ALT 51 U/L (4-49); AST 39 U/L (17-59); African American GFR (CKD) >90 (>60 ml/min/1.73 sqM); Albumin 4.6 g/dL (3.5-5.0); Alkaline Phosphatase 108 U/L (38-126); Amylase 53 U/L (30-110); Anion Gap 10 mmol/L; Blood Urea Nitrogen 20 mg/dL (9-20); Calcium 9.6 mg/dL (8.4-10.2); Carbon Dioxide 27 mmol/L (22-30); Chloride 104 mmol/L (98-107); Glucose 94 mg/dL (74-99); Lipase 50 U/L (23-300); Non-African American GFR(CKD) >90 (>60 ml/min/1.73 sqM); Potassium 4.2 mmol/L (3.5-5.1); Sodium 141 mmol/L (137-145); Total Bilirubin 0.8 mg/dL (0.2-1.3)
--- NOTE | 2023-04-04 23:00 | CT ---
EXAMINATION TYPE: CT abdomen pelvis w con DATE OF EXAM: 04/04/2023 COMPARISON: Most recent prior CT September 18, 2021 HISTORY: Abdominal pain. History of Crohn's disease. CT DLP: 2300 mGycm, Automated Exposure Control for Dose Reduction was Utilized. CONTRAST: CT scan of the abdomen and pelvis is performed without oral and with IV Contrast, patient injected wi th 100 mL of Isovue 300. FINDINGS: LUNG BASES: No significant abnormality is appreciated. LIVER/GB: Cholecystectomy clips are redemonstrated. Liver remains diffusely low dense consistent with fatty infiltrative hepatocellular disease. PANCREAS: No significant abnormality is seen. SPLEEN: No significant abnormality is seen. ADRENALS: No significant abnormality is seen. KIDNEYS: No significant abnormality is seen. BOWEL: Surgical changes in the right side of the bowel is redemonstrated. There is some fluid seen th roughout the colon. Redundant sigmoid colon is present. Slightly prominent fluid and fecal filled dis [place] small bowel loops in the right lower quadrant measuring up to 3.5 cm in diameter. Transition poin t is the neoterminal ileum which has mild to moderate wall thickening over a short to medium length m easuring near 14 cm just before the surgical sutures between the fecal mildly dilated distal small lyric wel loops. No free or mesenteric air. PROSTATE/SEMINAL VESICLES: No gross abnormality seen. LYMPH NODES: No greater than 1cm abdominal or pelvic lymph nodes are appreciated. OSSEOUS STRUCTURES: No significant abnormality is seen. OTHER: No significant additional abnormality is seen. IMPRESSION: There is felt active inflammatory change at the neoterminal ileum causing a uncomplicated mild partial distal small bowel obstruction.
[2023-04-04] MEDS ORDERED: ONDANSETRON 4 MG/2 ML VIAL IVP STA (23:10)
[2023-04-04] MEDS ORDERED: SODIUM CHLORIDE 0.9% 1,000 ML IV ONE (23:10)
[2023-04-04] MEDS ORDERED: HYDROmorphone 1 MG/ML 1 ML SYRINGE IVP STA (23:10)
[2023-04-04] MEDS ORDERED: methylPREDNISolone SOD SUCCI 125 MG/2 ML VIAL IV STA (23:44)
[2023-04-05] MEDS ORDERED: ONDANSETRON 4 MG/2 ML VIAL IVP PRN
[2023-04-05] MEDS ORDERED: NALOXONE 0.4 MG/ML 1 ML VIAL IV PRN
--- NOTE | 2023-04-05 01:27 | P.HPIM ---
History of Present Illness H&P Date: 04/05/23 Patient is a 52-year-old male with a PMH of Crohn's disease status post multiple resections and recurrent SBO's who presents to the emergency room with complaints of abdominal pain. Patient notes pain started earlier today around noon, 8 out of 10 in maximal intensity, aching in nature, waxing and waning, throughout the abdomen, , now improved to 4 out of 10. He reports that symptoms are very similar to his prior Crohn's flares. Denies experiencing vomiting and no change in chronic diarrhea. Denies fever, chest pain, shortness of breath. Reports a long-standing history of multiple Crohn's flares requiring hospitalization. CT abdomen and pelvis with contrast in the emergency room revealed active inflammatory change at the terminal ileum causing a mild partial SBO. Laboratory evaluation was remarkable for leukocytosis of 13.1, lactic acid 2.3, AST 51, and ALT 108. ED documentation reviewed and case discussed with ED provider. Review of systems: Pertinent positives and negatives as discussed in HPI, a complete review of systems was performed and all other systems are negative. Physical examination: Vital signs reviewed General: non toxic, no distress, appears at stated age, normal weight Derm: no unusual rashes/lesions, warm Head: atraumatic, normocephalic, symmetric Eyes: EOMI, no lid lag, anicteric sclera, pupils equal round reactive to light ENT: Nose and ears atraumatic Neck: No cervical lymphadenopathy, trachea midline, supple Mouth: no lip lesion, mucus membranes moist Cardiovascular: S1S2 reg, no murmur, positive dorsalis pedis pulse bilateral, no edema Lungs: CTA bilateral, no rhonchi, no rales, no accessory muscle use Abdominal: soft, nontender to palpation, no guarding Ext: muscle strength 5 out of 5 in all 4 extremities grossly, no gross muscle atrophy, no contractures, Neuro: CN II-XI grossly intact, no gross focal neuro deficits Psych: Alert, oriented, appropriate affect Assessment: Crohn's disease flare with partial SBO Imaging: CT abdomen and pelvis with contrast in the emergency room revealed active inflammatory change at the terminal ileum causing a mild partial SBO. Data Review: Laboratory evaluation was remarkable for leukocytosis of 13.1, lactic acid 2.3, AST 51, and ALT 108. Plan: Continue Solu-Medrol 60 mg every 6 hours Continue IV fluids normal saline 75 mL/h Nothing by mouth for now Antiemetics Pain control C/w home meds once reconciled Consult general surgery Monitor lactic acid for resolution DVT prophylaxis: Lovenox Subq The patient is admitted with an anticipated greater than 2 midnight stay for evaluation of crohn's flare CODE STATUS: Full Code Discussed with: Patient Anticipated discharge place: Home Past Medical History Past Medical History: CVA/TIA, Hyperlipidemia Additional Past Medical History / Comment(s): Crohns disease with bowel obstructions. stroke with right sided weakness History of Any Multi-Drug Resistant Organisms: None Reported Past Surgical History: Appendectomy, Bowel Resection, Cholecystectomy Additional Past Surgical History / Comment(s): resection of colon x2, colonoscopy, shoulder surgery, thrombectomy/TPA Past Anesthesia/Blood Transfusion Reactions: No Reported Reaction Past Psychological History: ADD/ADHD Smoking Status: Former smoker Past Alcohol Use History: None Reported Past Drug Use History: None Reported - Past Family History Mother Family Medical History: No Reported History Father Family Medical History: No Reported History Medications and Allergies Home Medications Medication Instructions Recorded Confirmed Type ALPRAZolam [Xanax] 0.25 mg PO HS 12/17/22 12/24/22 History Cyanocobalamin [Vitamin B-12 1,000 mcg SQ SA 12/17/22 12/24/22 History Injection] Folic Acid 1 mg PO DAILY 12/17/22 12/24/22 History Nf-Healthy Colon 1 tab PO DAILY 12/17/22 12/24/22 History Tamsulosin [Flomax] 0.4 mg PO DAILY 12/17/22 12/24/22 History Temazepam 7.5 mg PO HS 12/17/22 12/24/22 History Turmeric Root Extract [Turmeric] 500 mg PO DAILY 12/17/22 12/24/22 History hydrOXYzine HCL 25 mg PO HS 12/17/22 12/24/22 History Aspirin 81 mg PO DAILY 12/24/22 12/24/22 History Healthy Colon(Unknown) 1 cap PO DAILY 12/24/22 12/24/22 History Ustekinumab [Stelara] 90 mg SQ Q56D 12/25/22 12/25/22 History Atorvastatin [Lipitor] 40 mg PO DAILY #0 12/27/22 12/24/22 Rx Clopidogrel [Plavix] 75 mg PO DAILY 30 Days #30 tab 12/27/22 Rx Gabapentin [Neurontin] 100 mg PO TID 30 Days #90 cap 12/27/22 Rx Allergies Allergy/AdvReac Type Severity Reaction Status Date / Time morphine AdvReac Nausea & Verified 12/24/22 23:07 Vomiting Physical Exam Vitals: Vital Signs Temp Pulse Resp BP Pulse Ox 04/04/23 23:54 85 16 149/99 94 L 04/04/23 23:08 98.1 F 94 20 148/94 97 04/04/23 21:46 97.9 F 89 18 155/80 93 L Intake and Output 04/04/23 04/04/23 04/05/23 14:59 22:59 06:59 Other: Weight 117.934 kg Results CBC & Chem 7: 04/04/23 21:49 04/04/23 21:49 Labs: Abnormal Lab Results - Last 24 Hours (Table) 04/04/23 04/04/23 04/04/23 Range/Units 21:49 21:49 21:49 WBC 13.1 H (3.8-10.6) k/uL Plt Count 452 H (150-450) k/uL Neutrophils # 10.0 H (1.3-7.7) k/uL Plasma Lactic Acid Donnell 2.3 H* (0.7-2.0) mmol/L ALT 51 H (4-49) U/L
[2023-04-05 02:03] LABS: Appearance,Urine Clear (Clear); Bilirubin,Urine Negative (Negative); Blood,Urine Negative (Negative); Color,Urine Light Yellow; Glucose,Urine (UA) Negative (Negative); Ketones,Urine Negative (Negative); Leukocyte Esterase,Urine Negative (Negative); Nitrite,Urine Negative (Negative); PH, Urine 5.5 (5.0-8.0); Protein,Urine Negative (Negative); Urobilinogen,Urine <2.0 mg/dL (<2.0)
[2023-04-05 02:14] LABS: Specific Gravity,Urine >1.050 (1.001-1.035)
[2023-04-05] MEDS: HYDROmorphone 1 MG/ML 1 ML SYRINGE IVP PRN ×7 (02:59→23:27)
[2023-04-05] MEDS: SODIUM CHLORIDE 0.9% 1,000 ML IV SCH ×2 (03:40→16:56)
[2023-04-05] MEDS: methylPREDNISolone SOD SUCCI 125 MG/2 ML VIAL IV SCH ×4 (06:38→23:26)
[2023-04-05] MEDS: KETOROLAC 15 MG/ML 1 ML VIAL IVP PRN ×2 (08:46→18:46)
[2023-04-05] MEDS: ENOXAPARIN 40 MG/0.4 ML SYRINGE SQ SCH (10:01)
[2023-04-05] MEDS: ONDANSETRON 4 MG/2 ML VIAL IVP PRN ×2 (13:36→18:15)
--- NOTE | 2023-04-05 16:01 | P.CON ---
Consult Note - . Consult date: 04/05/23 Assessment/Plan:: - History of Present Illness Initial Comments: 52-year-old male with history of Crohn's disease presenting with chief complaint of abdominal pain. Patient states that the pain started around noon today and is a diffuse pain across the abdomen, but there is some concentration to the right side. He admits to nausea with no vomiting. Patient is having diarrhea but states that this does not seem to be increased from his regular bowel habits. He currently follows with Dr. Cardona and is on maintenance therapy of Stelara. No fever, chills, chest pain, difficulty breathing, urinary symptoms, hematochezia, melena. - Related Data Home Medications Medication Instructions Recorded Confirmed ALPRAZolam [Xanax] 0.25 mg PO HS 12/17/22 12/24/22 Cyanocobalamin [Vitamin B-12 1,000 mcg SQ SA 12/17/22 12/24/22 Injection] Folic Acid 1 mg PO DAILY 12/17/22 12/24/22 Nf-Healthy Colon 1 tab PO DAILY 12/17/22 12/24/22 Tamsulosin [Flomax] 0.4 mg PO DAILY 12/17/22 12/24/22 Temazepam 7.5 mg PO HS 12/17/22 12/24/22 Turmeric Root Extract [Turmeric] 500 mg PO DAILY 12/17/22 12/24/22 hydrOXYzine HCL 25 mg PO HS 12/17/22 12/24/22 Aspirin 81 mg PO DAILY 12/24/22 12/24/22 Healthy Colon(Unknown) 1 cap PO DAILY 12/24/22 12/24/22 Ustekinumab [Stelara] 90 mg SQ Q56D 12/25/22 12/25/22 Previous Rx's Medication Instructions Recorded Atorvastatin [Lipitor] 40 mg PO DAILY #0 12/27/22 Clopidogrel [Plavix] 75 mg PO DAILY 30 Days #30 tab 12/27/22 Gabapentin [Neurontin] 100 mg PO TID 30 Days #90 cap 12/27/22 Allergies Allergy/AdvReac Type Severity Reaction Status Date / Time morphine AdvReac Nausea & Verified 12/24/22 23:07 Vomiting Review of Systems ROS Statement: Those systems with pertinent positive or pertinent negative responses have been documented in the HPI. ROS Other: All systems not noted in ROS Statement are negative. Past Medical History Past Medical History: CVA/TIA, Hyperlipidemia Additional Past Medical History / Comment(s): Crohns disease with bowel obstructions. stroke with right sided weakness History of Any Multi-Drug Resistant Organisms: None Reported Past Surgical History: Appendectomy, Bowel Resection, Cholecystectomy Additional Past Surgical History / Comment(s): resection of colon x2, colonoscopy, shoulder surgery, thrombectomy/TPA Past Anesthesia/Blood Transfusion Reactions: No Reported Reaction Past Psychological History: ADD/ADHD Smoking Status: Former smoker Past Alcohol Use History: None Reported Past Drug Use History: None Reported - Past Family History Mother Family Medical History: No Reported History Father Family Medical History: No Reported History General Exam - General Exam Comments Initial Comments: Visual Physical Exam Vital signs reviewed General: Well-appearing, nontoxic, no acute distress. Head: Normocephalic, atraumatic Eyes: PERRLA, EOMI ENT: Airway patent Chest: Nonlabored breathing Skin: No visual rash, normal skin tone Neuro: Alert and oriented 3 Musculoskeletal: No gross abnormalities Limitations: no limitations General appearance: alert, in no apparent distress Head exam: Present: atraumatic, normocephalic Eye exam: Present: normal appearance, EOMI Neck exam: Present: normal inspection Respiratory exam: Present: normal lung sounds bilaterally. Absent: respiratory distress, wheezes, rales, rhonchi, stridor Cardiovascular Exam: Present: regular rate, normal rhythm, normal heart sounds. Absent: systolic murmur, diastolic murmur, rubs, gallop, clicks GI/Abdominal exam: Present: soft, tenderness. Absent: distended, guarding, rebound, rigid Neurological exam: Present: alert, oriented X3 Psychiatric exam: Present: normal affect, normal mood Skin exam: Present: warm, dry Course Vital Signs 04/04/23 04/04/23 04/04/23 21:46 23:08 23:54 Temperature 97.9 F 98.1 F Pulse Rate 89 94 85 Respiratory 18 20 16 Rate Blood Pressure 155/80 148/94 149/99 O2 Sat by Pulse 93 L 97 94 L Oximetry A/P 52-year-old male with history of Crohn's disease presenting with chief complaint of abdominal pain. Nausea with no vomiting. States that this feels like a Crohn's flareup and bowel obstruction which he has had in the past. History physical examination are conducted. WBC 13.1. Lactic acid 2.3. CT shows inflammatory changes around the neoterminal ileum causing an uncomplicated mild partial distal small bowel obstruction. Patient is given Solu-Medrol 60 mg. He is placed nothing by mouth and provided with analgesia, antiemetics, and IV fluids. Patient is pain free anfd had 2 bowel movements. keep NPO IV fluids coninue steroids, serial exxam, GI consult No immediate surgical intervention needed - Lab Data Result diagrams: 04/04/23 21:49 04/04/23 21:49 Lab Results 04/04/23 04/04/23 04/04/23 Range/Units 21:49 21:49 21:49 WBC 13.1 H (3.8-10.6) k/uL RBC 5.27 (4.30-5.90) m/uL Hgb 15.7 (13.0-17.5) gm/dL Hct 47.3 (39.0-53.0) % MCV 89.7 (80.0-100.0) fL MCH 29.9 (25.0-35.0) pg MCHC 33.3 (31.0-37.0) g/dL RDW 12.9 (11.5-15.5) % Plt Count 452 H (150-450) k/uL MPV 6.5 Neutrophils % 76 % Lymphocytes % 14 % Monocytes % 6 % Eosinophils % 2 % Basophils % 0 % Neutrophils # 10.0 H (1.3-7.7) k/uL Lymphocytes # 1.9 (1.0-4.8) k/uL Monocytes # 0.8 (0-1.0) k/uL Eosinophils # 0.3 (0-0.7) k/uL Basophils # 0.1 (0-0.2) k/uL Sodium 141 (137-145) mmol/L Potassium 4.2 (3.5-5.1) mmol/L Chloride 104 (98-107) mmol/L Carbon Dioxide 27 (22-30) mmol/L Anion Gap 10 mmol/L BUN 20 (9-20) mg/dL Creatinine 0.95 (0.66-1.25) mg/dL Est GFR (CKD-EPI)AfAm >90 (>60 ml/min/1.73 sqM) Est GFR (CKD-EPI)NonAf >90 (>60 ml/min/1.73 sqM) Glucose 94 (74-99) mg/dL Lactic Ac Sepsis Rflx Plasma Lactic Acid Donnell 2.3 H* (0.7-2.0) mmol/L Calcium 9.6 (8.4-10.2) mg/dL Total Bilirubin 0.8 (0.2-1.3) mg/dL AST 39 (17-59) U/L ALT 51 H (4-49) U/L Alkaline Phosphatase 108 (38-126) U/L Total Protein 8.0 (6.3-8.2) g/dL Albumin 4.6 (3.5-5.0) g/dL Amylase 53 (30-110) U/L Lipase 50 (23-300) U/L 04/04/23 Range/Units 22:21 WBC (3.8-10.6) k/uL RBC (4.30-5.90) m/uL Hgb (13.0-17.5) gm/dL Hct (39.0-53.0) % MCV (80.0-100.0) fL MCH (25.0-35.0) pg MCHC (31.0-37.0) g/dL RDW (11.5-15.5) % Plt Count (150-450) k/uL MPV Neutrophils % % Lymphocytes % % Monocytes % % Eosinophils % % Basophils % % Neutrophils # (1.3-7.7) k/uL Lymphocytes # (1.0-4.8) k/uL Monocytes # (0-1.0) k/uL Eosinophils # (0-0.7) k/uL Basophils # (0-0.2) k/uL Sodium (137-145) mmol/L Potassium (3.5-5.1) mmol/L Chloride (98-107) mmol/L Carbon Dioxide (22-30) mmol/L Anion Gap mmol/L BUN (9-20) mg/dL Creatinine (0.66-1.25) mg/dL Est GFR (CKD-EPI)AfAm (>60 ml/min/1.73 sqM) Est GFR (CKD-EPI)NonAf (>60 ml/min/1.73 sqM) Glucose (74-99) mg/dL Lactic Ac Sepsis Rflx Y Plasma Lactic Acid Donnell (0.7-2.0) mmol/L Calcium (8.4-10.2) mg/dL Total Bilirubin (0.2-1.3) mg/dL AST (17-59) U/L ALT (4-49) U/L Alkaline Phosphatase (38-126) U/L Total Protein (6.3-8.2) g/dL Albumin (3.5-5.0) g/dL Amylase (30-110) U/L Lipase (23-300) U/L
[2023-04-06] MEDS: HYDROmorphone 1 MG/ML 1 ML SYRINGE IVP PRN ×4 (02:31→16:57)
[2023-04-06] MEDS: SODIUM CHLORIDE 0.9% 1,000 ML IV SCH ×2 (02:32→16:59)
[2023-04-06] MEDS: methylPREDNISolone SOD SUCCI 125 MG/2 ML VIAL IV SCH ×4 (05:13→23:43)
[2023-04-06] MEDS: ENOXAPARIN 40 MG/0.4 ML SYRINGE SQ SCH (08:09)
[2023-04-06] MEDS: ONDANSETRON 4 MG/2 ML VIAL IVP PRN ×2 (09:04→15:52)
--- NOTE | 2023-04-06 09:45 | P.PN ---
Subjective Progress Note Date: 04/06/23 Pt c/o some abd pain today, not as bad as admission, but slightly worse than yesterday. Gen: In NAD, non-toxic HEENT: normocephalic, atraumatic, hearing acuity is intant, mucous membranes moist CVS: perfusing all extremities well, no pitting edema, Respiratory: symmetric chest expansion, no accessory muscle use, GI: soft, NTTP, ND, : no suprapubic tenderness, no CVA tenderness MSK/Derm: no rashes, cyanosis Neuro: CN II-XII intact, no motor weakness, Psych: cooperative, euthymic mood, judgment and insight is intact Hospital course: Patient is a 52-year-old male with a PMH of Crohn's disease status post multiple resections and recurrent SBO's who presented to the emergency room with complai nts of abdominal pain. CT abdomen and pelvis with contrast in the emergency room revealed active inflammatory change at the terminal ileum causing a mild partial SBO. Laboratory evaluation was remarkable for leukocytosis of 13.1, lactic acid 2.3, AST 51, and ALT 108. Assessment/plan: Crohn's disease flare with partial SBO Continue Solu-Medrol 60 mg every 6 hours Continue IV fluids normal saline 75 mL/h Clear liquid diet Antiemetics Pain control C/w home meds once reconciled Consult general surgery DVT prophylaxis: Lovenox Subq The patient is admitted with an anticipated greater than 2 midnight stay for evaluation of crohn's flare CODE STATUS: Full Code Discussed with: Patient Anticipated discharge place: Home Objective - Vital Signs Vital signs: Vital Signs Temp 97.6 F 04/06/23 07:29 Pulse 73 04/06/23 07:29 Resp 16 04/06/23 07:29 BP 173/81 04/06/23 07:29 Pulse Ox 93 L 04/06/23 07:29 FiO2 Intake & Output 04/05/23 04/06/23 04/06/23 18:59 06:59 18:59 Intake Total 160 Balance 160 Intake: Oral 160 Other: Voiding Method Toilet Toilet # Voids 1 2 # Bowel Movements 1 - Labs CBC & Chem 7: 04/04/23 21:49 04/04/23 21:49
--- NOTE | 2023-04-06 11:03 | P.PN ---
Subjective Progress Note Date: 04/06/23 The patient states he feels better today. He states his abdominal pain is improved. He's had some bowel function. On exam vital signs are stable. Abdomen soft. History of Crohn's disease with bowel previous bowel resection. Patient will K receive supportive care. Hopefully he'll be discharged next 24-48 hours. Objective - Vital Signs Vital signs: Vital Signs Temp 97.6 F 04/06/23 07:29 Pulse 73 04/06/23 07:29 Resp 16 04/06/23 07:29 BP 173/81 04/06/23 07:29 Pulse Ox 93 L 04/06/23 07:29 FiO2 Intake & Output 04/05/23 04/06/23 04/06/23 18:59 06:59 18:59 Intake Total 160 Balance 160 Intake: Oral 160 Other: Voiding Method Toilet Toilet # Voids 1 2 # Bowel Movements 1 - Labs CBC & Chem 7: 04/04/23 21:49 04/04/23 21:49
[2023-04-07] MEDS: SODIUM CHLORIDE 0.9% 1,000 ML IV SCH (06:04)
[2023-04-07] MEDS: methylPREDNISolone SOD SUCCI 125 MG/2 ML VIAL IV SCH (06:05)
[2023-04-07] MEDS: ENOXAPARIN 40 MG/0.4 ML SYRINGE SQ SCH (08:26)
[2023-04-07 08:55] VITALS: BP 136/80; PULSE 73; RESP 17; TEMP 97.7
[2023-04-07 09:06] LABS: Basophils # (A) 0.01 X 10*3/uL (0.00-0.10); Basophils % (A) 0.2 %; Eosinophils # (A) 0 X 10*3/uL (0.04-0.35); Eosinophils % (A) 0 %; HCT 36.4 % (39.6-50.0); Lymphocytes # (A) 0.83 X 10*3/uL (0.90-5.00); Lymphocytes % (A) 18.7 %; MCH 30.1 pg (27.0-32.0); MCV 91.2 FL (80.0-97.0); Mean Platelet Volume 9.1 FL (9.5-12.2); Monocytes # (A) 1.22 X 10*3/uL (0.20-1.00); Monocytes % (A) 27.5 %; NRBC Per 100 WBC 0 X 10*3/uL (0.00-0.01); Neutrophils # (A) 2.33 X 10*3/uL (1.80-7.70); Neutrophils % (A) 52.7 %; Platelet Count 343 X 10*3/uL (140-440); RBC 3.99 X 10*6/uL (4.40-5.60); RDW 13.1 % (11.5-14.5); WBC 4.43 X 10*3/uL (4.50-10.00)
[2023-04-07 09:10] LABS: BUN/Creat Ratio 24.56 Ratio (12.00-20.00); Blood Urea Nitrogen 22.1 mg/dL (9.0-27.0); Calcium 9.1 mg/dL (8.7-10.3); Carbon Dioxide 27.4 mmol/L (21.6-31.8); Chloride 105 mmol/L (96-109); Glucose 127 mg/dL (70-110); Magnesium 2.2 mg/dL (1.5-2.4); Potassium 4.4 mmol/L (3.5-5.5); Sodium 141 mmol/L (135-145)
--- NOTE | 2023-04-07 12:10 | P.DS ---
Providers Date of admission: 04/04/23 23:20 Expected date of discharge: 04/07/23 Attending physician: Shabnam Miller MD Consults: 04/05/23 01:28 Consult Physician Urgent Consulting Provider: Aman Matos Reason/Comments: Partial SBO Do you want consulting provider notified?: Yes Primary care physician: [facility] Course: Crohn's disease flare with partial SBO Gen: In NAD, non-toxic HEENT: normocephalic, atraumatic, hearing acuity is intant, mucous membranes moist CVS: perfusing all extremities well, no pitting edema, Respiratory: symmetric chest expansion, no accessory muscle use, GI: soft, NTTP, ND, : no suprapubic tenderness, no CVA tenderness MSK/Derm: no rashes, cyanosis Neuro: CN II-XII intact, no motor weakness, Psych: cooperative, euthymic mood, judgment and insight is intact Hospital course: Patient is a 52-year-old male with a PMH of Crohn's disease status post multiple resections and recurrent SBO's who presented to the emergency room with complaints of abdominal pain. CT abdomen and pelvis with contrast in the emergency room revealed active inflammatory change at the terminal ileum causing a mild partial SBO. Laboratory evaluation was remarkable for leukocytosis of 13.1, lactic acid 2.3, AST 51, and ALT 108. Pt was admitted and started on IV steroids. General surgery was consulted for evluation and recommended non- surgical management. Pts abd pain improved and he was tolerating diet and having regular BMs on day of discharge. He was presribed prednisone taper on discharge and instructions to f/u with PCP and GI. I spent 32 minutes coordinating this discharge on 04/07 Patient Condition at Discharge: Good Plan - Discharge Summary Discharge Rx Participant: No New Discharge Prescriptions: New predniSONE [Deltasone] See Rx Instructions .ROUTE .COMPLEX #34 tab Continue Folic Acid 1 mg PO DAILY ALPRAZolam [Xanax] 0.25 mg PO HS Healthy Colon(Unknown) 1 cap PO DAILY Ustekinumab [Stelara] 90 mg SQ Q56D Atorvastatin [Lipitor] 80 mg PO DAILY Cyanocobalamin [Vitamin B-12 Injection] 1,000 mcg SQ QMONTHLY Turmeric Root Extract [Turmeric] 500 mg PO DAILY hydrOXYzine HCL 25 mg PO HS Temazepam 7.5 mg PO HS Aspirin 81 mg PO DAILY Gabapentin [Neurontin] 100 mg PO TID 30 Days #90 cap Clopidogrel [Plavix] 75 mg PO DAILY 30 Days #30 tab Discharge Medication List ALPRAZolam [Xanax] 0.25 mg PO HS 12/17/22 [History] Cyanocobalamin [Vitamin B-12 Injection] 1,000 mcg SQ QMONTHLY 12/17/22 [History] Folic Acid 1 mg PO DAILY 12/17/22 [History] Temazepam 7.5 mg PO HS 12/17/22 [History] Turmeric Root Extract [Turmeric] 500 mg PO DAILY 12/17/22 [History] hydrOXYzine HCL 25 mg PO HS 12/17/22 [History] Aspirin 81 mg PO DAILY 12/24/22 [History] Healthy Colon(Unknown) 1 cap PO DAILY 12/24/22 [History] Ustekinumab [Stelara] 90 mg SQ Q56D 12/25/22 [History] Clopidogrel [Plavix] 75 mg PO DAILY 30 Days #30 tab 12/27/22 [Rx] Gabapentin [Neurontin] 100 mg PO TID 30 Days #90 cap 12/27/22 [Rx] Atorvastatin [Lipitor] 80 mg PO DAILY 04/05/23 [History] predniSONE [Deltasone] See Rx Instructions .ROUTE .COMPLEX #34 tab 04/07/23 [Rx] Follow up Appointment(s)/Referral(s): Bereket Rothman MD [Primary Care Provider] - 1-2 days Yumi Jordan MD [STAFF PHYSICIAN] - 1 Week Patient Instructions/Handouts: Crohn Disease (DC) Discharge Disposition: HOME SELF-CARE
== END 2023-04-07 10:21 | disposition home or self-care (01) | DRG 386 ==
LOC: EC 21:18 → 5NMEDONC 23:20 → 6NMEDSUR 04-05 04:25
PROVIDERS: ADMIT Internal Medicine; ATTEND Internal Medicine
DX: K50.912 Crohn's disease, unspecified, with intestinal obstruction (principal); I69.351 Hemiplegia and hemiparesis following cerebral infarction affecting right dominant side; E78.5 Hyperlipidemia, unspecified; F90.9 Attention-deficit hyperactivity disorder, unspecified type; Z90.49 Acquired absence of other specified parts of digestive tract; Z79.02 Long term (current) use of antithrombotics/antiplatelets; Z79.82 Long term (current) use of aspirin; Z79.899 Other long term (current) drug therapy; Z88.5 Allergy status to narcotic agent; Z87.891 Personal history of nicotine dependence
CPT/HCPCS: 36415; 74177; 80048; 80053; 81003; 82150; 83605; 83690; 83735; 85025; 96361; 96374; 96375; 96376; 99285

== ENCOUNTER → 2023-11-08 | Outpatient (CLI) | payer OTHER ==
--- NOTE | 2023-11-26 09:01 | MR ---
Patient: Vik Carmona M Ordering Physician: Unknown, Unknown ID: [id number] Phone, Pager: Phone: N/A Pager: N/A : 1970 Age/Gender: 53Y, M Primary Location: N/A Procedure: MR prostate wo/w con S lynn Date: 11/08/2023 7:39:54 AM EXAMINATION TYPE: MR Prostate wo/w con DATE OF EXAM: 11/09/2023 8:30 AM COMPARISON: None. CLINICAL INDICATION: Elevated PSA TECHNIQUE: Multi-planar, multi-sequence imaging of the pelvis is performed prior to and following the uncomplicated administration of bolus intravenous gadolinium. CONTRAST: 11 cc Gadavist. Interpretive Criteria: PI-RADS v2.1 SERUM PSA: 5.050 04-30-23, 6.0 05-22-23 SURGICAL PATHOLOGY: No data available. FINDINGS: Prostatic dimensions: 5.4 x 5.0 x 3.6 cm. Ellipsoid Volume:50.89 (PSA density=0.12 ng/mL/mL) CENTRAL GLAND (Central and Transition Zones/CZ+TZ): Multiple bilateral, heterogenous appearing hypertrophic stromal nodules, without suspicious lesion. ( PI-RADS 2) PERIPHERAL ZONE (PZ): Bilateral linear, indistinct wedgelike areas of low ADC, and low T2 signal, No evidence of masslike a bnormality, or localized perfusional hypervascularity, to further suggest a focus of clinically signi ficant prostate cancer. (PI-RADS 2) SEMINAL VESICLES (SV): Symmetric and unremarkable. PERIPROSTATIC TISSUES: Unremarkable. LYMPH NODES: No enlarged pelvic lymph node. REMAINING PELVIS: Bladder wall is within normal limits given distention. No abnormal free or organized intrapelvic fluid collection. No pathologic bowel dilation or mural thickening. No hernia visualized OSSEOUS STRUCTURES: No suspicious osseous abnormality. IMPRESSION: 1. No specific features for high-risk prostate cancer. Maximum PI-RADS score: 2. 2. Moderate BPH, estimated gland volume 50.89 mL. 3. No suspicious osseous lesion. No lymphadenopathy. No evidence of prostate adenocarcinoma involving the periprostatic tissues.
== END | disposition home or self-care (01) ==
LOC: RADMRIMAIN 08:25
PROVIDERS: ATTEND Urology
DX: N40.0 Benign prostatic hyperplasia without lower urinary tract symptoms (principal)
CPT/HCPCS: 72197; A9585

== ENCOUNTER 2023-12-26 12:10 | Day surgery (SDC) | payer OTHER ==
[2023-12-26] MEDS ORDERED: LACTATED RINGERS 1,000 ML IV SCH (12:48)
[2023-12-26] MEDS: IV FLUID CONTINUATION 1,000 ML IV ONE (12:50)
[2023-12-26 13:22] LABS: Glucose,Whole Blood 91 mg/dL (70-110)
[2023-12-26] MEDS ORDERED: PROPOFOL 10 MG/ML 20 ML VIAL IV ONE (13:45)
[2023-12-26 13:50] VITALS: TEMP 97.8
--- NOTE | 2023-12-26 14:15 | P.PCN ---
Date of Procedure: 12/26/23 Procedure(s) Performed: BRIEF HISTORY: Patient is a 53-year-old pleasant white male scheduled for an elective colonoscopy as a part of evaluation of Crohn's disease. He was diagnosed with Crohn's ileitis approximately 30 years ago. Patient had a terminal ileal resection approximately 20 years ago and another small bowel surgery in 2012. He has been maintained on Stelara injections every 8 weeks. Has intermittent abdominal pain and diarrhea. PROCEDURE PERFORMED: Colonoscopy with biopsy. PREOPERATIVE DIAGNOSIS: History of Crohn's ileitis. IV sedation per Anesthesia. PROCEDURE: After informed consent was obtained, the patient, was brought into the endoscopy unit. IV sedation was administered by Anesthesia under continuous monitoring. Digital rectal examination was normal. Initially the Olympus CF-160 flexible video colonoscope was then inserted in the rectum, gradually advanced into the right colon the ileocolic anastomosis was visualized and appeared strictured. I was not able to advance the scope through the stricture into the distal ileum. There were erosions or ulcerations noted at the ileocolic anastomosis and biopsies were done from this area. Mucosa of the transverse colon, descending colon, sigmoid colon, and rectum appeared normal. Retroflexion was performed in the rectum and no lesions were seen. The patient tolerated the procedure well. 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 He was advised to continue with Stelara injections every 8 weeks. Follow-up with the biopsy results. Follow-up in the office in 2 to 3 weeks. Based on his symptoms we will consider increasing the Stelara to every 4 weeks..
[2023-12-26 14:48] VITALS: BP 117/77; PULSE 62; RESP 18
== END 2023-12-26 15:15 | disposition home or self-care (01) ==
LOC: ORWHC2ENDO 12:10
PROVIDERS: ATTEND Internal Medicine Gastroenterology
CPT/HCPCS: 45380; 88305

== ENCOUNTER → 2024-01-26 | Outpatient (CLI) | payer OTHER ==
[2024-01-27 02:59] LABS: Basophils # (A) 0.05 X 10*3/uL (0.00-0.10); Basophils % (A) 0.7 %; Eosinophils % (A) 4.2 %; HCT 46.1 % (39.6-50.0); HGB 15.1 g/dL (13.0-17.0); Lymphocytes # (A) 2.11 X 10*3/uL (0.90-5.00); Lymphocytes % (A) 29.2 %; MCH 29.3 pg (27.0-32.0); MCHC 32.8 g/dL (32.0-37.0); MCV 89.5 FL (80.0-97.0); Mean Platelet Volume 9.4 FL (9.5-12.2); Monocytes # (A) 0.56 X 10*3/uL (0.20-1.00); Monocytes % (A) 7.8 %; NRBC Per 100 WBC 0 X 10*3/uL (0.00-0.01); Neutrophils # (A) 4.18 X 10*3/uL (1.80-7.70); Neutrophils % (A) 57.8 %; Platelet Count 458 X 10*3/uL (140-440); RBC 5.15 X 10*6/uL (4.40-5.60); RDW 13.6 % (11.5-14.5); WBC 7.22 X 10*3/uL (4.50-10.00)
[2024-01-27 03:20] LABS: Blood Urea Nitrogen 15.3 mg/dL (9.0-27.0); Carbon Dioxide 24.1 mmol/L (21.6-31.8); Chloride 103 mmol/L (96-109); Glucose 92 mg/dL (70-110); Potassium 4.3 mmol/L (3.5-5.5); Sodium 140 mmol/L (135-145)
[2024-01-27 03:21] LABS: ALT 48 U/L (10-49); AST 39 U/L (14-35); Albumin 4.6 g/dL (3.8-4.9); Albumin/Globulin Ratio 1.48 Ratio (1.60-3.17); Alkaline Phosphatase 104 U/L (41-126); Calcium 9.8 mg/dL (8.7-10.3); Globulin 3.1 g/dL (1.6-3.3); Total Bilirubin 0.8 mg/dL (0.3-1.2); Total Protein 7.7 g/dL (6.2-8.2)
== END | disposition home or self-care (01) ==
LOC: LABWHC1 16:11
PROVIDERS: ATTEND Internal Medicine Gastroenterology
DX: K50.90 Crohn's disease, unspecified, without complications (principal)
CPT/HCPCS: 36415; 80053; 85025

== ENCOUNTER 2024-02-26 07:35 | Inpatient (IN) | payer OTHER ==
--- NOTE | 2024-02-26 08:07 | ED ---
Abdominal Pain HPI - General Chief Complaint: Abdominal Pain Stated Complaint: bowel obstruction Time Seen by Provider: 02/26/24 07:39 Source: patient, RN notes reviewed Mode of arrival: ambulatory Limitations: no limitations - History of Present Illness Initial Comments: 53-year-old male presents emerged part complaint abdominal pain. Patient has a history of Crohn's, bowel obstruction in the past. Patient states she has had 2 prior surgeries patient states that pain started last night increased bloating distention, nausea. Patient denies any chest pain or shortness of breath no fevers or chills no other complaints. - Related Data Home Medications Medication Instructions Recorded Confirmed Aspirin 81 mg PO DAILY 12/24/22 02/26/24 Ustekinumab [Stelara] 90 mg SQ Q56D 12/25/22 02/26/24 Atorvastatin [Lipitor] 40 mg PO DAILY 02/26/24 02/26/24 Clopidogrel [Plavix] 75 mg PO DAILY 02/26/24 02/26/24 DULoxetine HCL [Cymbalta] 30 mg PO DAILY 02/26/24 02/26/24 Gabapentin [Neurontin] 300 mg PO TID 02/26/24 02/26/24 Tirzepatide [Zepbound] 5 mg SQ TH 02/26/24 02/26/24 Allergies Allergy/AdvReac Type Severity Reaction Status Date / Time morphine AdvReac Nausea & Verified 02/26/24 11:21 Vomiting Review of Systems ROS Statement: Those systems with pertinent positive or pertinent negative responses have been documented in the HPI. ROS Other: All systems not noted in ROS Statement are negative. Past Medical History Past Medical History: CVA/TIA Additional Past Medical History / Comment(s): Crohns disease with bowel obstruc tions. stroke with right sided weakness. 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 History of Any Multi-Drug Resistant Organisms: None Reported Past Surgical History: Appendectomy, Bowel Resection, Cholecystectomy Additional Past Surgical History / Comment(s): resection of colon x2, colonoscopy, shoulder surgery, thrombectomy/TPA Past Anesthesia/Blood Transfusion Reactions: No Reported Reaction Past Psychological History: ADD/ADHD Smoking Status: Former smoker Past Alcohol Use History: None Reported Past Drug Use History: None Reported - Past Family History Mother Family Medical History: No Reported History Father Family Medical History: No Reported History General Exam Limitations: no limitations General appearance: alert, in no apparent distress Head exam: Present: atraumatic, normocephalic, normal inspection Eye exam: Present: normal appearance, PERRL, EOMI. Absent: scleral icterus, conjunctival injection, periorbital swelling ENT exam: Present: normal exam, normal oropharynx, mucous membranes moist Neck exam: Present: normal inspection, full ROM. Absent: tenderness, meningismus, lymphadenopathy Respiratory exam: Present: normal lung sounds bilaterally. Absent: respiratory distress, wheezes, rales, rhonchi, stridor Cardiovascular Exam: Present: regular rate, normal rhythm, normal heart sounds. Absent: systolic murmur, diastolic murmur, rubs, gallop, clicks GI/Abdominal exam: Present: soft, distended, tenderness, normal bowel sounds. Absent: guarding, rebound, rigid Course Vital Signs 02/26/24 02/26/24 07:40 10:25 Temperature 97.7 F 97.8 F Pulse Rate 97 82 Respiratory 18 16 Rate Blood Pressure 147/97 116/86 O2 Sat by Pulse 95 97 Oximetry Medical Decision Making - Medical Decision Making Was pt. sent in by a medical professional or institution (, PA, ABRASIVE GRADER, urgent care, hospital, or usp...) When possible be specific @ -No Did you speak to anyone other than the patient for history (EMS, parent, family, police, friend...)? What history was obtained from this source @ -No Did you review nursing and triage notes (agree or disagree)? Why? @ -I reviewed and agree with nursing and triage notes Were old charts reviewed (outside hosp., previous admission, EMS record, old EKG, old radiological studies, urgent care reports/EKG's, usp records)? Report findings @ -No old charts were reviewed Differential Diagnosis (chest pain, altered mental status, abdominal pain women, abdominal pain men, vaginal bleeding, weakness, fever, dyspnea, syncope, headache, dizziness, GI bleed, back pain, seizure, CVA, palpatations, mental health, musculoskeletal)? @ -Differential Abdominal Pain Men: Appendicitis, cholecystitis, diverticulosis, ischemic bowel, pancreatitis, hepatitis, UTI, gastroenteritis, AAA, incarcerated hernia, bowel obstruction, constipation, inflammatory bowel, hepatitis, peptic ulcer disease, splenic infarction, perforated viscus, testicular torsion, this is not meant to be an all-inclusive list EKG interpreted by me (3pts min.). @ -None X-rays interpreted by me (1pt min.). @ -None done CT interpreted by me (1pt min.). @ -CT abdomen pelvis showing evidence of active Crohn's, ileitis U/S interpreted by me (1pt. min.). @ -None done What testing was considered but not performed or refused? (CT, X-rays, U/S, labs)? Why? @ -None What meds were considered but not given or refused? Why? @ -None Did you discuss the management of the patient with other professionals (professionals i.e. DrElizabeth, PA, ABRASIVE GRADER, lab, RT, psych nurse, public health social worker, shop steward, teacher, infantry weapons officer, machine adjuster leader case trim)? Give summary @ -sound physician for admission Was smoking cessation discussed for >3mins.? @ -No Was critical care preformed (if so, how long)? @ -No Were there social determinants of health that impacted care today? How? (Homelessness, low income, unemployed, alcoholism, drug addiction, transportation, low edu. Level, literacy, decrease access to med. care, half-way, rehab)? @ -No Was there de-escalation of care discussed even if they declined (Discuss DNR or withdrawal of care, Hospice)? DNR status @ -No What co-morbidities impacted this encounter? (DM, HTN, Smoking, COPD, CAD, Cancer, CVA, ARF, Chemo, Hep., AIDS, mental health diagnosis, sleep apnea, morbid obesity)? @ -None Was patient admitted / discharged? Hospital course, mention meds given and route, prescriptions, significant lab abnormalities, going to OR and other pertinent info. @ -Admitted patient has active Crohn's exacerbation. Patient was started on IV steroids, fluids analgesics antiemetics. Patient will be admitted to medicine with consult to GI Undiagnosed new problem with uncertain prognosis? @ -No Drug Therapy requiring intensive monitoring for toxicity (Heparin, Nitro, Insulin, Cardizem)? @ -No Were any procedures done? @ -No Diagnosis/symptom? @ -Crohn's exacerbation, ileitis Acute, or Chronic, or Acute on Chronic? @ -Acute Uncomplicated (without systemic symptoms) or Complicated (systemic symptoms)? @ -Complicated Side effects of treatment? @ -No Exacerbation, Progression, or Severe Exacerbation? @ -No Poses a threat to life or bodily function? How? (Chest pain, [place], [place], pneumonia, PE, COPD, DKA, ARF, appy, cholecystitis, CVA, Diverticulitis, Homicidal, Suicidal, threat to staff... and all critical care pts) @ -No - Lab Data Result diagrams: 02/26/24 08:15 02/26/24 08:15 Lab Results 02/26/24 02/26/24 02/26/24 Range/Units 08:15 08:15 08:15 WBC 10.3 (3.8-10.6) k/uL RBC 5.34 (4.30-5.90) m/uL Hgb 16.4 (13.0-17.5) gm/dL Hct 47.9 (39.0-53.0) % MCV 89.6 (80.0-100.0) fL MCH 30.7 (25.0-35.0) pg MCHC 34.3 (31.0-37.0) g/dL RDW 13.4 (11.5-15.5) % Plt Count 407 (150-450) k/uL MPV 6.6 Neutrophils % 67 % Lymphocytes % 20 % Monocytes % 7 % Eosinophils % 3 % Basophils % 1 % Neutrophils # 6.9 (1.3-7.7) k/uL Lymphocytes # 2.1 (1.0-4.8) k/uL Monocytes # 0.8 (0-1.0) k/uL Eosinophils # 0.3 (0-0.7) k/uL Basophils # 0.1 (0-0.2) k/uL PT 10.8 (10.0-12.5) sec INR 1.0 (<1.2) APTT 25.3 (22.0-30.0) sec Sodium 140 (137-145) mmol/L Potassium 2.9 L (3.5-5.1) mmol/L Chloride 102 (98-107) mmol/L Carbon Dioxide 26 (22-30) mmol/L Anion Gap 12 mmol/L BUN 15 (9-20) mg/dL Creatinine 0.96 (0.66-1.25) mg/dL Est GFR (CKD-EPI)AfAm >90 (>60 ml/min/1.73 sqM) Est GFR (CKD-EPI)NonAf >90 (>60 ml/min/1.73 sqM) Glucose 113 H (74-99) mg/dL Lactic Ac Sepsis Rflx Plasma Lactic Acid Donnell (0.7-2.0) mmol/L Calcium 10.2 (8.4-10.2) mg/dL Total Bilirubin 0.6 (0.2-1.3) mg/dL AST 23 (17-59) U/L ALT 26 (4-49) U/L Alkaline Phosphatase 91 (38-126) U/L C-Reactive Protein (<1.0) mg/dL Total Protein 7.7 (6.3-8.2) g/dL Albumin 4.6 (3.5-5.0) g/dL 02/26/24 02/26/24 02/26/24 Range/Units 08:15 08:15 08:45 WBC (3.8-10.6) k/uL RBC (4.30-5.90) m/uL Hgb (13.0-17.5) gm/dL Hct (39.0-53.0) % MCV (80.0-100.0) fL MCH (25.0-35.0) pg MCHC (31.0-37.0) g/dL RDW (11.5-15.5) % Plt Count (150-450) k/uL MPV Neutrophils % % Lymphocytes % % Monocytes % % Eosinophils % % Basophils % % Neutrophils # (1.3-7.7) k/uL Lymphocytes # (1.0-4.8) k/uL Monocytes # (0-1.0) k/uL Eosinophils # (0-0.7) k/uL Basophils # (0-0.2) k/uL PT (10.0-12.5) sec INR (<1.2) APTT (22.0-30.0) sec Sodium (137-145) mmol/L Potassium (3.5-5.1) mmol/L Chloride (98-107) mmol/L Carbon Dioxide (22-30) mmol/L Anion Gap mmol/L BUN (9-20) mg/dL Creatinine (0.66-1.25) mg/dL Est GFR (CKD-EPI)AfAm (>60 ml/min/1.73 sqM) Est GFR (CKD-EPI)NonAf (>60 ml/min/1.73 sqM) Glucose (74-99) mg/dL Lactic Ac Sepsis Rflx Y Plasma Lactic Acid Donnell 2.2 H* (0.7-2.0) mmol/L Calcium (8.4-10.2) mg/dL Total Bilirubin (0.2-1.3) mg/dL AST (17-59) U/L ALT (4-49) U/L Alkaline Phosphatase (38-126) U/L C-Reactive Protein 2.2 H (<1.0) mg/dL Total Protein (6.3-8.2) g/dL Albumin (3.5-5.0) g/dL Disposition Clinical Impression: Crohn's ileitis, Abdominal pain, Crohns disease, Hypokalemia Disposition: ADMITTED IP TO THIS HOSP Condition: Fair Time of Disposition: 10:41
[2024-02-26] MEDS: ONDANSETRON 4 MG/2 ML VIAL IVP STA (08:20)
[2024-02-26] MEDS: SODIUM CHLORIDE 0.9% 1,000 ML IV STA (08:20)
[2024-02-26] MEDS: HYDROmorphone 1 MG/ML 1 ML SYRINGE IVP STA (08:20)
[2024-02-26 08:25] LABS: Basophils # (A) 0.1 k/uL (0-0.2); Basophils % (A) 1 %; Eosinophils # (A) 0.3 k/uL (0-0.7); Eosinophils % (A) 3 %; HCT 47.9 % (39.0-53.0); HGB 16.4 gm/dL (13.0-17.5); Lymphocytes # (A) 2.1 k/uL (1.0-4.8); Lymphocytes % (A) 20 %; MCH 30.7 pg (25.0-35.0); MCHC 34.3 g/dL (31.0-37.0); MCV 89.6 fL (80.0-100.0); Mean Platelet Volume 6.6; Monocytes # (A) 0.8 k/uL (0-1.0); Monocytes % (A) 7 %; Neutrophils # (A) 6.9 k/uL (1.3-7.7); Neutrophils % (A) 67 %; Platelet Count 407 k/uL (150-450); RBC 5.34 m/uL (4.30-5.90); RDW 13.4 % (11.5-15.5); WBC 10.3 k/uL (3.8-10.6)
[2024-02-26 08:37] LABS: ALT 26 U/L (4-49); AST 23 U/L (17-59); African American GFR (CKD) >90 (>60 ml/min/1.73 sqM); Albumin 4.6 g/dL (3.5-5.0); Alkaline Phosphatase 91 U/L (38-126); Anion Gap 12 mmol/L; Blood Urea Nitrogen 15 mg/dL (9-20); Calcium 10.2 mg/dL (8.4-10.2); Carbon Dioxide 26 mmol/L (22-30); Chloride 102 mmol/L (98-107); Glucose 113 mg/dL (74-99); Non-African American GFR(CKD) >90 (>60 ml/min/1.73 sqM); Potassium 2.9 mmol/L (3.5-5.1); Sodium 140 mmol/L (137-145); Total Bilirubin 0.6 mg/dL (0.2-1.3); Total Protein 7.7 g/dL (6.3-8.2)
[2024-02-26 08:38] LABS: Partial Thromboplastin Time 25.3 sec (22.0-30.0); Prothrombin Time 10.8 sec (10.0-12.5)
--- NOTE | 2024-02-26 09:17 | CT ---
EXAMINATION TYPE: CT abdomen pelvis w con DATE OF EXAM: 02/26/2024 8:46 AM COMPARISON: 04/04/2023 CLINICAL INDICATION: Male, 53 years old with history of abdominal pain; RLQ pain, history of chrons a nd bowel resection for obstruction TECHNIQUE: Axial CT abdomen pelvis w con;Sagittal and coronal reformats were created on a separate w orkstation. Contrast used:100 mL of Isovue 300 with IV Contrast, (none if empty) Oral contrast used: without Oral Contrast (none if empty) CT DLP: 1825.6 mGycm, Automated exposure control for dose reduction was used. FINDINGS: LOWER CHEST: Unremarkable ABDOMEN LIVER: Diffusely hypoattenuating parenchyma. GALLBLADDER AND BILE DUCTS: The gallbladder is surgically absent. PANCREAS: Unremarkable. SPLEEN: Unremarkable. ADRENAL GLANDS: Unremarkable. KIDNEYS AND URETERS: No evidence of hydronephrosis or renal calculus. The ureters are unremarkable. PELVIS BLADDER: No evidence for wall thickening or mass given limitations of exam. REPRODUCTIVE: Unremarkable. ABDOMEN & PELVIS STOMACH AND BOWEL: No evidence of bowel obstruction. Circumferential wall thickening of the terminal ileum with hyperemia measuring up to 8 mm in wall thickness and extending at least 18 cm in length. P ost surgical changes to the terminal ileum and right colon. PERITONEUM/RETROPERITONEUM: No evidence of pneumoperitoneum or free fluid. VASCULATURE: No evidence of aortic aneurysm. MUSCULOSKELETAL: No acute osseous abnormalities LYMPH NODES: Right lower quadrant reactive lymph nodes in the mesentery in the distribution of ileiti s. SOFT TISSUE/ABDOMINAL WALL: Unremarkable IMPRESSION: 1. Right lower quadrant ileitis without evidence for obstruction. No organizing fluid collection at this time. Findings compatible with active Crohn's disease. Less upstream stool from prior CT on 04/04. 2. Hepatic steatosis. [facility], , 02/26/2024 9:15 AM
[2024-02-26] MEDS: HYDROmorphone 0.5 MG/0.5 ML SYRINGE IVP STA (10:25)
[2024-02-26] MEDS: methylPREDNISolone SOD SUCCI 125 MG/2 ML VIAL IV STA (10:25)
[2024-02-26] MEDS ORDERED: NALOXONE 0.4 MG/ML 1 ML VIAL IV PRN (10:42)
[2024-02-26] MEDS: SODIUM CHLORIDE 0.9% 1,000 ML IV SCH (11:24)
[2024-02-26] MEDS ORDERED: Potassium Replacement Protocol 1 EACH MISC MISCELLANE PRN (13:11)
[2024-02-26] MEDS: POTASSIUM CHLORIDE ER 20 MEQ TAB.ER PO SCH (13:57)
[2024-02-26] MEDS: HYDROmorphone 0.5 MG/0.5 ML SYRINGE IVP PRN (13:57)
--- NOTE | 2024-02-26 14:19 | P.CONS ---
History of Present Illness - Reason for Consult Consult date: 02/26/24 Crohn's exacerbation Requesting physician: Marc Schmidt - Chief Complaint Abdominal pain - History of Present Illness This a pleasant 53-year-old male with a past medical history of Crohn's disease diagnosed about 30 years ago who underwent terminal ileal resection about 20 years ago. Patient states he has been very well-controlled on Stelara every 8 weeks. He had a recent colonoscopy on 12/26/[address] Rodríguez with findings of tight stricture at the ileocolic anastomosis in the right colon with multiple superficial erosions. Unable to advance into the distal ileum rest of colon appeared normal. Recommendations at that time was to follow-up in the office an d possibly consider increasing Stelara to every 4 weeks. Patient states that he had been well-controlled so they kept him at 8 weeks. He started presenting with abdominal pain yesterday around 7 PM associated with nausea and vomiting. Most of the pain is in the right lower abdomen. States he is having very small bowel movements with no blood. No bowel movement today. He was given dose of Solu-Medrol and pain medication. He is afebrile, no leukocytosis. Review of Systems REVIEW OF SYSTEMS: CARDIOPULMONARY: No chest pain or shortness of breath. Gastrointestinal: Abdominal pain. Nausea and vomiting No hematemesis, coffee- ground emesis. No rectal bleeding, or melena. GENITOURINARY: No dysuria or hematuria. MUSCULOSKELETAL: Reports normal range of motion. SKIN: No rashes. No jaundice. ENDOCRINE: No chills, fevers. No excessive weight gain or loss. No polydipsia or polyuria. PSYCHIATRIC: Unremarkable. NEUROLOGY: No change in mental status. Denies dizziness, headache. ENT: Vision unremarkable. CONSTITUTIONAL: No recent weight loss. No fever, chills, night sweats. Past Medical History Past Medical History: CVA/TIA Additional Past Medical History / Comment(s): Crohns disease with bowel obstructions. stroke with right sided weakness. 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 History of Any Multi-Drug Resistant Organisms: None Reported Past Surgical History: Appendectomy, Bowel Resection, Cholecystectomy Additional Past Surgical History / Comment(s): resection of colon x2, colonoscopy, shoulder surgery, thrombectomy/TPA Past Anesthesia/Blood Transfusion Reactions: No Reported Reaction Past Psychological History: ADD/ADHD Smoking Status: Former smoker Past Alcohol Use History: None Reported Past Drug Use History: None Reported - Past Family History Mother Family Medical History: No Reported History Father Family Medical History: No Reported History Medications and Allergies Home Medications Medication Instructions Recorded Confirmed Type Aspirin 81 mg PO DAILY 12/24/22 02/26/24 History Ustekinumab [Stelara] 90 mg SQ Q56D 12/25/22 02/26/24 History Atorvastatin [Lipitor] 40 mg PO DAILY 02/26/24 02/26/24 History Clopidogrel [Plavix] 75 mg PO DAILY 02/26/24 02/26/24 History DULoxetine HCL [Cymbalta] 30 mg PO DAILY 02/26/24 02/26/24 History Gabapentin [Neurontin] 300 mg PO TID 02/26/24 02/26/24 History Tirzepatide [Zepbound] 5 mg SQ TH 02/26/24 02/26/24 History Allergies Allergy/AdvReac Type Severity Reaction Status Date / Time morphine AdvReac Nausea & Verified 02/26/24 11:21 Vomiting Physical Exam Vitals: Vital Signs Temp Pulse Resp BP Pulse Ox 02/26/24 10:25 97.8 F 82 16 116/86 97 02/26/24 07:40 97.7 F 97 18 147/97 95 Intake and Output 02/25/24 02/26/24 02/26/24 22:59 06:59 14:59 Other: Weight 102.058 kg General appearance: The patient is alert, oriented, appears in no acute distress. HET: Head is normocephalic and atraumatic. Conjunctiva pink. Sclera anicteric. Neck: Supple without lymphadenopathy. Trachea midline. Heart: Regular. Lungs: Equal expansion, normal respiratory effort. Abdomen: Soft, tenderness right lower quadrant, nondistended. Skin: No rashes. No jaundice. Extremities: Normal skin color and turgor. No pedal edema. Neurological: No focal deficits. Alert and oriented x3. Results CBC & Chem 7: 02/26/24 08:15 02/26/24 08:15 Labs: Abnormal Lab Results - Last 24 Hours (Table) 02/26/24 02/26/24 Range/Units 08:15 08:15 Potassium 2.9 L (3.5-5.1) mmol/L Glucose 113 H (74-99) mg/dL Plasma Lactic Acid Donnell 2.2 H* (0.7-2.0) mmol/L Comments: CT abdomen pelvis with contrast reports right lower quadrant ileitis without evidence for obstruction. No organizing fluid collection at this time. Findings compatible with active Crohn's disease. Less upstream stool from prior CT on 04/04/2023. Hepatic steatosis. Assessment and Plan (1) Abdominal pain Narrative/Plan: 53-year-old male presenting with abdominal pain nausea and vomiting x 1 day duration with a history of Crohn's disease diagnosed 30 years ago status post terminal ileal resection about 20 years ago. Patient with complaints of right lower quadrant abdominal pain which is consistent with CT findings of right lower quadrant ileitis. Patient likely having a Crohn's flare. Will treat with IV steroids. CRP sed rate ordered. No signs of infection no leukocytosis or fevers. Current Visit: Yes Status: Acute Code(s): R10.9 - UNSPECIFIED ABDOMINAL PAIN SNOMED Code(s): 40145911 (2) Crohns disease Current Visit: Yes Status: Acute Code(s): K50.90 - CROHN'S DISEASE, UNSPECIFIED, WITHOUT COMPLICATIONS SNOMED Code(s): 43315071 Plan: 1. Continue symptomatic and supportive care 2. Continue pain medication as needed 3. Clear liquid diet as tolerated 4. Solu-Medrol 20 mg every 8 hours 5. CRP and sed rate order 6. Protonix 40 mg daily for GI prophylaxis 7. Further recommendations forthcoming based on clinical course Thank you for this consultation, we will continue to follow. Dr. Shira Jordan I agree with the dictator's note, documented as a scribe by Yesi Joshua.
--- NOTE | 2024-02-26 15:02 | P.HPIM ---
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 Patient states that his abdominal pain started last night. He states that it came on suddenly and was similar to his previous Crohn's exacerbations. Patient states that his last Crohn's exacerbation was months ago (per chart last time admitted for Crohn's exacerbation was in March 2023). He states that ever since he switched his immunotherapy from Remicade to a Stelara his Crohn's has been better controlled. He states that he follows up with gastroenterology. Patient states that he has been under a lot of stress since he stopped working after he had a stroke. Patient currently states that his pain is a 7 out of 10. He luna cribes the pain is mainly in his right lower quadrant. In the ED patient CT abdomen pelvis showed right lower quadrant ileitis without evidence of obstruction. Findings are compatible with active Crohn's disease. Patient was then referred to the medicine service. ROS: 10 ROS reviewed and are negative except as noted in HPI Physical exam General: [Alert and oriented, well nourished, no acute distress]. Eye: [PERRL, EOMI, normal conjunctiva]. HENT: [Normocephalic, clear tympanic membranes, normal hearing, moist oral mucosa, no scleral icterus, no sinus tenderness]. Neck: [Supple, non-tender, no carotid bruits, no JVD, no lymphadenopathy]. Lungs: [Clear to auscultation and percussion, non-labored respiration]. Heart: [Normal rate, regular rhythm, no murmur, gallop or edema]. Abdomen: [Tenderness to palpate in the right lower quadrant, non-distended, normal bowel sounds, no masses]. Musculoskeletal: [Normal range of motion and strength, no tenderness or swelling]. Skin: [Skin is warm, dry and pink, no rashes or lesions]. Neurologic: [Numbness on the left side]. Psychiatric: [Cooperative, appropriate mood and affect]. Assessment and plan Crohn's exacerbation I discussed the case with the ED provider and accepted patient for admission for treatment of his Crohn's exacerbation I reviewed CT scan that shows findings consistent with Crohn's exacerbation Continue with IV Solu-Medrol 20 mg every 8 hours Gastroenterology consult Check CRP and sed rate IV Dilaudid 0.5 mg every 3 hours as needed for pain Clear liquid diet IV Zofran 4 mg every 8 hours as needed for nausea vomiting IV fluids normal saline 75 cc an hour. Hypokalemia Potassium 2.9 on admission Will give the patient 60 mill equivalents of potassium chloride and start potassium replacement protocol. Trend BMP Lactic acid secondary to dehydration Resolved with fluids History of stroke with right-sided numbness and left upper extremity numbness Continue with aspirin 81 mg p.o. daily, Plavix and 5 mg p.o. 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 3 times daily DVT prophylaxis: Lovenox Past Medical History Past Medical History: CVA/TIA Additional Past Medical History / Comment(s): Crohns disease with bowel obstructions. stroke with right sided weakness. 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 History of Any Multi-Drug Resistant Organisms: None Reported Past Surgical History: Appendectomy, Bowel Resection, Cholecystectomy Additional Past Surgical History / Comment(s): resection of colon x2, colonoscopy, shoulder surgery, thrombectomy/TPA Past Anesthesia/Blood Transfusion Reactions: No Reported Reaction Past Psychological History: ADD/ADHD Smoking Status: Former smoker Past Alcohol Use History: None Reported Past Drug Use History: None Reported - Past Family History Mother Family Medical History: No Reported History Father Family Medical History: No Reported History Medications and Allergies Home Medications Medication Instructions Recorded Confirmed Type Aspirin 81 mg PO DAILY 12/24/22 02/26/24 History Ustekinumab [Stelara] 90 mg SQ Q56D 12/25/22 02/26/24 History Atorvastatin [Lipitor] 40 mg PO DAILY 02/26/24 02/26/24 History Clopidogrel [Plavix] 75 mg PO DAILY 02/26/24 02/26/24 History DULoxetine HCL [Cymbalta] 30 mg PO DAILY 02/26/24 02/26/24 History Gabapentin [Neurontin] 300 mg PO TID 02/26/24 02/26/24 History Tirzepatide [Zepbound] 5 mg SQ TH 02/26/24 02/26/24 History Allergies Allergy/AdvReac Type Severity Reaction Status Date / Time morphine AdvReac Nausea & Verified 02/26/24 11:21 Vomiting Physical Exam Osteopathic Statement: *. No significant issues noted on an osteopathic structural exam other than those noted in the History and Physical/Consult. Vitals: Vital Signs Temp Pulse Resp BP Pulse Ox 02/26/24 10:25 97.8 F 82 16 116/86 97 02/26/24 07:40 97.7 F 97 18 147/97 95 Intake and Output 02/26/24 02/26/24 02/26/24 06:59 14:59 22:59 Other: Weight 102.058 kg Results CBC & Chem 7: 02/26/24 08:15 02/26/24 08:15 Labs: Abnormal Lab Results - Last 24 Hours (Table) 02/26/24 02/26/24 Range/Units 08:15 08:15 Potassium 2.9 L (3.5-5.1) mmol/L Glucose 113 H (74-99) mg/dL Plasma Lactic Acid Donnell 2.2 H* (0.7-2.0) mmol/L
[2024-02-26] MEDS: methylPREDNISolone SOD SUCCI 40 MG/ML 1 ML VIAL IV SCH (16:33)
[2024-02-26] MEDS: GABAPENTIN 300 MG CAP PO SCH (16:33)
[2024-02-26] MEDS: ONDANSETRON 4 MG/2 ML VIAL IVP PRN (23:30)
[2024-02-27 08:39] LABS: Basophils # (A) 0.01 X 10*3/uL (0.00-0.10); Basophils % (A) 0.1 %; Eosinophils # (A) 0 X 10*3/uL (0.04-0.35); Eosinophils % (A) 0 %; HCT 39.9 % (39.6-50.0); HGB 13.3 g/dL (13.0-17.0); Lymphocytes # (A) 1.11 X 10*3/uL (0.90-5.00); Lymphocytes % (A) 13.2 %; MCH 29.2 pg (27.0-32.0); MCHC 33.3 g/dL (32.0-37.0); MCV 87.5 FL (80.0-97.0); Mean Platelet Volume 9.4 FL (9.5-12.2); Monocytes # (A) 0.38 X 10*3/uL (0.20-1.00); Monocytes % (A) 4.5 %; NRBC Per 100 WBC 0 X 10*3/uL (0.00-0.01); Neutrophils # (A) 6.86 X 10*3/uL (1.80-7.70); Platelet Count 389 X 10*3/uL (140-440); RBC 4.56 X 10*6/uL (4.40-5.60); RDW 13.6 % (11.5-14.5); WBC 8.38 X 10*3/uL (4.50-10.00)
[2024-02-27] MEDS: ENOXAPARIN 40 MG/0.4 ML SYRINGE SQ SCH (08:52)
[2024-02-27] MEDS: CLOPIDOGREL 75 MG TAB PO SCH (08:54)
[2024-02-27] MEDS: ATORVASTATIN 40 MG TAB PO SCH (08:54)
[2024-02-27] MEDS: ASPIRIN 81 MG PO SCH (08:54)
[2024-02-27 08:55] LABS: BUN/Creat Ratio 17.38 Ratio (12.00-20.00); Blood Urea Nitrogen 13.9 mg/dL (9.0-27.0); Calcium 9.1 mg/dL (8.7-10.3); Carbon Dioxide 21.6 mmol/L (21.6-31.8); Chloride 104 mmol/L (96-109); Glucose 120 mg/dL (70-110); Potassium 3.8 mmol/L (3.5-5.5); Sodium 141 mmol/L (135-145)
[2024-02-27] MEDS: DULoxetine HCL 30 MG CAPSULE.DR PO SCH (08:55)
--- NOTE | 2024-02-27 12:18 | P.PN ---
Subjective Progress Note Date: 02/27/24 Principal diagnosis: Crohn's exacerbation This a pleasant 53-year-old male with a past medical history of Crohn's disease diagnosed about 30 years ago who underwent terminal ileal resection about 20 years ago. Patient states he has been very well-controlled on Stelara every 8 w eeks. He had a recent colonoscopy on 12/26/[address] Rodríguez with findings of tight stricture at the ileocolic anastomosis in the right colon with multiple superficial erosions. Unable to advance into the distal ileum rest of colon appeared normal. Recommendations at that time was to follow-up in the office and possibly consider increasing Stelara to every 4 weeks. Patient states that he had been well-controlled so they kept him at 8 weeks. He started presenting with abdominal pain yesterday around 7 PM associated with nausea and vomiting. Most of the pain is in the right lower abdomen. States he is having very small bowel movements with no blood. No bowel movement today. He was given dose of Solu-Medrol and pain medication. He is afebrile, no leukocytosis. 02/27/2024 Patient seen and examined today as a follow-up. States he is feeling better. Overall abdominal pain has improved, however he did state that having clear liquids yesterday evening he had some abdominal pain. No blood per rectum or diarrhea. Inflammatory markers elevated. Sed rate 31 CRP 2.2. Objective - Vital Signs Vital signs: Vital Signs Temp 97.5 F L 02/27/24 01:22 Pulse 61 02/27/24 01:22 Resp 15 02/27/24 01:22 BP 100/59 02/27/24 01:22 Pulse Ox 93 L 02/27/24 01:22 FiO2 Intake & Output 02/26/24 02/26/24 02/27/24 06:59 18:59 06:59 Weight 102.058 kg 102.058 kg Other: # Voids 1 - Exam General appearance: The patient is alert, oriented, appears in no acute distress. HET: Head is normocephalic and atraumatic. Conjunctiva pink. Sclera anicteric. Neck: Supple without lymphadenopathy. Abdomen: Soft, right lower quadrant tenderness, nondistended. Extremities: Normal skin color and turgor. No pedal edema Skin: No rashes, no jaundice Neurological: No focal deficits. Alert and oriented. - Labs CBC & Chem 7: 02/27/24 04:41 02/27/24 04:41 Labs: Abnormal Lab Results - Last 24 Hours (Table) 02/26/24 02/26/24 02/26/24 Range/Units 08:15 08:15 08:15 ESR 31 H (0-20) mm/Hr Potassium 2.9 L (3.5-5.1) mmol/L Glucose 113 H (74-99) mg/dL Plasma Lactic Acid Donnell 2.2 H* (0.7-2.0) mmol/L C-Reactive Protein (<1.0) mg/dL 02/26/24 Range/Units 08:15 ESR (0-20) mm/Hr Potassium (3.5-5.1) mmol/L Glucose (74-99) mg/dL Plasma Lactic Acid Donnell (0.7-2.0) mmol/L C-Reactive Protein 2.2 H (<1.0) mg/dL Assessment and Plan (1) Abdominal pain Narrative/Plan: 53-year-old male presenting with abdominal pain nausea and vomiting x 1 day duration with a history of Crohn's disease diagnosed 30 years ago status post terminal ileal resection about 20 years ago. Patient with complaints of right lower quadrant abdominal pain which is consistent with CT findings of right lower quadrant ileitis. Patient likely having a Crohn's flare. Will treat with IV steroids. CRP sed rate ordered. No signs of infection no leukocytosis or fevers. Current Visit: Yes Status: Acute Code(s): R10.9 - UNSPECIFIED ABDOMINAL PAIN SNOMED Code(s): 91485805 (2) Crohns disease Current Visit: Yes Status: Acute Code(s): K50.90 - CROHN'S DISEASE, UNSPECIFIED, WITHOUT COMPLICATIONS SNOMED Code(s): 21134252 Plan: 1. Continue symptomatic and supportive care 2. Continue pain medication as needed 3. Clear liquid diet as tolerated advance as tolerated 4. Solu-Medrol 20 mg every 8 hours. Recommend IV steroids for another 24-48 hours based on symptoms. Then may transition to prednisone 40 mg daily. Prednisone taper will be sent to pharmacy 5. No plans on endoscopic evaluation 6. Protonix 40 mg daily for GI prophylaxis Thank you for allowing us to participate in the care of the patient, the GI service will sign off, gastroenterology will not be available at the hospital this weekend. Patient to follow-up with gastroenterology in [address] Shira Jordan I agree with the dictator's note, documented as a scribe by Yesi Joshua.
--- NOTE | 2024-02-27 13:24 | P.PN ---
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 Patient states that his abdominal pain started last night. He states that it came on suddenly and was similar to his previous Crohn's exacerbations. Patient states that his last Crohn's exacerbation was months ago (per chart last time admitted for Crohn's exacerbation was in March 2023). He states that ever since he switched his immunotherapy from Remicade to a Stelara his Crohn's has been better controlled. He states that he follows up with gastroenterology. Patient states that he has been under a lot of stress since he stopped working after he had a stroke. Patient currently states that his pain is a 7 out of 10. He describes the pain is mainly in his right lower quadrant. In the ED patient CT abdomen pelvis showed right lower quadrant ileitis without evidence of obstruction. Findings are compatible with active Crohn's disease. Patient was then referred to the medicine service. Patient seen this morning. He states that his abdominal pain is better today. Physical exam General examination - Alert and Oriented 3 in NAD Heart - + S1S2 no murmurs Lungs - Clear to auscultation Abdomen soft NT ND +ve BS Extremities - No edema [employer] - Moving all 4 extremities spontaneously Psych - Calm and cooperative Assessment and plan Crohn's exacerbation Continue with IV Solu-Medrol 20 mg every 8 hours Discussed with gastroenterology who said the patient could be discharged tomorrow. Gastroenterology has sent prescription for prednisone taper. IV Dilaudid 0.5 mg every 3 hours as needed for pain Clear liquid diet IV Zofran 4 mg every 8 hours as needed for nausea vomiting IV fluids normal saline 75 cc an hour. Hypokalemia This morning potassium is 3.8 Lactic acid secondary to dehydration Resolved with fluids History of stroke with right-sided numbness and left upper extremity numbness Continue with aspirin 81 mg p.o. daily, Plavix and 5 mg p.o. 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 3 times daily DVT prophylaxis: Lovenox Labs unremarkable so no need to trend Objective - Vital Signs Vital signs: Vital Signs Temp 97.5 F L 02/27/24 06:48 Pulse 62 02/27/24 06:48 Resp 16 02/27/24 06:48 BP 111/71 02/27/24 06:48 Pulse Ox 94 L 02/27/24 06:48 FiO2 Intake & Output 02/26/24 02/27/24 02/27/24 18:59 06:59 18:59 Weight 102.058 kg 102.058 kg Other: # Voids 1 - Labs CBC & Chem 7: 02/27/24 04:41 02/27/24 04:41 Labs: Abnormal Lab Results - Last 24 Hours (Table) 02/26/24 02/26/24 02/27/24 Range/Units 08:15 08:15 04:41 MPV 9.4 L (9.5-12.2) FL Eosinophils # 0 L (0.04-0.35) X 10*3/uL ESR 31 H (0-20) mm/Hr Anion Gap (4.00-12.00) mmol/L Glucose (70-110) mg/dL C-Reactive Protein 2.2 H (<1.0) mg/dL 02/27/24 Range/Units 04:41 MPV (9.5-12.2) FL Eosinophils # (0.04-0.35) X 10*3/uL ESR (0-20) mm/Hr Anion Gap 15.40 H (4.00-12.00) mmol/L Glucose 120 H (70-110) mg/dL C-Reactive Protein (<1.0) mg/dL
[2024-02-28 08:13] VITALS: BP 139/83; PULSE 68; RESP 16; TEMP 98.1
--- NOTE | 2024-02-28 09:48 | P.DS ---
Providers Date of admission: 02/26/24 10:09 Attending physician: Lucero Cole MD Consults: 02/26/24 10:42 Consult Physician Urgent Consulting Provider: Yumi Jordan Consult Reason/Comments: Crohn's exacerbation Do you want consulting provider notified?: Yes Primary care physician: [facility] Course: Discharge Diagnosis: Crohn's exacerbation Hypokalemia: Resolved Lactic acid elevated secondary dehydration: Resolved History of stroke with right-sided numbness and left upper extremity numbness Anxiety and depression Neuropathy from stroke Hospital Course: Patient is a 52-year-old male with a past medical history of chronic disease status post multiple resections and recurrent small bowel obstruction, history of CVA with right-sided numbness, 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 Patient states that his abdominal pain started last night. He states that it came on suddenly and was similar to his previous Crohn's exacerbations. Patient states that his last Crohn's exacerbation was months ago (per chart last time admitted for Crohn's exacerbation was in March 2023). He states that ever since he switched his immunotherapy from Remicade to a Stelara his Crohn's has been better controlled. He states that he follows up with gastroenterology. Patient states that he has been under a lot of stress since he stopped working after he had a stroke. Patient currently states that his pain is a 7 out of 10. He describes the pain is mainly in his right lower quadrant. In the ED patient CT abdomen pelvis showed right lower quadrant ileitis without evidence of obstruction. Findings are compatible with active Crohn's disease. Patient was then referred to the medicine service. Patient was started on IV steroids. His abdominal pain improved. He was started on a diet. He was able to tolerate the diet. At the time of discharge patient wanted to go home. GI prescribed a slow tapering course of steroids. Patient started to follow-up with GI in a week. Patient seen and examined at bedside.[] Vital signs reviewed and stable. General: [non toxic], [no distress], [appears at stated age] Derm: [warm], [dry] Head: [atraumatic], [normocephalic], [symmetric] Eyes: [EOMI], [no lid lag], [anicteric sclera] Mouth: [no lip lesion], [mucus membranes moist] Cardiovascular: [S1S2 reg], [no murmur], [positive posterior tibial pulse bilateral], Lungs: [CTA bilateral], [no rhonchi, no rales] , [no accessory muscle use] Abdominal: [soft], [ nontender to palpation], [no guarding], [no appreciable organomegaly] Ext: [no gross muscle atrophy], [no edema], [no contractures] Neuro: [ CN II-XI grossly intact], [no focal neuro deficits] Psych: [Alert], [oriented], [appropriate affect] A total of [33] minutes of time were spent preparing this complex discharge summary . Patient discharged on [02/27/2025] Patient Condition at Discharge: Fair Plan - Discharge Summary Discharge Rx Participant: No New Discharge Prescriptions: New predniSONE 10 mg PO DAILY #126 tab Continue Ustekinumab [Stelara] 90 mg SQ Q56D Tirzepatide [Zepbound] 5 mg SQ TH Atorvastatin [Lipitor] 40 mg PO DAILY Aspirin 81 mg PO DAILY Gabapentin [Neurontin] 300 mg PO TID DULoxetine HCL [Cymbalta] 30 mg PO DAILY Clopidogrel [Plavix] 75 mg PO DAILY Discharge Medication List Aspirin 81 mg PO DAILY 12/24/22 [History] Ustekinumab [Stelara] 90 mg SQ Q56D 12/25/22 [History] Atorvastatin [Lipitor] 40 mg PO DAILY 02/26/24 [History] Clopidogrel [Plavix] 75 mg PO DAILY 02/26/24 [History] DULoxetine HCL [Cymbalta] 30 mg PO DAILY 02/26/24 [History] Gabapentin [Neurontin] 300 mg PO TID 02/26/24 [History] Tirzepatide [Zepbound] 5 mg SQ TH 02/26/24 [History] predniSONE 10 mg PO DAILY #126 tab 02/27/24 [Rx] Follow up Appointment(s)/Referral(s): Bereket Rothman MD [Primary Care Provider] - 1-2 days Yumi Jordan MD [STAFF PHYSICIAN] - 2 Weeks Discharge Disposition: HOME SELF-CARE
== END 2024-02-28 10:55 | disposition home or self-care (01) | DRG 245 ==
LOC: EC 07:35 → 6NMEDSUR 10:08 → OBSVTOIN 10:09 → 4SSUR 18:34
PROVIDERS: ADMIT Internal Medicine; ATTEND Internal Medicine
DX: K50.00 Crohn's disease of small intestine without complications (principal); E87.20 Acidosis, unspecified; E86.0 Dehydration; E87.6 Hypokalemia; F32.A Depression, unspecified; F41.9 Anxiety disorder, unspecified; I69.398 Other sequelae of cerebral infarction; F90.9 Attention-deficit hyperactivity disorder, unspecified type; G62.9 Polyneuropathy, unspecified; I69.351 Hemiplegia and hemiparesis following cerebral infarction affecting right dominant side; Z79.02 Long term (current) use of antithrombotics/antiplatelets; Z79.82 Long term (current) use of aspirin; Z79.899 Other long term (current) drug therapy; Z87.891 Personal history of nicotine dependence; Z88.5 Allergy status to narcotic agent; Z90.49 Acquired absence of other specified parts of digestive tract
CPT/HCPCS: 36415; 74177; 80048; 80053; 83605; 85025; 85610; 85652; 85730; 86140; 96361; 96374; 96375; 96376; 99285

== ENCOUNTER → 2024-04-02 | Outpatient (CLI) | payer OTHER ==
[2024-04-03 02:08] LABS: Basophils # (A) 0.03 X 10*3/uL (0.00-0.10); Basophils % (A) 0.3 %; Eosinophils # (A) 0.13 X 10*3/uL (0.04-0.35); Eosinophils % (A) 1.3 %; HCT 47.6 % (39.6-50.0); HGB 15.3 g/dL (13.0-17.0); Lymphocytes # (A) 3.51 X 10*3/uL (0.90-5.00); Lymphocytes % (A) 34.1 %; MCH 30.1 pg (27.0-32.0); MCHC 32.1 g/dL (32.0-37.0); MCV 93.7 FL (80.0-97.0); Mean Platelet Volume 8.6 FL (9.5-12.2); Monocytes # (A) 0.75 X 10*3/uL (0.20-1.00); Monocytes % (A) 7.3 %; NRBC Per 100 WBC 0 X 10*3/uL (0.00-0.01); Neutrophils # (A) 5.82 X 10*3/uL (1.80-7.70); Neutrophils % (A) 56.4 %; Platelet Count 421 X 10*3/uL (140-440); RBC 5.08 X 10*6/uL (4.40-5.60); RDW 14.9 % (11.5-14.5)
[2024-04-03 02:45] LABS: BUN/Creat Ratio 19.64 Ratio (12.00-20.00); Blood Urea Nitrogen 21.6 mg/dL (9.0-27.0); Calcium 9.7 mg/dL (8.7-10.3); Carbon Dioxide 27.4 mmol/L (21.6-31.8); Chloride 103 mmol/L (96-109); Glucose 105 mg/dL (70-110); Potassium 4.3 mmol/L (3.5-5.5); Prostate Specific Antigen 5.82 ng/mL (0.000-3.500); Sodium 143 mmol/L (135-145)
== END | disposition home or self-care (01) ==
LOC: LABWHC1 16:00
PROVIDERS: ATTEND Urology
DX: Z01.818 Encounter for other preprocedural examination (principal); R97.20 Elevated prostate specific antigen [PSA]
CPT/HCPCS: 36415; 80048; 84153; 85025

== ENCOUNTER → 2024-05-13 | Day surgery (SDC) | payer OTHER ==
--- NOTE | 2024-04-06 19:49 | P.GSHP ---
History of Present Illness H&P Date: 04/06/24 Chief Complaint: Elevated PSA level The patient is a 53-year-old white male with a persistently elevated PSA level. He has no family history of prostate cancer. Prostate MRI reveals a prostate volume of 50.9 cc, with no suspicious lesions seen. His prostate is smooth on examination. He now comes for prostate biopsies. Given his history of Crohn's disease and perirectal abscesses, biopsies will be performed via the transperineal route. - Genitourinary (Male) Genitourinary: Denies dysuria, Denies hematuria, Denies urinary frequency Past Medical History Past Medical History: CVA/TIA Additional Past Medical History / Comment(s): Crohns disease with bowel obstructions. stroke with right sided weakness. 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 History of Any Multi-Drug Resistant Organisms: None Reported Past Surgical History: Appendectomy, Bowel Resection, Cholecystectomy Additional Past Surgical History / Comment(s): resection of colon x2, colonoscopy, shoulder surgery, thrombectomy/TPA Past Anesthesia/Blood Transfusion Reactions: No Reported Reaction Past Psychological History: ADD/ADHD Additional Psychological History / Comment(s): . Smoking Status: Former smoker Past Alcohol Use History: None Reported Additional Past Alcohol Use History / Comment(s): Pt started smoking in 1990 and quit 10/2022 Past Drug Use History: None Reported - Past Family History Mother Family Medical History: No Reported History Father Family Medical History: No Reported History Medications and Allergies Home Medications Medication Instructions Recorded Confirmed Type Aspirin 81 mg PO DAILY 12/24/22 02/26/24 History Ustekinumab [Stelara] 90 mg SQ Q56D 12/25/22 02/26/24 History Atorvastatin [Lipitor] 40 mg PO DAILY 02/26/24 02/26/24 History Clopidogrel [Plavix] 75 mg PO DAILY 02/26/24 02/26/24 History DULoxetine HCL [Cymbalta] 30 mg PO DAILY 02/26/24 02/26/24 History Gabapentin [Neurontin] 300 mg PO TID 02/26/24 02/26/24 History Tirzepatide [Zepbound] 5 mg SQ TH 02/26/24 02/26/24 History predniSONE 10 mg PO DAILY #126 tab 02/27/24 Rx Allergies Allergy/AdvReac Type Severity Reaction Status Date / Time morphine AdvReac Nausea & Verified 02/26/24 11:21 Vomiting Surgical - Exam - General well developed, well nourished, no distress - Respiratory normal respiratory effort - Genitourinary normal penis with no external lesions, testicles non-tender - Rectum Rectum: normal sphincter tone, no masses, other (Prostate moderately enlarged but smooth) - Psychiatric oriented to time, oriented to person, oriented to place, speech is normal, memory intact Assessment and Plan (1) Elevated prostate specific antigen [PSA] Status: Acute Code(s): R97.20 - ELEVATED PROSTATE SPECIFIC ANTIGEN [PSA] SNOMED Code(s): 210365528 Plan: Ultrasound-guided transperineal biopsies of the prostate. The procedure has been reviewed in detail with the patient. He is aware of risks, which include anesthesia, bleeding, and infection.
[2024-05-12 08:36] VITALS: BMI 31.6
[~2024-05-13] MED LIST changes: -BENZOCAINE SPRAY 1 CAN TOPICAL ONE; +DEXAMETHASONE SOD PHOSPHATE 4 MG/ML 1 ML VIAL IV ONE; +HYDROmorphone 0.5 MG/0.5 ML SYRINGE IVP PRN; +LACTATED RINGERS 1,000 ML IV SCH; +LIDOCAINE 1% (10MG/ML) FOR IV START INTRADERMA PRN; +LIDOCAINE 1% INJ 10MG/ML (20 ML MDV) ONE; +MIDAZOLAM 2 MG/2 ML VIAL IV PRN; -MIDAZOLAM 2 MG/2 ML VIAL IVP ONE; +MIDAZOLAM 2 MG/2 ML VIAL ONE; +ONDANSETRON 4 MG/2 ML VIAL IVP ONE; +PROPOFOL 10 MG/ML 20 ML VIAL IV ONE; -SODIUM CHLORIDE 0.9% 1,000 ML IV ONE; +ePHEDrine 50 MG/ML 1 ML VIAL ONE; -fentaNYL (PF) 50 MCG/1 ML VIAL IVP ONE; +fentaNYL (PF) 50 MCG/ML 2 ML AMP IVP PRN
[2024-05-13 11:33] VITALS: TEMP 97
[2024-05-13] MEDS: IV FLUID CONTINUATION 1,000 ML IV ONE (11:33)
[2024-05-13] MEDS: LACTATED RINGERS 1,000 ML IV SCH (11:36)
[2024-05-13] MEDS: ONDANSETRON 4 MG/2 ML VIAL IVP ONE (11:36)
[2024-05-13] MEDS: DEXAMETHASONE SOD PHOSPHATE 4 MG/ML 1 ML VIAL IV ONE (11:37)
[2024-05-13] MEDS: LACTATED RINGERS 1,000 ML IV ONE (13:26)
--- NOTE | 2024-05-13 13:31 | P.OP ---
Date of Procedure: 05/13/24 Preoperative Diagnosis: Elevated PSA level Postoperative Diagnosis: Same Procedure(s) Performed: Ultrasound-guided transperineal prostate biopsies Anesthesia: SEAN Surgeon: [place] Estimated Blood Loss (ml): 5 IV fluids (ml): 800 Condition: stable Disposition: PACU Indications for Procedure: The patient is a 53-year-old white male with a persistently elevated PSA level. He has no family history of prostate cancer. Prostate MRI reveals a prostate volume of 50.9 cc, with no suspicious lesions seen. His prostate is smooth on examination. He now comes for prostate biopsies. Given his history of Crohn's disease and perirectal abscesses, biopsies will be performed via the transperineal route. Operative Findings: No suspicious lesions seen. Biopsies obtained per template. Description of Procedure: The patient was taken to the operating room and placed in the dorsolithotomy position, with his legs supported in Rubio stirrups. The external genitalia was prepped and draped sterilely. The [employer] transrectal ultrasound probe was placed intrarectally, and it was then placed within the stand of the [employer] MRI/TRUS Fusion for Prostate Biopsy system. The prostate was imaged in both the axial and sagittal planes, revealing a prostate volume of 53 mL. Using the Biopty gun, biopsies were obtained from 12 regions using a standard template. 2 biopsies were obtained from each of the posterior regions, 1 closer to the base and the other closer to the apex. A total of 16 biopsies were obtained. Once the procedure was completed, the ultrasound probe was removed. The patient tolerated the procedure well was taken to the recovery room stable condition.
[2024-05-13 14:13] VITALS: RESP 16
[2024-05-13 14:40] VITALS: BP 152/89; PULSE 66
== END | disposition home or self-care (01) ==
LOC: OR 10:43
PROVIDERS: ATTEND Urology
DX: R97.20 Elevated prostate specific antigen [PSA] (principal); K50.912 Crohn's disease, unspecified, with intestinal obstruction; E78.5 Hyperlipidemia, unspecified; G47.33 Obstructive sleep apnea (adult) (pediatric); I69.351 Hemiplegia and hemiparesis following cerebral infarction affecting right dominant side; F90.9 Attention-deficit hyperactivity disorder, unspecified type; Z87.891 Personal history of nicotine dependence; Z79.82 Long term (current) use of aspirin; Z79.02 Long term (current) use of antithrombotics/antiplatelets; Z79.620 Long term (current) use of immunosuppressive biologic; Z79.85 Long-term (current) use of injectable non-insulin antidiabetic drugs; Z79.52 Long term (current) use of systemic steroids; Z79.899 Other long term (current) drug therapy; Z88.5 Allergy status to narcotic agent
CPT/HCPCS: 55700; 88305; J2250; J1100; J0690; J2405; J2003; J3010; J2704